=== PATIENT | female | born 1950 | race Caucasian/White ===

== ENCOUNTER 2017-04-28 13:23 | Observation (INO) | payer MEDICARE, SELFPAY ==
[2017-04-28] VITALS (8 sets, daily range): BP systolic 115–135; BP diastolic 48–62; PULSE 63–76; RESP 16–18; TEMP 37.2–37.7; O2SAT 92–97; BMI 28.5; BMI 28.6; BMI 29.0
--- NOTE | 2017-04-28 13:54 | ED.VISSUMM ---
- ER Visit Summary Date of Service: 04/28/17 Chief Complaint: Cough, vomiting and fever History of Present Illness: The patient is a 67 F 3 of ITP, insulin-dependent diabetes, CAD with prior triple bypass. Since Wednesday evening patient's had a cough and fever. Today at noon started having nausea vomiting. Primary care physician called her in [facility] yesterday. Physical Examination: Older female no acute distress. Vital signs are stable. Her temperature is 99.1. Her pulse ox is 97% on room air no signs of hypoxia. HEENT exam shows dry mucous membrane. Neck nontender no lymphadenopathy. No meningismus. Lungs dry cough but no rales, rhonchi nor wheezing. Equal and symmetrical. Heart regular rhythm no murmur. Abdomen is soft and nontender. Normal bowel sounds. No peritoneal signs. She is moving all 4 extremities. They are neurovascularly intact. Skin without rashes. No petechiae or purpura. Back exam nontender. Neurologically she is awake and alert with no focal motor deficits. Test Results: CBC shows a white count of 5. H&H 1442. Her platelet count is low at 55,000 but that is her baseline she is a history of ITP and her platelets often run between 40,000 to 70,000. PT is unremarkable. Chest x-ray AP and lateral views read by the radiologist as left lingular infiltrate. That is questionable on my own evaluation of the film. Emergency Department Course and Treatment: Patient clinically appears to have influenza. She will be treated with IV fluids and IV Zofran. P.o. fluid challenge. I will obtain screening labs and a chest x-ray. Treatment Plan: Patient was given a second liter of IV fluids. A second dose of Zofran. She still feels uncomfortable being discharged to home and I very spoken to the hospitalist about admission. Due to the possibility of an early lingular infiltrate she was started on both IV Rocephin and Zithromax. I spoke to the hospitalist will be down to evaluate her for possible admission. Disposition: admission Impression: Acute influenza with nausea and vomiting. Rule out post influenza infiltrate History of insulin-dependent diabetes. History of ITP This note was generated with [employer] software. It may contain incorrect words, spelling, and punctuation that were not noted in review of the chart prior to signing ED Disposition - Plan for ED Patient: Chief Complaint: General Illness Referrals: Gulshan Funes DO [Primary Care Provider] -
--- NOTE | 2017-04-28 13:57 | ED.DCSUM_ITS ---
- ER Visit Summary Date of Service: 04/28/17 Chief Complaint: Cough, vomiting and fever History of Present Illness: The patient is a 67 F 3 of ITP, insulin-dependent diabetes, CAD with prior triple bypass. Since Wednesday evening patient's had a cough and fever. Today at noon started having nausea vomiting. Primary care physician called her in [facility] yesterday. Physical Examination: Older female no acute distress. Vital signs are stable. Her temperature is 99.1. Her pulse ox is 97% on room air no signs of hypoxia. HEENT exam shows dry mucous membrane. Neck nontender no lymphadenopathy. No meningismus. Lungs dry cough but no rales, rhonchi nor wheezing. Equal and symmetrical. Heart regular rhythm no murmur. Abdomen is soft and nontender. Normal bowel sounds. No peritoneal signs. She is moving all 4 extremities. They are neurovascularly intact. Skin without rashes. No petechiae or purpura. Back exam nontender. Neurologically she is awake and alert with no focal motor deficits. Test Results: CBC shows a white count of 5. H&H 1442. Her platelet count is low at 55,000 but that is her baseline she is a history of ITP and her platelets often run between 40,000 to 70,000. PT is unremarkable. Chest x-ray AP and lateral views read by the radiologist as left lingular infiltrate. That is questionable on my own evaluation of the film. Emergency Department Course and Treatment: Patient clinically appears to have influenza. She will be treated with IV fluids and IV Zofran. P.o. fluid challenge. I will obtain screening labs and a chest x-ray. Treatment Plan: Patient was given a second liter of IV fluids. A second dose of Zofran. She still feels uncomfortable being discharged to home and I very spoken to the hospitalist about admission. Due to the possibility of an early lingular infiltrate she was started on both IV Rocephin and Zithromax. I spoke to the hospitalist will be down to evaluate her for possible admission. Disposition: admission Impression: Acute influenza with nausea and vomiting. Rule out post influenza infiltrate History of insulin-dependent diabetes. History of ITP This note was generated with [employer] software. It may contain incorrect words, spelling, and punctuation that were not noted in review of the chart prior to signing ED Disposition - Plan for ED Patient: Chief Complaint: General Illness Referrals: Gulshan Funes DO [Primary Care Provider] -
[2017-04-28] MEDS: 0.9% Normal Saline 1,000 ML 1000 ML IV (14:02)
[2017-04-28] MEDS: Ondansetron 4 MG/2 ML Vial IV ×2 (14:02→15:35)
--- NOTE | 2017-04-28 14:15 | RAD_ITS ---
STUDY: X-RAY CHEST REASON FOR EXAM: Female, 67 years old. Cough and fever. TECHNIQUE: PA and lateral views of the chest. COMPARISON: None. FINDINGS: Mild increased markings in the lingular segment of the left upper lobe suggestive of early lingular infiltrate. There is no demonstrated pleural abnormality. Sternal cerclage wires are present from a prior sternotomy. Normal mediastinum and jose miguel. Normal visualized pulmonary arteries. There is atherosclerotic calcification of the aortic arch with tortuosity. Normal visualized thoracic spine. Normal visualized ribs, clavicles, and shoulders. There is no demonstrated abnormality of the visualized soft tissue structures of the upper abdomen. RAD/Chest PA and Lateral IMPRESSION: Findings suggestive of early lingular infiltrates. Electronically Signed: Steve Son MD at 14:28 EST Tel [phone], Service support ,
[2017-04-28 14:16] LABS: Absolute Lymphocyte Count 0.75 X10^3/ul (0.83-4.51); Absolute Neutrophil Count 3.9 X10^3/uL (2.0-7.7); Basophil# 0.02 X10^3/uL; Basophil% 0.4 % (0-1); Eosinophil# 0.01 X10^3/uL; Eosinophils% 0.2 % (0-5); Hematocrit 42.9 % (37-47); Hemoglobin 14.2 g/dl (12.0-15.0); Lymphocyte # 0.75 X10^3/ul (4.0); Lymphocyte % 14.9 % (19-41); Mean Corp Hgb Conc 33.1 g/gl (32-36); Mean Corpuscular Hgb 28.9 pg (27.0-32.0); Mean Corpuscular Volume 87.2 fL (81-99); Mean Platelet Vol. 13.7 fl (6.2-12.0); Monocyte# 0.32 X10^3/uL; Monocyte% 6.3 % (0-10); Neutrophil # 3.93 X10^3/uL (2.7-7.7); Neutrophil % 77.8 % (47-70); POSITIVE COUNT NO; POSITIVE DIFFERENTIAL NO; POSITIVE MORPHOLOGY NO; Platelet Count 55 K/mm3 (150-450); RBC Distribution Width CV 13.2 % (11.6-14.6); Red Blood Count 4.92 M/mm3 (4.2-5.4); White Blood Count 5.1 K/mm3 (4.4-11.0)
[2017-04-28 14:27] LABS: Anion Gap 13 (5-15); BUN 14 mg/dL (7-18); BUN/Creat Ratio 13.5 RATIO (10-20); Calcium,Total 8.2 mg/dL (8.5-10.1); Chloride 103 mmol/L (98-107); Creatinine, Serum 1.04 mg/dL (0.55-1.02); EST Glomerular Filtration Rate 56 mL/min (>60); Est Glom Filt Rate - Afr Amer 68 mL/min (>60); Estimated Creatinine Clearance 48.47 ml/min; Glucose 209 mg/dL (74-106); Potassium 3.7 mmol/L (3.5-5.1); Sodium Level 138 mmol/L (136-145)
[2017-04-28] MEDS: 0.9% Normal Saline 1,000 ML 999 ML IV (15:35)
--- NOTE | 2017-04-28 18:04 | PCM.HP.STD ---
Problem List (1) CAD (coronary artery disease), [place] coronary artery Status: Chronic Qualifiers: [place] vs. 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 Patient is a 67 years old female who presents to ED with complaining of 3 days history of malaise, myalgia, fever, and cough. She was given Tamiflu via PCP, but she felt worse today. She is complaining of nausea and vomiting, and unable to keep any food or liquid today. Rapid influenza test was positive for influenza A. She received IVF in the ED along with antiemetics, but she is complaining of persisting nausea. CXR showed questionable area in lingula, suggestive of developing infiltrate. WBC was normal at 5.1. Temp was 99.8, but she was otherwise hemodynamically stable. Platelet was 55, which is within the range for her history of ITP. She has no sings of active bleeding. Past Medical History Past Medical History (Chronic Problems): Chronic Problems CAD (coronary artery disease), [place] coronary artery (Chronic) DM type 2 (diabetes mellitus, type 2) (Chronic) Chronic ITP (idiopathic thrombocytopenia) (Chronic) Allergies bee venom protein (honey bee) Allergy (Verified 04/28/17 17:21) Anaphylaxis ciprofloxacin [From Cipro] Allergy (Verified 04/28/17 13:27) Anaphylaxis ciprofloxacin HCl [From Cipro] Allergy (Verified 04/28/17 13:27) Anaphylaxis insect venom Allergy (Verified 04/28/17 13:27) Anaphylaxis pine nut Allergy (Verified 04/28/17 17:21) Anaphylaxis trazodone Allergy (Verified 04/28/17 13:27) Shortness of breath corn Adverse Reaction (Verified 04/28/17 13:27) Nausea/Vom/Diarrhea dandelion (Taraxacum officinale) Adverse Reaction (Verified 04/28/17 17:21) ASTHMA/SEASONAL ALLERGIES latex Adverse Reaction (Verified 04/28/17 17:21) RASH D/T POWDER IN GLOVES metoprolol Adverse Reaction (Verified 04/28/17 17:21) Nausea/Vom/Diarrhea omeprazole Adverse Reaction (Verified 04/28/17 13:27) Unknown wheat Adverse Reaction (Verified 04/28/17 17:21) NAUSEA,VOMITING,DIARRHEA Home Medications: Ambulatory Orders Medication Instructions Recorded Amlodipine/Valsartan 1 tab PO DAILY 02/13/15 [Amlodipine-Valsartan 5-160 mg] Metformin [Metformin HCl] 1,000 mg PO QHS 02/13/15 Metformin [Metformin HCl] 500 mg PO DAILY 02/13/15 Albuterol IH (ProAir) [Proair Hfa 1 puff INHALATION UD PRN 06/09/16 (SP)Vent Pts] Biotin 1 tab PO QODAY 06/09/16 Cetirizine HCl [Zyrtec] 10 mg PO DAILY PRN PRN 06/09/16 Epinephrine [Epi Pen (Jorge Luis)] 1 syr SQ UD 06/09/16 [place] 3 Fish Oil Softgel 1 tab PO QODAY 06/09/16 Blood Sugar Diagnostic [One Touch 6 - 8 each MC DAILY 07/29/16 Ultra Test Strips] Glucagon Emergency Kit 07/29/16 Insulin Glargine [Lantus SoloStar 16 units SQ DAILY 07/29/16 Pen] Magnesium Citrate 1.232 ml PO DAILY 07/29/16 Vitamin B Complex 0.5 each PO DAILY 07/29/16 Insulin Lispro [Humalog] See Protocol SQ TID MDD 6 times 01/19/17 daily as needed Iodine 2% Mild Tincture 3 drop PO DAILY 01/19/17 Cholecalciferol (Vitamin D3) 1,000 unit PO DAILY 04/28/17 [Vitamin D3] Insulin Glargine [Lantus SoloStar 4 - 5 units SQ QHS 04/28/17 Pen] Oseltamivir Phosphate [Tamiflu] 75 mg PO DAILY 04/28/17 Smoking Status: Never smoker - *Family History Maternal History Items: No pertinent history Review of Systems Comment: ROS: In general: +fever and chills. Decreased appetite. HEENT: Unremarkable. Patient denied of any dizziness, chronic headache, blurred vision, double vision, dry mouth, or nasal congestion. CV/respiratory: +dry cough. GI: nausea and vomiting. No diarrhea, hematochezia, or hematemesis. : Patient denied any significant urinary symptoms. Neurology: Unremarkable. There is no history of seizure as an adult. Psychological: Unremarkable. ?. Endocrine: Unremarkable. Musculoskeletal: Unremarkable. VTE Information - Inpt Only VTE Present on Admission: No VTE Mechan Device Prophylaxis: SCD's VTE Pharm Prophylaxis ordered?: No Reason prophylaxis not ordered:: Medical Contraindication - thrombocytopenia Patient Problems: Active and Suspected Problems Influenza A (Acute) Objective: In general, patient is a well-nourished and developed adult. HEENT: Head is atraumatic, and normocephalic. Pupils are equal, round, and reactive to light and accommodations. Neck is supple. There is no lymphadenopathy, or thyromegaly. Oral mucosa is pink, and moist. There are no lesions. Heart: Auscultation is normal with regular rhythm and rate. There is no extra heart sounds, or murmurs. S1 and S2 are present. Point of maximal impulse is not displaced. Lungs: Crackles at left mid to lower lung le. Abdomen: Abdominal wall is non-tender, and non-distended. There is no palpable mass or organomegaly. Normoactive bowel sounds are present. Extremities: There is no cyanosis or clubbing. Peripheral pulses are palpable. There is no edema. Skin: There are no any skin discoloration or lesions. Neurological: CN II - XII are intact. Sensory and motor functions are grossly normal with no obvious deficit. Cerebellar functions are within normal range. Gait was not tested. - Physical Exam Vital Signs Temp Pulse Resp BP Pulse Ox 99.8 F H 70 16 131/61 H 97 04/28/17 15:56 04/28/17 17:03 04/28/17 17:03 04/28/17 17:03 04/28/17 17:03 Laboratory Results - last 24 hr 04/28/17 04/28/17 14:05 14:05 WBC 5.1 RBC 4.92 Hgb 14.2 Hct 42.9 MCV 87.2 MCH 28.9 MCHC 33.1 RDW 13.2 RDW Differential 42.0 Plt Count 55 L MPV 13.7 H Immature Gran % (Auto) 0.400 Neut % (Auto) 77.8 H Lymph % (Auto) 14.9 L [place] % (Auto) 6.3 Eos % (Auto) 0.2 Baso % (Auto) 0.4 Absolute Neuts (auto) 3.9 Absolute Lymphs (auto) 0.75 L Total Counted Not Reportable Sodium 138 Potassium 3.7 Chloride 103 Carbon Dioxide 22.0 Anion Gap 13 BUN 14 Creatinine 1.04 H Estim Creat Clear Calc 48.47 Est GFR (MDRD) Af Amer 68 Est GFR (MDRD) Non-Af 56 L BUN/Creatinine Ratio 13.5 Glucose 209 H Calcium 8.2 L Diagnostic Data Chest X-Ray 04/28/17 14:15 IMPRESSION: Findings suggestive of early lingular infiltrates. Electronically Signed: Steve Son MD at 14:28 EST Tel [phone], Service support , Assessment/Plan Active and Suspected Problems Influenza A (Acute) Patient is a 67 years old female who presents to ED with complaining of 3 days history of malaise, myalgia, fever, and cough. She was given Tamiflu via PCP, but she felt worse today. She is complaining of nausea and vomiting, and unable to keep any food or liquid today. Rapid influenza test was positive for influenza A. She received IVF in the ED along with antiemetics, but she is complaining of persisting nausea. CXR showed questionable area in lingula, suggestive of developing infiltrate. WBC was normal at 5.1. Temp was 99.8, but she was otherwise hemodynamically stable. Platelet was 55, which is within the range for her history of ITP. She has no sings of active bleeding. #1 Influenza A. Continue Tamiflu. #2 Probable pneumonia. Left lingula infiltrate per imaging study. She received ceftriaxone and azithromycin. Continue empirically. Consider to repeat CXR. #3 Intractable nausea and vomiting with mild dehydration. IVF NS at 100 ml/hr. Antiemetic treatment with Zofran and Phenergan. Repeat BMP in AM. #4 ITP, chronic. Platelet 55. Repeat CBC in AM. #5 DM II. Hold oral hypoglycemic agent. Change Lantus to Levemir. VTE prophylaxis: SCD only for low platelets. GI prophylaxis: PPI po. Patient is full code. Disposition: home in 1 to 2 days. Code Visit OBSV E&M: 71460 Initial observation care L3
--- NOTE | 2017-04-28 18:17 | HP.PCM_ITS ---
Problem List (1) CAD (coronary artery disease), [place] coronary artery Status: Chronic Qualifiers: [place] vs. 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 Patient is a 67 years old female who presents to ED with complaining of 3 days history of malaise, myalgia, fever, and cough. She was given Tamiflu via PCP, but she felt worse today. She is complaining of nausea and vomiting, and unable to keep any food or liquid today. Rapid influenza test was positive for influenza A. She received IVF in the ED along with antiemetics, but she is complaining of persisting nausea. CXR showed questionable area in lingula, suggestive of developing infiltrate. WBC was normal at 5.1. Temp was 99.8, but she was otherwise hemodynamically stable. Platelet was 55, which is within the range for her history of ITP. She has no sings of active bleeding. Past Medical History Past Medical History (Chronic Problems): Chronic Problems CAD (coronary artery disease), [place] coronary artery (Chronic) DM type 2 (diabetes mellitus, type 2) (Chronic) Chronic ITP (idiopathic thrombocytopenia) (Chronic) Allergies bee venom protein (honey bee) Allergy (Verified 04/28/17 17:21) Anaphylaxis ciprofloxacin [From Cipro] Allergy (Verified 04/28/17 13:27) Anaphylaxis ciprofloxacin HCl [From Cipro] Allergy (Verified 04/28/17 13:27) Anaphylaxis insect venom Allergy (Verified 04/28/17 13:27) Anaphylaxis pine nut Allergy (Verified 04/28/17 17:21) Anaphylaxis trazodone Allergy (Verified 04/28/17 13:27) Shortness of breath corn Adverse Reaction (Verified 04/28/17 13:27) Nausea/Vom/Diarrhea dandelion (Taraxacum officinale) Adverse Reaction (Verified 04/28/17 17:21) ASTHMA/SEASONAL ALLERGIES latex Adverse Reaction (Verified 04/28/17 17:21) RASH D/T POWDER IN GLOVES metoprolol Adverse Reaction (Verified 04/28/17 17:21) Nausea/Vom/Diarrhea omeprazole Adverse Reaction (Verified 04/28/17 13:27) Unknown wheat Adverse Reaction (Verified 04/28/17 17:21) NAUSEA,VOMITING,DIARRHEA Home Medications: Ambulatory Orders Medication Instructions Recorded Amlodipine/Valsartan 1 tab PO DAILY 02/13/15 [Amlodipine-Valsartan 5-160 mg] Metformin [Metformin HCl] 1,000 mg PO QHS 02/13/15 Metformin [Metformin HCl] 500 mg PO DAILY 02/13/15 Albuterol IH (ProAir) [Proair Hfa 1 puff INHALATION UD PRN 06/09/16 (SP)Vent Pts] Biotin 1 tab PO QODAY 06/09/16 Cetirizine HCl [Zyrtec] 10 mg PO DAILY PRN PRN 06/09/16 Epinephrine [Epi Pen (Jorge Luis)] 1 syr SQ UD 06/09/16 [place] 3 Fish Oil Softgel 1 tab PO QODAY 06/09/16 Blood Sugar Diagnostic [One Touch 6 - 8 each MC DAILY 07/29/16 Ultra Test Strips] Glucagon Emergency Kit 07/29/16 Insulin Glargine [Lantus SoloStar 16 units SQ DAILY 07/29/16 Pen] Magnesium Citrate 1.232 ml PO DAILY 07/29/16 Vitamin B Complex 0.5 each PO DAILY 07/29/16 Insulin Lispro [Humalog] See Protocol SQ TID MDD 6 times 01/19/17 daily as needed Iodine 2% Mild Tincture 3 drop PO DAILY 01/19/17 Cholecalciferol (Vitamin D3) 1,000 unit PO DAILY 04/28/17 [Vitamin D3] Insulin Glargine [Lantus SoloStar 4 - 5 units SQ QHS 04/28/17 Pen] Oseltamivir Phosphate [Tamiflu] 75 mg PO DAILY 04/28/17 Smoking Status: Never smoker - *Family History Maternal History Items: No pertinent history Review of Systems Comment: ROS: In general: +fever and chills. Decreased appetite. HEENT: Unremarkable. Patient denied of any dizziness, chronic headache, blurred vision , double vision, dry mouth, or nasal congestion. CV/respiratory: +dry cough. GI: nausea and vomiting. No diarrhea, hematochezia, or hematemesis. : Patient denied any significant urinary symptoms. Neurology: Unremarkable. There is no history of seizure as an adult. Psychological: Unremarkable. ?. Endocrine: Unremarkable. Musculoskeletal: Unremarkable. VTE Information - Inpt Only VTE Present on Admission: No VTE Mechan Device Prophylaxis: SCD's VTE Pharm Prophylaxis ordered?: No Reason prophylaxis not ordered:: Medical Contraindication - thrombocytopenia Patient Problems: Active and Suspected Problems Influenza A (Acute) Objective: In general, patient is a well-nourished and developed adult. HEENT: Head is atraumatic, and normocephalic. Pupils are equal, round, and reactive to light and accommodations. Neck is supple. There is no lymphadenopathy, or thyromegaly. Oral mucosa is pink, and moist. There are no lesions. Heart: Auscultation is normal with regular rhythm and rate. There is no extra heart sounds, or murmurs. S1 and S2 are present. Point of maximal impulse is not displaced. Lungs: Crackles at left mid to lower lung le. Abdomen: Abdominal wall is non-tender, and non-distended. There is no palpable mass or organomegaly. Normoactive bowel sounds are present. Extremities: There is no cyanosis or clubbing. Peripheral pulses are palpable. There is no edema. Skin: There are no any skin discoloration or lesions. Neurological: CN II - XII are intact. Sensory and motor functions are grossly normal with no obvious deficit. Cerebellar functions are within normal range. Gait was not tested. - Physical Exam Vital Signs Temp Pulse Resp BP Pulse Ox 99.8 F H 70 16 131/61 H 97 04/28/17 15:56 04/28/17 17:03 04/28/17 17:03 04/28/17 17:03 04/28/17 17:03 Laboratory Results - last 24 hr 04/28/17 04/28/17 14:05 14:05 WBC 5.1 RBC 4.92 Hgb 14.2 Hct 42.9 MCV 87.2 MCH 28.9 MCHC 33.1 RDW 13.2 RDW Differential 42.0 Plt Count 55 L MPV 13.7 H Immature Gran % (Auto) 0.400 Neut % (Auto) 77.8 H Lymph % (Auto) 14.9 L [place] % (Auto) 6.3 Eos % (Auto) 0.2 Baso % (Auto) 0.4 Absolute Neuts (auto) 3.9 Absolute Lymphs (auto) 0.75 L Total Counted Not Reportable Sodium 138 Potassium 3.7 Chloride 103 Carbon Dioxide 22.0 Anion Gap 13 BUN 14 Creatinine 1.04 H Estim Creat Clear Calc 48.47 Est GFR (MDRD) Af Amer 68 Est GFR (MDRD) Non-Af 56 L BUN/Creatinine Ratio 13.5 Glucose 209 H Calcium 8.2 L Diagnostic Data Chest X-Ray 04/28/17 14:15 IMPRESSION: Findings suggestive of early lingular infiltrates. Electronically Signed: Steve Son MD at 14:28 EST Tel [phone], Service support , Assessment/Plan Active and Suspected Problems Influenza A (Acute) Patient is a 67 years old female who presents to ED with complaining of 3 days history of malaise, myalgia, fever, and cough. She was given Tamiflu via PCP, but she felt worse today. She is complaining of nausea and vomiting, and unable to keep any food or liquid today. Rapid influenza test was positive for influenza A. She received IVF in the ED along with antiemetics, but she is complaining of persisting nausea. CXR showed questionable area in lingula, suggestive of developing infiltrate. WBC was normal at 5.1. Temp was 99.8, but she was otherwise hemodynamically stable. Platelet was 55, which is within the range for her history of ITP. She has no sings of active bleeding. #1 Influenza A. Continue Tamiflu. #2 Probable pneumonia. Left lingula infiltrate per imaging study. She received ceftriaxone and azithromycin. Continue empirically. Consider to repeat CXR. #3 Intractable nausea and vomiting with mild dehydration. IVF NS at 100 ml/hr. Antiemetic treatment with Zofran and Phenergan. Repeat BMP in AM. #4 ITP, chronic. Platelet 55. Repeat CBC in AM. #5 DM II. Hold oral hypoglycemic agent. Change Lantus to Levemir. VTE prophylaxis: SCD only for low platelets. GI prophylaxis: PPI po. Patient is full code. Disposition: home in 1 to 2 days. Code Visit OBSV E&M: 17620 Initial observation care L3
[2017-04-28] MEDS: 0.9% Normal Saline 1,000 ML 100 ML IV (20:24)
--- NOTE | 2017-04-28 20:27 | NURSING ---
Patient states that because she has allergies to corn and wheat she will not take our medication from the hospital because alot of medications have corn in them. Per patient she normally takes her metformin at night time but since she has not been eating she will not take it tonight. Also patient states that last time she took her long acting insulin was on wednesday morning. Per patient she stated she took her BG earlier and it was 183, she does not want her long acting tonight. Patient education given about if shes takes her own medication from home that she notify the nurses what she is taking and how much. Will continue to monitor.
--- NOTE | 2017-04-28 22:10 | NURSING ---
Patient used own home glucometer to check HS BG, per patient her BG was 136 (check in front of this RN), patient refused HS levemir.
[2017-04-29] VITALS (8 sets, daily range): BP systolic 108–126; BP diastolic 54–72; PULSE 50–70; RESP 16–18; TEMP 36.9–37.7; O2SAT 92–98
[2017-04-29] MEDS: Ondansetron 4 MG/2 ML Vial IV (03:59)
[2017-04-29] MEDS: 0.9% Normal Saline 1,000 ML 100 ML IV (04:25)
[2017-04-29] MEDS: Acetaminophen 325 MG Tablet 650 MG PO (04:25)
[2017-04-29 06:49] LABS: Anion Gap 7 (5-15); BUN 13 mg/dL (7-18); BUN/Creat Ratio 14.2 RATIO (10-20); Calcium,Total 7.7 mg/dL (8.5-10.1); Chloride 109 mmol/L (98-107); Creatinine, Serum 0.91 mg/dL (0.55-1.02); EST Glomerular Filtration Rate 65 mL/min (>60); Est Glom Filt Rate - Afr Amer 79 mL/min (>60); Estimated Creatinine Clearance 55.39 ml/min; Glucose 141 mg/dL (74-106); Potassium 3.4 mmol/L (3.5-5.1); Sodium Level 140 mmol/L (136-145)
[2017-04-29 06:57] LABS: Absolute Lymphocyte Count 0.99 X10^3/ul (0.83-4.51); Absolute Neutrophil Count 1.9 X10^3/uL (2.0-7.7); Basophil# 0.01 X10^3/uL; Basophil% 0.3 % (0-1); Eosinophil# 0.01 X10^3/uL; Eosinophils% 0.3 % (0-5); Hematocrit 40.2 % (37-47); Lymphocyte # 0.99 X10^3/ul (4.0); Lymphocyte % 28.9 % (19-41); Mean Corp Hgb Conc 32.3 g/gl (32-36); Mean Corpuscular Hgb 28.8 pg (27.0-32.0); Mean Corpuscular Volume 88.9 fL (81-99); Mean Platelet Vol. 13.6 fl (6.2-12.0); Monocyte# 0.53 X10^3/uL; Monocyte% 15.5 % (0-10); Neutrophil # 1.87 X10^3/uL (2.7-7.7); Neutrophil % 54.4 % (47-70); Platelet Count 53 K/mm3 (150-450); RBC Distribution Width CV 13.2 % (11.6-14.6); RBC Distribution Width SD 42.8 fl (35.1-43.9); Red Blood Count 4.52 M/mm3 (4.2-5.4); White Blood Count 3.4 K/mm3 (4.4-11.0)
[2017-04-29 07:00] LABS: POSITIVE COUNT NO; POSITIVE DIFFERENTIAL NO; POSITIVE MORPHOLOGY NO
--- NOTE | 2017-04-29 08:01 | NURSING ---
Pt checked her own glucose, does not want staff to check it. She refuses to [facility] novolog, blood glucose this am per per, nurse viewed on her glucometer, is 136 now, and states she will not self administer any insulin at this time.
[2017-04-29] MEDS: Ceftriaxone 1 GM/50 ML BAG IV (09:51)
--- NOTE | 2017-04-29 10:48 | NURSING ---
Dr. Callejas notified heart was in 50's and dizzy, refused bp meds, not because of low bp, but she has allergies to corn and wheat, and does not know if these meds have wheat or corn. She also has been refusing for nursing to check blood sugars using our glucometer, but she checks it using her own, and her own insulin. Dr. Ragsdale said , thanks for letting me know, no other orders were given.
--- NOTE | 2017-04-29 10:50 | PCM.PN.HOSP ---
Patient Problems: Active and Suspected Problems Influenza A (Acute) Pneumococcal pneumonia (Acute) Subjective: Doing better but still short of breath and still very weak overall. Told by nursing that patient has been giving herself her own medications because of concerns that the patient has in regards to wheat products and corn products since being in the medications. Vitals/I&O's: Vital Signs Temp Pulse Resp BP Pulse Ox 37.1 C 50 L 16 108/54 L 95 04/29/17 08:52 04/29/17 08:52 04/29/17 08:52 04/29/17 08:52 04/29/17 08:52 Oxygen Flow Rate 2 Oxygen Delivery Method Nasal Cannula Weight: 81.556 kg Body Mass Index (BMI) 29.0 Intake and Output for Last 24 Hours 04/27/17 04/28/17 04/29/17 23:59 23:59 23:59 Intake Total 698 / 698 824 / 824 Balance 698 / 698 824 / 824 General: Alert, Cooperative, No apparent distress HEENT: Atraumatic, Normocephalic Neck: No Nodes, Thyroid Normal Size and Texture Lungs: Normal air movement, No rhonchi, No wheeze, - - Crackles left lower lobe Cardiovascular: Regular rate, Regular Rhythm, Normal S1, Normal S2, No murmurs Abdomen: Bowel Sounds Present, Soft, Non Tender, Non-Distended, No Hepato-splenomegaly Extremities: No edema, No Calf Tenderness Skin: No rashes, No breakdown Musculoskeletal: No Tenderness to Palpation of Joints or Extremities Psych/Mental Status: Appropriate, Flat Affect Laboratory Results 04/29/17 06:20: Sodium 140, Potassium 3.4 L, Chloride 109 H, Carbon Dioxide 24.0, Anion Gap 7, BUN 13, Creatinine 0.91, Estim Creat Clear Calc 55.39, Est GFR (MDRD) Af Amer 79, Est GFR (MDRD) Non-Af 65, BUN/Creatinine Ratio 14.2, Glucose 141 H, Calcium 7.7 L 04/29/17 06:20: WBC 3.4 L, RBC 4.52, Hgb 13.0, Hct 40.2, MCV 88.9, MCH 28.8, MCHC 32.3, RDW 13.2, RDW Differential 42.8, Plt Count 53 L, MPV 13.6 H, Immature Gran % (Auto) 0.600, Neut % (Auto) 54.4, Lymph % (Auto) 28.9, [place] % (Auto) 15.5 H, Eos % (Auto) 0.3, Baso % (Auto) 0.3, Absolute Neuts (auto) 1.9 L, Absolute Lymphs (auto) 0.99, Total Counted Not Reportable Current Medications Acetaminophen (Tylenol) 650 mg PO Q6H PRN PRN PRN Reason: pain Last Admin: 04/29/17 04:25 Dose: 650 mg Al Hydroxide/Mg Hydroxide (Mylanta Ii) 30 ml PO Q6H PRN PRN PRN Reason: Gastric burning Albuterol Sulfate (Ventolin Aerosols) 2.5 mg INHALATION Q4 PRN PRN Reason: SHORTNESS OF BREATH Amlodipine Besylate (Norvasc) 5 mg PO DAILY [facility] Last Admin: 04/29/17 09:04 Dose: Not Given Bisacodyl (Dulcolax) 5 mg PO DAILY PRN PRN PRN Reason: Constipation Dextrose (D50w Syringe) 0 gm IV X1 PRN; Protocol PRN Reason: Hypoglycemia Famotidine (Pepcid) 20 mg PO BID [facility] Last Admin: 04/29/17 09:06 Dose: Not Given Glucagon () 1 mg IM .X1 PRN PRN Reason: Hypoglycemia Sodium Chloride () 1,000 mls @ 100 mls/hr IV .Q10H [facility] Last Admin: 04/29/17 04:25 Dose: 100 mls/hr Azithromycin 500 mg/ Dextrose 255 mls @ 250 mls/hr IV Q24 [facility] Stop: 05/01/17 11:02 Last Admin: 04/29/17 10:41 Dose: 250 mls/hr Ceftriaxone Sodium (Rocephin) 1 gm in 50 mls @ 100 mls/hr IV Q24 [facility] Last Admin: 04/29/17 09:51 Dose: 100 mls/hr Insulin Aspart (Novolog Flexpen (Bkc)) 0 units SC TIDAC [facility] PRN Reason: Protocol Last Admin: 04/29/17 08:04 Dose: Not Given Insulin Detemir (Levemir (Bkc)) 15 units SC BREAKFAST [facility] Last Admin: 04/29/17 08:04 Dose: Not Given Insulin Detemir (Levemir (Bkc)) 5 units SC QHS [facility] Last Admin: 04/28/17 23:09 Dose: Not Given Magnesium Hydroxide (Milk Of Magnesia) 30 ml PO DAILY PRN PRN PRN Reason: Constipation Ondansetron HCl (Zofran) 4 mg IV Q6H PRN PRN PRN Reason: NAUSEA Last Admin: 04/29/17 03:59 Dose: 4 mg Oseltamivir Phosphate (Tamiflu) 75 mg PO DAILY [facility] Last Admin: 04/29/17 09:07 Dose: Not Given Promethazine HCl (Phenergan (Ll)) 12.5 mg IV Q6H PRN PRN PRN Reason: NAUSEA/VOMITING Sodium Chloride () 5 - 30 ml IV UD PRN PRN Reason: SALINE FLUSH Valsartan (Diovan) 160 mg PO DAILY [facility] Last Admin: 04/29/17 09:03 Dose: Not Given Zolpidem Tartrate (Ambien (Generic)) 5 mg PO QHS PRN PRN PRN Reason: INSOMNIA Assessment/Plan Active and Suspected Problems Influenza A (Acute) Pneumococcal pneumonia (Acute) 1. Presumed pneumococcal pneumonia Continue with Rocephin and azithromycin. check sputum culture, check antigens for Streptococcus and Legionella. Pulmonary toilet 2. Influenza A Currently on Tamiflu 3. DVT prophylaxis with SCDs. Code Visit Inpatient E&M: 87448 [facility] Hosp L2
--- NOTE | 2017-04-29 10:54 | PN_ITS ---
Patient Problems: Active and Suspected Problems Influenza A (Acute) Pneumococcal pneumonia (Acute) Subjective: Doing better but still short of breath and still very weak overall. Told by nursing that patient has been giving herself her own medications because of concerns that the patient has in regards to wheat products and corn products since being in the medications. Vitals/I&O's: Vital Signs Temp Pulse Resp BP Pulse Ox 37.1 C 50 L 16 108/54 L 95 04/29/17 08:52 04/29/17 08:52 04/29/17 08:52 04/29/17 08:52 04/29/17 08:52 Oxygen Flow Rate 2 Oxygen Delivery Method Nasal Cannula Weight: 81.556 kg Body Mass Index (BMI) 29.0 Intake and Output for Last 24 Hours 04/27/17 04/28/17 04/29/17 23:59 23:59 23:59 Intake Total 698 / 698 824 / 824 Balance 698 / 698 824 / 824 General: Alert, Cooperative, No apparent distress HEENT: Atraumatic, Normocephalic Neck: No Nodes, Thyroid Normal Size and Texture Lungs: Normal air movement, No rhonchi, No wheeze, - - Crackles left lower lobe Cardiovascular: Regular rate, Regular Rhythm, Normal S1, Normal S2, No murmurs Abdomen: Bowel Sounds Present, Soft, Non Tender, Non-Distended, No Hepato- splenomegaly Extremities: No edema, No Calf Tenderness Skin: No rashes, No breakdown Musculoskeletal: No Tenderness to Palpation of Joints or Extremities Psych/Mental Status: Appropriate, Flat Affect Laboratory Results 04/29/17 06:20: Sodium 140, Potassium 3.4 L, Chloride 109 H, Carbon Dioxide 24.0 , Anion Gap 7, BUN 13, Creatinine 0.91, Estim Creat Clear Calc 55.39, Est GFR ( MDRD) Af Amer 79, Est GFR (MDRD) Non-Af 65, BUN/Creatinine Ratio 14.2, Glucose 141 H, Calcium 7.7 L 04/29/17 06:20: WBC 3.4 L, RBC 4.52, Hgb 13.0, Hct 40.2, MCV 88.9, MCH 28.8, MCHC 32.3, RDW 13.2, RDW Differential 42.8, Plt Count 53 L, MPV 13.6 H, Immature Gran % (Auto) 0.600, Neut % (Auto) 54.4, Lymph % (Auto) 28.9, [place] % ( Auto) 15.5 H, Eos % (Auto) 0.3, Baso % (Auto) 0.3, Absolute Neuts (auto) 1.9 L, Absolute Lymphs (auto) 0.99, Total Counted Not Reportable Current Medications Acetaminophen (Tylenol) 650 mg PO Q6H PRN PRN PRN Reason: pain Last Admin: 04/29/17 04:25 Dose: 650 mg Al Hydroxide/Mg Hydroxide (Mylanta Ii) 30 ml PO Q6H PRN PRN PRN Reason: Gastric burning Albuterol Sulfate (Ventolin Aerosols) 2.5 mg INHALATION Q4 PRN PRN Reason: SHORTNESS OF BREATH Amlodipine Besylate (Norvasc) 5 mg PO DAILY [facility] Last Admin: 04/29/17 09:04 Dose: Not Given Bisacodyl (Dulcolax) 5 mg PO DAILY PRN PRN PRN Reason: Constipation Dextrose (D50w Syringe) 0 gm IV X1 PRN; Protocol PRN Reason: Hypoglycemia Famotidine (Pepcid) 20 mg PO BID [facility] Last Admin: 04/29/17 09:06 Dose: Not Given Glucagon () 1 mg IM .X1 PRN PRN Reason: Hypoglycemia Sodium Chloride () 1,000 mls @ 100 mls/hr IV .Q10H [facility] Last Admin: 04/29/17 04:25 Dose: 100 mls/hr Azithromycin 500 mg/ Dextrose 255 mls @ 250 mls/hr IV Q24 [facility] Stop: 05/01/17 11:02 Last Admin: 04/29/17 10:41 Dose: 250 mls/hr Ceftriaxone Sodium (Rocephin) 1 gm in 50 mls @ 100 mls/hr IV Q24 [facility] Last Admin: 04/29/17 09:51 Dose: 100 mls/hr Insulin Aspart (Novolog Flexpen (Bkc)) 0 units SC TIDAC [facility] PRN Reason: Protocol Last Admin: 04/29/17 08:04 Dose: Not Given Insulin Detemir (Levemir (Bkc)) 15 units SC BREAKFAST [facility] Last Admin: 04/29/17 08:04 Dose: Not Given Insulin Detemir (Levemir (Bkc)) 5 units SC QHS [facility] Last Admin: 04/28/17 23:09 Dose: Not Given Magnesium Hydroxide (Milk Of Magnesia) 30 ml PO DAILY PRN PRN PRN Reason: Constipation Ondansetron HCl (Zofran) 4 mg IV Q6H PRN PRN PRN Reason: NAUSEA Last Admin: 04/29/17 03:59 Dose: 4 mg Oseltamivir Phosphate (Tamiflu) 75 mg PO DAILY [facility] Last Admin: 04/29/17 09:07 Dose: Not Given Promethazine HCl (Phenergan (Ll)) 12.5 mg IV Q6H PRN PRN PRN Reason: NAUSEA/VOMITING Sodium Chloride () 5 - 30 ml IV UD PRN PRN Reason: SALINE FLUSH Valsartan (Diovan) 160 mg PO DAILY [facility] Last Admin: 04/29/17 09:03 Dose: Not Given Zolpidem Tartrate (Ambien (Generic)) 5 mg PO QHS PRN PRN PRN Reason: INSOMNIA Assessment/Plan Active and Suspected Problems Influenza A (Acute) Pneumococcal pneumonia (Acute) 1. Presumed pneumococcal pneumonia * Continue with Rocephin and azithromycin. * check sputum culture, check antigens for Streptococcus and Legionella. * Pulmonary toilet 2. Influenza A * Currently on Tamiflu 3. DVT prophylaxis with SCDs. Code Visit Inpatient E&M: 21292 Subs Hosp L2
--- NOTE | 2017-04-29 11:05 | NURSING ---
blood glucose 196, she self-administers her own insulin, humulog 4 units sq. sitting in recliner.
[2017-04-29] MEDS: Ipratropium/Albuterol Sulfate 3 ML AMPUL.NEB INHALATION (14:04)
--- NOTE | 2017-04-29 15:15 | NURSING ---
Blood glucose after lunch 164, no insulin administered by pt.
--- NOTE | 2017-04-29 16:03 | CHAPLAIN ---
Type of Pastoral Visit _x__ Initial Visit ___ Follow-up Visit ___ On-call Visit ___ General Patient Visit ___ Spiritual Assessment ___ Family Conference ___ Bereavement ___ Rapid Response ___ Code Blue ___ Other (describe below) Pastoral Care Referral From _x__ Patient ___ Family ___ Nurse ___ Physician ___ Volunteer Recruiter ___ National Park Tour Guide ___ Other (describe below) Sacrament/Intervention _x__ Active listening ___ Anointing ___ Hinduism ___ Bereavement ___ Communion ___ Mariela exploration ___ _x_ Life review _x__ Prayer ___ Reconciliation ___ Sacrament of Sick ___ Supportive presence ___ Wedding ___ Other (describe below) Pastoral Comments 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
--- NOTE | 2017-04-29 21:03 | NURSING ---
Patient checked her own glucose level, she stated it was 88, patient ate a 1/2 of a banana. Per patient she will recheck her BG level at 10:30pm. Will continue to monitor.
--- NOTE | 2017-04-29 22:38 | NURSING ---
Patient stated that her blood glucose recheck was 104, per patient she then drank her apple juice. No other voiced at this time.
[2017-04-30 03:35] VITALS: BP 107/55; PULSE 49; RESP 18; TEMP 37.6; O2SAT 96
[2017-04-30 05:56] LABS: Basophil# 0.03 X10^3/uL; Basophil% 0.8 % (0-1); Eosinophil# 0.06 X10^3/uL; Eosinophils% 1.6 % (0-5); Hematocrit 41.2 % (37-47); Hemoglobin 13.7 g/dl (12.0-15.0); Lymphocyte % 32.5 % (19-41); Mean Corp Hgb Conc 33.3 g/gl (32-36); Mean Corpuscular Volume 87.3 fL (81-99); Mean Platelet Vol. 12.9 fl (6.2-12.0); Monocyte# 0.42 X10^3/uL; Monocyte% 11.4 % (0-10); Neutrophil # 1.97 X10^3/uL (2.7-7.7); Neutrophil % 53.4 % (47-70); Platelet Count 93 K/mm3 (150-450); RBC Distribution Width CV 13.2 % (11.6-14.6); RBC Distribution Width SD 41.3 fl (35.1-43.9); Red Blood Count 4.72 M/mm3 (4.2-5.4); White Blood Count 3.7 K/mm3 (4.4-11.0)
[2017-04-30 06:07] LABS: POSITIVE COUNT NO; POSITIVE DIFFERENTIAL NO; POSITIVE MORPHOLOGY NO
[2017-04-30 06:11] LABS: Anion Gap 9 (5-15); BUN 13 mg/dL (7-18); BUN/Creat Ratio 14.3 RATIO (10-20); Calcium,Total 7.9 mg/dL (8.5-10.1); Chloride 104 mmol/L (98-107); Creatinine, Serum 0.91 mg/dL (0.55-1.02); EST Glomerular Filtration Rate 66 mL/min (>60); Est Glom Filt Rate - Afr Amer 79 mL/min (>60); Estimated Creatinine Clearance 55.39 ml/min; Glucose 119 mg/dL (74-106); Potassium 3.6 mmol/L (3.5-5.1); Sodium Level 137 mmol/L (136-145)
[2017-04-30 08:26] VITALS: PULSE 60
[2017-04-30 08:48] VITALS: O2SAT 95
--- NOTE | 2017-04-30 10:22 | PCM.PN.HOSP ---
Patient Problems: Active and Suspected Problems Pneumococcal pneumonia (Acute) Influenza A (Acute) Subjective: Feeling better overall. No shortness of breath. No dyspnea on exertion. Vitals/I&O's: Vital Signs Temp Pulse Resp BP Pulse Ox 37.6 C H 60 18 107/55 L 95 04/30/17 03:35 04/30/17 08:26 04/30/17 03:35 04/30/17 03:35 04/30/17 08:48 Oxygen Flow Rate 2 Oxygen Delivery Method Nasal Cannula Weight: 81.556 kg Body Mass Index (BMI) 29.0 Intake and Output for Last 24 Hours 04/28/17 04/29/17 04/30/17 23:59 23:59 23:59 Intake Total 698 / 698 2869 / 2869 120 / 120 Output Total 300 / 300 300 / 300 Balance 698 / 698 2569 / 2569 -180 / -180 General: Alert, Cooperative, No apparent distress HEENT: Atraumatic, Normocephalic Neck: No Nodes, Thyroid Normal Size and Texture Lungs: Clear to auscultation, Normal air movement, No rhonchi, No wheeze Cardiovascular: Regular rate, Regular Rhythm, Normal S1, Normal S2 Abdomen: Bowel Sounds Present, Soft, Non Tender, Non-Distended, No Hepato-splenomegaly Extremities: No edema, No Calf Tenderness Psych/Mental Status: Normal Affect, Appropriate Microbiology Past 72 Hours 04/29/17 14:00 Urine, Clean Catch Legionella Antigen - Final 04/29/17 14:00 Urine, Clean Catch Streptococcus pneumoniae Antigen (M - Final Laboratory Results 04/30/17 05:20: Sodium 137, Potassium 3.6, Chloride 104, Carbon Dioxide 24.0, Anion Gap 9, BUN 13, Creatinine 0.91, Estim Creat Clear Calc 55.39, Est GFR (MDRD) Af Amer 79, Est GFR (MDRD) Non-Af 66, BUN/Creatinine Ratio 14.3, Glucose 119 H, Calcium 7.9 L 04/30/17 05:20: WBC 3.7 L, RBC 4.72, Hgb 13.7, Hct 41.2, MCV 87.3, MCH 29.0, MCHC 33.3, RDW 13.2, RDW Differential 41.3, Plt Count 93 L, MPV 12.9 H, Immature Gran % (Auto) 0.300, Neut % (Auto) 53.4, Lymph % (Auto) 32.5, [place] % (Auto) 11.4 H, Eos % (Auto) 1.6, Baso % (Auto) 0.8, Absolute Neuts (auto) 2.0, Absolute Lymphs (auto) 1.20, Total Counted Not Reportable Current Medications Acetaminophen (Tylenol) 650 mg PO Q6H PRN PRN PRN Reason: pain Last Admin: 04/29/17 04:25 Dose: 650 mg Al Hydroxide/Mg Hydroxide (Mylanta Ii) 30 ml PO Q6H PRN PRN PRN Reason: Gastric burning Albuterol Sulfate (Ventolin Aerosols) 2.5 mg INHALATION Q4 PRN PRN Reason: SHORTNESS OF BREATH Albuterol/Ipratropium (Duoneb) 3 ml INHALATION Q4HWA.RT [facility] Last Admin: 04/30/17 07:12 Dose: Not Given Amlodipine Besylate (Norvasc) 5 mg PO DAILY [facility] Last Admin: 04/29/17 09:04 Dose: Not Given Bisacodyl (Dulcolax) 5 mg PO DAILY PRN PRN PRN Reason: Constipation Dextrose (D50w Syringe) 0 gm IV X1 PRN; Protocol PRN Reason: Hypoglycemia Famotidine (Pepcid) 20 mg PO BID [facility] Last Admin: 04/29/17 21:04 Dose: Not Given Glucagon () 1 mg IM .X1 PRN PRN Reason: Hypoglycemia Azithromycin 500 mg/ Dextrose 255 mls @ 250 mls/hr IV Q24 [facility] Stop: 05/01/17 11:02 Last Admin: 04/29/17 10:41 Dose: 250 mls/hr Ceftriaxone Sodium (Rocephin) 1 gm in 50 mls @ 100 mls/hr IV Q24 [facility] Last Admin: 04/29/17 09:51 Dose: 100 mls/hr Insulin Aspart (Novolog Flexpen (Bkc)) 0 units SC TIDAC [facility] PRN Reason: Protocol Last Admin: 04/30/17 08:21 Dose: Not Given Insulin Detemir (Levemir (Bkc)) 15 units SC BREAKFAST [facility] Last Admin: 04/30/17 08:23 Dose: Not Given Insulin Detemir (Levemir (Bkc)) 5 units SC QHS [facility] Last Admin: 04/29/17 21:04 Dose: Not Given Magnesium Hydroxide (Milk Of Magnesia) 30 ml PO DAILY PRN PRN PRN Reason: Constipation Ondansetron HCl (Zofran) 4 mg IV Q6H PRN PRN PRN Reason: NAUSEA Last Admin: 04/29/17 03:59 Dose: 4 mg Oseltamivir Phosphate (Tamiflu) 75 mg PO DAILY [facility] Last Admin: 04/29/17 09:07 Dose: Not Given Promethazine HCl (Phenergan (Ll)) 12.5 mg IV Q6H PRN PRN PRN Reason: NAUSEA/VOMITING Sodium Chloride () 5 - 30 ml IV UD PRN PRN Reason: SALINE FLUSH Valsartan (Diovan) 160 mg PO DAILY [facility] Last Admin: 04/29/17 09:03 Dose: Not Given Zolpidem Tartrate (Ambien (Generic)) 5 mg PO QHS PRN PRN PRN Reason: INSOMNIA Assessment/Plan Active and Suspected Problems Pneumococcal pneumonia (Acute) Influenza A (Acute) 1. Presumed pneumococcal pneumonia Would discharge with Keflex and azithromycin for 5 more days. Urinary antigens negative for Streptococcus and Legionella. Pulmonary toilet 2. Influenza A Declining Tamiflu as a cause her to have nausea and vomiting, in her opinion. 3. DVT prophylaxis with SCDs. Check an ambulatory pulse ox. Discharged home.
[2017-04-30 10:25] VITALS: BP 127/56; PULSE 50; RESP 18; TEMP 37.2; O2SAT 96
--- NOTE | 2017-04-30 10:25 | PN_ITS ---
Patient Problems: Active and Suspected Problems Pneumococcal pneumonia (Acute) Influenza A (Acute) Subjective: Feeling better overall. No shortness of breath. No dyspnea on exertion. Vitals/I&O's: Vital Signs Temp Pulse Resp BP Pulse Ox 37.6 C H 60 18 107/55 L 95 04/30/17 03:35 04/30/17 08:26 04/30/17 03:35 04/30/17 03:35 04/30/17 08:48 Oxygen Flow Rate 2 Oxygen Delivery Method Nasal Cannula Weight: 81.556 kg Body Mass Index (BMI) 29.0 Intake and Output for Last 24 Hours 04/28/17 04/29/17 04/30/17 23:59 23:59 23:59 Intake Total 698 / 698 2869 / 2869 120 / 120 Output Total 300 / 300 300 / 300 Balance 698 / 698 2569 / 2569 -180 / -180 General: Alert, Cooperative, No apparent distress HEENT: Atraumatic, Normocephalic Neck: No Nodes, Thyroid Normal Size and Texture Lungs: Clear to auscultation, Normal air movement, No rhonchi, No wheeze Cardiovascular: Regular rate, Regular Rhythm, Normal S1, Normal S2 Abdomen: Bowel Sounds Present, Soft, Non Tender, Non-Distended, No Hepato- splenomegaly Extremities: No edema, No Calf Tenderness Psych/Mental Status: Normal Affect, Appropriate Microbiology Past 72 Hours 04/29/17 14:00 Urine, Clean Catch Legionella Antigen - Final 04/29/17 14:00 Urine, Clean Catch Streptococcus pneumoniae Antigen (M - Final Laboratory Results 04/30/17 05:20: Sodium 137, Potassium 3.6, Chloride 104, Carbon Dioxide 24.0, Anion Gap 9, BUN 13, Creatinine 0.91, Estim Creat Clear Calc 55.39, Est GFR ( MDRD) Af Amer 79, Est GFR (MDRD) Non-Af 66, BUN/Creatinine Ratio 14.3, Glucose 119 H, Calcium 7.9 L 04/30/17 05:20: WBC 3.7 L, RBC 4.72, Hgb 13.7, Hct 41.2, MCV 87.3, MCH 29.0, MCHC 33.3, RDW 13.2, RDW Differential 41.3, Plt Count 93 L, MPV 12.9 H, Immature Gran % (Auto) 0.300, Neut % (Auto) 53.4, Lymph % (Auto) 32.5, [place] % ( Auto) 11.4 H, Eos % (Auto) 1.6, Baso % (Auto) 0.8, Absolute Neuts (auto) 2.0, Absolute Lymphs (auto) 1.20, Total Counted Not Reportable Current Medications Acetaminophen (Tylenol) 650 mg PO Q6H PRN PRN PRN Reason: pain Last Admin: 04/29/17 04:25 Dose: 650 mg Al Hydroxide/Mg Hydroxide (Mylanta Ii) 30 ml PO Q6H PRN PRN PRN Reason: Gastric burning Albuterol Sulfate (Ventolin Aerosols) 2.5 mg INHALATION Q4 PRN PRN Reason: SHORTNESS OF BREATH Albuterol/Ipratropium (Duoneb) 3 ml INHALATION Q4HWA.RT [facility] Last Admin: 04/30/17 07:12 Dose: Not Given Amlodipine Besylate (Norvasc) 5 mg PO DAILY [facility] Last Admin: 04/29/17 09:04 Dose: Not Given Bisacodyl (Dulcolax) 5 mg PO DAILY PRN PRN PRN Reason: Constipation Dextrose (D50w Syringe) 0 gm IV X1 PRN; Protocol PRN Reason: Hypoglycemia Famotidine (Pepcid) 20 mg PO BID [facility] Last Admin: 04/29/17 21:04 Dose: Not Given Glucagon () 1 mg IM .X1 PRN PRN Reason: Hypoglycemia Azithromycin 500 mg/ Dextrose 255 mls @ 250 mls/hr IV Q24 [facility] Stop: 05/01/17 11:02 Last Admin: 04/29/17 10:41 Dose: 250 mls/hr Ceftriaxone Sodium (Rocephin) 1 gm in 50 mls @ 100 mls/hr IV Q24 [facility] Last Admin: 04/29/17 09:51 Dose: 100 mls/hr Insulin Aspart (Novolog Flexpen (Bkc)) 0 units SC TIDAC [facility] PRN Reason: Protocol Last Admin: 04/30/17 08:21 Dose: Not Given Insulin Detemir (Levemir (Bkc)) 15 units SC BREAKFAST [facility] Last Admin: 04/30/17 08:23 Dose: Not Given Insulin Detemir (Levemir (Bkc)) 5 units SC QHS [facility] Last Admin: 04/29/17 21:04 Dose: Not Given Magnesium Hydroxide (Milk Of Magnesia) 30 ml PO DAILY PRN PRN PRN Reason: Constipation Ondansetron HCl (Zofran) 4 mg IV Q6H PRN PRN PRN Reason: NAUSEA Last Admin: 04/29/17 03:59 Dose: 4 mg Oseltamivir Phosphate (Tamiflu) 75 mg PO DAILY [facility] Last Admin: 04/29/17 09:07 Dose: Not Given Promethazine HCl (Phenergan (Ll)) 12.5 mg IV Q6H PRN PRN PRN Reason: NAUSEA/VOMITING Sodium Chloride () 5 - 30 ml IV UD PRN PRN Reason: SALINE FLUSH Valsartan (Diovan) 160 mg PO DAILY [facility] Last Admin: 04/29/17 09:03 Dose: Not Given Zolpidem Tartrate (Ambien (Generic)) 5 mg PO QHS PRN PRN PRN Reason: INSOMNIA Assessment/Plan Active and Suspected Problems Pneumococcal pneumonia (Acute) Influenza A (Acute) 1. Presumed pneumococcal pneumonia * Would discharge with Keflex and azithromycin for 5 more days. * Urinary antigens negative for Streptococcus and Legionella. * Pulmonary toilet 2. Influenza A * Declining Tamiflu as a cause her to have nausea and vomiting, in her opinion. 3. DVT prophylaxis with SCDs. Check an ambulatory pulse ox. Discharged home.
[2017-04-30] MEDS: 0.9% NaCl Peripheral Flush Adult/Peds IV (10:28)
[2017-04-30] MEDS: Ceftriaxone 1 GM/50 ML BAG IV (10:28)
--- NOTE | 2017-04-30 10:32 | PCM.DC ---
- Discharge Diagnoses Current Active Problems: Current Active and Chronic Problems Pneumococcal pneumonia (Acute) CAD (coronary artery disease), [place] coronary artery (Chronic) DM type 2 (diabetes mellitus, type 2) (Chronic) Influenza A (Acute) You will use the following diet at home:: Calorie/Carbohydrate Controlled (specify 1200, 1400, etc) - 1800 kcal/day Your food should be the consistency of: Regular Your liquids should be the consistency of: Regular/Thin Discharge Activity: Return to Normal Activity Call your doctor if you observe: Fever of 101 or Higher, Shortness of breath Allergies/Adverse Reactions: Allergies bee venom protein (honey bee) Allergy (Verified 04/28/17 17:21) Anaphylaxis ciprofloxacin [From Cipro] Allergy (Verified 04/28/17 13:27) Anaphylaxis ciprofloxacin HCl [From Cipro] Allergy (Verified 04/28/17 13:27) Anaphylaxis insect venom Allergy (Verified 04/28/17 13:27) Anaphylaxis pine nut Allergy (Verified 04/28/17 17:21) Anaphylaxis trazodone Allergy (Verified 04/28/17 13:27) Shortness of breath corn Adverse Reaction (Verified 04/28/17 13:27) Nausea/Vom/Diarrhea dandelion (Taraxacum officinale) Adverse Reaction (Verified 04/28/17 17:21) ASTHMA/SEASONAL ALLERGIES latex Adverse Reaction (Verified 04/28/17 17:21) RASH D/T POWDER IN GLOVES metoprolol Adverse Reaction (Verified 04/28/17 17:21) Nausea/Vom/Diarrhea omeprazole Adverse Reaction (Verified 04/28/17 13:27) Unknown wheat Adverse Reaction (Verified 04/28/17 17:21) NAUSEA,VOMITING,DIARRHEA Medications to take at Discharge Amlodipine/Valsartan [Amlodipine-Valsartan 5-160 mg] 1 tab PO DAILY 02/13/15 Metformin [Metformin HCl] 1,000 mg PO QHS 02/13/15 Metformin [Metformin HCl] 500 mg PO DAILY 02/13/15 Albuterol IH (ProAir) [Proair Hfa] 1 puff INHALATION UD PRN 06/09/16 Biotin 1 tab PO QODAY 06/09/16 Cetirizine HCl [Zyrtec] 10 mg PO DAILY PRN PRN 06/09/16 Epinephrine [Epi Pen (Jorge Luis)] 1 syr SQ UD 06/09/16 [place] 3 Fish Oil Softgel 1 tab PO QODAY 06/09/16 Blood Sugar Diagnostic [Onetouch Ultra Test Strips] 6 - 8 each MC DAILY 07/29/16 Glucagon Emergency Kit 07/29/16 Insulin Glargine [Lantus SoloStar Pen] 16 units SQ DAILY 07/29/16 Magnesium Citrate 1.232 ml PO DAILY 07/29/16 Vitamin B Complex 0.5 each PO DAILY 07/29/16 Insulin Lispro [Humalog] See Protocol SQ TID MDD 6 times daily as needed 01/19/17 Iodine 2% Mild Tincture 3 drop PO DAILY 01/19/17 Cholecalciferol (Vitamin D3) [Vitamin D3] 1,000 unit PO DAILY 04/28/17 Insulin Glargine [Lantus SoloStar Pen] 4 - 5 units SQ QHS 04/28/17 Azithromycin 500 mg PO DAILY #5 tab 04/30/17 Cephalexin [Keflex] 500 mg PO Q8 #15 cap 04/30/17 The following prescriptions were given: Azithromycin 500 mg PO DAILY #5 tab Cephalexin [Keflex] 500 mg PO Q8 #15 cap Primary Care Physician: Gulshan Funes DO [Primary Care Provider] - Within 2 Weeks Proposed Discharge Date: 04/30/17
--- NOTE | 2017-04-30 10:34 | PCM.DC.SUM ---
Discharge Date and Diagnosis - Problem List Patient Problems: Active and Suspected Problems Pneumococcal pneumonia (Acute) Influenza A (Acute) Date of Admission: 04/28/17 Date of Discharge: 04/30/17 - Primary Discharge Diagnosis Active and Suspected Problems Pneumococcal pneumonia (Acute) Influenza A (Acute) - Secondary Discharge Diagnosis Chronic Problems CAD (coronary artery disease), [place] coronary artery (Chronic) DM type 2 (diabetes mellitus, type 2) (Chronic) Chronic ITP (idiopathic thrombocytopenia) (Chronic) Hospital Course and Treatment Imaging Results: Clinical Impression(s) from Imaging Studies Chest X-Ray 04/28/17 14:15 IMPRESSION: Findings suggestive of early lingular infiltrates. Electronically Signed: Steve Son MD at 14:28 EST Tel [phone], Service support , Operations: None Procedures: None Summary of Care Provided: The patient is a 67 year old F who was recently diagnosed with influenza. Patient was on Tamiflu but then started experiencing nausea and vomiting. Patient presented to the emergency room and was noted to have a possible left lingular infiltrate. Pt was started on rocephin and azithromycin. Overall, improving. Will discharge with keflex and azithromycin. Will check an ambulatory pulse ox prior to discharge to see if she needs oxygen on discharge,but is currently doing fine without it.[] Discharge Diet: 1800 Calorie Control Diet Discharge Activity: Return to Normal Activity Call your doctor if you observe: Fever of 101 or Higher, Shortness of breath Home Medications: Medications to take at Discharge Amlodipine/Valsartan [Amlodipine-Valsartan 5-160 mg] 1 tab PO DAILY 02/13/15 Metformin [Metformin HCl] 1,000 mg PO QHS 02/13/15 Metformin [Metformin HCl] 500 mg PO DAILY 02/13/15 Albuterol IH (ProAir) [Proair Hfa] 1 puff INHALATION UD PRN 06/09/16 Biotin 1 tab PO QODAY 06/09/16 Cetirizine HCl [Zyrtec] 10 mg PO DAILY PRN PRN 06/09/16 Epinephrine [Epi Pen (Jorge Luis)] 1 syr SQ UD 06/09/16 [place] 3 Fish Oil Softgel 1 tab PO QODAY 06/09/16 Blood Sugar Diagnostic [[place] Ultra Test Strips] 6 - 8 each MC DAILY 07/29/16 Glucagon Emergency Kit 07/29/16 Insulin Glargine [Lantus SoloStar Pen] 16 units SQ DAILY 07/29/16 Magnesium Citrate 1.232 ml PO DAILY 07/29/16 Vitamin B Complex 0.5 each PO DAILY 07/29/16 Insulin Lispro [Humalog] See Protocol SQ TID MDD 6 times daily as needed 01/19/17 Iodine 2% Mild Tincture 3 drop PO DAILY 01/19/17 Cholecalciferol (Vitamin D3) [Vitamin D3] 1,000 unit PO DAILY 04/28/17 Insulin Glargine [Lantus SoloStar Pen] 4 - 5 units SQ QHS 04/28/17 Azithromycin 500 mg PO DAILY #5 tab 04/30/17 Cephalexin [Keflex] 500 mg PO Q8 #15 cap 04/30/17 Following Prescrptions Were Given to Patient: Azithromycin 500 mg PO DAILY #5 tab Cephalexin [Keflex] 500 mg PO Q8 #15 cap Primary Care Physician: Gulshan Funes DO [Primary Care Provider] - Within 2 Weeks Disposition: Home Minutes spent on discharge:: 32 Patient Condition:: Fair Meaningful Use Info Meaningful Use Diagnoses (Choose all that apply): None applicable Code Visit Inpatient E&M: 68328 Disch Hosp
--- NOTE | 2017-04-30 10:38 | DS.PCM_ITS ---
Discharge Date and Diagnosis - Problem List Patient Problems: Active and Suspected Problems Pneumococcal pneumonia (Acute) Influenza A (Acute) Date of Admission: 04/28/17 Date of Discharge: 04/30/17 - Primary Discharge Diagnosis Active and Suspected Problems Pneumococcal pneumonia (Acute) Influenza A (Acute) - Secondary Discharge Diagnosis Chronic Problems CAD (coronary artery disease), [place] coronary artery (Chronic) DM type 2 (diabetes mellitus, type 2) (Chronic) Chronic ITP (idiopathic thrombocytopenia) (Chronic) Hospital Course and Treatment Imaging Results: Clinical Impression(s) from Imaging Studies Chest X-Ray 04/28/17 14:15 IMPRESSION: Findings suggestive of early lingular infiltrates. Electronically Signed: Steve Son MD at 14:28 EST Tel [phone], Service support , Operations: None Procedures: None Summary of Care Provided: The patient is a 67 year old F who was recently diagnosed with influenza. Patient was on Tamiflu but then started experiencing nausea and vomiting. Patient presented to the emergency room and was noted to have a possible left lingular infiltrate. Pt was started on rocephin and azithromycin. Overall, improving. Will discharge with keflex and azithromycin. Will check an ambulatory pulse ox prior to discharge to see if she needs oxygen on discharge, but is currently doing fine without it.[] Discharge Diet: 1800 Calorie Control Diet Discharge Activity: Return to Normal Activity Call your doctor if you observe: Fever of 101 or Higher, Shortness of breath Home Medications: Medications to take at Discharge Amlodipine/Valsartan [Amlodipine-Valsartan 5-160 mg] 1 tab PO DAILY 02/13/15 Metformin [Metformin HCl] 1,000 mg PO QHS 02/13/15 Metformin [Metformin HCl] 500 mg PO DAILY 02/13/15 Albuterol IH (ProAir) [Proair Hfa] 1 puff INHALATION UD PRN 06/09/16 Biotin 1 tab PO QODAY 06/09/16 Cetirizine HCl [Zyrtec] 10 mg PO DAILY PRN PRN 06/09/16 Epinephrine [Epi Pen (Jorge Luis)] 1 syr SQ UD 06/09/16 [place] 3 Fish Oil Softgel 1 tab PO QODAY 06/09/16 Blood Sugar Diagnostic [[place] Ultra Test Strips] 6 - 8 each MC DAILY Glucagon Emergency Kit 07/29/16 Insulin Glargine [Lantus SoloStar Pen] 16 units SQ DAILY 07/29/16 Magnesium Citrate 1.232 ml PO DAILY 07/29/16 Vitamin B Complex 0.5 each PO DAILY 07/29/16 Insulin Lispro [Humalog] See Protocol SQ TID MDD 6 times daily as needed Iodine 2% Mild Tincture 3 drop PO DAILY 01/19/17 Cholecalciferol (Vitamin D3) [Vitamin D3] 1,000 unit PO DAILY 04/28/17 Insulin Glargine [Lantus SoloStar Pen] 4 - 5 units SQ QHS 04/28/17 Azithromycin 500 mg PO DAILY #5 tab 04/30/17 Cephalexin [Keflex] 500 mg PO Q8 #15 cap 04/30/17 Following Prescrptions Were Given to Patient: Azithromycin 500 mg PO DAILY #5 tab Cephalexin [Keflex] 500 mg PO Q8 #15 cap Primary Care Physician: Gulshan Funes DO [Primary Care Provider] - Within 2 Weeks Disposition: Home Minutes spent on discharge:: 32 Patient Condition:: Fair Meaningful Use Info Meaningful Use Diagnoses (Choose all that apply): None applicable Code Visit Inpatient E&M: 91594 Disch Hosp
--- NOTE | 2017-04-30 10:49 | NURSING ---
At 0900 pt states she took 500 mg of metformin of her own, she checked blood sugar at 1035 it was 167, and said she would not administer any insulin at this time.
[2017-04-30 11:27] VITALS: O2SAT 93
--- NOTE | 2017-04-30 11:42 | CASEMGMT ---
ROCIO CM review Medicare Outpatient Observation Notice with patient. Patient voiced understanding and signed notice. Copy of notice provided to patient as well as Medicare inpatient vs outpatient information packet. Original filed in chart.
--- NOTE | 2017-04-30 12:55 | NURSING ---
1200 blood glucose check by pt: 144, no coverage given given by pt or nurse.
--- NOTE | 2017-04-30 14:44 | NURSING ---
2459 Dr. Callejas texted informed received a little less than half of the zithromax, c/o burning at site and wanted it discontinued, and it made her feel funny. He said she can be discharged.
[2017-04-30 14:45] VITALS: BP 117/61; PULSE 50; RESP 16; TEMP 37.1; O2SAT 94
== END 2017-04-30 16:02 | disposition home or self-care (01) ==
LOC: ED 15:29 → MS3 17:42
PROVIDERS: Admitting Provider Hospitalist; Emergency Provider Emergency Medicine; Family Provider Family Medicine; PCP Family Medicine
DX: J10.08 Influenza due to other identified influenza virus with other specified pneumonia (principal); J13 Pneumonia due to Streptococcus pneumoniae; E86.0 Dehydration; I25.10 Atherosclerotic heart disease of native coronary artery without angina pectoris; E11.9 Type 2 diabetes mellitus without complications; D69.3 Immune thrombocytopenic purpura; Z79.899 Other long term (current) drug therapy; Z79.4 Long term (current) use of insulin
CPT/HCPCS: 36415; 71046; 80048; 85025; 87449; 87804; 94640; 96361; 96365; 96366; 96367; 96375; 96376; 97116; 97162; 97165; 99218; 99251; 99282; J7030; A4216; G0378; G0463; J0696; J2405

== ENCOUNTER → 2017-09-07 14:55 | Outpatient (CLI) | payer MEDICARE, SELFPAY ==
[2017-09-07 16:40] LABS: Erythrocyte Sedimentation Rate 5 mm/hr (0-30)
[2017-09-07 16:54] LABS: BUN 16 mg/dL (7-18); Creatinine, Serum 1.09 mg/dL (0.55-1.02); EST Glomerular Filtration Rate 53 mL/min (>60); Est Glom Filt Rate - Afr Amer 64 mL/min (>60); Rheumatoid Factor < 10.0 IU/mL (<15); T3 Uptake 35 % (30-39); T4 Free Direct 1.05 ng/dL (0.76-1.46); T4 Total, Thyroxin 8.8 ug/dL (4.8-13.9); T7 / Free Thyroxin Index 3.1 (1.4-4.5); Thyroid Stim Hormone (TSH) 1.57 uIU/mL (0.358-3.74)
[2017-09-08 10:23] LABS: T3 Total - Triiodothyronine 0.91 ng/mL (0.6-1.81); Vitamin B12 402 pg/mL (211-911)
[2017-09-09 16:25] LABS: ANTINUCLEAR ANTIBODIES DIRECT Negative (Negative)
== END ==
PROVIDERS: Family Provider Family Medicine; PCP Family Medicine; Visit Provider Psychiatry & Neurology Neurology
DX: L65.9 Nonscarring hair loss, unspecified (principal); R53.83 Other fatigue
CPT/HCPCS: 36415; 82565; 82607; 82746; 84436; 84439; 84443; 84479; 84480; 84520; 85652; 86038; 86431

== ENCOUNTER → 2017-09-29 10:34 | Outpatient (CLI) | payer MEDICARE, SELFPAY ==
--- NOTE | 2017-09-29 10:37 | BI_ITS ---
MAMMOGRAPHY - BILATERAL SCREENING REASON FOR EXAM: Female, 67 years old. Routine annual screening examination. PERTINENT HISTORY: Sister with breast cancer. Prior left stereotactic breast biopsy. TECHNIQUE: Digital bilateral breast christiano (3D mammographic acquisition) in the CC and MLO projections. 2-D mediolateral oblique (MLO) and craniocaudad (CC) views of both breasts were obtained. CAD: Full Field Digital Mammography with Computer Added Detection was performed. COMPARISON: Comparison is made with prior study dated March 19, 2016 and February 26, 2015. FINDINGS: Breast Composition: There are scattered areas of fibroglandular density. There are no dominant masses or suspicious calcifications. A tissue clip marker is once again seen in the nodular density in the upper slightly mid medial portion of the left breast. No other significant abnormalities are identified. There has been no significant change since the prior study. BI/SCREENING MAMM (CAD), BILAT IMPRESSION: Stable bilateral screening mammogram. Yearly follow-up mammogram recommended. (A) ASSESSMENT CATEGORY: BIRADS Category 2: Benign. A letter regarding these results will be sent to the patient by the facility within 30 days. Approximately 10% of breast cancers are not detected by mammography. A normal mammogram should not delay biopsy of a clinically suspicious abnormality. [id number] Electronically Signed: Steve Son MD at 14:26 EDT Tel [phone], Service support ,
== END ==
PROVIDERS: Family Provider Family Medicine; PCP Family Medicine; Visit Provider Family Medicine
DX: Z12.31 Encounter for screening mammogram for malignant neoplasm of breast (principal)
CPT/HCPCS: 77063; 77067

== ENCOUNTER → 2017-11-30 10:56 | Outpatient (CLI) | payer MEDICARE, SELFPAY ==
[2017-12-03 03:07] LABS: Clam <0.10 kU/L (Class 0); Codfish 0.16 kU/L (Class 0/I); Corn <0.10 kU/L (Class 0); Egg, White 0.21 kU/L (Class 0/I); Milk (Cow) <0.10 kU/L (Class 0); Peanut 0.52 kU/L (Class I); SCALLOP <0.10 kU/L (Class 0); Shrimp <0.10 kU/L (Class 0); Soybean <0.10 kU/L (Class 0); Walnut, (Food) <0.10 kU/L (Class 0); Wheat <0.10 kU/L (Class 0)
[2017-12-03 10:58] LABS: SESAME SEED 0.12 kU/L (Class 0/I)
[2017-12-03 12:08] LABS: Alternaria tenuis <0.10 kU/L (Class 0); Ash, White 0.11 kU/L (Class 0/I); Aspergillus fumigatus <0.10 kU/L (Class 0); Bermuda Grass 0.27 kU/L (Class 0/I); Birch <0.10 kU/L (Class 0); Black Walnut 0.24 kU/L (Class 0/I); Cat Hair / Dander,Stand 1.93 kU/L (Class III); Cladosporium herbarum 0.21 kU/L (Class 0/I); Cockroach, American 0.52 kU/L (Class I); Cottonwood 0.14 kU/L (Class 0/I); D farinae Mite >100 kU/L (Class VI); D pteronyssinus >100 kU/L (Class VI); Dog Epithelia 0.34 kU/L (Class I); Elm, American White <0.10 kU/L (Class 0); Immunoglobulin E 1261 IU/mL (0-100); Maple/Box Elder <0.10 kU/L (Class 0); Mulberry, White <0.10 kU/L (Class 0); Oak, White <0.10 kU/L (Class 0); Pecan 3.79 kU/L (Class III); Penicillium Notatum <0.10 kU/L (Class 0); Pigweed, Rough <0.10 kU/L (Class 0); Ragweed, Short/Common 6.66 kU/L (Class IV); Sheep Sorrel <0.10 kU/L (Class 0); Timothy Grass 1.13 kU/L (Class II)
[2017-12-03 13:23] LABS: Mouse Urine <0.10 kU/L (Class 0)
== END ==
PROVIDERS: Family Provider Family Medicine; PCP Family Medicine; Visit Provider Otolaryngology
DX: T78.40XA Allergy, unspecified, initial encounter (principal)
CPT/HCPCS: 36415; 82785; 86003

== ENCOUNTER → 2017-12-30 09:42 | Outpatient (CLI) | payer MEDICARE, SELFPAY ==
[2017-12-30 10:29] LABS: Hemoglobin 15.2 g/dl (12.0-15.0); Mean Corp Hgb Conc 32.3 g/gl (32-36); Mean Corpuscular Hgb 29.2 pg (27.0-32.0); Mean Corpuscular Volume 90.4 fL (81-99); Mean Platelet Vol. 14.1 fl (6.2-12.0); Platelet Count 74 K/mm3 (150-450); RBC Distribution Width CV 13.4 % (11.6-14.6); White Blood Count 6.1 K/mm3 (4.4-11.0)
[2017-12-30 10:32] LABS: Scan Indicated on CBC? Y/N NO
[2017-12-30 10:46] LABS: Hemoglobin A1c 7.1 % (4.2-6.3)
[2017-12-30 10:57] LABS: BUN 15 mg/dL (7-18); Creatinine, Serum 1.02 mg/dL (0.55-1.02); Glucose 157 mg/dL (74-106)
[2017-12-30 10:58] LABS: ALB/GLOB Ratio 0.9 RATIO (0.9-2.4); AST(SGOT) 20 U/L (15-37); Alanine Aminotransfer ALT/SGPT 18 U/L (13-56); Albumin, Serum 3.4 g/dL (3.2-5.0); Alkaline Phosphatase 74 U/L (45-117); Anion Gap 9 (5-15); BUN/Creat Ratio 14.7 RATIO (10-20); Calcium,Total 8.8 mg/dL (8.5-10.1); Chloride 107 mmol/L (98-107); Cholesterol 157 mg/dL (200); EST Glomerular Filtration Rate 57 mL/min (>60); Est Glom Filt Rate - Afr Amer 69 mL/min (>60); Globulin 3.7 g/dL (2.2-4.2); High Density Lipoprotein 37 mg/dL; Microalbumin,Random Urine 7.9 mg/L (NO RANGE EST.); Protein, Total 7.1 g/dL (6.4-8.2); Sodium Level 143 mmol/L (136-145); Triglycerides 190 mg/dL; Very Low Density Lipoprotein 38 mg/dL (5-40)
[2017-12-30 11:05] LABS: Vitamin D,25 Hydroxy 42.2 ng/mL (29.95-100.01)
== END ==
PROVIDERS: Nurse Practitioner; Family Provider Family Medicine; PCP Family Medicine; Referring Provider Family Medicine; Visit Provider Family Medicine
DX: E11.9 Type 2 diabetes mellitus without complications (principal); E78.5 Hyperlipidemia, unspecified
CPT/HCPCS: 36415; 80053; 80061; 82043; 82306; 82570; 83036; 85027

== ENCOUNTER 2018-03-31 05:49 | Observation (INO) | payer MEDICARE, SELFPAY ==
[2018-03-31] VITALS (10 sets, daily range): BP systolic 130–167; BP diastolic 70–89; PULSE 67–76; RESP 16–18; TEMP 36.4–36.7; O2SAT 93–96; BMI 28.0; BMI 28.1
--- NOTE | 2018-03-31 06:08 | EKG12_ITS ---
Test Reason : CP Blood Pressure : / mmHG Vent. Rate : 073 BPM Atrial Rate : 073 BPM P-R Int : 154 ms QRS Dur : 082 ms QT Int : 406 ms P-R-T Axes : 066 002 -01 degrees QTc Int : 447 ms Normal sinus rhythm Normal ECG Confirmed by MORGAN NUGENT, CARON ([id number]), legal editor CHHAYA FAUSTIN ([id number]) on 04/04/2018 9:24:05 AM Referred By: BINA Confirmed By:CARON MORA MD
--- NOTE | 2018-03-31 06:08 | RAD_ITS ---
STUDY: X-RAY CHEST REASON FOR EXAM: Female, 68 years old. Pain on the right breast, starting back last week, woke up this a.m. with pain in front. TECHNIQUE: PA and lateral views of the chest. COMPARISON: 04/28/2017 FINDINGS: There are superimposed monitor leads. Stable minimal interstitial changes in the left base likely scarring. Stable areas of hyperinflation. Stable mild blunting of the left costophrenic angle. Sternal cerclage wires and vascular clips are present from a prior sternotomy and coronary artery bypass graft procedure (CABG). Normal mediastinum and jose miguel. Normal visualized pulmonary arteries. There is atherosclerotic calcification of the aortic arch with tortuosity. There are diffuse degenerative changes of the visualized thoracic spine. Normal visualized ribs, clavicles, and shoulders. There is no demonstrated abnormality of the visualized soft tissue structures of the upper abdomen. RAD/Chest PA and Lateral IMPRESSION: Stable areas of hyperinflation, scarring in the left base and postsurgical changes. No pulmonary edema, congestive heart failure or confluent pneumonia. Electronically Signed: Josefina Alexander MD at 6:36 EST , Service support ,
--- NOTE | 2018-03-31 06:10 | ED.VISSUMM ---
- ER Visit Summary Date of Service: 03/31/18 Chief Complaint: Chest pain History of Present Illness: The patient is a 68 F who presents with 2 hours of chest pain. This woke her from sleep. She complains of pain under the left breast. This is described as burning. She rates it as a 6 out of 10. She also notes that she has mid and upper back pain for about 1 week along where her bra would sit. She does have a history of prior similar symptoms. She denies any associated shortness of breath dizziness nausea vomiting or diaphoresis. She states that she was ill last week with subjective fever and chills as well as some rhinorrhea. She has had a cough productive of clear sputum for 2-3 weeks. She does note that this is improving she states that last week when she was ill she fell asleep with her legs crossed when she woke up her left calf was red and swollen she was concerned about a possible clot. She saw her primary care physician and thought was more likely related to neuropathy and stated if it did not improve they will pursue further evaluation. On Wednesday the redness and swelling were gone but she does still have some tenderness. She reports prior history of DVT after surgery for cancer. She has a history of endometrial cancer with hysterectomy which was curative and no other further treatment such as chemo or radiation. This was about 6 years ago. She also has a history of chronic ITP. She is on no anticoagulation currently. Also has a history of coronary artery disease with prior CABG. Physical Examination: Blood pressure 167/89 vitals otherwise unremarkable No distress resting comfortably Skin warm and dry Heart regular rate and rhythm I do not appreciate murmur gallop or rub Lungs are clear without rales rhonchi or wheezing Abdomen soft nontender nondistended 2+ symmetric radial pulses No lower extremity edema she does have some distal left lateral calf tenderness no appreciable cord neurovascularly intact with brisk capillary refill Test Results: EKG shows normal sinus rhythm at a rate of [address] depression in leads III and aVF as well as T wave inversions however this does appear similar to prior. Labs notable for platelet count of 70. Troponin is negative. INR pending. Two-view chest x-ray shows no pulmonary edema, CHF, complete pneumonia. CTA of the chest is pending. Emergency Department Course and Treatment: Patient is concerned for possible pulmonary embolism given prior history of DVT/PE as well as chest pain with recent leg pain and swelling. Wells criteria is 4.5, she has not therefore CTA is recommended over d-dimer. CTA is pending this dictation. If negative I do still feel the patient will need admitted given her prior history of coronary disease. Her CLAUDIA risk score is 4, heart score is 7. Patient will be signed out to the oncoming physician to follow-up on CTA. Treatment Plan: [] Disposition: Admit Impression: Chest pain This note was generated with [employer] dictation software. It may contain incorrect words, spelling, and punctuation that were not noted in review of the chart prior to signing ED Disposition - Plan for ED Patient: Chief Complaint: Chest Pain Referrals: Gulshan Funes DO [Primary Care Provider] -
[2018-03-31] MEDS: Aspirin 81 MG TAB.CHEW 243 MG PO (06:18)
[2018-03-31 06:22] LABS: Absolute Lymphocyte Count 1.66 X10^3/ul (0.83-4.51); Absolute Neutrophil Count 3.1 X10^3/uL (2.0-7.7); Basophil# 0.04 X10^3/uL; Basophil% 0.7 % (0-1); Eosinophil# 0.68 X10^3/uL; Eosinophils% 11.4 % (0-5); Hematocrit 45.6 % (37-47); Lymphocyte # 1.66 X10^3/ul (4.0); Lymphocyte % 27.7 % (19-41); Mean Corp Hgb Conc 32.9 g/gl (32-36); Mean Corpuscular Hgb 29.1 pg (27.0-32.0); Mean Corpuscular Volume 88.4 fL (81-99); Mean Platelet Vol. 14.3 fl (6.2-12.0); Monocyte# 0.46 X10^3/uL; Monocyte% 7.7 % (0-10); Neutrophil # 3.11 X10^3/uL (2.7-7.7); Neutrophil % 51.8 % (47-70); Platelet Count 70 K/mm3 (150-450); RBC Distribution Width CV 13.7 % (11.6-14.6); RBC Distribution Width SD 43.8 fl (35.1-43.9); Red Blood Count 5.16 M/mm3 (4.2-5.4)
[2018-03-31 06:23] LABS: POSITIVE COUNT NO; POSITIVE DIFFERENTIAL NO; POSITIVE MORPHOLOGY NO
--- NOTE | 2018-03-31 06:30 | CT_ITS ---
STUDY: CTA CHEST REASON FOR EXAM: Female, 68 years old. Chest pain under the left breast. History of CABG, hypertension, diabetes, and endometrial cancer. RADIATION DOSAGE (If Supplied By Facility): CTDIvol = ( ) mGy, DLP = ( ) mGycm TECHNIQUE: The examination was performed with the intravenous administration of 75CC ml of Isovue 370 contrast material. Post-processing of the angiographic images was performed, with multiplanar reformation, but without 3D reconstruction. Individualized dose optimization techniques were used for this CT. COMPARISON: Chest x-ray 03/31/2018. CTA chest 04/05/2010. FINDINGS: Normal enhancement of the main pulmonary artery and right and left pulmonary arteries. Normal enhancement of the bilateral peripheral pulmonary arteries. There is no demonstrated pulmonary embolism. There is minimal atherosclerotic calcification of the thoracic aorta and visualized great vessels. There is no demonstrated aortic dissection. Normal heart and pericardium. There are coronary artery calcifications. There are sternotomy wires and surgical clips suggesting previous CABG. Normal mediastinum. Normal hilar regions. Normal visualized trachea. There is bronchiectasis, which is most prominent in the left lower lobe.. The lungs are well expanded. As seen on series 2, axial images 189-190, there is a 5.5 mm posterior pleural-based right lower lobe lung nodule, within the superior segment of the right lower lobe. This was not present on the 2011 exam. As seen on axial image 63, there is a 3.7 mm noncalcified right lower lobe lung nodule, which is also not seen on the 2011 exam. There are calcified pulmonary granulomas. There are fibrotic changes in the lower lung le bilaterally, left greater than right. There are no demonstrated acute pulmonary infiltrates. Normal pleura. Normal chest wall structures. There are degenerative changes of thoracic spine. There is a 1.1 cm fat attenuation space occupying lesion in the right adrenal gland which probably represents a myelolipoma. CT/CTA Chest W/WO Contrast IMPRESSION: No evidence for pulmonary embolism, aortic aneurysm, or aortic dissection. Coronary artery atherosclerosis. Previous CABG. Mild fibrotic changes as well as bronchiectasis, most prominent in the left lower lobe. Old granulomatous disease. No evidence for acute cardiopulmonary pathology. New findings of a 5.5 mm right upper lobe lung nodule and a 3.7 mm right lower lobe lung nodule. Suggest 6 month follow-up CT scan exam. Electronically Signed: Pavel Murcia MD at 7:41 EST , Service support ,
[2018-03-31 06:46] LABS: International Normalized Ratio 0.9; Prothrombin Time (Protime)PT. 11.8 SECONDS (11.7-14.9)
[2018-03-31 06:49] LABS: Anion Gap 9 (5-15); BUN 10 mg/dL (7-18); BUN/Creat Ratio 10.5 RATIO (10-20); Chloride 107 mmol/L (98-107); Creatinine, Serum 0.95 mg/dL (0.55-1.02); EST Glomerular Filtration Rate 62 mL/min (>60); Est Glom Filt Rate - Afr Amer 75 mL/min (>60); Estimated Creatinine Clearance 52.32 ml/min; Glucose 138 mg/dL (74-106); Potassium 3.7 mmol/L (3.5-5.1); Sodium Level 142 mmol/L (136-145)
--- NOTE | 2018-03-31 07:42 | HP.PCM_ITS ---
Problem List (1) Atypical chest pain Status: Acute (2) Nail abnormalities Status: Chronic (3) Hypertension Status: Chronic Qualifiers: (4) Aortocoronary bypass status Status: Chronic Comment: CABG, TAVAREZ as sequential graft to diagonal & LAD & SVG to RPDA #3, 08/17 (5) Hyperlipidemia Status: Chronic Qualifiers: (6) Immune thrombocytopenic purpura Status: Chronic (7) Atherosclerosis of coronary artery bypass graft of [place] heart Status: Chronic Qualifiers: Comment: CABG, TAVAREZ as sequential graft to diagonal & LAD & SVG to RPDA #3, 6 (8) Pericardial effusion Status: Chronic (9) Pleural effusion Status: Chronic (10) Palpitations Status: Chronic (11) Precordial chest pain Status: Acute (12) Fatigue Status: Acute (13) DM type 2 (diabetes mellitus, type 2) Status: Chronic Qualifiers: Comment: BG readings higher than normal. Has been ill and less active for about 3-4 weeks. Is feeling much better with appetite improving. Less cough and less mucus. No fever. SMBG am Was running 254 while ill, coming down to 180 range 12n recently 68-200 5pm 180-300 Enc to supervisor opening and picking lantus and increase base dose. (14) Chronic ITP (idiopathic thrombocytopenia) Status: Chronic History of Present Illness Date of Admission: 03/31/18 Chief Complaint: Chest pain today The patient is a 68 year old F with history of coronary artery disease status post triple-vessel CABG, in 2004, chronic ITP came to ER with chest pain that woke her up today. Patient having left upper back pain for about 1 week but in the morning today it went through to the front of the chest wall. She denies associated shortness of breath, palpitation or diaphoresis. About a week ago she also had flulike symptoms including fever or chills but that has resolved spontaneously. She also complained of left calf was red and swollen after she crossed her leg when she had a fever and fell asleep. She has history of endometrial cancer and PE after she had hysterectomy about 6 years ago. History of chronic ITP and follows Dr. FELICIANO. In ED, vital signs are stable, blood pressure slightly elevated 167/89. EKG shows normal sinus rhythm [address]-T changes. Troponin is negative. Platelet count is 70,000. [] Chest x-ray shows hyperinflation and scarring in the left base and postsurgical changes. No acute change. CTPA is done but report is pending. Past Medical History Past Medical History (Chronic Problems): Chronic Problems (Last Reviewed 12/08/17 @ 10:53 by Zehra Bonds) Nail abnormalities (Chronic) Hypertension (Chronic) Aortocoronary bypass status (Chronic ~09/10/04) CABG, TAVAREZ as sequential graft to diagonal & LAD & SVG to RPDA #3, 6/05 Hyperlipidemia (Chronic) 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 of [place] heart (Chronic) CABG, TAVAREZ as sequential graft to diagonal & LAD & SVG to RPDA #3, 6/05 Pericardial effusion (Chronic) Pleural effusion (Chronic) Palpitations (Chronic) DM type 2 (diabetes mellitus, type 2) (Chronic) BG readings higher than normal. Has been ill and less active for about 3-4 weeks. Is feeling much better with appetite improving. Less cough and less mucus. No fever. SMBG am Was running 254 while ill, coming down to 180 range 12n recently 68-200 5pm 180-300 Enc to supervisor opening and picking lantus and increase base dose. Chronic ITP (idiopathic thrombocytopenia) (Chronic) Medical History: Medical History (Last Reviewed 12/08/17 @ 10:53 by Zhera Bonds) Hypertension (Chronic) I10 Hyperlipidemia (Chronic) E78.5 Immune thrombocytopenic purpura (Chronic) D69.3 Atherosclerosis of coronary artery bypass graft of [place] heart (Chronic) I25.810 CABG, TAVAREZ as sequential graft to diagonal & LAD & SVG to RPDA #3, 6/05 Pericardial effusion (Chronic) I31.3 Pleural effusion (Chronic) J90 Palpitations (Chronic) R00.2 DM type 2 (diabetes mellitus, type 2) (Chronic) E11.9 BG readings higher than normal. Has been ill and less active for about 3-4 weeks. Is feeling much better with appetite improving. Less cough and less mucus. No fever. SMBG am Was running 254 while ill, coming down to 180 range 12n recently 68-200 5pm 180-300 Enc to supervisor opening and picking lantus and increase base dose. Arthritis M19.90 Asthma J45.909 DVT (deep venous thrombosis) I82.409 Depression F32.9 GERD (gastroesophageal reflux disease) K21.9 Psoriasis L40.9 Seasonal allergies J30.2 Sleep apnea G47.30 IBS (irritable bowel syndrome) K58.9 long-term use of drug Z79.899 H/O: hysterectomy Z98.890, Z90.710 CAD (coronary artery disease), [place] coronary artery (Inactive) I25.10 Allergies bee venom protein (honey bee) Allergy (Verified 12/08/17 10:47) Anaphylaxis ciprofloxacin [From Cipro] Allergy (Verified 12/08/17 10:47) Anaphylaxis ciprofloxacin HCl [From Cipro] Allergy (Verified 12/08/17 10:47) Anaphylaxis insect venom Allergy (Verified 12/08/17 10:47) Anaphylaxis pine nut Allergy (Verified 12/08/17 10:47) Anaphylaxis trazodone Allergy (Verified 12/08/17 10:47) Shortness of breath peanut Adverse Reaction (Severe, Verified 12/08/17 10:47) Asthma egg Adverse Reaction (Unknown, Verified 12/08/17 10:47) Unknown allergy testing with positive reaction Fish Containing Products Adverse Reaction (Unknown, Verified 12/08/17 10:47) Unknown Allergy testing with positive reaction corn Adverse Reaction (Verified 12/08/17 10:47) Nausea/Vom/Diarrhea dandelion (Taraxacum officinale) Adverse Reaction (Verified 12/08/17 10:47) ASTHMA/SEASONAL ALLERGIES latex Adverse Reaction (Verified 12/08/17 10:47) RASH D/T POWDER IN GLOVES metoprolol Adverse Reaction (Verified 12/08/17 10:47) Nausea/Vom/Diarrhea omeprazole Adverse Reaction (Verified 12/08/17 10:47) Unknown wheat Adverse Reaction (Verified 12/08/17 10:47) NAUSEA,VOMITING,DIARRHEA Home Medications: Ambulatory Orders Medication Instructions Recorded Amlodipine Besylate/Valsartan 1 tab PO DAILY 02/13/15 [Amlodipine-Valsartan 5-160 mg] Albuterol IH (ProAir) [Proair Hfa] 1 puff INHALATION UD PRN 06/09/16 Biotin 1 tab PO QODAY 06/09/16 Cetirizine HCl [Zyrtec] 10 mg PO DAILY PRN PRN 06/09/16 Epinephrine [Epi Pen (Jorge Luis)] 1 syr SQ UD 06/09/16 Magnesium Citrate 1.232 ml PO DAILY 07/29/16 Vitamin B Complex 0.5 ea PO DAILY 07/29/16 Iodine 2% Mild Tincture 3 drp PO DAILY 01/19/17 ascorbic acid (vitamin C) 250 mg 250 mg PO QDAY 05/12/17 tablet blood sugar diagnostic strips See Dose Instructions .ROUTE 05/12/17 .MEDSUPPLY #20 ea insulin syringe-needle U-100 half See Dose Instructions .ROUTE 05/12/17 unit marking 0.3 mL 31 gauge x .MEDSUPPLY #100 ea 07/28 cholecalciferol (vitamin D3) 1,000 1,000 unit PO DAILY PRN 12/08/17 unit capsule digestive enzymes tablet 1 tab PO TID tab 12/08/17 krill oil 500 mg capsule 500 mg PO .qod cap 12/08/17 metformin 1,000 mg tablet 1,000 mg PO .COMPLEX tab 12/08/17 metformin 1,000 mg tablet 500 mg PO .COMPLEX tab 12/08/17 Humalog KwikPen (U- 100) Insulin See Rx Instructions SC .COMPLEX 02/02/18 100 unit/mL subcutaneous #15 ml NS Insulin Glargine,Hum.rec.anlog 16 unit SC QDAY 03/31/18 [Basaglar Kwikpen U-100] Surgical History: Surgical History (Last Reviewed 12/08/17 @ 10:53 by Zehra Bonds) Aortocoronary bypass status (Chronic) Onset Date: ~09/10/04 Z95.1 CABG, TAVAREZ as sequential graft to diagonal & LAD & SVG to RPDA #3, 6/05 History of bladder suspension procedure Z98.890, Z87.448 History of throat surgery Z98.890 Smoking Status: Never smoker - *Family History Maternal Family History: Family History (Last Reviewed 12/08/17 @ 10:53 by Zehra Bonds) Father Diabetes CAD (coronary artery disease) Mother Diabetes Heart disease Brother Diabetes Daughter Diabetes Asthma History Items: No pertinent history Review of Systems Constitutional: Denies: Chills, Fever, Weight Change HEENT: Denies: Head Aches, Sinus Congestion, Sinus Drainage Cardiovascular: Reports: Chest Pain, Chest Pressure. Denies: Palpitations Respiratory: Reports: Cough, Sputum production. Denies: Shortness of breath at rest Gastrointestinal: Denies: Abdominal Pain, Nausea, Vomiting Genitourinary: Denies: Dysuria Musculoskeletal: Reports: Back Pain. Denies: Joint Pain, Joint Tenderness Skin: Denies: Rash, Wounds Neurological: Denies: Numbness, Tingling, Focal weakness Psychiatric: Denies: Anxiety, Depression, Homicidal Ideations, Suicidal Ideations Hematologic/ Lymphatic: Denies: Easy Bruising, Easy Bleeding VTE Information - Inpt Only VTE Present on Admission: No VTE Mechan Device Prophylaxis: None VTE Pharm Prophylaxis ordered?: Yes Patient Problems: Active and Suspected Problems (Last Reviewed 12/08/17 @ 10:53 by Zehra Bonds) Atypical chest pain (Acute) - Physical Exam General: Alert, Oriented x3, Cooperative HEENT: Atraumatic, PERRLA, EOMI, Normocephalic Oral: Moist Mucosa Neck: Supple, No JVD, Negative Carotid Bruits Lungs: No rhonchi, No wheeze, No rales, Diminished - Air entry diminished in left lung base Cardiovascular: Regular rate, Regular Rhythm, Normal S1, Normal S2, No murmurs Abdomen: Bowel Sounds Present, Soft, Non Tender, Non-Distended Extremities: No edema, Capillary Refill Less than 3 Seconds Skin: No rashes, No breakdown Musculoskeletal: No Tenderness to Palpation of Joints or Extremities, Arthritic Changes Neurological: Cranial nerves II-XII grossly intact Psych/Mental Status: Normal Affect, Appropriate Vital Signs Temp Pulse Resp BP Pulse Ox 97.8 F 75 18 167/89 H 96 03/31/18 05:49 03/31/18 05:49 03/31/18 05:49 03/31/18 05:49 03/31/18 06:14 Oxygen Delivery Method Room Air Weight: 174 lb Body Mass Index (BMI) 28.0 Laboratory Tests Past 24 Hrs 03/31/18 03/31/18 03/31/18 06:00 06:00 06:00 WBC 6.0 RBC 5.16 Hgb 15.0 Hct 45.6 MCV 88.4 MCH 29.1 MCHC 32.9 RDW 13.7 RDW Differential 43.8 Plt Count 70 L MPV 14.3 H Immature Gran % (Auto) 0.700 Neut % (Auto) 51.8 Lymph % (Auto) 27.7 [place] % (Auto) 7.7 Eos % (Auto) 11.4 H Baso % (Auto) 0.7 Absolute Neuts (auto) 3.1 Absolute Lymphs (auto) 1.66 Total Counted Not Reportable PT 11.8 INR 0.9 Sodium 142 Potassium 3.7 Chloride 107 Carbon Dioxide 26.0 Anion Gap 9 BUN 10 Creatinine 0.95 Estim Creat Clear Calc 52.32 Est GFR (MDRD) Af Amer 75 Est GFR (MDRD) Non-Af 62 BUN/Creatinine Ratio 10.5 Glucose 138 H Calcium 9.0 Troponin I < 0.015 Assessment/Plan All Active Problems (Last Reviewed 12/08/17 @ 10:53 by Zehra Bonds) Atypical chest pain (Acute) Precordial chest pain (Acute) Fatigue (Acute) The patient is a 68 year old F with history of coronary artery disease status post triple-vessel CABG, in 2004, chronic ITP came to ER with chest pain that woke her up today. Patient having left upper back pain for about 1 week but in the morning today it went through to the front of the chest wall. She denies associated shortness of breath, palpitation or diaphoresis. About a week ago s he also had flulike symptoms including fever or chills but that has resolved spontaneously. She also complained of left calf was red and swollen after she crossed her leg when she had a fever and fell asleep. She has history of endometrial cancer and PE after she had hysterectomy about 6 years ago. History of chronic ITP and follows Dr. FELICIANO. Patient also had asthma attack near [place], 2018 still has cough and brings up clear sputum but no shortness of breath. In ED, vital signs are stable, blood pressure slightly elevated 167/89. EKG shows normal sinus rhythm [address]-T changes. Troponin is negative. Platelet count is 70,000. [] Chest x-ray shows hyperinflation and scarring in the left base and postsurgical changes. No acute change. CTPA is done but report is pending. 1. Atypical chest pain with history of coronary artery status post triple- vessel CABG: Patient is being admitted in PCU. Echo in April 2016 shows EF 70% with no regional wall motion abnormality. LA mildly enlarged otherwise no significant valvulaR abnormality. ACS protocol with cycle cardiac enzymes. Nuclear stress test tomorrow morning. Fasting lipid profile tomorrow a.m. 2. Complain of left leg redness and swelling: There is no tenderness or redness on my exam. CTPA is done and images reviewed but official report is pending. Venous Doppler of lower extremity ordered. 3. Recent asthma attack as per the patient: Currently breathing is stable. On albuterol inhaler as needed. I do not see maintenance inhaler on her home medications. 4. Diabetes mellitus type II: Accu-Chek before meals and at bedtime and cover with NovoLog sliding scale and on Lantus insulin. 5 hypertension: Continue amlodipine- valsartan. 6. Chronic ITP: Follow Dr. Feliciano DVT prophylaxis: Follow venous Doppler report and if is negative, bilateral SCDs. Patient not good candidate for antithrombotic agent because of severe thrombocytopenia, platelet count 70,000 Laboratory Results 03/31/18 06:00: WBC 6.0, RBC 5.16, Hgb 15.0, Hct 45.6, MCV 88.4, MCH 29.1, MCHC 32.9, RDW 13.7, RDW Differential 43.8, Plt Count 70 L, MPV 14.3 H, Immature Gran % (Auto) 0.700, Neut % (Auto) 51.8, Lymph % (Auto) 27.7, [place] % (Auto) 7.7, Eos % (Auto) 11.4 H, Baso % (Auto) 0.7, Absolute Neuts (auto) 3.1, Absolute Lymphs (auto) 1.66, Total Counted Not Reportable 03/31/18 06:00: Sodium 142, Potassium 3.7, Chloride 107, Carbon Dioxide 26.0, Anion Gap 9, BUN 10, Creatinine 0.95, Estim Creat Clear Calc 52.32, Est GFR (MDRD) Af Amer 75, Est GFR (MDRD) Non-Af 62, BUN/Creatinine Ratio 10.5, Glucose 138 H, Calcium 9.0, Troponin I < 0.015 03/31/18 06:00: PT 11.8, INR 0.9 Code Visit OBSV E&M: 36808 Initial observation care L3
--- NOTE | 2018-03-31 07:56 | EKG12_ITS ---
Test Reason : CP Blood Pressure : / mmHG Vent. Rate : 065 BPM Atrial Rate : 065 BPM P-R Int : 156 ms QRS Dur : 076 ms QT Int : 388 ms P-R-T Axes : 062 -05 -01 degrees QTc Int : 403 ms Normal sinus rhythm Normal ECG When compared with ECG of 31-MAR-2018 05:54, MANUAL COMPARISON REQUIRED, DATA IS UNCONFIRMED Confirmed by MORGAN NUGENT, CARON ([id number]), online content editor CHHAYA FAUSTIN ([id number]) on 04/04/2018 9:52:44 AM Referred By: YANET Confirmed By:CARON MORA MD
--- NOTE | 2018-03-31 07:57 | VDLE_ITS ---
Reason For Study: LEG PAIN AND SWELLING RIGHT LEFT CFV is compressible, spontaneous, phasic, CFV is compressible, spontaneous, phasic, competent and demonstrates normal competent, and demonstrates normal augmentation. augmentation. FV is compressible, spontaneous, phasic, FV is compressible, spontaneous, phasic, competent and demonstrates normal competent and demonstrates normal augmentation. augmentation. POP V is compressible, spontaneous, phasic, POP V is compressible, spontaneous, phasic, competent and demonstrates normal competent and demonstrates normal augmentation. augmentation. T/P Trunk is compressible. T/P Trunk is compressible. PTV is compressible. PTV is compressible. RT PerV is compressible. LT PerV is compressible. GSV harvested. GSV harvested. Procedure Exam performed portable in patient room. A preliminary report was called and/or faxed to [facility]. Interpretation Summary No evidence for acute deep venous thrombosis bilateral lower extremities. Surgically harvested bilateral great saphenous veins. Ordering Physician: Erik Henry Referring Physician: Gulshan Funes Performed By: Rylie Byrne RVT
[2018-03-31 10:40] LABS: Bedside Glucose 171 mg/dL (70-110)
--- NOTE | 2018-03-31 14:02 | CHAPLAIN ---
Type of Pastoral Visit _x__ Initial Visit ___ Follow-up Visit ___ On-call Visit ___ General Patient Visit ___ Spiritual Assessment ___ Family Conference ___ Bereavement ___ Rapid Response ___ Code Blue ___ Other (describe below) Pastoral Care Referral From _x__ Patient ___ Family ___ Nurse ___ Physician ___ Security Sales Consultant ___ Hand Leather Trimmer ___ Other (describe below) Sacrament/Intervention _x__ Active listening ___ Anointing ___ Druze ___ Bereavement ___ Communion ___ Mariela exploration ___ ___ Life review _x__ Prayer ___ Reconciliation ___ Sacrament of Sick _x__ Supportive presence ___ Wedding ___ Other (describe below) Pastoral Comments
--- NOTE | 2018-03-31 14:59 | NURSING ---
pt voiced concerns first thing this am about taking meds other then her own d/t her multiple allergies. when asked to have the bottles to her meds brought in pt replied will thats going to be [address]. pt refusing any/all of hospital meds. charge nurse, dr tenorio and kiley, pharmacist aware of pt refusing meds and taking her own meds, including her own insulin. pt had said that she has two years of lantus at home and is not going to pay for another.
[2018-03-31] MEDS: Insulin Lispro 100 UNIT/ML INSULN.PEN SQ (15:04)
--- NOTE | 2018-03-31 17:16 | NURSING ---
pt reports that her blood sugar was 185 @ 1430, she did not give any insulin at that time d/t not eating any carbs.
[2018-03-31 22:26] LABS: Bedside Glucose 141 mg/dL (70-110)
[2018-04-01 03:01] VITALS: PULSE 76
[2018-04-01 04:00] VITALS: BP 130/81; PULSE 70; RESP 16; TEMP 36.7; O2SAT 96
[2018-04-01 05:41] LABS: Hematocrit 45.1 % (37-47); Mean Corp Hgb Conc 33.3 g/gl (32-36); Mean Corpuscular Hgb 29.2 pg (27.0-32.0); Mean Corpuscular Volume 87.7 fL (81-99); Mean Platelet Vol. 13.9 fl (6.2-12.0); Platelet Count 72 K/mm3 (150-450); RBC Distribution Width CV 13.6 % (11.6-14.6); Red Blood Count 5.14 M/mm3 (4.2-5.4); Scan Indicated on CBC? Y/N NO; White Blood Count 5.5 K/mm3 (4.4-11.0)
[2018-04-01 05:48] LABS: International Normalized Ratio 0.9; Prothrombin Time (Protime)PT. 11.9 SECONDS (11.7-14.9)
[2018-04-01 05:49] LABS: Partial Thromboplast Time 28.7 Seconds (24.1-36.2)
--- NOTE | 2018-04-01 05:55 | EKG12_ITS ---
Test Reason : AM EKG Blood Pressure : / mmHG Vent. Rate : 064 BPM Atrial Rate : 064 BPM P-R Int : 152 ms QRS Dur : 086 ms QT Int : 408 ms P-R-T Axes : 062 007 013 degrees QTc Int : 420 ms Normal sinus rhythm Normal ECG When compared with ECG of 31-MAR-2018 08:59, MANUAL COMPARISON REQUIRED, DATA IS UNCONFIRMED Confirmed by MORGAN NUGENT, CARON ([id number]), writer editor CHHAYA FAUSTIN ([id number]) on 04/04/2018 9:50:48 AM Referred By: YANET Confirmed By:CARON MORA MD
[2018-04-01 06:05] LABS: Anion Gap 8 (5-15); BUN 15 mg/dL (7-18); BUN/Creat Ratio 15.9 RATIO (10-20); Chloride 108 mmol/L (98-107); Cholesterol 165 mg/dL (200); Creatinine, Serum 0.94 mg/dL (0.55-1.02); EST Glomerular Filtration Rate 62 mL/min (>60); Est Glom Filt Rate - Afr Amer 76 mL/min (>60); Estimated Creatinine Clearance 52.88 ml/min; Glucose 150 mg/dL (74-106); High Density Lipoprotein 41 mg/dL; Potassium 4.2 mmol/L (3.5-5.1); Sodium Level 141 mmol/L (136-145); Thyroid Stim Hormone (TSH) 1.78 uIU/mL (0.358-3.74); Triglycerides 195 mg/dL; Very Low Density Lipoprotein 39 mg/dL (5-40)
[2018-04-01] MEDS: Aspirin E.C. 81 MG Tablet PO (06:15)
[2018-04-01 06:26] LABS: Bedside Glucose 174 mg/dL (70-110)
[2018-04-01 09:06] LABS: Bedside Glucose 156 mg/dL (70-110)
--- NOTE | 2018-04-01 10:06 | STRESSREP ---
Stress Test Report Pharmacologic myocardial perfusion stress test. 68-year-old man with a history of chest pain. Medications: Amlodipine valsartan. Stress protocol: Resting EKG demonstrates normal sinus rhythm with a rate of 67 bpm normal intervals are noted resting blood pressure 132/80 mmHg. 0.4 mg of regadenoson was infused per usual protocol followed by rapid intravenous saline flush injection continuous EKG monitoring was performed. At rest there were no ST or T wave changes noted suggest abnormal flow reserve at peak infusion no ST or T wave changes were noted suggest abnormal flow reserve. No clinical angina was noted. The maximum heart rate attained was noted to be 90 bpm. The resting blood pressure was 132/80 mmHg with a final blood pressure 130/74 mmHg. Myocardial perfusion protocol. 11.8 mCi of technetium 99m sestamibi was injected at rest. 0.4 mg of regadenoson was infused per usual protocol peak infusion 33.1 mCi of technetium 99m sestamibi was injected stress images were obtained stress and rest images were reconstructed and compared in the short axis vertical long horizontal long axis. Gated images was obtained. Perfusion SPECT analysis: Review of the stress images demonstrate normal perfusion noted in all areas of the myocardium. The resting images similarly demonstrate normal myocardial perfusion in all areas of the myocardium. No areas are noted suggest ischemia. Gated SPECT analysis: The gated ejection fraction is noted to be 77%. Conclusion: Normal pharmacologic myocardial perfusion stress test. Preserved ejection fraction.
[2018-04-01 10:20] VITALS: BP 128/78; PULSE 74; RESP 15; TEMP 36.7; O2SAT 95
--- NOTE | 2018-04-01 10:49 | NURSING ---
Patient refusing to take meds through our system. Has a pill organizer from home and is taking own home meds. Education of hospital policy reinforced.
--- NOTE | 2018-04-01 10:54 | DCINST_ITS ---
- Discharge Diagnoses Current Active Problems: Current Active and Chronic Problems (Last Reviewed 12/08/17 @ 10:53 by Zehra Bonds) Atypical chest pain (Acute) You will use the following diet at home:: Cardiac Discharge Activity: Return to Normal Activity, May not drive while taking narcot ic pain medications. Call your doctor if you observe: Fever of 101 or Higher, Inability to urinate, Shortness of breath, Fainting spells, Chest pain, Calf discomfort Allergies/Adverse Reactions: Allergies bee venom protein (honey bee) Allergy (Verified 12/08/17 10:47) Anaphylaxis ciprofloxacin [From Cipro] Allergy (Verified 12/08/17 10:47) Anaphylaxis ciprofloxacin HCl [From Cipro] Allergy (Verified 12/08/17 10:47) Anaphylaxis insect venom Allergy (Verified 12/08/17 10:47) Anaphylaxis pine nut Allergy (Verified 12/08/17 10:47) Anaphylaxis trazodone Allergy (Verified 12/08/17 10:47) Shortness of breath peanut Adverse Reaction (Severe, Verified 12/08/17 10:47) Asthma egg Adverse Reaction (Unknown, Verified 12/08/17 10:47) Unknown allergy testing with positive reaction Fish Containing Products Adverse Reaction (Unknown, Verified 12/08/17 10:47) Unknown Allergy testing with positive reaction corn Adverse Reaction (Verified 12/08/17 10:47) Nausea/Vom/Diarrhea dandelion (Taraxacum officinale) Adverse Reaction (Verified 12/08/17 10:47) ASTHMA/SEASONAL ALLERGIES latex Adverse Reaction (Verified 12/08/17 10:47) RASH D/T POWDER IN GLOVES metoprolol Adverse Reaction (Verified 12/08/17 10:47) Nausea/Vom/Diarrhea omeprazole Adverse Reaction (Verified 12/08/17 10:47) Unknown wheat Adverse Reaction (Verified 12/08/17 10:47) NAUSEA,VOMITING,DIARRHEA Medications to take at Discharge Amlodipine Besylate/Valsartan [Amlodipine-Valsartan 5-160 mg] 1 tab PO DAILY 02/13/15 Albuterol IH (ProAir) [Proair Hfa] 1 puff INHALATION UD PRN 06/09/16 Biotin 1 tab PO QODAY 06/09/16 Cetirizine HCl [Zyrtec] 10 mg PO DAILY PRN PRN 06/09/16 Epinephrine [Epi Pen Jorge Luis (for allergic rxn)] 1 syr SQ UD 06/09/16 Magnesium Citrate 1.232 ml PO DAILY 07/29/16 Vitamin B Complex 0.5 ea PO DAILY 07/29/16 Iodine 2% Mild Tincture 4 drp PO DAILY 01/19/17 ascorbic acid (vitamin C) 250 mg tablet 250 mg PO QDAY 05/12/17 blood sugar diagnostic strips See Dose Instructions .ROUTE .MEDSUPPLY #20 ea 05/12/17 insulin syringe-needle U-100 half unit marking 0.3 mL 31 gauge x 07/28 See Dose Instructions .ROUTE .MEDSUPPLY #100 ea 05/12/17 cholecalciferol (vitamin D3) 1,000 unit capsule 1,000 unit PO DAILY PRN 12/08/17 digestive enzymes tablet 1 tab PO BID tab 12/08/17 krill oil 500 mg capsule 500 mg PO .qod cap 12/08/17 metformin 1,000 mg tablet 1,000 mg PO DINNER tab 12/08/17 metformin 1,000 mg tablet 500 mg PO BREAKFAST tab 12/08/17 Humalog KwikPen (U- 100) Insulin 100 unit/mL subcutaneous See Rx Instructions SC .COMPLEX #15 ml NS 02/02/18 Insulin Glargine,Hum.rec.anlog [Basaglar Kwikpen U-100] 16 unit SC QDAY 03/31/18 Insulin Glargine,Hum.rec.anlog [Lantus] 7 unit SQ QHS 03/31/18 Oxycodone HCl/Acetaminophen [Percocet 2.5-325 mg Tablet] 0.5 tab PO Q6H PRN PRN 3 Days #5 tab 04/01/18 The following prescriptions were given: Oxycodone HCl/Acetaminophen [Percocet 2.5-325 mg Tablet] 0.5 tab PO Q6H PRN PRN 3 Days #5 tab PRN Reason: Pain Please follow up with your Primary Care Physician in: in 1-2 week Test Results: Test results from this visit will be discussed in further detail at your follow- up appointment, if applicable.
[2018-04-01 11:24] VITALS: PULSE 74
--- NOTE | 2018-04-01 11:27 | DS.PCM_ITS ---
Discharge Date and Diagnosis Date of Admission: 03/31/18 Date of Discharge: 04/01/18 - Primary Discharge Diagnosis Active and Suspected Problems (Last Reviewed 12/08/17 @ 10:53 by Zehra Bonds) Atypical chest pain (Acute) - Secondary Discharge Diagnosis Chronic Problems (Last Reviewed 12/08/17 @ 10:53 by Zehra Bonds) Nail abnormalities (Chronic) Hypertension (Chronic) Aortocoronary bypass status (Chronic ~09/10/04) CABG, TAVAREZ as sequential graft to diagonal & LAD & SVG to RPDA #3, 6/05 Hyperlipidemia (Chronic) 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 of [place] [facility] (Chronic) CABG, TAVAREZ as sequential graft to diagonal & LAD & SVG to RPDA #3, 6/05 Pericardial effusion (Chronic) Pleural effusion (Chronic) Palpitations (Chronic) DM type 2 (diabetes mellitus, type 2) (Chronic) BG readings higher than normal. Has been ill and less active for about 3-4 weeks. Is feeling much better with appetite improving. Less cough and less mucus. No fever. 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 Chronic ITP (idiopathic thrombocytopenia) (Chronic) Hospital Course and Treatment Imaging Results: 04/01/18 05:55 Nuclear Stress Test - Chemical [NM] AM (NON MEDS) Operations: None Summary of Care Provided: [] The patient is a 68 year old F with history of coronary artery disease status post triple-vessel CABG, in 2004, chronic ITP came to ER with chest pain that w zoe her up today. Patient having left upper back pain for about 1 week but in the morning today it went through to the front of the chest wall. She denies associated shortness of breath, palpitation or diaphoresis. About a week ago she also had flulike symptoms including fever or chills but that has resolved spontaneously. She also complained of left calf was red and swollen after she crossed her leg when she had a fever and fell asleep. She has history of endometrial cancer and PE after she had hysterectomy about 6 years ago. History of chronic ITP and follows Dr. ANTHONY. Patient also had asthma attack near [place], 2017 still has cough and brings up clear sputum but no shortness of breath. In ED, vital signs are stable, blood pressure slightly elevated 167/89. EKG shows normal sinus rhythm [address]-T changes. Troponin is negative. Platelet count is 70,000. [] Chest x-ray shows hyperinflation and scarring in the left base and postsurgical changes. No acute change. CTP does not show evidence of pulmonary embolism, aortic aneurysm or aortic dissection. Previous CABG. Mild fibrotic changes as well as bronchiectasis most prominent left lower lobe. No evidence of acute cardiopulmonary pathology. New findings of 5.5 mm right upper lobe nodule and 3.7 mm right lower lobe nodule. Six-month follow-up CT scan suggested. 1. Atypical chest pain with history of coronary artery status post triple- vessel CABG: Patient is being admitted in PCU. Echo in April 2016 shows EF 70% with no regional wall motion abnormality. LA mildly enlarged otherwise no significant valvulaR abnormality. Serial troponin enzymes are negative. Nuclear stress test was done was negative for stress-induced ischemia. Fasting lipid profile within normal limit. Fasting profile in December 2017 shows total cholesterol 157, LDL 82, HDL 37 and triglyceride 190 2. Complain of left leg redness and swelling: There is no tenderness or redness on my exam. Venous Doppler of lower extremity showed no evidence of DVT. Lung nodule: CTPA findings as mentioned above. Suggested follow-up CT scan after 6 months for lung nodule. Follow with PCP. Acute on chronic upper back pain: Patient stated she takes 1/4 pill of Percocet 5/325. Prescription given for 2.5/325 mg Percocet, half tablet every 6 hourly as needed; total of 5 tablets. 3. Recent asthma attack as per the patient: Currently breathing is stable. On albuterol inhaler as needed. I do not see maintenance inhaler on her home medications. 4. Diabetes mellitus type II: Accu-Chek before meals and at bedtime and cover with NovoLog sliding scale and on Lantus insulin. Her sugars are controlled. 5 hypertension: Continue amlodipine- valsartan. BP controlled. Chronic ITP: Follow Dr. Anthony Discharge medication reconciliation done. Discharge follow-up instructions completed. Discharge process discussed with the patient and all questions were answered to patient's satisfaction. Prescription of Percocet given. Total time spent, exact 35 minutes on discharge meds reconciliation, examination, review of imaging and blood test and discussion with the patient on follow-up instructions. Subjective: Seen and examined. Patient has mild left lateral chest wall pain at the scar site of previous chest tube. Patient also has upper mid back pain. No chest pain or shortness of breath. Objective: General: Alert, Oriented x3, Cooperative HEENT: Atraumatic, PERRLA, EOMI, Normocephalic Oral: Moist Mucosa Neck: Supple, No JVD, Negative Carotid Bruits Lungs: No rhonchi, No wheeze, No rales,- Air entry bilaterally equal. Cardiovascular: Regular rate, Regular Rhythm, Normal S1, Normal S2, No murmurs Abdomen: Bowel Sounds Present, Soft, Non Tender, Non-Distended Extremities: No edema, Capillary Refill Less than 3 Seconds. Mild tenderness in upper back pain in the thoracic spine. Skin: No rashes, No breakdown Musculoskeletal: No Tenderness to Palpation of Joints or Extremities, Arthritic Changes Neurological: Cranial nerves II-XII grossly intact Psych/Mental Status: Normal Affect, Appropriate - Physical Exam Vital Signs Temp Pulse Resp BP Pulse Ox 98.1 F 74 15 128/78 H 95 04/01/18 10:20 04/01/18 10:20 04/01/18 10:20 04/01/18 10:20 04/01/18 10:20 Oxygen Delivery Method Room Air Weight: 174 lb Body Mass Index (BMI) 28.0 Intake and Output for Last 24 Hours 03/30/18 03/31/18 04/01/18 23:59 23:59 23:59 Intake Total 220 / 220 Balance 220 / 220 Laboratory Tests Past 24 Hrs 03/31/18 04/01/18 04/01/18 12:00 05:20 05:20 WBC 5.5 RBC 5.14 Hgb 15.0 Hct 45.1 MCV 87.7 MCH 29.2 MCHC 33.3 RDW 13.6 RDW Differential 43.0 Plt Count 72 L MPV 13.9 H PT INR APTT Sodium 141 Potassium 4.2 Chloride 108 H Carbon Dioxide 25.0 Anion Gap 8 BUN 15 Creatinine 0.94 Estim Creat Clear Calc 52.88 Est GFR (MDRD) Af Amer 76 Est GFR (MDRD) Non-Af 62 BUN/Creatinine Ratio 15.9 Glucose 150 H Calcium 9.0 Troponin I < 0.015 Triglycerides 195 Cholesterol 165 LDL Cholesterol 85 VLDL Cholesterol 39 HDL Cholesterol 41 TSH 1.78 04/01/18 05:20 WBC RBC Hgb Hct MCV MCH MCHC RDW RDW Differential Plt Count MPV PT 11.9 INR 0.9 APTT 28.7 Sodium Potassium Chloride Carbon Dioxide Anion Gap BUN Creatinine Estim Creat Clear Calc Est GFR (MDRD) Af Amer Est GFR (MDRD) Non-Af BUN/Creatinine Ratio Glucose Calcium Troponin I Triglycerides Cholesterol LDL Cholesterol VLDL Cholesterol HDL Cholesterol TSH POC Glucose 04/01/18 04/01/18 03/31/18 08:53 06:14 22:10 POC Glucose 156 H 174 H 141 H Discharge Activity: Return to Normal Activity, May not drive while taking narcotic pain medications. Call your doctor if you observe: Fever of 101 or Higher, Inability to urinate, Shortness of breath, Fainting spells, Chest pain, Calf discomfort Home Medications: Medications to take at Discharge Amlodipine Besylate/Valsartan [Amlodipine-Valsartan 5-160 mg] 1 tab PO DAILY 02/13/15 Albuterol IH (ProAir) [Proair Hfa] 1 puff INHALATION UD PRN 06/09/16 Biotin 1 tab PO QODAY 06/09/16 Cetirizine HCl [Zyrtec] 10 mg PO DAILY PRN PRN 06/09/16 Epi Pen Jorge Luis (allergic rxn) 1 syr SQ UD 06/09/16 Magnesium Citrate 1.232 ml PO DAILY 07/29/16 Vitamin B Complex 0.5 ea PO DAILY 07/29/16 Iodine 2% Mild Tincture 4 drp PO DAILY 01/19/17 ascorbic acid (vitamin C) 250 mg tablet 250 mg PO QDAY 05/12/17 blood sugar diagnostic strips See Dose Instructions .ROUTE .MEDSUPPLY #20 ea 05/12/17 insulin syringe-needle U-100 half unit marking 0.3 mL 31 gauge x 07/28 See Dose Instructions .ROUTE .MEDSUPPLY #100 ea 05/12/17 cholecalciferol (vitamin D3) 1,000 unit capsule 1,000 unit PO DAILY PRN 12/08/17 digestive enzymes tablet 1 tab PO BID tab 12/08/17 krill oil 500 mg capsule 500 mg PO .qod cap 12/08/17 metformin 1,000 mg tablet 1,000 mg PO DINNER tab 12/08/17 metformin 1,000 mg tablet 500 mg PO BREAKFAST tab 12/08/17 Humalog KwikPen (U- 100) Insulin 100 unit/mL subcutaneous See Rx Instructions SC .COMPLEX #15 ml NS 02/02/18 Insulin Glargine,Hum.rec.anlog [Basaglar Kwikpen U-100] 16 unit SC QDAY 03/31/18 Insulin Glargine,Hum.rec.anlog [Lantus] 7 unit SQ QHS 03/31/18 Oxycodone HCl/Acetaminophen [Percocet 2.5-325 mg Tablet] 0.5 tab PO Q6H PRN PRN 3 Days #5 tab 04/01/18 Following Prescrptions Were Given to Patient: Oxycodone HCl/Acetaminophen [Percocet 2.5-325 mg Tablet] 0.5 tab PO Q6H PRN PRN 3 Days #5 tab PRN Reason: Pain Primary Care Physician: Gulshan Funes DO [Primary Care Provider] - Please follow up with your Primary Care Physician in: in 1-2 week Medical Necessity - Tobacco Use Smoking Status: Never smoker Tobacco Use: Secondhand Meaningful Use Info Meaningful Use Diagnoses (Choose all that apply): None applicable Code Visit OBSV E&M: 02090 Observation care discharge
[2018-04-01 12:15] LABS: Bedside Glucose 152 mg/dL (70-110)
--- NOTE | 2018-04-01 12:33 | CASEMGMT ---
ROCIO SCHAFFER NOTE: Reviewed IRVIN form with pt and she denies having any questions. Pt signed form. Copy given to pt and original placed on chart. [place] TURNER RN CM
--- NOTE | 2018-04-01 14:41 | NURSING ---
This RN took over care of patient approx [phone].
--- OUTSIDE RECORDS SUMMARY | 2018-06-04 18:33 | XMS RPT_ITS ---
:1950 Author Organization OHIP Support Name Relationship Address Phone ERYN YATESE Unavailable Unavailable + [place] [address] BENITO MARTINEZ Unavailable [address] + [place] [address] R Unavailable Unavailable Unavailable TRUDY, PELON Unavailable Unavailable + [place] [address] BENITO MARTINEZ Unavailable [address] + [place] [address] R Unavailable Unavailable Unavailable TRUDY, PELON Unavailable Unavailable + [place] [address] BENITO MARTINEZ Unavailable [address] + [place] [address] R Unavailable Unavailable Unavailable TRUDY, PELON Unavailable Unavailable + [place] [address] BENITO MARTINEZ Unavailable [address] + [place] [address] R Unavailable Unavailable Unavailable TRUDY, PELON Unavailable 1 + [place] [address] BENITO MARTINEZ Unavailable [address] + [place] [address] R Unavailable Unavailable Unavailable TRUDY, PELON Unavailable Unavailable + BENITO MARTINEZ Unavailable [address] + [place] [address] R Unavailable Unavailable Unavailable TRUDY, PELON Unavailable Unavailable + BENITO MARTINEZ Unavailable [address] + [place] [address] R Unavailable Unavailable Unavailable TRDUY, PELON Unavailable Unavailable + BENITO MARTINEZ Unavailable [address] + [place] [address] R Unavailable Unavailable Unavailable TRUDY, PELON Unavailable Unavailable + BENITO MARTINEZ Unavailable [address] + [place] [address] R Unavailable Unavailable Unavailable TRUDYVANCEPELON Unavailable Unavailable + BENITO MARTINEZ Unavailable [address] + [place] [address] R Unavailable Unavailable Unavailable TRUDYERYN DOMINGUEZE Unavailable Unavailable + BENITO MARTINEZ Unavailable [address] + [place] [address] R Unavailable Unavailable Unavailable BENITO MARTINEZ Unavailable [address] + [place] [address] R Unavailable Unavailable Unavailable BENITO MARTINEZ Unavailable [address] + [place] [address] R Unavailable Unavailable Unavailable R Unavailable Unavailable Unavailable BENITO MARTINEZ Unavailable [address] + [place] [address] R Unavailable Unavailable Unavailable GALLAGHER, MERRY Unavailable [address] + [place] [address] BENITO MARTINEZ Unavailable [address] + [place] [address] R Unavailable Unavailable Unavailable GALLAGHER, MERRY Unavailable [address] + [place] [address] BENITO MARTINEZ Unavailable [address] + [place] [address] R Unavailable Unavailable Unavailable R Unavailable Unavailable Unavailable BENITO MARTINEZ Unavailable [address] + [place] [address] R Unavailable Unavailable Unavailable GALLAGHER, MERRY Unavailable [address] + [place] [address] MARTINEZELIZABETHBENITO Unavailable [address] + [place] [address] R Unavailable Unavailable Unavailable GALLAGHER, MERRY Unavailable [address] + [place] [address] Care Team Providers Name Role Phone TRUDI SAVAGE Referring Unavailable TRUDI SAVAGE MD, JR. Attending Unavailable DR. TYE FUNES DO Primary Care Unavailable Lito, Tye Primary Care Unavailable Carl, Erik Admitting Unavailable Carl, Erik Attending Unavailable Carl, Erik Admitting Unavailable Carl, Erik Attending Unavailable Lito, Tye Primary Care Unavailable Carl, Erik Consulting Unavailable Jona Anthony Attending Unavailable Lito, Tye Primary Care Unavailable Lito, Tye Primary Care Unavailable Imamura, Yoichi Admitting Unavailable Jopperi, Rusty Attending Unavailable Imamura, Yoichi Admitting Unavailable Lito, Tye Primary Care Unavailable Imamura, Yoichi Consulting Unavailable Paintsil, Sutton Attending Unavailable Carl, Erik Admitting Unavailable Carl, Erik Attending Unavailable Lito, Tye Primary Care Unavailable Carl, Erik Consulting Unavailable Imamura, Yoichi Admitting Unavailable Joppnataliya, Rusty Attending Unavailable Lito, Tye Primary Care Unavailable Jopperi, Rusty Consulting Unavailable Imamura, Yoichi Admitting Unavailable Jokarina Rusty Attending Unavailable Lito, Tye Primary Care Unavailable Jopperi, Rusty Consulting Unavailable Zehra Rider Attending Unavailable Lito, Tye Referring Unavailable Lito, Tye Primary Care Unavailable Jes Elizabeth Attending Unavailable Lucie Centeno SLEEP MANAGER-C Attending Unavailable Lito, Tye Referring Unavailable Lito, Tye Primary Care Unavailable Jona Anthony Attending Unavailable Lito, Tye Primary Care Unavailable PraJona brown Consulting Unavailable Trudi Savage Attending Unavailable Trudi Savage Referring Unavailable Lito, Tye Primary Care Unavailable Joy Santamaria Attending Unavailable Joy Santamaria Referring Unavailable Lito, Tye Primary Care Unavailable Tyler Rios Attending Unavailable Tyler Rios Referring Unavailable Lito, Tye Primary Care Unavailable Zehra Bonds Attending Unavailable Tra Ham Attending Unavailable Lito, Tye Referring Unavailable Lito, Tye Attending Unavailable Lito, Tye Referring Unavailable Lito, Tye Primary Care Unavailable PROBLEMS PROBLEMS DATE TYPE CONDITION / CODE ATTENDING STATUS SOURCE 04/01/2018 Unknown Z79.899 - Other long Carl, Erik Active [place] term (current) drug [facility] therapy [facility] Z79.899(ICD-10) Repository 12/30/2017 Unknown D69.3 - Immune Tye Funes Active [place] thrombocytopenic [facility] purpura / Hospital D69.3(ICD-10) Repository 12/30/2017 Unknown I10 - Essential Tye Funes Active [place] (primary) hypertension Community / I10(ICD-10) Hospital Repository 12/30/2017 Unknown E55.9 - Vitamin D Tye Funes Active [place] deficiency, [facility] unspecified / Hospital E55.9(ICD-10) Repository 12/08/2017 Unknown E78.00 - Pure Moodispaw, Active [place] hypercholesterolemia, Tra [facility] unspecified / Hospital E78.00(ICD-10) Repository 09/09/2017 Active Unknown / UNK(Unknown) NA Active [facility] Repository 09/07/2017 Unknown L65.9 - Nonscarring Trudi Savage Active [place] hair loss, unspecified [facility] / L65.9(ICD-10) Hospital Repository 09/07/2017 Unknown R53.83 - Other fatigue Trudi Savage Active [place] / R53.83(ICD-10) [facility] Hospital Repository 05/13/2017 Unknown E11.9 - Type 2 Lucie Centeno Active [place] diabetes mellitus J SLEEP MANAGER-C [facility] without complications Hospital / E11.9(ICD-10) Repository PROCEDURES PROCEDURES No Procedure Records FoundRESULTS RESULTS 12 LEAD ELECTROCARDIOGRAM Observed: 04/04/2018 Status: F Source: [place] 9:53 AM [facility] REPOSITORY [facility] Cardiovascular Services [address] [place] [address] 12 Lead EKG 03/31/18 0859 MR#: [id number] Acct: [id number] Name: [place] MARTINEZ Rep #: [id number] : 1950 68 From: Chris Rondon MD Attending Dr: Erik Henry MD Status: DIS RAJAT Ordering Dr: Erik Henry MD Date: 03/31/18 Location: [facility] Sex: F C Admitted: 03/31/18 Test Reason : CP Blood Pressure : / mmHG Vent. Rate : 065 BPM Atrial Rate : 065 BPM P-R Int : 156 ms QRS Dur : 076 ms QT Int : 388 ms P-R-T Axes : 062 -05 -01 degrees QTc Int : 403 ms Normal sinus rhythm Normal ECG When compared with ECG of 31-MAR-2018 05:54, MANUAL COMPARISON REQUIRED, DATA IS UNCONFIRMED Confirmed by CHRIS RONDON MD ([id number]), graphic editor CHHAYA FAUSTIN ([id number]) on 04/04/2018 9:52:44 AM Referred By: CARL Confirmed By:CHRIS RONDON MD 04/04/18 0952 Date Chris Rondon MD CC: Tye Funes DO; Erik Henry MD Signed 12 LEAD ELECTROCARDIOGRAM Observed: 04/04/2018 Status: F Source: [place] 9:51 AM [facility] REPOSITORY [facility] Cardiovascular Services [address] [place], [place] [address] [address] 12 Lead EKG 04/01/18 0539 MR#: [id number] Acct: [id number] Name: [place]BE[place] MARTINEZ Rep #: [id number] : 1950 68 From: Chris Rondon MD Attending Dr: Erik Henry MD Status: DIS RAJAT Ordering Dr: Erik Henry MD Date: 04/01/18 Location: [facility] Sex: F C Admitted: 03/31/18 Test Reason : AM EKG Blood Pressure : / mmHG Vent. Rate : 064 BPM Atrial Rate : 064 BPM P-R Int : 152 ms QRS Dur : 086 ms QT Int : 408 ms P-R-T Axes : 062 007 013 degrees QTc Int : 420 ms Normal sinus rhythm Normal ECG When compared with ECG of 31-MAR-2018 08:59, MANUAL COMPARISON REQUIRED, DATA IS UNCONFIRMED Confirmed by CHRIS RONDON MD ([id number]), graphic editor CHHAYA FAUSTIN ([id number]) on 04/04/2018 9:50:48 AM Referred By: CARL Confirmed By:CHRIS RONDON MD 04/04/18 0950 Date Chris Rondon MD CC: Tye Henry MD Signed 12 LEAD ELECTROCARDIOGRAM Observed: 04/04/2018 Status: F Source: [place] 9:24 AM [facility] Cardiovascular Services [address] [place] [address] 12 Lead EKG 03/31/18 0554 MR#: [id number] Acct: [id number] Name: CAMPBELL MARTINEZ Rep #: [id number] : 1950 68 From: Chris Rondon MD Attending Dr: Erik Henry MD Status: DIS RAJAT Ordering Dr: Jimmie Kumar MD Date: 03/31/18 Location: [facility] Sex: F C Admitted: 03/31/18 Test Reason : CP Blood Pressure : / mmHG Vent. Rate : 073 BPM Atrial Rate : 073 BPM P-R Int : 154 ms QRS Dur : 082 ms QT Int : 406 ms P-R-T Axes : 066 002 -01 degrees QTc Int : 447 ms Normal sinus rhythm Normal ECG Confirmed by MORGAN NUGENT, CHRIS ([id number]), graphic editor CHHAYA FAUSTIN ([id number]) on 04/04/2018 9:24:05 AM Referred By: BINA Confirmed By:CHRIS RONDON MD 04/04/18 0924 Date Chris Rondon MD CC: Jimmie Kumar MD; Tye Funes DO; Erik Henry MD Signed DISCHARGE SUMMARY Observed: 04/01/2018 Status: F Source: [place] 5:45 PM [facility] REPOSITORY [facility] Medical Records Department [address] [place] [address] Discharge Summary 04/01/18 1121 MR#: [id number] Acct: [id number] Name: CAMPBELL MARTINEZ Rep #: [id number] : 1950 68 From: Erik Henry MD PCP: Tye Funes DO Status: DIS RAJAT Y Location: [place] [address] Discharge Date and Diagnosis Date of Admission: 03/31/18 Date of Discharge: 04/01/18 - Primary Discharge Diagnosis Active and Suspected Problems (Last Reviewed 12/08/17 @ 10:53 by Zehra Bonds) Atypical chest pain (Acute) - Secondary Discharge Diagnosis Chronic Problems (Last Reviewed 12/08/17 @ 10:53 by Zehra Bonds) Nail abnormalities (Chronic) Hypertension (Chronic) Aortocoronary bypass status (Chronic 09/10/04) CABG, TAVAREZ as sequential graft to diagonal AND LAD AND SVG to RPDA #3, 605 Hyperlipidemia (Chronic) 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 of [place] heart (Chronic) CABG, TAVAREZ as sequential graft to diagonal AND LAD AND SVG to RPDA #3, 6/05 Pericardial effusion (Chronic) Pleural effusion (Chronic) Palpitations (Chronic) DM type 2 (diabetes mellitus, type 2) (Chronic) BG readings higher than normal. Has been ill and less active for about 3-4 weeks. Is feeling much better with appetite improving. Less cough and less mucus. No fever. 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 Chronic ITP (idiopathic thrombocytopenia) (Chronic) Hospital Course and Treatment Imaging Results: 04/01/18 05:55 Nuclear Stress Test - Chemical [NM] AM (NON MEDS) Operations: None Summary of Care Provided: [] The patient is a 68 year old F with history of coronary artery disease status post triple-vessel CABG, in 2004, chronic ITP came to ER with chest pain that woke her up today. Patient having left upper back pain for about 1 week but in the morning today it went through to the front of the chest wall. She denies associated shortness of breath, palpitation or diaphoresis. About a week ago she also had flulike symptoms including fever or chills but that has resolved spontaneously. She also complained of left calf was red and swollen after she crossed her leg when she had a fever and fell asleep. She has history of endometrial cancer and PE after she had hysterectomy about 6 years ago. History of chronic ITP and follows Dr. ANTHONY. Patient also had asthma attack near [place], 2018 still has cough and brings up clear sputum but no shortness of breath. In ED, vital signs are stable, blood pressure slightly elevated 167/89. EKG shows normal sinus rhythm [address]-T changes. Troponin is negative. Platelet count is 70,000. [] Chest x-ray shows hyperinflation and scarring in the left base and postsurgical changes. No acute change. CTP does not show evidence of pulmonary embolism, aortic aneurysm or aortic dissection. Previous CABG. Mild fibrotic changes as well as bronchiectasis most prominent left lower lobe. No evidence of acute cardiopulmonary pathology. New findings of 5.5 mm right upper lobe nodule and 3.7 mm right lower lobe nodule. Six- month follow-up CT scan suggested. 1. Atypical chest pain with history of coronary artery status post triple-vessel CABG: Patient is being admitted in PCU. Echo in April 2016 shows EF 70% with no regional wall motion abnormality. LA mildly enlarged otherwise no significant valvulaR abnormality. Serial troponin enzymes are negative. Nuclear stress test was done was negative for stress-induced ischemia. Fasting lipid profile within normal limit. Fasting profile in December 2017 shows total cholesterol 157, LDL 82, HDL 37 and triglyceride 190 2. Complain of left leg redness and swelling: There is no tenderness or redness on my exam. Venous Doppler of lower extremity showed no evidence of DVT. Lung nodule: CTPA findings as mentioned above. Suggested follow-up CT scan after 6 months for lung nodule. Follow with PCP. Acute on chronic upper back pain: Patient stated she takes 1/4 pill of Percocet 5/325. Prescription given for 2.5/325 mg Percocet, half tablet every 6 hourly as needed; total of 5 tablets. 3. Recent asthma attack as per the patient: Currently breathing is stable. On albuterol inhaler as needed. I do not see maintenance inhaler on her home medications. 4. Diabetes mellitus type II: Accu-Chek before meals and at bedtime and cover with NovoLog sliding scale and on Lantus insulin. Her sugars are controlled. 5 hypertension: Continue amlodipine- valsartan. BP controlled. Chronic ITP: Follow Dr. Anthony Discharge medication reconciliation done. Discharge follow- up instructions completed. Discharge process discussed with the patient and all questions were answered to patient's satisfaction. Prescription of Percocet given. Total time spent, exact 35 minutes on discharge meds reconciliation, examination, review of imaging and blood test and discussion with the patient on follow-up instructions. Subjective: Seen and examined. Patient has mild left lateral chest wall pain at the scar site of previous chest tube. Patient also has upper mid back pain. No chest pain or shortness of breath. Objective: General: Alert, Oriented x3, Cooperative HEENT: Atraumatic, PERRLA, EOMI, Normocephalic Oral: Moist Mucosa Neck: Supple, No JVD, Negative Carotid Bruits Lungs: No rhonchi, No wheeze, No rales,- Air entry bilaterally equal. Cardiovascular: Regular rate, Regular Rhythm, Normal S1, Normal S2, No murmurs Abdomen: Bowel Sounds Present, Soft, Non Tender, Non-Distended Extremities: No edema, Capillary Refill Less than 3 Seconds. Mild tenderness in upper back pain in the thoracic spine. Skin: No rashes, No breakdown Musculoskeletal: No Tenderness to Palpation of Joints or Extremities, Arthritic Changes Neurological: Cranial nerves II-XII grossly intact Psych/Mental Status: Normal Affect, Appropriate - Physical Exam Vital Signs Temp Pulse Resp BP Pulse Ox 98.1 F 74 15 128/78 H 95 04/01/18 10:20 04/01/18 10:20 04/01/18 10:20 04/01/18 10:20 04/01/18 10:20 Oxygen Delivery Method Room Air Weight: 174 lb Body Mass Index (BMI) 28.0 Intake and Output for Last 24 Hours Intake Total 220 / 220 Balance 220 / 220 Laboratory Tests Past 24 Hrs WBC 5.5 RBC 5.14 Hgb 15.0 Hct 45.1 WBC RBC Hgb Hct MCV MCH MCHC RDW POC Glucose POC Glucose 156 H 174 H 141 H Discharge Activity: Return to Normal Activity, May not drive while taking narcotic pain medications. Call your doctor if you observe: Fever of 101 or Higher, Inability to urinate, Shortness of breath, Fainting spells, Chest pain, Calf discomfort Home Medications: Medications to take at Discharge Amlodipine Besylate/Valsartan [Amlodipine-Valsartan 5-160 mg] 1 tab PO DAILY 02/13/15 Albuterol IH (ProAir) [Proair Hfa] 1 puff INHALATION UD PRN 06/09/16 Biotin 1 tab PO QODAY 06/09/16 Cetirizine HCl [Zyrtec] 10 mg PO DAILY PRN PRN 06/09/16 Epi Pen Jorge Luis (allergic rxn) 1 syr SQ UD 06/09/16 Magnesium Citrate 1.232 ml PO DAILY 07/29/16 Vitamin B Complex 0.5 ea PO DAILY 07/29/16 Iodine 2% Mild Tincture 4 drp PO DAILY 01/19/17 ascorbic acid (vitamin C) 250 mg tablet 250 mg PO QDAY 05/12/17 blood sugar diagnostic strips See Dose Instructions .ROUTE .MEDSUPPLY #20 ea 05/12/17 insulin syringe-needle U-100 half unit marking 0.3 mL 31 gauge x 07/28 See Dose Instructions .ROUTE .MEDSUPPLY #100 ea 05/12/17 cholecalciferol (vitamin D3) 1,000 unit capsule 1,000 unit PO DAILY PRN 12/08/17 digestive enzymes tablet 1 tab PO BID tab 12/08/17 krill oil 500 mg capsule 500 mg PO .qod cap 12/08/17 metformin 1,000 mg tablet 1,000 mg PO DINNER tab 12/08/17 metformin 1,000 mg tablet 500 mg PO BREAKFAST tab 12/08/17 Humalog KwikPen (U- 100) Insulin 100 unit/mL subcutaneous See Rx Instructions SC .COMPLEX #15 ml NS 02/02/18 Insulin Glargine,Hum.rec.anlog [Basaglar Kwikpen U-100] 16 unit SC QDAY 03/31/18 Insulin Glargine,Hum.rec.anlog [Lantus] 7 unit SQ QHS 03/31/18 Oxycodone HCl/Acetaminophen [Percocet 2.5-325 mg Tablet] 0.5 tab PO Q6H PRN PRN 3 Days #5 tab 04/01/18 Following Prescrptions Were Given to Patient: Oxycodone HCl/Acetaminophen [Percocet 2.5-325 mg Tablet] 0.5 tab PO Q6H PRN PRN 3 Days #5 tab PRN Reason: Pain Primary Care Physician: Tye Funes DO [Primary Care Provider] - Please follow up with your Primary Care Physician in: in 1- 2 week Medical Necessity - Tobacco Use Smoking Status: Never smoker Tobacco Use: Secondhand Meaningful Use Info Meaningful Use Diagnoses (Choose all that apply): None applicable Code Visit OBSV E AND M: 87526 Observation care discharge 04/01/18 7814 <Electronically signed by Erik Henry MD> Date Erik Henry MD Cosigner Signature (if applicable): Date CC: Tye Funes DO; Erik Henry MD Signed DISCHARGE INSTRUCTION Observed: 04/01/2018 Status: F Source: [place] 11:21 AM [facility] REPOSITORY [facility] Medical Records Department [address] [place] [address] Instructions for Home/Discharge Instructions 04/01/18 1048 MR#: [id number] Acct: [id number] Name: CAMPBELL MARTINEZ Rep #: [id number] : 1950 68 From: Erik Henry MD PCP: Tye Funes DO Status: ADM RAJAT - Discharge Diagnoses Current Active Problems: Current Active and Chronic Problems (Last Reviewed 12/08/17 @ 10:53 by Zehra Bonds) Atypical chest pain (Acute) You will use the following diet at home:: Cardiac Discharge Activity: Return to Normal Activity, May not drive while taking narcotic pain medications. Call your doctor if you observe: Fever of 101 or Higher, Inability to urinate, Shortness of breath, Fainting spells, Chest pain, Calf discomfort Allergies/Adverse Reactions: Allergies bee venom protein (honey bee) Allergy (Verified 12/08/17 10:47) Anaphylaxis ciprofloxacin [From Cipro] Allergy (Verified 12/08/17 10:47) Anaphylaxis ciprofloxacin HCl [From Cipro] Allergy (Verified 12/08/17 10:47) Anaphylaxis insect venom Allergy (Verified 12/08/17 10:47) Anaphylaxis pine nut Allergy (Verified 12/08/17 10:47) Anaphylaxis trazodone Allergy (Verified 12/08/17 10:47) Shortness of breath peanut Adverse Reaction (Severe, Verified 12/08/17 10:47) Asthma egg Adverse Reaction (Unknown, Verified 12/08/17 10:47) Unknown allergy testing with positive reaction Fish Containing Products Adverse Reaction (Unknown, Verified 12/08/17 10:47) Unknown Allergy testing with positive reaction corn Adverse Reaction (Verified 12/08/17 10:47) Nausea/Vom/Diarrhea dandelion (Taraxacum officinale) Adverse Reaction (Verified 12/08/17 10:47) ASTHMA/SEASONAL ALLERGIES latex Adverse Reaction (Verified 12/08/17 10:47) RASH D/T POWDER IN GLOVES metoprolol Adverse Reaction (Verified 12/08/17 10:47) Nausea/Vom/Diarrhea omeprazole Adverse Reaction (Verified 12/08/17 10:47) Unknown wheat Adverse Reaction (Verified 12/08/17 10:47) NAUSEA,VOMITING,DIARRHEA Medications to take at Discharge Amlodipine Besylate/Valsartan [Amlodipine-Valsartan 5-160 mg] 1 tab PO DAILY 02/13/15 Albuterol IH (ProAir) [Proair Hfa] 1 puff INHALATION UD PRN 06/09/16 Biotin 1 tab PO QODAY 06/09/16 Cetirizine HCl [Zyrtec] 10 mg PO DAILY PRN PRN 06/09/16 Epinephrine [Epi Pen Jorge Luis (for allergic rxn)] 1 syr SQ UD 06/09/16 Magnesium Citrate 1.232 ml PO DAILY 07/29/16 Vitamin B Complex 0.5 ea PO DAILY 07/29/16 Iodine 2% Mild Tincture 4 drp PO DAILY 01/19/17 ascorbic acid (vitamin C) 250 mg tablet 250 mg PO QDAY 05/12/17 blood sugar diagnostic strips See Dose Instructions .ROUTE .MEDSUPPLY #20 ea 05/12/17 insulin syringe-needle U-100 half unit marking 0.3 mL 31 gauge x 07/28 See Dose Instructions .ROUTE .MEDSUPPLY #100 ea 05/12/17 cholecalciferol (vitamin D3) 1,000 unit capsule 1,000 unit PO DAILY PRN 12/08/17 digestive enzymes tablet 1 tab PO BID tab 12/08/17 krill oil 500 mg capsule 500 mg PO .qod cap 12/08/17 metformin 1,000 mg tablet 1,000 mg PO DINNER tab 12/08/17 metformin 1,000 mg tablet 500 mg PO BREAKFAST tab 12/08/17 Humalog KwikPen (U- 100) Insulin 100 unit/mL subcutaneous See Rx Instructions SC .COMPLEX #15 ml NS 02/02/18 Insulin Glargine,Hum.rec.anlog [Basaglar Kwikpen U-100] 16 unit SC QDAY 03/31/18 Insulin Glargine,Hum.rec.anlog [Lantus] 7 unit SQ QHS 03/31/18 Oxycodone HCl/Acetaminophen [Percocet 2.5-325 mg Tablet] 0.5 tab PO Q6H PRN PRN 3 Days #5 tab 04/01/18 The following prescriptions were given: Oxycodone HCl/Acetaminophen [Percocet 2.5-325 mg Tablet] 0.5 tab PO Q6H PRN PRN 3 Days #5 tab PRN Reason: Pain Please follow up with your Primary Care Physician in: in 1- 2 week Test Results: Test results from this visit will be discussed in further detail at your follow-up appointment, if applicable. 04/01/18 1121 <Electronically signed by Erik Henry MD> Date Erik Henry MD CC: Tye Funes DO Signed BEDSIDE GLUCOSE Collected: 04/01/2018 Status: F Source: [place] 10:45 AM [facility] REPOSITORY TYPE CODE TESTS RESULT OUT OF REFERENCE UNITS RANGE LAB L501.080 70-110 mg/dL High BEDSIDE GLU 152 Result Comment: MANAGEMENT OF PATIENT CARE PER NURSING PROTOCOL Performed By: #### L501.080 #### [facility] Point of Care [address] [address] STRESS REPORT Observed: 04/01/2018 Status: F Source: [place] 10:09 AM [facility] REPOSITORY [facility] Cardiovascular Services [address] [place] [address] MR#: [id number] Acct: [id number] Name: DERICKCAMPBELL Milena Rep #: [id number] : 1950 68 From: Chris Rondon MD Primary Care: Tye Funes DO Status: ADM RAJAT Ordering Dr: Sex: F C Stress Test Report Pharmacologic myocardial perfusion stress test. 68-year-old man with a history of chest pain. Medications: Amlodipine valsartan. Stress protocol: Resting EKG demonstrates normal sinus rhythm with a rate of 67 bpm normal intervals are noted resting blood pressure 132/80 mmHg. 0.4 mg of regadenoson was infused per usual protocol followed by rapid intravenous saline flush injection continuous EKG monitoring was performed. At rest there were no ST or T wave changes noted suggest abnormal flow reserve at peak infusion no ST or T wave changes were noted suggest abnormal flow reserve. No clinical angina was noted. The maximum heart rate attained was noted to be 90 bpm. The resting blood pressure was 132/80 mmHg with a final blood pressure 130/74 mmHg. Myocardial perfusion protocol. 11.8 mCi of technetium 99m sestamibi was injected at rest. 0.4 mg of regadenoson was infused per usual protocol peak infusion 33.1 mCi of technetium 99m sestamibi was injected stress images were obtained stress and rest images were reconstructed and compared in the short axis vertical long horizontal long axis. Gated images was obtained. Perfusion SPECT analysis: Review of the stress images demonstrate normal perfusion noted in all areas of the myocardium. The resting images similarly demonstrate normal myocardial perfusion in all areas of the myocardium. No areas are noted suggest ischemia. Gated SPECT analysis: The gated ejection fraction is noted to be 77%. Conclusion: Normal pharmacologic myocardial perfusion stress test. Preserved ejection fraction. 04/01/18 1009 <Electronically signed by Chris Rondon MD> Date Chris Rondon MD CC: Tye Funes DO; Erik Henry MD Date Dictated: 04/01/18 1006 Date Transcribed: 04/01/18 1006 Bonding Machine Setter: CO Signed BEDSIDE GLUCOSE Collected: 04/01/2018 Status: F Source: JERRELL 8:53 AM [facility] REPOSITORY TYPE CODE TESTS RESULT OUT OF REFERENCE UNITS RANGE LAB L501.080 70-110 mg/dL High BEDSIDE GLU 156 Result Comment: MANAGEMENT OF PATIENT CARE PER NURSING PROTOCOL Performed By: #### L501.080 #### [facility] Point of [place] [address] BEDSIDE GLUCOSE Collected: 04/01/2018 Status: F Source: JERRELL 6:14 AM [facility] REPOSITORY TYPE CODE TESTS RESULT OUT OF REFERENCE UNITS RANGE LAB L501.080 70-110 mg/dL High BEDSIDE GLU 174 Result Comment: MANAGEMENT OF PATIENT CARE PER NURSING PROTOCOL Performed By: #### L501.080 #### [facility] Point of Care [address] [place], [place] [address] CBC-COMPLETE BLOOD CNT Collected: 04/01/2018 Status: F Source: JERRELL NO DIFF 5:20 AM [facility] REPOSITORY TYPE CODE TESTS RESULT OUT OF RANGE REFERENCE UNITS LAB L100.1000 4.4-11.0 K/mm3 Normal WBC 5.5 LAB L100.1200 4.2-5.4 M/mm3 Normal RBC 5.14 LAB L100.1300 12.0-15.0 g/dl Normal HGB 15.0 LAB L100.1400 37-47 % Normal HCT 45.1 LAB L100.1500 81-99 fL Normal MCV 87.7 LAB L100.1600 27.0-32.0 pg Normal MCH 29.2 LAB L100.1700 32-36 g/gl Normal MCHC 33.3 LAB L100.1810 11.6-14.6 % Normal RDW CV 13.6 LAB L100.1820 35.1-43.9 fl Normal RDW SD 43.0 LAB L100.1900 150-450 K/mm3 Low PLT 72 LAB L100.2000 6.2-12.0 fl High MPV 13.9 Performed By: #### L100.0500 #### [facility] [address] [place], [place], [id number] PROTHROMBIN TIME W/INR Collected: 04/01/2018 Status: F Source: JERRELL 5:20 AM [facility] REPOSITORY TYPE CODE TESTS RESULT OUT OF RANGE REFERENCE UNITS LAB L300.4150 11.7-14.9 SECONDS Normal PROTIME 11.9 LAB L300.4200 Normal INR 0.9 Performed By: #### L300.3900, L300.4310 #### [facility] [address] [place], [place], [address] PARTIAL THROMBOPLAST Collected: 04/01/2018 Status: F Source: JERRELL TIME 5:20 AM [facility] REPOSITORY TYPE CODE TESTS RESULT OUT OF RANGE REFERENCE UNITS LAB L300.4310 24.1-36.2 Seconds Normal PTT 28.7 Performed By: #### L300.3900, L300.4310 #### [facility] [address] [place], [address] BASIC METABOLIC Collected: 04/01/2018 Status: F Source: [place] PROFILE (BMP) 5:20 AM [facility] REPOSITORY TYPE CODE TESTS RESULT OUT OF RANGE REFERENCE UNITS LAB L501.0100 74-106 mg/dL High GLU 150 Result Comment: Fasting Glucose result greater than or equal to 126 mg/dL suggests DIABETES MELLITUS per A.D.A. criteria. Please note revised GLUCOSE reference range effective 2017. LAB L501.1000 7-18 mg/dL Normal BUN 15 LAB L501.1100 0.55-1.02 mg/dL Normal CREAT,SERUM 0.94 Result Comment: The validity of the calculated GFR AND GFRAA in patients over 70 years has not been determined. Clinical correlation is essential. LAB L501.1110 >60 mL/min Normal EST GFR 62 Result Comment: Non- GFR Calc LAB L501.1115 >60 mL/min Normal EST GFR - AA 76 Result Comment: GFR Calc LAB L501.1255 ml/min Normal Estimated CRCL 52.88 LAB L501.1300 10-20 RATIO Normal BUN/CRE 15.9 LAB L501.2200 8.5-10 mg/dL Normal .1 CA 9.0 LAB L501.5300 136-14 mmol/L Normal 5 NA 141 LAB L501.5600 3.5-5. mmol/L Normal 1 K 4.2 LAB L501.5900 98-107 mmol/L High CL 108 LAB L501.6100 21.0-3 mmol/L Normal 2.0 CO2 25.0 LAB L501.6200 5-15 Normal GAP 8 Performed By: #### L500.2500, L500.4100, L501.9520 #### [facility] [address] [place], [place], [id number] LIPID PROFILE Collected: 04/01/2018 Status: F Source: [place] 5:20 AM [facility] REPOSITORY TYPE CODE TESTS RESULT OUT OF RANGE REFERENCE UNITS LAB L501.4900 200 mg/dL Normal CHOL 165 Result Comment: <200 mg/dL Desirable 200-240 mg/dL Borderline >240 mg/dL High Risk LAB L501.5000 mg/dL Normal TRIG 195 Result Comment: The drugs N-Acetylcysteine and Metamizole may falsely depress this assay. Serum Triglycerides Reference Interval Normal <150 mg/dL Borderline high 150 - 199 mg/dL High 200 - 499 mg/dL Very High > or = 500 mg/dL LAB L501.6400 mg/dL Normal HDL 41 Result Comment: The drugs N-Acetylcysteine and Metamizole may falsely depress this assay. Reference Range HDL <40 mg/dL Low HDL Cholesterol HDL >or= 60 mg/dL High HDL Cholesterol LAB L501.6500 0-130 mg/dL Normal LDL 85 LAB L501.6600 5-40 mg/dL Normal VLDL 39 Performed By: #### L500.2500, L500.4100, L501.9520 #### [facility] [address] [place], [address] THYROID STIM HORMONE Collected: 04/01/2018 Status: F Source: JERRELL (TSH) 5:20 AM [facility] REPOSITORY TYPE CODE TESTS RESULT OUT OF RANGE REFERENCE UNITS LAB L501.9520 0.358-3.74 uIU/mL Normal TSH 1.78 Performed By: #### L500.2500, L500.4100, L501.9520 #### [facility] [address] [place], [address] BEDSIDE GLUCOSE Collected: 03/31/2018 Status: F Source: JER[place]LL 10:10 PM [facility] REPOSITORY TYPE CODE TESTS RESULT OUT OF REFERENCE UNITS RANGE LAB L501.080 70-110 mg/dL High BEDSIDE GLU 141 Result Comment: MANAGEMENT OF PATIENT CARE PER NURSING PROTOCOL Performed By: #### L501.080 #### [facility] Point of Care [address] [place] [address] VENOUS DUPLEX LOWER Observed: 03/31/2018 Status: F Source: [place] EXTREMITY 3:20 PM [facility] REPOSITORY [facility] Cardiovascular Services [address] [place] [address] Venous Duplex US - Perez Extrem 03/31/18 1014 MR#: [id number] Acct: [id number] Name: CAMPBELL MARTINEZ Rep #: [id number] : 1950 68 From: Paulo Barton MD Attending Dr: Erik Henry MD Status: ADM RAJAT Ordering Dr: Erik Henry MD Date: 03/31/18 Location: [facility] Sex: F C Admitted: 03/31/18 Reason For Study: LEG PAIN AND SWELLING RIGHT LEFT CFV is compressible, spontaneous, phasic, CFV is compressible, spontaneous, phasic, competent and demonstrates normal competent, and demonstrates normal augmentation. augmentation. FV is compressible, spontaneous, phasic, FV is compressible, spontaneous, phasic, competent and demonstrates normal competent and demonstrates normal augmentation. augmentation. POP V is compressible, spontaneous, phasic, POP V is compressible, spontaneous, phasic, competent and demonstrates normal competent and demonstrates normal augmentation. augmentation. T/P Trunk is compressible. T/P Trunk is compressible. PTV is compressible. PTV is compressible. RT PerV is compressible. LT PerV is compressible. GSV harvested. GSV harvested. Procedure Exam performed portable in patient room. A preliminary report was called and/or faxed to [facility]. Interpretation Summary No evidence for acute deep venous thrombosis bilateral lower extremities. Surgically harvested bilateral great saphenous veins. 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 These values should be used with clinical judgement in examining the patient's clinical picture for diagnosis. To establish a diagnosis of IN versus myocardial injury, there must be a demonstrated rise and/or fall in the troponin values, in addition to ischemic symptoms, EKG changes, new regional wall motion abnormality, and/or angiographical evidence. PLEASE NOTE: REFERENCE RANGES EDITED 17 Performed By: #### L501.4010 #### [facility] [address] [place], [address] BEDSIDE GLUCOSE Collected: 03/31/2018 Status: F Source: JERRELL 9:51 AM [facility] REPOSITORY TYPE CODE TESTS RESULT OUT OF REFERENCE UNITS RANGE LAB L501.080 70-110 mg/dL High BEDSIDE GLU 171 Result Comment: MANAGEMENT OF PATIENT CARE PER NURSING PROTOCOL Performed By: #### L501.080 #### [facility] Point of Care [address] [place] [address] HISTORY AND PHYSICAL Observed: 03/31/2018 Status: F Source: JERRELL EXAM 8:02 AM [facility] REPOSITORY [facility] Medical Records Department [address] [place] [address] History and Physical 03/31/18 0733 MR#: [id number] Acct: [id number] Name: MARTINEZCAMPBELL Milena Rep #: [id number] : 1950 68 From: Erik Henry MD PCP: Tye Funes DO Status: ADM RAJAT Y Location: [place] [address] ADDENDUM by Erik Henry MD on 03/31/18 at 0802 Code Visit Fasting profile in December 2017 shows total cholesterol 157, LDL 82, HDL 37 and triglyceride 190 03/31/18 0802 <Electronically signed by Erik Henry MD> Date Erik Henry MD cc: Tye Funes DO; Erik Henry MD * Signed Problem List (1) Atypical chest pain Status: Acute (2) Nail abnormalities Status: Chronic (3) Hypertension Status: Chronic Qualifiers: (4) Aortocoronary bypass status Status: Chronic Comment: CABG, TAVAREZ as sequential graft to diagonal AND LAD AND SVG to RPDA #3, 6/05 (5) Hyperlipidemia Status: Chronic Qualifiers: (6) Immune thrombocytopenic purpura Status: Chronic (7) Atherosclerosis of coronary artery bypass graft of [place] heart Status: Chronic Qualifiers: Comment: CABG, TAVAREZ as sequential graft to diagonal AND LAD AND SVG to RPDA #3, 6/05 (8) Pericardial effusion Status: Chronic (9) Pleural effusion Status: Chronic (10) Palpitations Status: Chronic (11) Precordial chest pain Status: Acute (12) Fatigue Status: Acute (13) DM type 2 (diabetes mellitus, type 2) Status: Chronic Qualifiers: Comment: BG readings higher than normal. Has been ill and less active for about 3-4 weeks. Is feeling much better with appetite improving. Less cough and less mucus. No fever. 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 (14) Chronic ITP (idiopathic thrombocytopenia) Status: Chronic History of Present Illness Date of Admission: 03/31/18 Chief Complaint: Chest pain today The patient is a 68 year old F with history of coronary artery disease status post triple-vessel CABG, in 2004, chronic ITP came to ER with chest pain that woke her up today. Patient having left upper back pain for about 1 week but in the morning today it went through to the front of the chest wall. She denies associated shortness of breath, palpitation or diaphoresis. About a week ago she also had flulike symptoms including fever or chills but that has resolved spontaneously. She also complained of left calf was red and swollen after she crossed her leg when she had a fever and fell asleep. She has history of endometrial cancer and PE after she had hysterectomy about 6 years ago. History of chronic ITP and follows Dr. ANTHONY. In ED, vital signs are stable, blood pressure slightly elevated 167/89. EKG shows normal sinus rhythm [address]-T changes. Troponin is negative. Platelet count is 70,000. [] Chest x-ray shows hyperinflation and scarring in the left base and postsurgical changes. No acute change. CTPA is done but report is pending. Past Medical History Past Medical History (Chronic Problems): Chronic Problems (Last Reviewed 12/08/17 @ 10:53 by Zehra Bonds) Nail abnormalities (Chronic) Hypertension (Chronic) Aortocoronary bypass status (Chronic 09/10/04) CABG, TAVAREZ as sequential graft to diagonal AND LAD AND SVG to RPDA #3, 6/05 Hyperlipidemia (Chronic) 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 of [place] heart (Chronic) CABG, TAVAREZ as sequential graft to diagonal AND LAD AND SVG to RPDA #3, 6/05 Pericardial effusion (Chronic) Pleural effusion (Chronic) Palpitations (Chronic) DM type 2 (diabetes mellitus, type 2) (Chronic) BG readings higher than normal. Has been ill and less active for about 3-4 weeks. Is feeling much better with appetite improving. Less cough and less mucus. No fever. 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 Chronic ITP (idiopathic thrombocytopenia) (Chronic) Medical History: Medical History (Last Reviewed 12/08/17 @ 10:53 by Zehra Bonds) Hypertension (Chronic) I10 Hyperlipidemia (Chronic) E78.5 Immune thrombocytopenic purpura (Chronic) D69.3 Atherosclerosis of coronary artery bypass graft of [place] heart (Chronic) I25.810 CABG, TAVAREZ as sequential graft to diagonal AND LAD AND SVG to RPDA #3, 6/05 Pericardial effusion (Chronic) I31.3 Pleural effusion (Chronic) J90 Palpitations (Chronic) R00.2 DM type 2 (diabetes mellitus, type 2) (Chronic) E11.9 BG readings higher than normal. Has been ill and less active for about 3-4 weeks. Is feeling much better with appetite improving. Less cough and less mucus. No fever. 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 H/O: hysterectomy Z98.890, Z90.710 CAD (coronary artery disease), [place] coronary artery (Inactive) I25.10 Allergies bee venom protein (honey bee) Allergy (Verified 12/08/17 10:47) Anaphylaxis ciprofloxacin [From Cipro] Allergy (Verified 12/08/17 10:47) Anaphylaxis ciprofloxacin HCl [From Cipro] Allergy (Verified 12/08/17 10:47) Anaphylaxis insect venom Allergy (Verified 12/08/17 10:47) Anaphylaxis pine nut Allergy (Verified 12/08/17 10:47) Anaphylaxis trazodone Allergy (Verified 12/08/17 10:47) Shortness of breath peanut Adverse Reaction (Severe, Verified 12/08/17 10:47) Asthma egg Adverse Reaction (Unknown, Verified 12/08/17 10:47) Unknown allergy testing with positive reaction Fish Containing Products Adverse Reaction (Unknown, Verified 12/08/17 10:47) Unknown Allergy testing with positive reaction corn Adverse Reaction (Verified 12/08/17 10:47) Nausea/Vom/Diarrhea dandelion (Taraxacum officinale) Adverse Reaction (Verified 12/08/17 10:47) ASTHMA/SEASONAL ALLERGIES latex Adverse Reaction (Verified 12/08/17 10:47) RASH D/T POWDER IN GLOVES metoprolol Adverse Reaction (Verified 12/08/17 10:47) Nausea/Vom/Diarrhea omeprazole Adverse Reaction (Verified 12/08/17 10:47) Unknown wheat Adverse Reaction (Verified 12/08/17 10:47) NAUSEA,VOMITING,DIARRHEA Home Medications: Ambulatory Orders Medication Instructions Recorded Amlodipine Besylate/Valsartan 1 tab PO DAILY 02/13/15 [Amlodipine-Valsartan 5-160 mg] Surgical History: Surgical History (Last Reviewed 12/08/17 @ 10:53 by Zehra Bonds) Aortocoronary bypass status (Chronic) Onset Date: 09/10/04 Z95.1 CABG, TAVAREZ as sequential graft to diagonal AND LAD AND SVG to RPDA #3, 6/05 History of bladder suspension procedure Z98.890, Z87.448 History of throat surgery Z98.890 Smoking Status: Never smoker - *Family History Maternal Family History: Family History (Last Reviewed 12/08/17 @ 10:53 by Zehra Bonds) Father Diabetes CAD (coronary artery disease) Mother Diabetes Heart disease Brother Diabetes Daughter Diabetes Asthma History Items: No pertinent history Review of Systems Constitutional: Denies: Chills, Fever, Weight Change HEENT: Denies: Head Aches, Sinus Congestion, Sinus Drainage Cardiovascular: Reports: Chest Pain, Chest Pressure. Denies: Palpitations Respiratory: Reports: Cough, Sputum production. Denies: Shortness of breath at rest Gastrointestinal: Denies: Abdominal Pain, Nausea, Vomiting Genitourinary: Denies: Dysuria Musculoskeletal: Reports: Back Pain. Denies: Joint Pain, Joint Tenderness Skin: Denies: Rash, Wounds Neurological: Denies: Numbness, Tingling, Focal weakness Psychiatric: Denies: Anxiety, Depression, Homicidal Ideations, Suicidal Ideations Hematologic/ Lymphatic: Denies: Easy Bruising, Easy Bleeding VTE Information - Inpt Only VTE Present on Admission: No VTE Mechan Device Prophylaxis: None VTE Pharm Prophylaxis ordered?: Yes Patient Problems: Active and Suspected Problems (Last Reviewed 12/08/17 @ 10:53 by Zehra Bonds) Atypical chest pain (Acute) - Physical Exam General: Alert, Oriented x3, Cooperative HEENT: Atraumatic, PERRLA, EOMI, Normocephalic Oral: Moist Mucosa Neck: Supple, No JVD, Negative Carotid Bruits Lungs: No rhonchi, No wheeze, No rales, Diminished - Air entry diminished in left lung base Cardiovascular: Regular rate, Regular Rhythm, Normal S1, Normal S2, No murmurs Abdomen: Bowel Sounds Present, Soft, Non Tender, Non-Distended Extremities: No edema, Capillary Refill Less than 3 Seconds Skin: No rashes, No breakdown Musculoskeletal: No Tenderness to Palpation of Joints or Extremities, Arthritic Changes Neurological: Cranial nerves II-XII grossly intact Psych/Mental Status: Normal Affect, Appropriate Vital Signs Temp Pulse Resp BP Pulse Ox 97.8 F 75 18 167/89 H 96 03/31/18 05:49 03/31/18 05:49 03/31/18 05:49 03/31/18 05:49 03/31/18 06:14 Oxygen Delivery Method Room Air Weight: 174 lb Body Mass Index (BMI) 28.0 Laboratory Tests Past 24 Hrs Assessment/Plan All Active Problems (Last Reviewed 12/08/17 @ 10:53 by Zehra Bonds) Atypical chest pain (Acute) Precordial chest pain (Acute) Fatigue (Acute) The patient is a 68 year old F with history of coronary artery disease status post triple-vessel CABG, in 2004, chronic ITP came to ER with chest pain that woke her up today. Patient having left upper back pain for about 1 week but in the morning today it went through to the front of the chest wall. She denies associated shortness of breath, palpitation or diaphoresis. About a week ago she also had flulike symptoms including fever or chills but that has resolved spontaneously. She also complained of left calf was red and swollen after she crossed her leg when she had a fever and fell asleep. She has history of endometrial cancer and PE after she had hysterectomy about 6 years ago. History of chronic ITP and follows Dr. ANTHONY. Patient also had asthma attack near [place], 2018 still has cough and brings up clear sputum but no shortness of breath. In ED, vital signs are stable, blood pressure slightly elevated 167/89. EKG shows normal sinus rhythm [address]-T changes. Troponin is negative. Platelet count is 70,000. [] Chest x-ray shows hyperinflation and scarring in the left base and postsurgical changes. No acute change. CTPA is done but report is pending. 1. Atypical chest pain with history of coronary artery status post triple-vessel CABG: Patient is being admitted in PCU. Echo in April 2016 shows EF 70% with no regional wall motion abnormality. LA mildly enlarged otherwise no significant valvulaR abnormality. ACS protocol with cycle cardiac enzymes. Nuclear stress test tomorrow morning. Fasting lipid profile tomorrow a.m. 2. Complain of left leg redness and swelling: There is no tenderness or redness on my exam. CTPA is done and images reviewed but official report is pending. Venous Doppler of lower extremity ordered. 3. Recent asthma attack as per the patient: Currently breathing is stable. On albuterol inhaler as needed. I do not see maintenance inhaler on her home medications. 4. Diabetes mellitus type II: Accu-Chek before meals and at bedtime and cover with NovoLog sliding scale and on Lantus insulin. 5 hypertension: Continue amlodipine- valsartan. 6. Chronic ITP: Follow Dr. Anthony DVT prophylaxis: Follow venous Doppler report and if is negative, bilateral SCDs. Patient not good candidate for antithrombotic agent because of severe thrombocytopenia, platelet count 70,000 Laboratory Results 03/31/18 06:00: WBC 6.0, RBC 5.16, Hgb 15.0, Hct 45.6, MCV 88.4, MCH 29.1, MCHC 32.9, RDW 13.7, RDW Differential 43.8, Plt Count 70 L, MPV 14.3 H, Immature Gran % (Auto) 0.700, Neut % (Auto) 51.8, Lymph % (Auto) 27.7, [place] % (Auto) 7.7, Eos % (Auto) 11.4 H, Baso % (Auto) 0.7, Absolute Neuts (auto) 3.1, Absolute Lymphs (auto) 1.66, Total Counted Not Reportable 03/31/18 06:00: Sodium 142, Potassium 3.7, Chloride 107, Carbon Dioxide 26.0, Anion Gap 9, BUN 10, Creatinine 0.95, Estim Creat Clear Calc 52.32, Est GFR (MDRD) Af Amer 75, Est GFR (MDRD) Non-Af 62, BUN/Creatinine Ratio 10.5, Glucose 138 H, Calcium 9.0, Troponin I < 0.015 03/31/18 06:00: PT 11.8, INR 0.9 Code Visit OBSV E AND M: [id number] Initial observation care L3 03/31/18 08 <Electronically signed by Eirk Hnery MD> Date Erik Acevedo Signature: Date (if applicable) CC: Tye Funes DO; Erik Henry MD Signed EMERGENCY DEPARTMENT Observed: 03/31/2018 Status: F Source: [place] SUMMARY 6:56 AM [facility] REPOSITORY [facility] Medical Records Department [address] [place] [address] Emergency Department Summary 03/31/18 0610 MR#: [id number] Acct: [id number] Name: CAMPBELL MARTINEZ Rep #: [id number] : 1950 68 From: Jimmie Kumar MD PCP: Tye Funes DO Status: REG ER - ER Visit Summary Date of Service: 03/31/18 Chief Complaint: Chest pain History of Present Illness: The patient is a 68 F who presents with 2 hours of chest pain. This woke her from sleep. She complains of pain under the left breast. This is described as burning. She rates it as a 6 out of 10. She also notes that she has mid and upper back pain for about 1 week along where her bra would sit. She does have a history of prior similar symptoms. She denies any associated shortness of breath dizziness nausea vomiting or diaphoresis. She states that she was ill last week with subjective fever and chills as well as some rhinorrhea. She has had a cough productive of clear sputum for 2-3 weeks. She does note that this is improving she states that last week when she was ill she fell asleep with her legs crossed when she woke up her left calf was red and swollen she was concerned about a possible clot. She saw her primary care physician and thought was more likely related to neuropathy and stated if it did not improve they will pursue further evaluation. On Wednesday the redness and swelling were gone but she does still have some tenderness. She reports prior history of DVT after surgery for cancer. She has a history of endometrial cancer with hysterectomy which was curative and no other further treatment such as chemo or radiation. This was about 6 years ago. She also has a history of chronic ITP. She is on no anticoagulation currently. Also has a history of coronary artery disease with prior CABG. Physical Examination: Blood pressure 167/89 vitals otherwise unremarkable No distress resting comfortably Skin warm and dry Heart regular rate and rhythm I do not appreciate murmur gallop or rub Lungs are clear without rales rhonchi or wheezing Abdomen soft nontender nondistended 2+ symmetric radial pulses No lower extremity edema she does have some distal left lateral calf tenderness no appreciable cord neurovascularly intact with brisk capillary refill Test Results: EKG shows normal sinus rhythm at a rate of [address] depression in leads III and aVF as well as T wave inversions however this does appear similar to prior. Labs notable for platelet count of 70. Troponin is negative. INR pending. Two-view chest x-ray shows no pulmonary edema, CHF, complete pneumonia. CTA of the chest is pending. Emergency Department Course and Treatment: Patient is concerned for possible pulmonary embolism given prior history of DVT/PE as well as chest pain with recent leg pain and swelling. Wells criteria is 4.5, she has not therefore CTA is recommended over d-dimer. CTA is pending this dictation. If negative I do still feel the patient will need admitted given her prior history of coronary disease. Her CLAUDIA risk score is 4, heart score is 7. Patient will be signed out to the oncoming physician to follow-up on CTA. Treatment Plan: [] Disposition: Admit Impression: Chest pain This note was generated with [employer] dictation software. It may contain incorrect words, spelling, and punctuation that were not noted in review of the chart prior to signing ED Disposition - Plan for ED Patient: Chief Complaint: Chest Pain Referrals: Tye Funes, DO [Primary Care Provider] - What to do if you have Problems For any increased pain, shortness of breath, bleeding, nausea or vomiting, chest pain, or any unexpected problems, contact your Primary Care Provider. Call [facility] ([phone]) or report to the closest Emergency Room. Call 911 if necessary. 03/31/18 0656 <Electronically signed by Jimmie Kumar MD> Date Jimmie Acevedo Signature (If Indicated): Date CC: Tye Funes DO CTA CHEST W/WO Observed: 03/31/2018 Status: F Source: [place] CONTRAST 6:31 AM [facility] REPOSITORY [facility] Imaging Services [address] [place] [address] CTA Chest W/WO Contrast MR#: [id number] Acct: [id number] Name: CAMPBELL MARTINEZ Rep #: [id number] : 1950 F 68 From: Pavel Murcia MD PCP: Tye Funes DO Status: ADM RAJAT Study: CTA Chest W/WO Contrast Date of Exam: 03/31/18 Exam# [id number] Ordering Dr: Jimmie Kumar MD STUDY: CTA CHEST REASON FOR EXAM: Female, 68 years old. Chest pain under the left breast. History of CABG, hypertension, diabetes, and endometrial cancer. RADIATION DOSAGE (If Supplied By Facility): CTDIvol = ( ) mGy, DLP = ( ) mGycm TECHNIQUE: The examination was performed with the intravenous administration of 75CC ml of Isovue 370 contrast material. Post-processing of the angiographic images was performed, with multiplanar reformation, but without 3D reconstruction. Individualized dose optimization techniques were used for this CT. COMPARISON: Chest x-ray 03/31/2018. CTA chest 04/05/2010. FINDINGS: Normal enhancement of the main pulmonary artery and right and left pulmonary arteries. Normal enhancement of the bilateral peripheral pulmonary arteries. There is no demonstrated pulmonary embolism. There is minimal atherosclerotic calcification of the thoracic aorta and visualized great vessels. There is no demonstrated aortic dissection. Normal heart and pericardium. There are coronary artery calcifications. There are sternotomy wires and surgical clips suggesting previous CABG. Normal mediastinum. Normal hilar regions. Normal visualized trachea. There is bronchiectasis, which is most prominent in the left lower lobe.. The lungs are well expanded. As seen on series 2, axial images 189-190, there is a 5.5 mm posterior pleural-based right lower lobe lung nodule, within the superior segment of the right lower lobe. This was not present on the 2011 exam. As seen on axial image 63, there is a 3.7 mm noncalcified right lower lobe lung nodule, which is also not seen on the 2011 exam. There are calcified pulmonary granulomas. There are fibrotic changes in the lower lung le bilaterally, left greater than right. There are no demonstrated acute pulmonary infiltrates. Normal pleura. Normal chest wall structures. There are degenerative changes of thoracic spine. There is a 1.1 cm fat attenuation space occupying lesion in the right adrenal gland which probably represents a myelolipoma. CT/CTA Chest W/WO Contrast IMPRESSION: No evidence for pulmonary embolism, aortic aneurysm, or aortic dissection. Coronary artery atherosclerosis. Previous CABG. Mild fibrotic changes as well as bronchiectasis, most prominent in the left lower lobe. Old granulomatous disease. No evidence for acute cardiopulmonary pathology. New findings of a 5.5 mm right upper lobe lung nodule and a 3.7 mm right lower lobe lung nodule. Suggest 6 month follow-up CT scan exam. 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 Pain on the right breast, starting back last week, woke up this a.m. with pain in front. TECHNIQUE: PA and lateral views of the chest. COMPARISON: 04/28/2017 FINDINGS: There are superimposed monitor leads. Stable minimal interstitial changes in the left base likely scarring. Stable areas of hyperinflation. Stable mild blunting of the left costophrenic angle. Sternal cerclage wires and vascular clips are present from a prior sternotomy and coronary artery bypass graft procedure (CABG). Normal mediastinum and jose miguel. Normal visualized pulmonary arteries. There is atherosclerotic calcification of the aortic arch with tortuosity. There are diffuse degenerative changes of the visualized thoracic spine. Normal visualized ribs, clavicles, and shoulders. There is no demonstrated abnormality of the visualized soft tissue structures of the upper abdomen. RAD/Chest PA and Lateral IMPRESSION: Stable areas of hyperinflation, scarring in the left base and postsurgical changes. No pulmonary edema, congestive heart failure or confluent pneumonia. Electronically Signed: Josefina Alexander MD at 6:36 EST , Service support , CC: Jimmie Kumar MD; Tye Funes DO Bonding Machine Setter: Signed CBC W/DIFF, AUTOMATED Collected: 03/31/2018 Status: F Source: [place] 6:00 AM [facility] REPOSITORY TYPE CODE TESTS RESULT OUT OF RANGE REFERENCE UNITS LAB L100.1000 4.4-11.0 K/mm3 Normal WBC 6.0 LAB L100.1200 4.2-5.4 M/mm3 Normal RBC 5.16 LAB L100.1300 12.0-15.0 g/dl Normal HGB 15.0 LAB L100.1400 37-47 % Normal HCT 45.6 LAB L100.1500 81-99 fL Normal MCV 88.4 LAB L100.1600 27.0-32.0 pg Normal MCH 29.1 LAB L100.1700 32-36 g/gl Normal MCHC 32.9 LAB L100.1810 11.6-14.6 % Normal RDW CV 13.7 LAB L100.1820 35.1-43.9 fl Normal RDW SD 43.8 LAB L100.1900 150-450 K/mm3 Low PLT 70 LAB L100.2000 6.2-12.0 fl High MPV 14.3 LAB L100.2100 47-70 % Normal NEUT% 51.8 LAB L100.2200 19-41 % Normal LY% 27.7 LAB L100.2300 0-10 % Normal MONO% 7.7 LAB L100.2400 0-5 % High EO% 11.4 LAB L100.2500 0-1 % Normal BASO% 0.7 LAB L100.2550 0.0-0.9 % Normal IM GRAN % 0.700 Result Comment: IG% - Immature Granulocytes (promyelocytes, myelocytes and metamyelocytes) > 1% indicates that a LEFT SHIFT is Present. LAB L100.2620 2.0-7.7 X10 3/uL Normal Absolute Neut 3.1 LAB L100.2720 0.83-4.51 X10 3/ul Normal Absolute Lymph 1.66 Performed By: #### L100.0100 #### [facility] [address] [place], [place] [address]all [facility] [place]. [place], [place], [address] BASIC METABOLIC Collected: 03/31/2018 Status: F Source: [place] PROFILE (BMP) 6:00 AM [facility] REPOSITORY TYPE CODE TESTS RESULT OUT OF RANGE REFERENCE UNITS LAB L501.0100 74-106 mg/dL High GLU 138 Result Comment: Fasting Glucose result greater than or equal to 126 mg/dL suggests DIABETES MELLITUS per A.D.A. criteria. Please note revised GLUCOSE reference range effective 2017. LAB L501.1000 7-18 mg/dL Normal BUN 10 LAB L501.1100 0.55-1.02 mg/dL Normal CREAT,SERUM 0.95 Result Comment: The validity of the calculated GFR AND GFRAA in patients over 70 years has not been determined. Clinical correlation is essential. LAB L501.1110 >60 mL/min Normal EST GFR 62 Result Comment: Non- GFR Calc LAB L501.1115 >60 mL/min Normal EST GFR - AA 75 Result Comment: GFR Calc LAB L501.1255 ml/min Normal Estimated CRCL 52.32 LAB L501.1300 10-20 RATIO Normal BUN/CRE 10.5 LAB L501.2200 8.5-10 mg/dL Normal .1 CA 9.0 LAB L501.5300 136-14 mmol/L Normal 5 NA 142 LAB L501.5600 3.5-5. mmol/L Normal 1 K 3.7 LAB L501.5900 98-107 mmol/L Normal CL 107 LAB L501.6100 21.0-3 mmol/L Normal 2.0 CO2 26.0 LAB L501.6200 5-15 Normal GAP 9 Performed By: #### L500.2500, L501.4010 #### [facility] [address] [facility] [place], [place], [address] TROPONIN-I Collected: 03/31/2018 Status: F Source: [place] 6:00 AM [facility] REPOSITORY TYPE CODE TESTS RESULT OUT OF RANGE REFERENCE UNITS LAB L501.4010 <0.045 ng/mL Normal < 0.015 TROPONIN-I Result Comment: TROPONIN-I EXPECTED VALUES <0.045 Negative 0.045 - 0.590 Consistent with Cardiac Damage > OR = 0.600 Critical Value Not every elevated troponin is indicative of IN. These values should be used with clinical judgement in examining the patient's clinical picture for diagnosis. To establish a diagnosis of IN versus myocardial injury, there must be a demonstrated rise and/or fall in the troponin values, in addition to ischemic symptoms, EKG changes, new regional wall motion abnormality, and/or angiographical evidence. PLEASE NOTE: REFERENCE RANGES EDITED 17 Performed By: #### L500.2500, L501.4010 #### [facility] [address] [place], [address] PROTHROMBIN TIME W/INR Collected: 03/31/2018 Status: F Source: [place] 6:00 AM [facility] REPOSITORY TYPE CODE TESTS RESULT OUT OF RANGE REFERENCE UNITS LAB L300.4150 11.7-14.9 SECONDS Normal PROTIME 11.8 LAB L300.4200 Normal INR 0.9 Performed By: #### L300.3900 #### [facility] [address] [place], [address] CBC-COMPLETE BLOOD CNT Collected: 12/30/2017 Status: F Source: [place] NO DIFF 9:48 AM [facility] REPOSITORY Order Comment: BMP, VITD,CBC FOR DR FUNES TYPE CODE TESTS RESULT OUT OF RANGE REFERENCE UNITS LAB L100.1000 4.4-11.0 K/mm3 Normal WBC 6.1 LAB L100.1200 4.2-5.4 M/mm3 Normal RBC 5.20 LAB L100.1300 12.0-15.0 g/dl High HGB 15.2 LAB L100.1400 37-47 % Normal HCT 47.0 LAB L100.1500 81-99 fL Normal MCV 90.4 LAB L100.1600 27.0-32.0 pg Normal MCH 29.2 LAB L100.1700 32-36 g/gl Normal MCHC 32.3 LAB L100.1810 11.6-14.6 % Normal RDW CV 13.4 LAB L100.1820 35.1-43.9 fl High RDW SD 44.0 LAB L100.1900 150-450 K/mm3 Low PLT 74 LAB L100.2000 6.2-12.0 fl High MPV 14.1 Performed By: #### L100.0500 #### [facility] [address], [address] VITAMIN D,25 HYDROXY Collected: 12/30/2017 Status: F Source: [place] 9:48 AM [facility] REPOSITORY Order Comment: BMP, VITD,CBC FOR DR MOTALITO TYPE CODE TESTS RESULT OUT OF RANGE REFERENCE UNITS LAB L506.1000 29.95-100.01 ng/mL Normal Vitamin D 42.2 25-OH Result Comment: Vitamin D 25(OH) Status Range Deficiency <20 ng/mL (50nmol/L) Insuffciency 20 - 30 ng/mL (50 - 75 nmol/L) Sufficiency 30 - 100 ng/mL (75 - 250 nmol/L) Toxicity >100 ng/mL (>250 nmol/L) Performed By: #### L506.1000 #### [facility] [address] [place], [address] HEMOGLOBIN A1C Collected: 12/30/2017 Status: F Source: [place] 9:47 AM [facility] REPOSITORY Order Comment: BMP, VITD,CBC FOR DR FUNES TYPE CODE TESTS RESULT OUT OF RANGE REFERENCE UNITS LAB L501.9985 4.2-6.3 % High HGB A1C 7.1 Performed By: #### L501.9985 #### [facility] [address] [place], [address] COMPREHENSIVE METABOLIC Collected: 12/30/2017 Status: F Source: [facility] 9:47 AM [facility] REPOSITORY Order Comment: BMP, VITD,CBC FOR DR FUNES TYPE CODE TESTS RESULT OUT OF RANGE REFERENCE UNITS LAB L501.0100 74-106 mg/dL High GLU 157 Result Comment: Fasting Glucose result greater than or equal to 126 mg/dL suggests DIABETES MELLITUS per A.D.A. criteria. Please note revised GLUCOSE reference range effective 2017. LAB L501.1000 7-18 mg/dL Normal BUN 15 LAB L501.1100 0.55-1.02 mg/dL Normal CREAT,SERUM 1.02 Result Comment: The validity of the calculated GFR AND GFRAA in patients over 70 years has not been determined. Clinical correlation is essential. LAB L501.1110 >60 mL/min Low EST GFR 57 Result Comment: Non- GFR Calc LAB L501.1115 >60 mL/min Normal EST GFR - AA 69 Result Comment: GFR Calc LAB L501.1300 10-20 RATIO Normal BUN/CRE 14.7 LAB L501.1500 6.4-8.2 g/dL T Normal PROT 7.1 LAB L501.1800 3.2-5.0 g/dL Normal ALB 3.4 LAB L501.1950 2.2-4.2 g/dL Normal GLOB 3.7 LAB L501.2000 0.9-2.4 RATIO Normal A/G 0.9 LAB L501.2200 8.5-10.1 mg/dL CA Normal 8.8 LAB L501.4100 15-37 U/L Normal AST 20 LAB L501.4305 45-117 U/L Normal ALK P 74 LAB L501.4405 13-56 U/L Normal ALT 18 LAB L501.4600 0.20-1.00 mg/dL T Normal BILI 0.40 LAB L501.5300 136-145 mmol/L NA Normal 143 LAB L501.5600 3.5-5.1 mmol/L K Normal 4.0 LAB L501.5900 98-107 mmol/L CL Normal 107 LAB L501.6100 21.0-32.0 mmol/L Normal CO2 27.0 LAB L501.6200 5-15 Normal GAP 9 Performed By: #### L500.4050, L500.4100 #### [facility] [address] [place], [place], [address] LIPID PROFILE Collected: 12/30/2017 Status: F Source: [place] 9:47 AM [facility] REPOSITORY Order Comment: BMP, VITD,CBC FOR DR FUNES TYPE CODE TESTS RESULT OUT OF RANGE REFERENCE UNITS LAB L501.4900 200 mg/dL Normal CHOL 157 Result Comment: <200 mg/dL Desirable 200-240 mg/dL Borderline >240 mg/dL High Risk LAB L501.5000 mg/dL Normal TRIG 190 Result Comment: The drugs N-Acetylcysteine and Metamizole may falsely depress this assay. Serum Triglycerides Reference Interval Normal <150 mg/dL Borderline high 150 - 199 mg/dL High 200 - 499 mg/dL Very High > or = 500 mg/dL LAB L501.6400 mg/dL Low HDL 37 Result Comment: The drugs N-Acetylcysteine and Metamizole may falsely depress this assay. Reference Range HDL <40 mg/dL Low HDL Cholesterol HDL >or= 60 mg/dL High HDL Cholesterol LAB L501.6500 0-130 mg/dL Normal LDL 82 LAB L501.6600 5-40 mg/dL Normal VLDL 38 Performed By: #### L500.4050, L500.4100 #### [facility] [address] [place], [address] CREATININE, URINE Collected: 12/30/2017 Status: F Source: [place] (RANDOM) 9:47 AM [facility] REPOSITORY Order Comment: BMP, VITD,CBC FOR DR FUNES TYPE CODE TESTS RESULT OUT OF RANGE REFERENCE UNITS LAB L501.1200 NO RANGE EST. mg/dL Normal UR CREAT 144.00 Performed By: #### L501.1200, L502.0500 #### [facility] [address] [place], [address] MICROALBUMIN,RANDOM URINE Collected: Status: F Source: [place] 12/30/2017 9:47 AM [facility] REPOSITORY Order Comment: BMP, VITD,CBC FOR DR FUNES TYPE CODE TESTS RESULT OUT OF RANGE REFERENCE UNITS LAB L502.0500 NO RANGE EST. mg/L Normal 7.9 MICROALBUMIN ,UR Performed By: #### L501.1200, L502.0500 #### [facility] [address] [place], [address] CARDIOLOGY VISIT Observed: 12/08/2017 Status: F Source: [place] REPORT 6:06 PM [facility] REPOSITORY [facility] [address] [place], [place] [address] OFFICE VISIT Date of Service: 12/08/17 MR#: [id number] Acct: [id number] Name: CAMPBELL MARTINEZ Rep #: [id number] : 1950 Provider: Tra Ham MD Age/Sex: 67/F [place] [facility] [place] Status: Signed HPI HPI Details: CAMPBELL MARTINEZ, is a 67 F who presents to the office today for an outpatient cardiovascular visit. Overall from a cardiac standpoint she believes there is been no significant change in her cardiovascular status. She denies any symptoms of classic angina pectoris and is had no evidence of acute CHF or pulmonary edema. There has been no obvious palpitations or rapid heart rate sensation. There has been no near syncope or syncope. She continues with her multiple allergies and related issues with respect to her immune system as well as her history of chronic thrombocytopenia for which she states she is now being evaluated and cared for [place] Dr. Anthony [place] [facility] [place] Intake Vital Signs12/08/17 Height 5 ft 6 in 12/08/17 Weight: 171 lb 12/08/17 Body Mass Index (BMI) 27.6 12/08/17 Blood Pressure 114/60 Intake Visit Reasons: 9 M FU Allergies bee venom protein (honey bee) Allergy (Verified 12/08/17 10:47) Anaphylaxis ciprofloxacin [From Cipro] Allergy (Verified 12/08/17 10:47) Anaphylaxis ciprofloxacin HCl [From Cipro] Allergy (Verified 12/08/17 10:47) Anaphylaxis insect venom Allergy (Verified 12/08/17 10:47) Anaphylaxis pine nut Allergy (Verified 12/08/17 10:47) Anaphylaxis trazodone Allergy (Verified 12/08/17 10:47) Shortness of breath peanut Adverse Reaction (Severe, Verified 12/08/17 10:47) Asthma egg Adverse Reaction (Unknown, Verified 12/08/17 10:47) Unknown Fish Containing Products Adverse Reaction (Unknown, Verified 12/08/17 10:47) Unknown corn Adverse Reaction (Verified 12/08/17 10:47) Nausea/Vom/Diarrhea dandelion (Taraxacum officinale) Adverse Reaction (Verified 12/08/17 10:47) ASTHMA/SEASONAL ALLERGIES latex Adverse Reaction (Verified 12/08/17 10:47) RASH D/T POWDER IN GLOVES metoprolol Adverse Reaction (Verified 12/08/17 10:47) Nausea/Vom/Diarrhea omeprazole Adverse Reaction (Verified 12/08/17 10:47) Unknown wheat Adverse Reaction (Verified 12/08/17 10:47) NAUSEA,VOMITING,DIARRHEA Medications Amlodipine/Valsartan [Amlodipine-Valsartan 5-160 mg] 1 tab PO DAILY 02/13/15 [History Confirmed 12/08/17] Albuterol IH (ProAir) [Proair Hfa] 1 puff INHALATION UD PRN 06/09/16 [History Confirmed 12/08/17] Biotin 1 tab PO QODAY 06/09/16 [History Confirmed 12/08/17] Cetirizine HCl [Zyrtec] 10 mg PO DAILY PRN PRN 06/09/16 [History Confirmed 12/08/17] Epinephrine [Epi Pen (Jorge Luis)] 1 syr SQ UD 06/09/16 [History Confirmed 12/08/17] Magnesium Citrate 1.232 ml PO DAILY 07/29/16 [History Confirmed 12/08/17] Vitamin B Complex 0.5 ea PO DAILY 07/29/16 [History Confirmed 12/08/17] Iodine 2% Mild Tincture 3 drp PO DAILY 01/19/17 [History Confirmed 12/08/17] insulin glargine (U-100) 100 unit/mL (3 mL) subcutaneous pen 15 unit SC QDAY #30 ml 05/10/17 [Rx Confirmed 12/08/17] ascorbic acid (vitamin C) 250 mg tablet 250 mg PO QDAY 05/12/17 [History Confirmed 12/08/17] blood sugar diagnostic strips See Dose Instructions .ROUTE .MEDSUPPLY #20 ea 05/12/17 [History Confirmed 12/08/17] insulin lispro (U- 100) 100 unit/mL subcutaneous pen See Rx Instructions SC QACDINNER 05/12/17 [History Confirmed 12/08/17] insulin syringe-needle U-100 half unit marking 0.3 mL 31 gauge x 07/28 See Dose Instructions .ROUTE .MEDSUPPLY #100 ea 05/12/17 [History Confirmed 12/08/17] omega-3 fatty acids 1,000 mg capsule 1,000 mg PO .3 x q week cap 05/12/17 [History Confirmed 12/08/17] cholecalciferol (vitamin D3) 1,000 unit capsule 1,000 unit PO DAILY PRN 12/08/17 [History Confirmed 12/08/17] digestive enzymes tablet 1 tab PO TID tab 12/08/17 [History Confirmed 12/08/17] krill oil 500 mg capsule 500 mg PO .qod cap 12/08/17 [History Confirmed 12/08/17] metformin 1,000 mg tablet 1,000 mg PO .COMPLEX tab 12/08/17 [History Confirmed 12/08/17] metformin 1,000 mg tablet 500 mg PO .COMPLEX tab 12/08/17 [History Confirmed 12/08/17] [facility] Medical History Hypertension (Chronic) Hyperlipidemia (Chronic) 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 of [place] heart (Chronic) Pericardial effusion (Chronic) Pleural effusion (Chronic) Palpitations (Chronic) DM type 2 (diabetes mellitus, type 2) (Chronic) Arthritis (Acute) Asthma (Acute) DVT (deep venous thrombosis) (Acute) Depression (Acute) GERD (gastroesophageal reflux disease) (Acute) Psoriasis (Acute) Seasonal allergies (Acute) Sleep apnea (Acute) IBS (irritable bowel syndrome) (Chronic) halfway use of drug (Chronic) CAD (coronary artery disease), [place] coronary artery (Inactive) Surgical History Aortocoronary bypass status (Chronic 09/10/04) H/O: hysterectomy (Resolved) History of bladder suspension procedure (Resolved) History of throat surgery (Resolved) Family History Father Diabetes CAD (coronary artery disease) Hx CABG Mother Diabetes Heart disease Hx CABG Brother Diabetes Daughter Diabetes Asthma Social History Smoking Status: Never smoker alcohol intake: never substance use type: does not use seatbelt use: always ROS Const Const: Positive for fatigue (increased); negative for weakness, weight gain, weight loss, frequent falls or excessive sweating Eyes Eyes: Negative for change in vision, blurry vision or transient loss of vision ENT ENT: Positive for dizziness (anytime); negative for balance problems Cardio Chest Pain: Yes Character: other (pinchy twinges same as previously reported) Palpitations: Yes (rare) feels like its: irregular (flutter) Edema: None Muscle aches with walking: None Resp Respiratory: Positive for SOB with activity (increased), SOB at rest (increased) and Cough (productive) Additional Details: HX Asthma, Sleep Apnea; recent allergy testing with Dr. Rios GI GI: Negative vomiting or vomiting blood/hematemesis : Negative for hematuria Musc Musc: Positive for muscle aches/ myalgia (generalized), muscle weakness (generalized) and joint pain (joint swelling); negative for balance problems Skin Skin: Negative non-healing lesions or rash Neuro Neuro: Positive for dizziness (anytime) and lightheadedness (anytime); negative for weakness, blurry vision, frequent falls or orthostatic symptoms Chau Hematologic/Lymphatic: Negative for easy bleeding Endo Endo: Positive for fatigue (increased); negative for excessive sweating Psych Psych: Negative for anxiety or depression Allergy Allergy/Immunology: Negative for hives, Negative for rash Cardiology Exam Const Appearance: cooperative, no acute distress, well developed and well groomed Nutritional Appearance: average body habitus Orientation: alert, awake and oriented x3 Head Head: normocephalic, atraumatic and normal to inspection Ears: hearing grossly normal bilaterally Nose: external nose normal Face and Sinus: face symmetric Mouth: oral mucosae normal Eyes Conjunctivae: conjunctivae normal Pupils: PERRL EOM: EOM intact bilaterally Neck Neck: normal visual inspection, no lymphadenopathy, no JVD and full ROM Carotids: Negative bruit Neck Mass: Negative Neck mass Chest Chest inspection: normal inspection of the chest and symmetric chest movement Auscultation: Bilateral: Clear to Auscultation Cardio Palpation: normal PMI Rate: regular rate Rhythm: regular rhythm Heart sounds: S1 normal and S2 normal; negative rub, gallop or murmur GI GI: normal to inspection, soft and bowel sounds present; negative tender Neuro General: alert, awake, oriented x3, moves all extremities, gait normal, no focal sensory deficit and no focal motor deficits Skin Skin: no rashes or lesions noted Extremities Pulses: Normal: Right Posterior Tibial Pulse, Left Posterior Tibial Pulse, Right Radial Pulse, Left Radial Pulse Lower Extremity Edema: None: Bilateral Psych Psychological: normal affect Supplemental Info She did have a transthoracic echocardiogram on 04/30/2016 at Interpretation Summary Left ventricular systolic function is normal. The estimated ejection fraction is 70 %. Post operative septal motion. The left atrium is mildly enlarged. Trivial mitral valve insufficiency. Trivial tricuspid valve insufficiency. Trivial pulmonic valve insufficiency. Transmitral diastolic flow velocities suggest diastolic dysfunction (pseudonormal pattern). She had a stress test on 08/04/2011 at [facility] TECHNIQUE The patient was injected with 10.5 mCi of Tc99m Cardiolite and subsequently rest SPECT Cardiolite nuclear imaging was obtained in the horizontal long, vertical long and short axes views. The patient underwent subsequently exercised on a Donte protocol for 7 minutes and 46 seconds achieving a peak heart rate of 107 beats per minute (67% predicted maximum heart rate) with a peak blood pressure of 140/58 mmHg and a peak MET capacity of approximately 9 METs. The patient then underwent pharmacologic (regadenoson) evaluation with a peak heart rate of 83 beats per minute (52% predicted maximum heart rate) with a peak blood pressure of 132/70 mmHg. The patient was injected with 30.1 mCi of Tc99m Cardiolite and subsequently stress SPECT Cardiolite nuclear imaging was obtained in the horizontal long, vertical long and short axes views, Gated Cardiolite study at peak stress was obtained. INTERPRETATION Rest and stress SPECT Cardiolite nuclear imaging both demonstrate an area of diminished tracer uptake in portions of the mid to distal anterior segments, although this appears more prominent on the resting images as opposed to the stress images. There appears to be end systolic thickening and brightening. The gated Cardiolite study demonstrates myocardial thickening and inward wall motion. The reported LVEF is 61 %. The aforementioned findings appear compatible with the affects of shifting soft tissue/breast attenuation with no myocardial perfusion changes considered diagnostic for stress induced myocardial ischemia or previous myocard ial injury/infarction. IMPRESSION 1. Rest and stress SPECT Cardiolite nuclear imaging demonstrate myocardial perfusion changes appearing compatible with the effects of shifting soft tissue/breast attenuation being more prominent at rest as opposed to stress with no myocardial perfusion changes considered diagnostic for stress induced myocardial ischemia or previous myocardial injury/infarction. 2. The gated Cardiolite study reports an LVEF of 61 % Her previous cardiac catheterization was performed at [facility] on 09/08/2004 FINAL IMPRESSION 1) Elevation of left ventricular end diastolic pressures pre and post angiographic dye load compatible with decreased diastolic compliance. 2> Left ventricle preserved LV size, wall motion and systolic function with an. estimated LV EF of 60%. 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 There is a 95% to 95% somewhat irregular appearing stenoses. A. First diagonal branch. Proximal 75% 85% eccentric appearing stenosis with subsequent mid to distal 0 10 and 10 25% appearing stenosis. 5) LCX 0M2 with proximal 95% discrete appearing stenoses. 6) RCA proximal 10 25, 25 50 and 50 75% serial appearing stenosis. A. Mid subtotal occlusion. B. Distal RCA, right FDA, right AV segment, right posterolateral branch filling late but yet appearing patent and also receiving left to right collateral flow. 7) TAVAREZ patent and without angiographically significant appearing stenosis. Her CT surgery was performed at [facility] on 09/10/2004 at which time she received a TAVAREZ sequential graft to the LAD and diagonal branch and an SVG graft to the right PDA She had a Holter monitor performed at [facility] on 10/06/2012 which demonstrated sinus rhythm with a report of no significant arrhythmias noted Assessment AND Plan 1. Atherosclerosis of coronary artery bypass graft of [place] heart without angina pectoris I25.810 CABG, TAVAREZ as sequential graft to diagonal AND LAD AND SVG to RPDA #3, 08/17 Plan At the present time she appears to be without any acute symptoms or adverse events. She will continue medical management. Her medications have been limited based upon her intolerances for a variety of her underlying noncardiac reasons. 2. Postsurgical aortocoronary bypass status Z95.1 CABG, TAVAREZ as sequential graft to diagonal AND LAD AND SVG to RPDA #3, 6 Plan She does have a history of CABG as noted above. She appears to be doing well with no acute symptoms. She will continue her current medical therapy and follow-up. 3. Pure hypercholesterolemia E78.00 Plan She will be scheduled for future fasting lipid and hepatic profile. Orders Orders: 4. Essential hypertension I10 Plan Her blood pressure appears to be reasonably well-controlled. She will continue medical therapy peer Orders Orders: Plan Detail Additional Comments Thank you for allowing me to participate in the care of your patient. Please don't hesitate to call if any issues arise. This note was generated using a voice recognition system and there may be incorrect words, spelling or punctuation that were not noted when reviewing the office note prior to saving. Follow Up 6 Months (PFM) Coding Level of Care Code Off vis,est,level 4 Diagnoses Atherosclerosis of coronary artery bypass graft of [place] heart without angina pectoris I25.810 Associated angina: without angina Postsurgical aortocoronary bypass status Z95.1 Pure hypercholesterolemia E78.00 Hyperlipidemia type: pure hypercholesterolemia Essential hypertension I10 Hypertension type: essential hypertension Coding Level of Care Code Off vis,est,level 4 Diagnoses Atherosclerosis of coronary artery bypass graft of [place] heart without angina pectoris I25.810 Associated angina: without angina Postsurgical aortocoronary bypass status Z95.1 Pure hypercholesterolemia E78.00 Hyperlipidemia type: pure hypercholesterolemia Essential hypertension I10 Hypertension type: essential hypertension 12/08/17 1806 <Electronically signed by Tra Ham MD> Date Tra Ham MD Cosigner Signature: Date (if applicable) CC: Tye Funes ALLERGEN, FOOD PROFILE Collected: 11/30/2017 Status: F Source: [place] 11:04 AM [facility] REPOSITORY TYPE CODE TESTS RESULT OUT OF RANGE REFERENCE UNITS LAB L5500.3002 Class 0 kU/L Normal MILK (COW) <0.10 LAB L5500.3004 Class 0 kU/L Normal WHEAT <0.10 LAB L5500.3008 Class 0 kU/L Normal CORN <0.10 LAB L5500.3013 Class I kU/L High PEANUT 0.52 LAB L5500.3014 Class 0 kU/L Normal SOYBEAN <0.10 LAB L5500.8100 . Normal RAST COMMENT Comment Result Comment: Levels of Specific IgE Class Description of Class ----- < 0.10 0 Negative 0.10 - 0.31 0/I Equivocal/Low 0.32 - 0.55 I Low 0.56 - 1.40 II Moderate 1.41 - 3.90 III High 3.91 - 19.00 IV Very High 19.01 - 100.00 V Very High >100.00 Very High LAB L5530.0430 Class 0 kU/L Normal CLAM <0.10 LAB L5530.0460 Class 0/I kU/L High CODFISH 0.16 LAB L5530.0570 Class 0/I kU/L High EGG,WHITE 0.21 LAB L5530.1430 Class 0 kU/L Normal Scallop <0.10 LAB L5530.1440 Class 0/I kU/L High Sesame Seed 0.12 Result Comment: Performed at: [address] [id number] Hook And Eye Attacher: Dejon Jordan MD, Phone: [phone] LAB L5530.1450 Class 0 kU/L Normal SHRIMP <0.10 LAB L5530.1650 Class 0 kU/L Normal WALNUT <0.10 Performed By: #### L5500.0410 #### [facility] (refer to report for specific site) refer to report for address and phone number ALLERGEN RESP. AREA 5 Collected: 11/30/2017 Status: F Source: [place] 11:04 AM [facility] REPOSITORY TYPE CODE TESTS RESULT OUT OF RANGE REFERENCE UNITS LAB L5500.8000 0-100 IU/mL High TOTAL igE 1261 LAB L5500.9900 . Normal RAST COMMENT Comment Result Comment: Levels of Specific IgE Class Description of Class ----- < 0.10 0 Negative 0.10 - 0.31 0/I Equivocal/Low 0.32 - 0.55 I Low 0.56 - 1.40 II Moderate 1.41 - 3.90 III High 3.91 - 19.00 IV Very High 19.01 - 100.00 V Very High >100.00 Very High LAB L5510.0040 Class III kU/L High CAT HAIR/DANDER 1.93 LAB L5510.0070 Class I kU/L High DOG EPITHELIA 0.34 LAB L5520.0020 Class kU/L High D FARINAE MITE >100 LAB L5520.0030 Class kU/L High D PTERONYSSINUS >100 LAB L5540.0020 Class 0/I kU/L High BERMUDA GRASS 0.27 LAB L5540.0190 Class II kU/L High SHANE GRASS 1.13 LAB L5550.0020 Class 0 kU/L ALTERNARIA TEN Normal <0.10 LAB L5550.0040 Class 0 kU/L ASPERGILLUS FUM Normal <0.10 LAB L5550.0140 Class 0/I kU/L High CLADOSPOR HERB 0.21 LAB L5550.0340 Class 0 kU/L PEN Notatum Normal <0.10 LAB L5555.0380 Class I kU/L High COCKROACH,AMER 0.52 LAB L5555.0410 Class 0 kU/L Mouse Urine Normal <0.10 Result Comment: Performed at: [address] [id number] Hook And Eye Attacher: Dejon Jordan MD, Phone: [phone] LAB L5560.0050 Class 0/I kU/L High SUBHASH, WHITE 0.11 LAB L5560.0100 Class 0 kU/L BIRCH Normal <0.10 LAB L5560.0110 Class 0/I kU/L High CEDAR, MOUNTAIN 0.20 LAB L5560.0140 Class 0/I kU/L High COTTONWOOD 0.14 LAB L5560.0170 Class 0 kU/L ELM,AMER Normal WHITE <0.10 LAB L5560.0310 Class 0 kU/L Normal MAPLE/BOX ELDER <0.10 LAB L5560.0371 Class 0 kU/L Normal MULBERRY, WHITE <0.10 LAB L5560.0400 Class 0 kU/L OAK, Normal WHITE <0.10 LAB L5560.0440 Class III kU/L High PECAN 3.79 LAB L5560.0550 Class 0/I kU/L High SYCAMORE, AMER 0.10 LAB L5560.0570 Class 0/I kU/L High BLACK WALNUT 0.24 LAB L5580.0210 Class 0 kU/L PIGWEED, Normal ROUGH <0.10 LAB L5580.0260 Class IV kU/L High RAGWEED SH/COM 6.66 LAB L5580.0320 Class 0 kU/L SHEEP Normal SORREL <0.10 LAB L5580.0360 Class 0/I kU/L High TAIWANESE THISTLE 0.10 Performed By: #### L5500.0700 #### [facility] (refer to report for specific site) refer to report for address and phone number SCREENING MAMM (CAD), Observed: 09/29/2017 Status: F Source: [place] BILAT 10:37 AM [facility] REPOSITORY [facility] Imaging Services [address] [place] [address] SCREENING MAMM (CAD), BILAT MR#: [id number] Acct: [id number] Name: CAMPBELL MARTINEZ Rep #: [id number] : 1950 F 67 From: Steve Son MD PCP: Tye Funes DO Status: REG CL Study: SCREENING MAMM (CAD), BILAT Date of Exam: 09/29/17 Exam# [id number] Ordering Dr: Joy Santamaria DO MAMMOGRAPHY - BILATERAL SCREENING REASON FOR EXAM: Female, 67 years old. Routine annual screening examination. PERTINENT HISTORY: Sister with breast cancer. Prior left stereotactic breast biopsy. TECHNIQUE: Digital bilateral breast christiano (3D mammographic acquisition) in the CC and MLO projections. 2-D mediolateral oblique (MLO) and craniocaudad (CC) views of both breasts were obtained. CAD: Full Field Digital Mammography with Computer Added Detection was performed. COMPARISON: Comparison is made with prior study dated March 19, 2016 and February 26, 2015. FINDINGS: Breast Composition: There are scattered areas of fibroglandular density. There are no dominant masses or suspicious calcifications. A tissue clip marker is once again seen in the nodular density in the upper slightly mid medial portion of the left breast. No other significant abnormalities are identified. There has been no significant change since the prior study. BI/SCREENING MAMM (CAD), BILAT IMPRESSION: Stable bilateral screening mammogram. Yearly follow-up mammogram recommended. (A) ASSESSMENT CATEGORY: BIRADS Category 2: Benign. A letter regarding these results will be sent to the patient by the facility within 30 days. Approximately 10% of breast cancers are not detected by mammography. A normal mammogram should not delay biopsy of a clinically suspicious abnormality. [id number] Electronically Signed: Steve Son MD at 14:26 EDT Tel [phone], Service support , CC: Joy Santamaria DO; Tye Fuens DO Bonding Machine Setter: Signed MRI BRAIN WO/W Observed: 09/09/2017 Status: F Source: [facility] 12:06 PM [facility] REPOSITORY * * *Final Report* * * DATE OF EXAM: Sep 09 2017 12:06PM [facility] 0295 - MRI BRAIN WO/W IVCON / PROCEDURE REASON: BRAIN * * * * Physician Interpretation * * * * EXAMINATION: MRI BRAIN WO/W IVCON CLINICAL HISTORY: Changes in vision, rt sided headaches, pain behind rt eye TECHNIQUE: Routine brain MRI protocol without and with contrast including diffusion images. MQ: [id number]_2 Contrast: 16 mL Dotarem IV COMPARISON: None. RESULT: Acute Change: There is no evidence of restricted diffusion to suggest an acute infarct. Hemorrhage: No evidence of prior parenchymal hemorrhage on the gradient echo images. Mass Lesion/ Mass Effect: No evidence of an intracranial mass or extra-axial fluid collection. No abnormal parenchymal or leptomeningeal enhancement is noted following contrast administration. No significant mass effect. Chronic Change: Scattered punctate foci of increased T2 and FLAIR signal are noted in the supratentorial white matter which is a nonspecific finding, but likely represents minimal chronic microvascular ischemia. Parenchyma: No significant volume loss for age. The brain parenchyma is otherwise within normal limits of signal intensity and morphology. Grossly no visual pathway abnormality. No abnormal enhancement is present. Ventricles: Normal caliber and morphology. Skull Base: Hypothalamic and pituitary region are grossly normal. Craniocervical junction is normal. No significant marrow replacement process. Vasculature: Major intracranial arterial structures, and dural venous sinuses show typical flow void, suggesting patency by spin echo criteria. Other: The visualized paranasal sinuses and mastoid air cells are clear. The orbits and extracranial soft tissues are unremarkable. IMPRESSION: Mild nonspecific white matter changes of presumed small vessel ischemic disease. Bonding Machine Setter: [facility] Transcribe Date/Time: Sep 09 2017 12:18P Dictated by : MANAV TARIQ MD This examination was interpreted and the report reviewed and electronically signed by: MANAV TARIQ MD on Sep 09 2017 12:20PM EST [id number] Observed: 09/09/2017 Status: COMPLETED Source: [place] 11:55 AM [facility] [place] REPOSITORY O ID: [id number] Author: Joy (Rt) Deidra Medina Service: (none) Author Type: Registered Nurse Obstetrics Type: Progress Notes Filed: 09/09/2017 11:57 AM Note Text: Radiology Service Progress Note PATIENT NAME: Campbell Martinez DATE OF SERVICE: September 09, 2017 TIME: 11:55 AM PATIENT IDENTITY VERIFICATION COMPLETED USING TWO (2) METHODS: Patient confirmed name verbally and Date of . PATIENT GENDER DATA: Female. status: : No status: NO. PATIENT RELEVANT IMPLANT DATA REVIEWED: Yes CONTRAST INDUCED NEPHROPATHY RISK FACTORS: Patient age > 60 years CREATININE: Creatinine Date Value Ref Range Status 10/25/2014 0.89 0.70 - 1.40 mg/dL Final 11/23/2013 0.96 0.70 - 1.40 mg/dL Final 06/01/2013 1.01 0.70 - 1.40 mg/dL Final eGFR-All Other Races Date Value Ref Range Status 10/25/2014 >60 . Final Comment: eGFR (Estimated GFR) Units of measure: mL/min/1.73 meters squared eGFR is derived from the reexpressed MDRD Study equation using the following parameters: serum creatinine, age, gender and race. The creatinine assay has been calibrated to be traceable to IDMS. An eGFR <60 mL/min/1.73m2 for >3 months is consistent with chronic kidney disease. Refer to KDOQI guidelines for clinical interpretation. In patients with unstable renal function, e.g. those with acute kidney injury, the eGFR may not accurately reflect actual GFR. eGFR- Date Value Ref Range Status 10/25/2014 >60 Final P.O.C.T. RESULTS: Outside Creatinine: 1.09 mg/dl, Calculated GFR 53, Date 09/07/17 September 09, 2017 RADIOLOGIST NOTIFIED?: No ALLERGIES: Reviewed and unchanged CONTRAST ALLERGY: NO. PERIPHERAL IV ACCESS: Ambulatory: IV type: A peripheral IV was started in the Left antecubital site with a Angio cath: 22 gauge., Site assessment: Clean,Dry and Intact, Site disposition Discontinued RADIOLOGY DEPARTMENT: MR; Exam(s) Completed: Head: Routine Brain SIGNED BY: RT Kesha September 09, 2017 11:55 AM ERYTHROCYTE SED RATE Collected: 09/07/2017 Status: F Source: [place] 3:01 PM [facility] REPOSITORY TYPE CODE TESTS RESULT OUT OF RANGE REFERENCE UNITS LAB L102.0000 0-30 mm/hr Normal SED RATE 5 Performed By: #### L101.9900 #### [facility] [address] [place], [address] BUN Collected: 09/07/2017 Status: F Source: [place] 3:01 PM [facility] REPOSITORY Order Comment: Is Patient Taking Vitamins or Folic Acid Supplements? N TYPE CODE TESTS RESULT OUT OF RANGE REFERENCE UNITS LAB L501.1000 7-18 mg/dL Normal BUN 16 Performed By: #### L501.1000, L501.1105, L501.9195, L501.9310, L501.9520, L505.7010, L506.0250, L506.0400 #### [facility] [address] [facility] [place], [address] SERUM CREATININE AND Collected: 09/07/2017 Status: F Source: [place] GFR 3:01 PM [facility] REPOSITORY Order Comment: Is Patient Taking Vitamins or Folic Acid Supplements? N TYPE CODE TESTS RESULT OUT OF RANGE REFERENCE UNITS LAB L501.1100 0.55-1.02 mg/dL High 1.09 CREAT,SERUM Result Comment: The validity of the calculated GFR AND GFRAA in patients over 70 years has not been determined. Clinical correlation is essential. LAB L501.1110 >60 mL/min Low EST GFR 53 Result Comment: Non- GFR Calc LAB L501.1115 >60 mL/min Normal EST GFR - AA 64 Result Comment: GFR Calc Performed By: #### L501.1000, L501.1105, L501.9195, L501.9310, L501.9520, L505.7010, L506.0250, L506.0400 #### [facility] [address] [place], [address] T3 UPTAKE Collected: 09/07/2017 Status: F Source: [place] 3:01 PM [facility] REPOSITORY Order Comment: Is Patient Taking Vitamins or Folic Acid Supplements? N TYPE CODE TESTS RESULT OUT OF RANGE REFERENCE UNITS LAB L501.9210 30-39 % Normal T3 UPTAKE 35 LAB L501.9410 1.4-4.5 Normal T7 (FTI) 3.1 Performed By: #### L501.1000, L501.1105, L501.9195, L501.9310, L501.9520, L505.7010, L506.0250, L506.0400 #### [facility] [address] [place], [place], [id number] T4 TOTAL, THYROXIN Collected: 09/07/2017 Status: F Source: [place] 3:01 PM [facility] REPOSITORY Order Comment: Is Patient Taking Vitamins or Folic Acid Supplements? N TYPE CODE TESTS RESULT OUT OF RANGE REFERENCE UNITS LAB L501.9310 4.8-13.9 ug/dL T4 Normal THYROXIN 8.8 Performed By: #### L501.1000, L501.1105, L501.9195, L501.9310, L501.9520, L505.7010, L506.0250, L506.0400 #### [facility] [address] [place], [place], [id number] THYROID STIM HORMONE Collected: 09/07/2017 Status: F Source: [place] (TSH) 3:01 PM [facility] REPOSITORY Order Comment: Is Patient Taking Vitamins or Folic Acid Supplements? N TYPE CODE TESTS RESULT OUT OF RANGE REFERENCE UNITS LAB L501.9520 0.358-3.74 uIU/mL Normal TSH 1.57 Performed By: #### L501.1000, L501.1105, L501.9195, L501.9310, L501.9520, L505.7010, L506.0250, L506.0400 #### [facility] [address] [place], [place], [id number] RHEUMATOID FACTOR Collected: 09/07/2017 Status: F Source: [place] 3:01 PM [facility] REPOSITORY Order Comment: Is Patient Taking Vitamins or Folic Acid Supplements? N TYPE CODE TESTS RESULT OUT OF RANGE REFERENCE UNITS LAB L505.7010 <15 IU/mL Normal RHEUMATOID FAC < 10.0 Performed By: #### L501.1000, L501.1105, L501.9195, L501.9310, L501.9520, L505.7010, L506.0250, L506.0400 #### [facility] [address] [place], [address] FOLATES, (FOLIC ACID) Collected: 09/07/2017 Status: F Source: [place] 3:01 PM [facility] REPOSITORY Order Comment: Is Patient Taking Vitamins or Folic Acid Supplements? N TYPE CODE TESTS RESULT OUT OF RANGE REFERENCE UNITS LAB L506.0250 3.1-55.4 ng/mL Normal FOLATES 19.90 Performed By: #### L501.1000, L501.1105, L501.9195, L501.9310, L501.9520, L505.7010, L506.0250, L506.0400 #### [facility] [address] [place], [address] T4 FREE DIRECT Collected: 09/07/2017 Status: F [facility] [place] [facility] Order Comment: Is Patient Taking Vitamins or Folic Acid Supplements? N TYPE CODE TESTS RESULT OUT OF RANGE REFERENCE UNITS LAB L506.0400 0.76-1.46 ng/dL Normal T4 FREE 1.05 DIRECT Performed By: #### L501.1000, L501.1105, L501.9195, L501.9310, L501.9520, L505.7010, L506.0250, L506.0400 #### [facility] [address] [place], [place], [address] T3 TOTAL - TRIIODOTHYRONINE Collected: 09/07/2017 Status: F Source: [place] 3:01 PM [facility] REPOSITORY TYPE CODE TESTS RESULT OUT OF RANGE REFERENCE UNITS LAB L501.9186 0.6-1.81 ng/mL Normal T3 Total 0.91 Performed By: #### L501.9186, L503.0105 #### [facility] [address] [place], [address] VITAMIN B12 Collected: 09/07/2017 Status: F Source: [place] 3:01 PM [facility] REPOSITORY TYPE CODE TESTS RESULT OUT OF RANGE REFERENCE UNITS LAB L503.0105 211-911 pg/mL Normal Vitamin B12 402 Performed By: #### L501.9186, L503.0105 #### [facility] [address] [place], [address] ANTINUCLEAR ANTIBODIES Collected: 09/07/2017 Status: F Source: [place] DIRECT 3:01 PM [facility] REPOSITORY TYPE CODE TESTS RESULT OUT OF RANGE REFERENCE UNITS LAB L3100.5475 Negative Normal Negative VERENICE-DIRECT Result Comment: Performed at: - [facility] [address] [id number] Hook And Eye Attacher: Jeff Franks PhD, Phone: [phone] Performed By: #### L3100.5475 #### [facility] (refer to report for specific site) refer to report for address and phone number ONCOLOGY VISIT REPORT Observed: 07/12/2017 Status: F Source: [place] 2:04 PM [facility] REPOSITORY [facility] [address] [place] [address] OFFICE VISIT Date of Service: 07/12/17 1357 MR#: [id number] Acct: [id number] Name: CAMPBELL MARTINEZ Rep #: [id number] : 1950 From: Jona Anthony MD Age/Sex: 67/F Location: OMD Status: Signed Subjective - Date of Service Date of Service:: 07/12/17 - Chief Complaint F/u for chronic ITP. - History of Present Illness 67 y.o.woman with longstanding history of chronic ITP, she thinks even in her thirties. She has been treated intermittently with steroids, IVIG and Danazol but currently on observation. Comes in for follow up. She feels well, denies bleeding. - Past Medical/Social History Past Medical History Past Medical History: Allergies,Asthma,Clotting disorder,Depression, Diabetes mellitus,GERD,Heart disease, Hyperlipidemia,Hypertension,Sleep apnea Other Past Medical History: CAD FATIGUE IBS THROMBOCYTOPENIC VITAMIN D DEFICIENCY ITP PSORIASIS Past Surgical History Surgical: CABG,Hysterectomy Other Surgical History: BLADDER SUSPENSION CARDIAC CATH THROAT Family History Paternal Past Medical History: Diabetes mellitus,Heart disease Maternal Past Medical History: Diabetes mellitus,Heart disease Social History Smoking Status Never smoker Review of Systems Constitutional:: Denies: Fever, Sweats, Weight loss, Appetite change, Chills Cardiovascular:: Denies: Chest pain, Palpitations, Dyspnea on exertion, Orthopnea, PND, Shortness of breath Respiratory: Denies: Cough, Hemoptysis, Shortness of Breath, Wheezing Gastrointestinal:: Denies: Abdominal pain, Nausea, Vomiting, Diarrhea, Constipation, Hematochezia Genitourinary: Denies: Dysuria, Hematuria, 15, Flank pain Musculoskeletal:: Denies: Back pain, Myalgia, Arthralgia Skin: Denies: Rash, Skin Changes, Wounds Neurological:: Denies: Headache, Dizziness, Visual changes, Tinnitus, Hearing loss Psychiatric: Denies: Anxiety, Depression, Homicidal Ideations, Suicidal Ideations Vital Signs Height 5 ft 6 in Weight: 81.193 kg Weight in Pounds 179.0 lbs Pulse Ox 98 - Physical Exam General: Alert, Oriented x3, No apparent distress Psychiatric:: - - Has horizontal nail ridges with white patch R thumb nail. Has splinter dark lines L big toe nail Laboratory Data: Laboratory Tests WBC 5.3 (4.4-11.0) K/mm3 RBC 5.22 (4.2-5.4) M/mm3 Hgb 15.2 H (12.0-15.0) g/dl Assessment and Plan Chronic ITP, PLT 65 today. No indication for therapy. H/O Psoriasis with nail changes. Plan is to continue observation. Call if she has any bleeding episode. Dermatology referral for nail changes. RTC 12 months with cbc. Medications: Prescriptions This Visit Medication Instructions Recorded Albuterol IH (ProAir) [Proair Hfa] 1 puff INHALATION UD PRN 06/09/16 Biotin 1 tab PO QODAY 06/09/16 Cetirizine HCl [Zyrtec] 10 mg PO DAILY PRN PRN 06/09/16 Primary Care Provider: Tye Funes DO Referring Provider: - Problem List (1) Chronic ITP (idiopathic thrombocytopenia) Status: Chronic (2) Nail abnormalities Status: Chronic Code Visit Office Visits / Consults: 32705 OV L3 Est 07/12/17 1404 <Electronically signed by Jona Anthony MD> Date Jona Anthony MD Cosigner Signature: Date (if applicable) CC: CBC W/DIFF, AUTOMATED Collected: 07/12/2017 Status: F Source: JERRELL 1:08 PM [facility] REPOSITORY Order Comment: Reason for Laboratory Test OV TYPE CODE TESTS RESULT OUT OF RANGE REFERENCE UNITS LAB L100.1000 4.4-11.0 K/mm3 Normal WBC 5.3 LAB L100.1200 4.2-5.4 M/mm3 Normal RBC 5.22 LAB L100.1300 12.0-15.0 g/dl High HGB 15.2 LAB L100.1400 37-47 % Normal HCT 45.9 LAB L100.1500 81-99 fL Normal MCV 87.9 LAB L100.1600 27.0-32.0 pg Normal MCH 29.1 LAB L100.1700 32-36 g/gl Normal MCHC 33.1 LAB L100.1810 11.6-14.6 % Normal RDW CV 13.8 LAB L100.1820 35.1-43.9 fl High RDW SD 44.5 LAB L100.1900 150-450 K/mm3 Low PLT 65 LAB L100.2000 6.2-12.0 fl High MPV 14.7 LAB L100.2100 47-70 % Normal NEUT% 55.3 LAB L100.2200 19-41 % Normal LY% 28.0 LAB L100.2300 0-10 % Normal MONO% 6.9 LAB L100.2400 0-5 % High EO% 8.4 LAB L100.2500 0-1 % Normal BASO% 0.8 LAB L100.2550 0.0-0.9 % Normal IM GRAN % 0.600 Result Comment: IG% - Immature Granulocytes (promyelocytes, myelocytes and metamyelocytes) > 1% indicates that a LEFT SHIFT is Present. LAB L100.2620 2.0-7.7 X10 3/uL Normal Absolute Neut 3.0 LAB L100.2720 0.83-4.51 X10 3/ul Normal Absolute Lymph 1.49 Performed By: #### L100.0100 #### [facility] [place], [address] ENDOCRINOLOGY VISIT Observed: 05/16/2017 Status: F Source: [place] REPORT 9:21 PM [facility] REPOSITORY [facility] [address] [place] [address] OFFICE VISIT Date of Service: 05/13/17 MR#: [id number] Acct: [id number] Name: CAMPBELL MARTINEZ Rep #: [id number] : 1950 Provider: Lucie Centeno NP Age/Sex: 67/F Location: [facility] Status: Signed HPI History of present illness Campbell Martinez is a 67 year old femal who presents for follow up of diabetes type 2. Diagnosed in 1996. Reports she continues on lantus 15 daily and meal insulin 5-15 units daily States she was in the hospital 04/27 due to pneumonia. States for several days she did not take lantus because her BG readings were in normal range and she had minimal appetite. Over the last week she has been only taking 5 units daily, pharmacy didnt have her supply of lantus. BG readings currently running 160-230. 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 Pt denies difficulty with injections or self monitoring of BG. Denies any signs of infection or irritation at site of injections. Reports taking insulin as directed At time of visit: -Pt denies symptoms of hypertensive emergency (CP,SOB,GRANADOS, or blurred vision) and hypotension(dizziness or lightheadedness) -Pt denies symptoms of hypoglycemia ( sweaty, confusion, anxiety, tremor, hunger, palpitations) and hyperglycemia ( polydipsia, polyuria) -Pt denies potential medication adverse effect. Hypoglycemia Aware of hypoglycemia: yes Able to self treat low BG: Yes Frequent low Blood sugar: No Has supply of glucagon: No Diet Eats very healthy Has numerous sensitivities to foods. Exercise Has not been active since the last 30 days due to illness. Glucose control symptoms: Reports high fasting glucose Weight and fatigue symptoms: Denies snoring Cardiopulmonary symptoms: Reports lightheadedness; denies chest pain at rest, dyspnea on exertion or myalgias GI symptoms: Reports diarrhea; denies constipation, nausea/dyspepsia or vomiting Other symptoms: Denies blurry vision or change in vision Self monitoring: Yes Glucometer type: accucheck Dietary compliance: Diabetes: good Diabetes education in past year: Yes Glucose testing: demonstrates correct use of meter Sick day education - understands ketone testing: Yes Physical activity: regular Exam Const General: comfortable, well groomed Nutritional Appearance: average body habitus Orientation: oriented x3 HENMT Head: normal to inspection, normocephalic Ears: hearing grossly normal bilaterally Nose: external nose normal Mouth: oral mucosae normal, moist mucous membranes abnormal Teeth and gingiva: dentition normal Eyes General: appearance normal, both eyes and all related structures Eyelids: eyelids normal Conjunctivae: conjunctivae normal Sclera: sclerae normal Pupils: PERRL Neck Neck: normal visual inspection, full ROM Resp Effort AND Inspection: normal respiratory effort, able to speak in complete sentences, symmetric chest movement, cough Auscultation: Left: Crackles Cardio Rate: regular rate Rhythm: regular rhythm Heart Sounds: S1 normal, S2 normal GI Inspection: normal to inspection Auscultation: normal bowel sounds Palpation: soft, no guarding Musc Thoracic/Lumbar Spine: thoracic and lumbar spine normal to inspection Skin General: no rashes or lesions noted Wounds: no wounds Diabetic Foot Pulses: L dorsalis pedis pulse: normal Monofilament test: Left foot: normal, Right foot: normal Neuro General: moves all extremities, normal light touch, pain and propioception Cognition: normal cognition Speech: speech normal Gait: normal gait Motor: muscle tone normal throughout Extrem General: full ROM, normal capillary refill Psych Appearance: well kempt Mental Status: mental status grossly normal Mood: congruent mood Affect: normal affect Speech and Movement: speech and movement normal Attitude: cooperative Thought Process: normal Thought Content: normal Judgment: judgment good Intake Vital Signs05/13/17 Height 5 ft 6 in 05/13/17 Weight: 170 lb 05/13/17 Body Mass Index (BMI) 27.4 05/13/17 Blood Pressure 108/73 05/13/17 Blood Pressure Location Lt popliteal 05/13/17 Blood Pressure Position Sitting Intake Visit 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 Accompanied by: Self Is patient in pain?: No Allergies bee venom protein (honey bee) Allergy (Verified 05/13/17 11:31) Anaphylaxis ciprofloxacin [From Cipro] Allergy (Verified 05/13/17 11:31) Anaphylaxis ciprofloxacin HCl [From Cipro] Allergy (Verified 05/13/17 11:31) Anaphylaxis insect venom Allergy (Verified 05/13/17 11:31) Anaphylaxis pine nut Allergy (Verified 05/13/17 11:31) Anaphylaxis trazodone Allergy (Verified 05/13/17 11:31) Shortness of breath corn Adverse Reaction (Verified 05/13/17 11:31) Nausea/Vom/Diarrhea dandelion (Taraxacum officinale) Adverse Reaction (Verified 05/13/17 11:31) ASTHMA/SEASONAL ALLERGIES latex Adverse Reaction (Verified 05/13/17 11:31) RASH D/T POWDER IN GLOVES metoprolol Adverse Reaction (Verified 05/13/17 11:31) Nausea/Vom/Diarrhea omeprazole Adverse Reaction (Verified 05/13/17 11:31) Unknown wheat Adverse Reaction (Verified 05/13/17 11:31) NAUSEA,VOMITING,DIARRHEA Medications Amlodipine/Valsartan [Amlodipine-Valsartan 5-160 mg] 1 tab PO DAILY 02/13/15 [History Confirmed 05/12/17] Metformin [Metformin HCl] 1,000 mg PO QHS 02/13/15 [History Confirmed 05/12/17] Metformin [Metformin HCl] 500 mg PO DAILY 02/13/15 [History Confirmed 05/12/17] Albuterol IH (ProAir) [Proair Hfa] 1 puff INHALATION UD PRN 06/09/16 [History Confirmed 05/12/17] Biotin 1 tab PO QODAY 06/09/16 [History Confirmed 05/12/17] Cetirizine HCl [Zyrtec] 10 mg PO DAILY PRN PRN 06/09/16 [History Confirmed 05/12/17] Epinephrine [Epi Pen (Jorge Luis)] 1 syr SQ UD 06/09/16 [History Confirmed 05/12/17] Magnesium Citrate 1.232 ml PO DAILY 07/29/16 [History Confirmed 05/12/17] Vitamin B Complex 0.5 ea PO DAILY 07/29/16 [History Confirmed 05/12/17] Iodine 2% Mild Tincture 3 drp PO DAILY 01/19/17 [History Confirmed 05/12/17] Cholecalciferol (Vitamin D3) [Vitamin D3] 1,000 unit PO DAILY 04/28/17 [History Confirmed 05/12/17] insulin glargine (U-100) 100 unit/mL (3 mL) subcutaneous pen 15 unit SC QDAY #30 ml 05/10/17 [Rx Confirmed 05/12/17] krill oil 500 mg capsule mg PO 05/11/17 [History Confirmed 05/12/17] ascorbic acid (vitamin C) 250 mg tablet 250 mg PO QDAY 05/12/17 [History Confirmed 05/12/17] blood sugar diagnostic strips See Dose Instructions .ROUTE .MEDSUPPLY #20 ea 05/12/17 [History Confirmed 05/12/17] glucagon (human recombinant) 1 mg injection kit 1 mg IM ONCE 05/12/17 [History Confirmed 05/12/17] insulin lispro (U-100) 100 unit/mL subcutaneous pen See Label Instructions SC QACDINNER 05/12/17 [History Confirmed 05/12/17] insulin syringe-needle U-100 half unit marking 0.3 mL 31 gauge x 07/28 See Dose Instructions .ROUTE .MEDSUPPLY #100 ea 05/12/17 [History Confirmed 05/12/17] omega-3 fatty acids 1,000 mg capsule 1,000 mg PO .3 x q week cap 05/12/17 [History Confirmed 05/12/17] Is last menstrual period known: No Post menopausal: Yes Patient : No Nurse's Note: Blood sugars : Low : High : 300+ PFSH Medical History Hypertension (Chronic) Hyperlipidemia (Chronic) 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 of [place] heart (Chronic) Pericardial effusion (Chronic) Pleural effusion (Chronic) Palpitations (Chronic) CAD (coronary artery disease), [place] coronary artery (Chronic) DM type 2 (diabetes mellitus, type 2) (Chronic) Arthritis (Acute) Asthma (Acute) DVT (deep venous thrombosis) (Acute) Depression (Acute) GERD (gastroesophageal reflux disease) (Acute) Psoriasis (Acute) Seasonal allergies (Acute) Sleep apnea (Acute) 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) Surgical History Aortocoronary bypass status (Chronic) H/O: hysterectomy (Acute) History of bladder suspension procedure (Acute) History of throat surgery (Acute) Family History Father Diabetes CAD (coronary artery disease) Hx CABG Mother Diabetes Heart disease Hx CABG Brother Diabetes Daughter Diabetes Asthma Social History Smoking Status: Never smoker alcohol intake: never substance use type: does not use seatbelt use: always ROS Const Constitutional: Positive for chills, fatigue, fever(s) and malaise; no anorexia, body ache, frequent falls, decreased energy, night sweats, weakness, weight change, sleep problems, abnormal sleep pattern, change in appetite, other, headache(s), snoring or excessive sweating Eyes Eyes: No blurry vision, change in vision, double vision, discharge, dry eyes, bulging eyes, floaters, visual disturbances, eye pain, light sensitivity, spots in vision, tunnel vision or other ENT ENT: Positive for nasal congestion; no abnormal hearing, ear pain, ear discharge, ear pressure, hearing loss, tinnitus, dizziness/vertigo, balance problems, nosebleed/epistaxis, nasal obstruction, nose pain, sinus pressure, sinus pain, nasal discharge, post nasal drip, headache(s), facial pain, dental pain, dry mouth, bad breath, hoarseness, lip swelling, mouth lesions, mouth pain, sore throat, tongue swelling, throat swelling, other, difficulty swallowing or neck pain Resp Respiratory: Positive for cough, excessive phlegm production and shortness of breath; no change in phlegm color, chest congestion, hemoptysis, pain on inspiration, pain with cough, snoring, stridor, wheezing or other Cardio Cardiology: Positive for lightheadedness; no chest pain at rest, chest pain with exertion, leg pain with exertion, excessive sweating, shortness of breath, dyspnea on exertion, generalized swelling, irregular heart rhythm, orthopnea, radiating jaw, neck or arm pain, fast heart rate, slow heart rate, palpitations or other Gastro GI: Positive for diarrhea; no abdominal pain, belching, bloating, change in bowel habits, change in stool character, coffee ground emesis, constipation, cramping, heartburn, difficulty swallowing, feeling full early, excessive flatus, incontinent of stools, Vomiting blood/hematemesis, blood in stool, loose stools, Black,tarry stools, nausea/dyspepsia, pain with swallowing, vomiting or other Genitourinary-Female: Positive for urinary incontinence; no difficulty urinating, burning urination, painful urination, urinary frequency, urinary urgency, urinary hesitancy, urinary retention, blood in urine, Frequent nighttime urination/ nocturia, post void dribbling, suprapubic fullness, side pain, sexual problems, genital lesions, genital itching, hot flashes, abnormal periods, abnormal vaginal bleeding, absent period, painful periods, light periods, heavy periods, difficulty getting , painful intercourse, pelvic pain, vaginal dryness, vaginal odor, Vaginal Itching or other Musc Musculoskeletal: No abnormal walking, joint pain, back pain, deformity, joint swelling, limited range of motion, loss of height, muscle cramps, muscle weakness, decreased muscle mass, body aches, neck pain, numbness, radiating pain into limb, stiffness, tingling or other Neuro Neurology: No frequent falls, weakness, visual disturbances, abnormal hearing, headache(s), abnormal walking, numbness or tingling Psych Psychiatric: No abnormal sleep pattern, No change in appetite Endo Endocrine: Positive for fatigue; no other or excessive sweating Aller/Imm Allergy/Immunologic: No lip swelling, tongue swelling, throat swelling or wheezing Assessment AND Plan 1. Type 2 diabetes mellitus without complication, with long- term current use of insulin E11.9 Plan Increase lantus back to lantus 15 units daily Control portions Food selections should be healthy Choose more low carb vegetables Avoid snacks and desserts. Drink water Exercise daily Eat more fresh foods, not canned or processed Eat more slowly . Orders Orders: Plan Detail Other Orders Orders: Additional Comments 1. Please schedule follow up in 3 months. 2. Lab work one week before appointment. 3. Discussed importance of regular exercise and recommend starting or continuing a regular exercise program for good health. 4. The patient was encouraged to lose weight for good health 5. The importance of monitoring blood sugar regularly was reviewed. 6. The importance of monitoring the HBA1c level regularly was reviewed. 7. The importance of prper foot care and regularly checking feet to prevent sores and loss of limbs was reviewed. 8. The importance of keeping BP at or below 130/80 to prevent stroke, heart attacks, kidney failure, blindness was reviewed. Spent approximately 30 minutes with patient with over 50% of time spent in discussion and counseling regarding medication adjustment, symptoms and treatment of hypoglycemia, diet adherence, and checking BG before driving. 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 [place] [address] OFFICE VISIT Date of Service: 05/11/17 MR#: [id number] Acct: [id number] Name: CAMPBELL MARTINEZ Rep #: [id number] : 1950 Provider: Zehra Rider Age/Sex: 67/F Location: [facility] Status: Signed HPI HPI Details: CAMPBELL MARTINEZ, is a 67 F who presents to the office today for cardiovascular follow-up. She has a history of coronary artery disease with bypass surgery in 2004. She had an TAVAREZ sequential graft to the LAD and diagonal, SVG to the RPDA #3. She also has a history of ventricular ectopy, hypertension, hyperlipidemia and diabetes. Pt is recovering from pneumonia and influenza. She does not have any chest discomfort/heaviness/tightness. Her exercise tolerance is stable for her age. She does not have any worsening symptoms of shortness of breath. She does not have any orthopnea. She denies PND. She does not have any symptoms of congestive heart failure. Her HR is back to normal since her hospital stay. She had a low HR during her hospital stay. She does occasionally note palpitations. She does not have any lightheadedness or dizziness. She does not have any near-syncope or syncope. She does not have any lower extremity edema. She does not have any symptoms of claudication. Intake Vital Signs05/11/17 Height 5 ft 6 in 05/11/17 Weight: 170 lb 05/11/17 Body Mass Index (BMI) 27.4 05/11/17 Blood Pressure 112/60 05/11/17 Pulse Rate 79 Intake Visit Reasons: 6 M FU Allergies bee venom protein (honey bee) Allergy (Verified 05/11/17 10:57) Anaphylaxis ciprofloxacin [From Cipro] Allergy (Verified 05/11/17 10:57) Anaphylaxis ciprofloxacin HCl [From Cipro] Allergy (Verified 05/11/17 10:57) Anaphylaxis insect venom Allergy (Verified 05/11/17 10:57) Anaphylaxis pine nut Allergy (Verified 05/11/17 10:57) Anaphylaxis trazodone Allergy (Verified 05/11/17 10:57) Shortness of breath corn Adverse Reaction (Verified 05/11/17 10:57) Nausea/Vom/Diarrhea dandelion (Taraxacum officinale) Adverse Reaction (Verified 05/11/17 10:57) ASTHMA/SEASONAL ALLERGIES latex Adverse Reaction (Verified 05/11/17 10:57) RASH D/T POWDER IN GLOVES metoprolol Adverse Reaction (Verified 05/11/17 10:57) Nausea/Vom/Diarrhea omeprazole Adverse Reaction (Verified 05/11/17 10:57) Unknown wheat Adverse Reaction (Verified 05/11/17 10:57) NAUSEA,VOMITING,DIARRHEA Medications Amlodipine/Valsartan [Amlodipine-Valsartan 5-160 mg] 1 tab PO DAILY 02/13/15 [History Confirmed 05/11/17] Metformin [Metformin HCl] 1,000 mg PO QHS 02/13/15 [History Confirmed 05/05/17] Metformin [Metformin HCl] 500 mg PO DAILY 02/13/15 [History Confirmed 05/11/17] Albuterol IH (ProAir) [Proair Hfa] 1 puff INHALATION UD PRN 06/09/16 [History Confirmed 05/11/17] Biotin 1 tab PO QODAY 06/09/16 [History Confirmed 05/11/17] Cetirizine HCl [Zyrtec] 10 mg PO DAILY PRN PRN 06/09/16 [History Confirmed 05/05/17] Epinephrine [Epi Pen (Jorge Luis)] 1 syr SQ UD 06/09/16 [History Confirmed 05/11/17] Glucagon Emergency Kit 07/29/16 [History Confirmed 05/11/17] Magnesium Citrate 1.232 ml PO DAILY 07/29/16 [History Confirmed 05/05/17] Vitamin B Complex 0.5 ea PO DAILY 07/29/16 [History Confirmed 05/11/17] Insulin Lispro [Humalog] See Protocol SQ TID MDD 6 times daily as needed 01/19/17 [History Confirmed 05/11/17] Iodine 2% Mild Tincture 3 drp PO DAILY 01/19/17 [History Confirmed 05/05/17] Cholecalciferol (Vitamin D3) [Vitamin D3] 1,000 unit PO DAILY 04/28/17 [History Confirmed 05/11/17] Insulin Glargine [Lantus SoloStar Pen] 4 - 5 units SQ QHS 04/28/17 [History Confirmed 05/11/17] insulin glargine (U-100) 100 unit/mL (3 mL) subcutaneous pen 15 unit SC QDAY #30 ml 05/10/17 [Rx Confirmed 05/11/17] krill oil 500 mg capsule mg PO 05/11/17 [History Confirmed 05/11/17] Ejection fraction %: 65 to 70 PFSH Medical History Hypertension (Chronic) Hyperlipidemia (Chronic) 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 of [place] heart (Chronic) Pericardial effusion (Chronic) Pleural effusion (Chronic) Palpitations (Chronic) CAD (coronary artery disease), [place] coronary artery (Chronic) DM type 2 (diabetes mellitus, type 2) (Chronic) 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) Surgical History Aortocoronary bypass status (Chronic) Family History Father Diabetes CAD (coronary artery disease) Hx CABG Mother Diabetes Heart disease Hx CABG Brother Diabetes Daughter Diabetes Asthma Social History Smoking Status: Never smoker alcohol intake: never substance use type: does not use seatbelt use: always Cardiology Exam Const Appearance: cooperative, no acute distress and well developed Orientation: alert, awake and oriented x3 Head Head: normocephalic and atraumatic Mouth: moist mucous membranes Eyes General: appearance normal, both eyes and all related structures Conjunctivae: conjunctivae normal Pupils: PERRL EOM: EOM intact bilaterally Neck Neck: normal visual inspection, no lymphadenopathy and no JVD Carotids: Negative bruit Neck Mass: Negative Neck mass Chest Chest inspection: normal inspection of the chest and symmetric chest movement Auscultation: Bilateral: Clear to Auscultation Cardio Palpation: normal PMI Rate: regular rate Rhythm: regular rhythm Heart sounds: S1 normal and S2 normal; negative rub, gallop or murmur GI GI: normal to inspection, soft, no hepatosplenomegaly and bowel sounds present; negative tender Neuro General: alert, awake, oriented x3, CN's II-XI intact bilaterally and moves all extremities Extremities Pulses: Normal: Right Posterior Tibial Pulse, Left Posterior Tibial Pulse, Right Radial Pulse, Left Radial Pulse Lower Extremity Edema: None: Bilateral Psych Psychological: normal affect Supplemental Info Echocardiogram in 2016 demonstrates an ejection fraction of 70%. Left atrium mildly enlarged. Trivial valvular insufficiency. Assessment AND Plan 1. Atherosclerosis of coronary artery bypass graft of [place] heart without angina pectoris I25.810 CABG, TAVAREZ as sequential graft to diagonal AND LAD AND SVG to RPDA #3, 6/ Plan - KEYSHA Viramontes Stable, from a cardiac standpoint patient does not have any symptoms of angina. We recommend that they continue with current aggressive medical management and risk factor modification. 2. Essential hypertension I10 Plan - KEYSHA Viramontes Controlled on current medications, will not make any adjustments at this time. 3. Pure hypercholesterolemia E78.00; E78.0 Plan - KEYSHA Viramontes Laboratory Tests Cholesterol 191 LDL Cholesterol 108 HDL Cholesterol 40 Adequately controlled on current medications. Will not make any adjustments in medications at this time. 4. Immune thrombocytopenic purpura D69.3 Plan - KEYSHA Viramontes Follow with Dr. Anthony. She watches this closely. Plan Detail Other Medications New: Discontinued: [Inez 3 Fish Oil Softgel] Discontinued Reason: Order Chang1 tab PO QODAY SUPPLEMENT ed blood sugar diagnostic strips Discontinued Reason: Pt no lo6 - 8 ea DAILY nger taking Additional Comments - KEYSHA Viramontes The above patient was discussed with Dr. Rondon in Dr. Ham's absence, he agrees with plan of care. Thank you for allowing us to participate in patient's plan of care, if you have any questions please do not hesitate to call. This note was generated using a voice recognition system and there may be incorrect words, spelling or punctuation errors that were not noted when reviewing the office note prior to saving. Follow Up 9 Months (PFM) Coding Level of Care Code Off vis,est,level 3 Diagnoses Atherosclerosis of coronary artery bypass graft of [place] heart without angina pectoris I25.810 Associated angina: without angina Essential hypertension I10 Hypertension type: essential hypertension Pure hypercholesterolemia E78.00; E78.0 Hyperlipidemia type: pure hypercholesterolemia Immune thrombocytopenic purpura D69.3 Coding Level of Care Code Off vis,est,level 3 Diagnoses Atherosclerosis of coronary artery bypass graft of [place] heart without angina pectoris I25.810 Associated angina: without angina Essential hypertension I10 Hypertension type: essential hypertension Pure hypercholesterolemia E78.00; E78.0 Hyperlipidemia type: pure hypercholesterolemia Immune thrombocytopenic purpura D69.3 05/11/17 1438 <Electronically signed by Zehra CHOPRA> Date Zehra CHOPRA 05/11/17 1925<Electronically signed by Chris Rondon MD> Cosigner Signature: Date (if applicable) Chris Rondon MD CC: Tye Funes DO DISCHARGE SUMMARY Observed: 04/30/2017 Status: F Source: [place] 10:38 AM [facility] Medical Records Department [address] [place] [address] Discharge Summary 04/30/17 1034 MR#: [id number] Acct: [id number] Name: CAMPBELL MARTINEZ Rep #: [id number] : 1950 67 From: Rusty Callejas DO PCP: Tye Funes DO Status: ADM RAJAT Y Location: [place] [address] Discharge Date and Diagnosis - Problem List Patient Problems: Active and Suspected Problems Pneumococcal pneumonia (Acute) Influenza A (Acute) Date of Admission: 04/28/17 Date of Discharge: 04/30/17 - Primary Discharge Diagnosis Active and Suspected Problems Pneumococcal pneumonia (Acute) Influenza A (Acute) - Secondary Discharge Diagnosis Chronic Problems CAD (coronary artery disease), [place] coronary artery (Chronic) DM type 2 (diabetes mellitus, type 2) (Chronic) Chronic ITP (idiopathic thrombocytopenia) (Chronic) Hospital Course and Treatment Imaging Results: Clinical Impression(s) from Imaging Studies Chest X-Ray 04/28/17 14:15 IMPRESSION: Findings suggestive of early lingular infiltrates. Electronically Signed: Steve Son MD at 14:28 EST Tel [phone], Service support , Operations: None Procedures: None Summary of Care Provided: The patient is a 67 year old F who was recently diagnosed with influenza. Patient was on Tamiflu but then started experiencing nausea and vomiting. Patient presented to the emergency room and was noted to have a possible left lingular infiltrate. Pt was started on rocephin and azithromycin. Overall, improving. Will discharge with keflex and azithromycin. Will check an ambulatory pulse ox prior to discharge to see if she needs oxygen on discharge,but is currently doing fine without it.[] Discharge Diet: 1800 Calorie Control Diet Discharge Activity: Return to Normal Activity Call your doctor if you observe: Fever of 101 or Higher, Shortness of breath Home Medications: Medications to take at Discharge Amlodipine/Valsartan [Amlodipine-Valsartan 5-160 mg] 1 tab PO DAILY 02/13/15 Metformin [Metformin HCl] 1,000 mg PO QHS 02/13/15 Metformin [Metformin HCl] 500 mg PO DAILY 02/13/15 Albuterol IH (ProAir) [Proair Hfa] 1 puff INHALATION UD PRN 06/09/16 Biotin 1 tab PO QODAY 06/09/16 Cetirizine HCl [Zyrtec] 10 mg PO DAILY PRN PRN 06/09/16 Epinephrine [Epi Pen (Jorge Luis)] 1 syr SQ UD 06/09/16 Inez 3 Fish Oil Softgel 1 tab PO QODAY 06/09/16 Blood Sugar Diagnostic [Onetouch Ultra Test Strips] 6 - 8 each MC DAILY 07/29/16 Glucagon Emergency Kit 07/29/16 Insulin Glargine [Lantus SoloStar Pen] 16 units SQ DAILY 07/29/16 Magnesium Citrate 1.232 ml PO DAILY 07/29/16 Vitamin B Complex 0.5 each PO DAILY 07/29/16 Insulin Lispro [Humalog] See Protocol SQ TID MDD 6 times daily as needed 01/19/17 Iodine 2% Mild Tincture 3 drop PO DAILY 01/19/17 Cholecalciferol (Vitamin D3) [Vitamin D3] 1,000 unit PO DAILY 04/28/17 Insulin Glargine [Lantus SoloStar Pen] 4 - 5 units SQ QHS 04/28/17 Azithromycin 500 mg PO DAILY #5 tab 04/30/17 Cephalexin [Keflex] 500 mg PO Q8 #15 cap 04/30/17 Following Prescrptions Were Given to Patient: Azithromycin 500 mg PO DAILY #5 tab Cephalexin [Keflex] 500 mg PO Q8 #15 cap Primary Care Physician: yTe Funes DO [Primary Care Provider] - Within 2 Weeks Disposition: Home Minutes spent on discharge:: 32 Patient Condition:: Fair Meaningful Use Info Meaningful Use Diagnoses (Choose all that apply): None applicable Code Visit Inpatient E AND M: 77691 Disch Hosp 04/30/17 1038 <Electronically signed by Rusty Callejas DO> Date Rusty Callejas DO Cosigner Signature (if applicable): Date CC: Rusty Callejas DO; Tye Funes DO Signed DISCHARGE INSTRUCTION Observed: 04/30/2017 Status: F Source: JERRELL 10:33 AM [facility] REPOSITORY [facility] Medical Records Department [address] [place] [address] Instructions for Home/Discharge Instructions 04/30/17 1032 MR#: [id number] Acct: [id number] Name: CAMPBELL MARTINEZ Rep #: [id number] : 1950 67 From: Rusty Callejas DO PCP: Tye Funes DO Status: ADM RAJAT - Discharge Diagnoses Current Active Problems: Current Active and Chronic Problems Pneumococcal pneumonia (Acute) CAD (coronary artery disease), [place] coronary artery (Chronic) DM type 2 (diabetes mellitus, type 2) (Chronic) Influenza A (Acute) You will use the following diet at home:: Calorie/Carbohydrate Controlled (specify 1200, 1400, etc) - 1800 kcal/day Your food should be the consistency of: Regular Your liquids should be the consistency of: Regular/Thin Discharge Activity: Return to Normal Activity Call your doctor if you observe: Fever of 101 or Higher, Shortness of breath Allergies/Adverse Reactions: Allergies bee venom protein (honey bee) Allergy (Verified 04/28/17 17:21) Anaphylaxis ciprofloxacin [From Cipro] Allergy (Verified 04/28/17 13:27) Anaphylaxis ciprofloxacin HCl [From Cipro] Allergy (Verified 04/28/17 13:27) Anaphylaxis insect venom Allergy (Verified 04/28/17 13:27) Anaphylaxis pine nut Allergy (Verified 04/28/17 17:21) Anaphylaxis trazodone Allergy (Verified 04/28/17 13:27) Shortness of breath corn Adverse Reaction (Verified 04/28/17 13:27) Nausea/Vom/Diarrhea dandelion (Taraxacum officinale) Adverse Reaction (Verified 04/28/17 17:21) ASTHMA/SEASONAL ALLERGIES latex Adverse Reaction (Verified 04/28/17 17:21) RASH D/T POWDER IN GLOVES metoprolol Adverse Reaction (Verified 04/28/17 17:21) Nausea/Vom/Diarrhea omeprazole Adverse Reaction (Verified 04/28/17 13:27) Unknown wheat Adverse Reaction (Verified 04/28/17 17:21) NAUSEA,VOMITING,DIARRHEA Medications to take at Discharge Amlodipine/Valsartan [Amlodipine-Valsartan 5-160 mg] 1 tab PO DAILY 02/13/15 Metformin [Metformin HCl] 1,000 mg PO QHS 02/13/15 Metformin [Metformin HCl] 500 mg PO DAILY 02/13/15 Albuterol IH (ProAir) [Proair Hfa] 1 puff INHALATION UD PRN 06/09/16 Biotin 1 tab PO QODAY 06/09/16 Cetirizine HCl [Zyrtec] 10 mg PO DAILY PRN PRN 06/09/16 Epinephrine [Epi Pen (Jorge Luis)] 1 syr SQ UD 06/09/16 Inez 3 Fish Oil Softgel 1 tab PO QODAY 06/09/16 Blood Sugar Diagnostic [STARFACEtouch Ultra Test Strips] 6 - 8 each MC DAILY 07/29/16 Glucagon Emergency Kit 07/29/16 Insulin Glargine [Lantus SoloStar Pen] 16 units SQ DAILY 07/29/16 Magnesium Citrate 1.232 ml PO DAILY 07/29/16 Vitamin B Complex 0.5 each PO DAILY 07/29/16 Insulin Lispro [Humalog] See Protocol SQ TID MDD 6 times daily as needed 01/19/17 Iodine 2% Mild Tincture 3 drop PO DAILY 01/19/17 Cholecalciferol (Vitamin D3) [Vitamin D3] 1,000 unit PO DAILY 04/28/17 Insulin Glargine [Lantus SoloStar Pen] 4 - 5 units SQ QHS 04/28/17 Azithromycin 500 mg PO DAILY #5 tab 04/30/17 Cephalexin [Keflex] 500 mg PO Q8 #15 cap 04/30/17 The following prescriptions were given: Azithromycin 500 mg PO DAILY #5 tab Cephalexin [Keflex] 500 mg PO Q8 #15 cap Primary Care Physician: Tye Funes DO [Primary Care Provider] - Within 2 Weeks Proposed Discharge Date: 04/30/17 04/30/17 1033 <Electronically signed by Rusty Callejas DO> Date Rusty Callejas DO CC: Tye Funes DO CBC W/DIFF, AUTOMATED Collected: 04/30/2017 Status: F Source: JERRELL 5:20 AM [facility] REPOSITORY TYPE CODE TESTS RESULT OUT OF RANGE REFERENCE UNITS LAB L100.1000 4.4-11.0 K/mm3 Low WBC 3.7 LAB L100.1200 4.2-5.4 M/mm3 Normal RBC 4.72 LAB L100.1300 12.0-15.0 g/dl Normal HGB 13.7 LAB L100.1400 37-47 % Normal HCT 41.2 LAB L100.1500 81-99 fL Normal MCV 87.3 LAB L100.1600 27.0-32.0 pg Normal MCH 29.0 LAB L100.1700 32-36 g/gl Normal MCHC 33.3 LAB L100.1810 11.6-14.6 % Normal RDW CV 13.2 LAB L100.1820 35.1-43.9 fl Normal RDW SD 41.3 LAB L100.1900 150-450 K/mm3 Low PLT 93 LAB L100.2000 6.2-12.0 fl High MPV 12.9 LAB L100.2100 47-70 % Normal NEUT% 53.4 LAB L100.2200 19-41 % Normal LY% 32.5 LAB L100.2300 0-10 % High MONO% 11.4 LAB L100.2400 0-5 % Normal EO% 1.6 LAB L100.2500 0-1 % Normal BASO% 0.8 LAB L100.2550 0.0-0.9 % Normal IM GRAN % 0.300 Result Comment: IG% - Immature Granulocytes (promyelocytes, myelocytes and metamyelocytes) > 1% indicates that a LEFT SHIFT is Present. LAB L100.2620 2.0-7.7 X10 3/uL Normal Absolute Neut 2.0 LAB L100.2720 0.83-4.51 X10 3/ul Normal Absolute Lymph 1.20 Performed By: #### L100.0100 #### [facility] [address] [place], [place], [address] BASIC METABOLIC Collected: 04/30/2017 Status: F Source: [place] PROFILE (BMP) 5:20 AM [facility] REPOSITORY TYPE CODE TESTS RESULT OUT OF RANGE REFERENCE UNITS LAB L501.0100 74-106 mg/dL High GLU 119 Result Comment: Fasting Glucose result from 100 to 125 mg/dL suggests IMPAIRED HOMEOSTASIS per A.D.A. criteria. Please note revised GLUCOSE reference range effective 2017. LAB L501.1000 7-18 mg/dL Normal BUN 13 LAB L501.1100 0.55-1.02 mg/dL Normal CREAT,SERUM 0.91 Result Comment: The validity of the calculated GFR AND GFRAA in patients over 70 years has not been determined. Clinical correlation is essential. LAB L501.1110 >60 mL/min Normal EST GFR 66 Result Comment: Non- GFR Calc LAB L501.1115 >60 mL/min Normal EST GFR - AA 79 Result Comment: GFR Calc LAB L501.1255 ml/min Normal Estimated CRCL 55.39 LAB L501.1300 10-20 RATIO Normal BUN/CRE 14.3 LAB L501.2200 8.5-10 mg/dL Low .1 CA 7.9 LAB L501.5300 136-14 mmol/L Normal 5 NA 137 LAB L501.5600 3.5-5. mmol/L Normal 1 K 3.6 LAB L501.5900 98-107 mmol/L Normal CL 104 LAB L501.6100 21.0-3 mmol/L Normal 2.0 CO2 24.0 LAB L501.6200 5-15 Normal GAP 9 Performed By: #### L500.2500 #### [facility] [address] [place], [address] Observed: 04/29/2017 Status: F Source: JERRELL LEGIONELLA ANTIGEN 2:00 PM [facility] URINE REPOSITORY Specimen Source: URINE, CLEAN CATCH Legionella, UR Legionella Antigen result interpretation: Negative Presumptive negative for Legionella pneumophila serogroup 1 antigen in urine, suggesting no recent or current infection. Legionella Ag, Urine Negative (See interpretation below) Performed By: #### M300.4500 #### [facility] [address] [place], [address] STREP Observed: 04/29/2017 Status: F Source: J[place] PNEUMONIAE ANTIG(UR,CSF) 2:00 PM [facility] REPOSITORY Has pt arrived? Y S pneumo Ag URINE INTERPRETATION Negative Urine Presumptive negative for pneumococcal pneumonia, suggesting no current or recent pneumococcal infection. Infection due to S pneumoniae cannot be ruled out since the antigen present in the sample may be below the detection limit of the test. Strep pneumo Test Negative URINE (See interpretation below) Performed By: #### M300.4600 #### [facility] [address] [place], [address] BASIC METABOLIC Collected: 04/29/2017 Status: F Source: JERRELL PROFILE (BMP) 6:20 AM [facility] REPOSITORY TYPE CODE TESTS RESULT OUT OF RANGE REFERENCE UNITS LAB L501.0100 74-106 mg/dL High GLU 141 Result Comment: Fasting Glucose result greater than or equal to 126 mg/dL suggests DIABETES MELLITUS per A.D.A. criteria. Please note revised GLUCOSE reference range effective 2017. LAB L501.1000 7-18 mg/dL Normal BUN 13 LAB L501.1100 0.55-1.02 mg/dL Normal CREAT,SERUM 0.91 Result Comment: The validity of the calculated GFR AND GFRAA in patients over 70 years has not been determined. Clinical correlation is essential. LAB L501.1110 >60 mL/min Normal EST GFR 65 Result Comment: Non- GFR Calc LAB L501.1115 >60 mL/min Normal EST GFR - AA 79 Result Comment: GFR Calc LAB L501.1255 ml/min Normal Estimated CRCL 55.39 LAB L501.1300 10-20 RATIO Normal BUN/CRE 14.2 LAB L501.2200 8.5-10 mg/dL Low .1 CA 7.7 LAB L501.5300 136-14 mmol/L Normal 5 NA 140 LAB L501.5600 3.5-5. mmol/L Low 1 K 3.4 LAB L501.5900 98-107 mmol/L High CL 109 LAB L501.6100 21.0-3 mmol/L Normal 2.0 CO2 24.0 LAB L501.6200 5-15 Normal GAP 7 Performed By: #### L500.2500 #### [facility] [address] [place], [address] CBC W/DIFF, AUTOMATED Collected: 04/29/2017 Status: F Source: TEN MILE 6:20 AM [facility] REPOSITORY TYPE CODE TESTS RESULT OUT OF RANGE REFERENCE UNITS LAB L100.1000 4.4-11.0 K/mm3 Low WBC 3.4 LAB L100.1200 4.2-5.4 M/mm3 Normal RBC 4.52 LAB L100.1300 12.0-15.0 g/dl Normal HGB 13.0 LAB L100.1400 37-47 % Normal HCT 40.2 LAB L100.1500 81-99 fL Normal MCV 88.9 LAB L100.1600 27.0-32.0 pg Normal MCH 28.8 LAB L100.1700 32-36 g/gl Normal MCHC 32.3 LAB L100.1810 11.6-14.6 % Normal RDW CV 13.2 LAB L100.1820 35.1-43.9 fl Normal RDW SD 42.8 LAB L100.1900 150-450 K/mm3 Low PLT 53 LAB L100.2000 6.2-12.0 fl High MPV 13.6 LAB L100.2100 47-70 % Normal NEUT% 54.4 LAB L100.2200 19-41 % Normal LY% 28.9 LAB L100.2300 0-10 % High MONO% 15.5 LAB L100.2400 0-5 % Normal EO% 0.3 LAB L100.2500 0-1 % Normal BASO% 0.3 LAB L100.2550 0.0-0.9 % Normal IM GRAN % 0.600 Result Comment: IG% - Immature Granulocytes (promyelocytes, myelocytes and metamyelocytes) > 1% indicates that a LEFT SHIFT is Present. LAB L100.2620 2.0-7.7 X10 3/uL Low Absolute Neut 1.9 LAB L100.2720 0.83-4.51 X10 3/ul Normal Absolute Lymph 0.99 Performed By: #### L100.0100 #### [facility] [address] [place], [address] HISTORY AND PHYSICAL Observed: 04/28/2017 Status: F Source: TEN MILE EXAM 6:18 PM [facility] REPOSITORY [facility] Medical Records Department [address] [place] [address] History and Physical 04/28/17 1804 MR#: [id number] Acct: [id number] Name: CAMPBELL MARTINEZ Rep #: [id number] : 1950 67 From: Vinh Loo MD PCP: Tye Funes DO Status: ADM RAJAT Y Location: [place] [address] Problem List (1) CAD (coronary artery disease), [place] coronary artery Status: Chronic Qualifiers: [place] vs. 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 Patient is a 67 years old female who presents to ED with complaining of 3 days history of malaise, myalgia, fever, and cough. She was given Tamiflu via PCP, but she felt worse today. She is complaining of nausea and vomiting, and unable to keep any food or liquid today. Rapid influenza test was positive for influenza A. She received IVF in the ED along with antiemetics, but she is complaining of persisting nausea. CXR showed questionable area in lingula, suggestive of developing infiltrate. WBC was normal at 5.1. Temp was 99.8, but she was otherwise hemodynamically stable. Platelet was 55, which is within the range for her history of ITP. She has no sings of active bleeding. Past Medical History Past Medical History (Chronic Problems): Chronic Problems CAD (coronary artery disease), [place] coronary artery (Chronic) DM type 2 (diabetes mellitus, type 2) (Chronic) Chronic ITP (idiopathic thrombocytopenia) (Chronic) Allergies bee venom protein (honey bee) Allergy (Verified 04/28/17 17:21) Anaphylaxis ciprofloxacin [From Cipro] Allergy (Verified 04/28/17 13:27) Anaphylaxis ciprofloxacin HCl [From Cipro] Allergy (Verified 04/28/17 13:27) Anaphylaxis insect venom Allergy (Verified 04/28/17 13:27) Anaphylaxis pine nut Allergy (Verified 04/28/17 17:21) Anaphylaxis trazodone Allergy (Verified 04/28/17 13:27) Shortness of breath corn Adverse Reaction (Verified 04/28/17 13:27) Nausea/Vom/Diarrhea dandelion (Taraxacum officinale) Adverse Reaction (Verified 04/28/17 17:21) ASTHMA/SEASONAL ALLERGIES latex Adverse Reaction (Verified 04/28/17 17:21) RASH D/T POWDER IN GLOVES metoprolol Adverse Reaction (Verified 04/28/17 17:21) Nausea/Vom/Diarrhea omeprazole Adverse Reaction (Verified 04/28/17 13:27) Unknown wheat Adverse Reaction (Verified 04/28/17 17:21) NAUSEA,VOMITING,DIARRHEA Home Medications: Ambulatory Orders Medication Instructions Recorded Amlodipine/Valsartan 1 tab PO DAILY 02/13/15 [Amlodipine-Valsartan 5-160 mg] Metformin [Metformin HCl] 1,000 mg PO QHS 02/13/15 Smoking Status: Never smoker - *Family History Maternal History Items: No pertinent history Review of Systems Comment: ROS: In general: +fever and chills. Decreased appetite. HEENT: Unremarkable. Patient denied of any dizziness, chronic headache, blurred vision, double vision, dry mouth, or nasal congestion. CV/respiratory: +dry cough. GI: nausea and vomiting. No diarrhea, hematochezia, or hematemesis. : Patient denied any significant urinary symptoms. Neurology: Unremarkable. There is no history of seizure as an adult. Psychological: Unremarkable. . Endocrine: Unremarkable. Musculoskeletal: Unremarkable. VTE Information - Inpt Only VTE Present on Admission: No VTE Mechan Device Prophylaxis: SCD's VTE Pharm Prophylaxis ordered?: No Reason prophylaxis not ordered:: Medical Contraindication - thrombocytopenia Patient Problems: Active and Suspected Problems Influenza A (Acute) Objective: In general, patient is a well-nourished and developed adult. HEENT: Head is atraumatic, and normocephalic. Pupils are equal, round, and reactive to light and accommodations. Neck is supple. There is no lymphadenopathy, or thyromegaly. Oral mucosa is pink, and moist. There are no lesions. Heart: Auscultation is normal with regular rhythm and rate. There is no extra heart sounds, or murmurs. S1 and S2 are present. Point of maximal impulse is not displaced. Lungs: Crackles at left mid to lower lung le. Abdomen: Abdominal wall is non-tender, and non-distended. There is no palpable mass or organomegaly. Normoactive bowel sounds are present. Extremities: There is no cyanosis or clubbing. Peripheral pulses are palpable. There is no edema. Skin: There are no any skin discoloration or lesions. Neurological: CN II - XII are intact. Sensory and motor functions are grossly normal with no obvious deficit. Cerebellar functions are within normal range. Gait was not tested. - Physical Exam Vital Signs Temp Pulse Resp BP Pulse Ox 99.8 F H 70 16 131/61 H 97 04/28/17 15:56 04/28/17 17:03 04/28/17 17:03 04/28/17 17:03 04/28/17 17:03 Laboratory Results - last 24 hr WBC 5.1 RBC 4.92 Hgb 14.2 Hct 42.9 MCV 87.2 MCH 28.9 MCHC 33.1 RDW 13.2 Diagnostic Data Chest X-Ray 04/28/17 14:15 IMPRESSION: Findings suggestive of early lingular infiltrates. Electronically Signed: Steve Son MD at 14:28 EST Tel [phone], Service support , Assessment/Plan Active and Suspected Problems Influenza A (Acute) Patient is a 67 years old female who presents to ED with complaining of 3 days history of malaise, myalgia, fever, and cough. She was given Tamiflu via PCP, but she felt worse today. She is complaining of nausea and vomiting, and unable to keep any food or liquid today. Rapid influenza test was positive for influenza A. She received IVF in the ED along with antiemetics, but she is complaining of persisting nausea. CXR showed questionable area in lingula, suggestive of developing infiltrate. WBC was normal at 5.1. Temp was 99.8, but she was otherwise hemodynamically stable. Platelet was 55, which is within the range for her history of ITP. She has no sings of active bleeding. #1 Influenza A. Continue Tamiflu. #2 Probable pneumonia. Left lingula infiltrate per imaging study. She received ceftriaxone and azithromycin. Continue empirically. Consider to repeat CXR. #3 Intractable nausea and vomiting with mild dehydration. IVF NS at 100 ml/hr. Antiemetic treatment with Zofran and Phenergan. Repeat BMP in AM. #4 ITP, chronic. Platelet 55. Repeat CBC in AM. #5 DM II. Hold oral hypoglycemic agent. Change Lantus to Levemir. VTE prophylaxis: SCD only for low platelets. GI prophylaxis: PPI po. Patient is full code. Disposition: home in 1 to 2 days. Code Visit OBSV E AND M: [id number] Initial observation care L3 04/28/178 <Electronically signed by Vinh Loo MD> Date Vinh Loo MD [facility] Signature: Date (if applicable) CC: Tye Funes DO; Vinh Loo M.D. Signed EMERGENCY DEPARTMENT Observed: 04/28/2017 Status: F Source: TEN MI[place] SUMMARY 5:09 PM [facility] REPOSITORY [facility] Medical Records Department [address] [place] [address] Emergency Department Summary 04/28/17 1354 MR#: [id number] Acct: [id number] Name: CAMPBELL MARTINEZ Rep #: [id number] : 1950 67 From: Anders Shukla MD PCP: Tye Funes DO Status: REG ER - ER Visit Summary Date of Service: 04/28/17 Chief Complaint: Cough, vomiting and fever History of Present Illness: The patient is a 67 F 3 of ITP, insulin-dependent diabetes, CAD with prior triple bypass. Since Wednesday evening patient's had a cough and fever. Today at noon started having nausea vomiting. Primary care physician called her in [facility] yesterday. Physical Examination: Older female no acute distress. Vital signs are stable. Her temperature is 99.1. Her pulse ox is 97% on room air no signs of hypoxia. HEENT exam shows dry mucous membrane. Neck nontender no lymphadenopathy. No meningismus. Lungs dry cough but no rales, rhonchi nor wheezing. Equal and symmetrical. Heart regular rhythm no murmur. Abdomen is soft and nontender. Normal bowel sounds. No peritoneal signs. She is moving all 4 extremities. They are neurovascularly intact. Skin without rashes. No petechiae or purpura. Back exam nontender. Neurologically she is awake and alert with no focal motor deficits. Test Results: CBC shows a white count of 5. H AND H 1442. Her platelet count is low at 55,000 but that is her baseline she is a history of ITP and her platelets often run between 40,000 to 70,000. PT is unremarkable. Chest x-ray AP and lateral views read by the radiologist as left lingular infiltrate. That is questionable on my own evaluation of the film. Emergency Department Course and Treatment: Patient clinically appears to have influenza. She will be treated with IV fluids and IV Zofran. P.o. fluid challenge. I will obtain screening labs and a chest x-ray. Treatment Plan: Patient was given a second liter of IV fluids. A second dose of Zofran. She still feels uncomfortable being discharged to home and I very spoken to the hospitalist about admission. Due to the possibility of an early lingular infiltrate she was started on both IV Rocephin and Zithromax. I spoke to the hospitalist will be down to evaluate her for possible admission. Disposition: admission Impression: Acute influenza with nausea and vomiting. Rule out post influenza infiltrate History of insulin-dependent diabetes. History of ITP This note was generated with [employer] dictation software. It may contain incorrect words, spelling, and punctuation that were not noted in review of the chart prior to signing ED Disposition - Plan for ED Patient: Chief Complaint: General Illness Referrals: Tye Funes, DO [Primary Care Provider] - What to do if you have Problems For any increased pain, shortness of breath, bleeding, nausea or vomiting, chest pain, or any unexpected problems, contact your Primary Care Provider. Call [facility] ([phone]) or report to the closest Emergency Room. Call 911 if necessary. 04/28/17 8546 <Electronically signed by Anders Shukla MD> Date Anders Shukla MD Cosigner Signature (If Indicated): Date CC: Tye Funes DO Observed: 04/28/2017 Status: F Source: [place]ER[place]LL INFLUENZA A+B (RAPID 3:43 PM [facility]) REPOSITORY RESULTS CALLED TO REBECA STUART RN ED 04/28/17 1651 Lucas Barnes. REPORT READ BACK BY SAME . Order Date: 04/28/17 FLU A/B Rapid Negative test results should be confirmed by culture. Order Rapid Viral Culture for Influenzae A+B ([id number]) if clinically indicated. Influenza Ag, Direct POSITIVE for the presence of INFLUENZA A Antigen only ORGANISM 1: INFLUENZAE A Performed By: #### M101.0101 #### [facility] [address] [place], [address] CBC W/DIFF, AUTOMATED Collected: 04/28/2017 Status: F Source: TEN MILE 2:05 PM [facility] REPOSITORY TYPE CODE TESTS RESULT OUT OF RANGE REFERENCE UNITS LAB L100.1000 4.4-11.0 K/mm3 Normal WBC 5.1 LAB L100.1200 4.2-5.4 M/mm3 Normal RBC 4.92 LAB L100.1300 12.0-15.0 g/dl Normal HGB 14.2 LAB L100.1400 37-47 % Normal HCT 42.9 LAB L100.1500 81-99 fL Normal MCV 87.2 LAB L100.1600 27.0-32.0 pg Normal MCH 28.9 LAB L100.1700 32-36 g/gl Normal MCHC 33.1 LAB L100.1810 11.6-14.6 % Normal RDW CV 13.2 LAB L100.1820 35.1-43.9 fl Normal RDW SD 42.0 LAB L100.1900 150-450 K/mm3 Low PLT 55 LAB L100.2000 6.2-12.0 fl High MPV 13.7 LAB L100.2100 47-70 % High NEUT% 77.8 LAB L100.2200 19-41 % Low LY% 14.9 LAB L100.2300 0-10 % Normal MONO% 6.3 LAB L100.2400 0-5 % Normal EO% 0.2 LAB L100.2500 0-1 % Normal BASO% 0.4 LAB L100.2550 0.0-0.9 % Normal IM GRAN % 0.400 Result Comment: IG% - Immature Granulocytes (promyelocytes, myelocytes and metamyelocytes) > 1% indicates that a LEFT SHIFT is Present. LAB L100.2620 2.0-7.7 X10 3/uL Normal Absolute Neut 3.9 LAB L100.2720 0.83-4.51 X10 3/ul Low Absolute Lymph 0.75 Performed By: #### L100.0100 #### [facility] [address] [place], [address] BASIC METABOLIC Collected: 04/28/2017 Status: F Source: JERRELL PROFILE (BMP) 2:05 PM [facility] REPOSITORY TYPE CODE TESTS RESULT OUT OF RANGE REFERENCE UNITS LAB L501.0100 74-106 mg/dL High GLU 209 Result Comment: Glucose result greater than or equal to 200 mg/dL suggests DIABETES MELLITUS per A.D.A. criteria. Please note revised GLUCOSE reference range effective 2017. LAB L501.1000 7-18 mg/dL Normal BUN 14 LAB L501.1100 0.55-1.02 mg/dL High CREAT,SERUM 1.04 Result Comment: The validity of the calculated GFR AND GFRAA in patients over 70 years has not been determined. Clinical correlation is essential. LAB L501.1110 >60 mL/min Low EST GFR 56 Result Comment: Non- GFR Calc LAB L501.1115 >60 mL/min Normal EST GFR - AA 68 Result Comment: GFR Calc LAB L501.1255 ml/min Normal Estimated CRCL 48.47 LAB L501.1300 10-20 RATIO Normal BUN/CRE 13.5 LAB L501.2200 8.5-10 mg/dL Low .1 CA 8.2 LAB L501.5300 136-14 mmol/L Normal 5 NA 138 LAB L501.5600 3.5-5. mmol/L Normal 1 K 3.7 LAB L501.5900 98-107 mmol/L Normal CL 103 LAB L501.6100 21.0-3 mmol/L Normal 2.0 CO2 22.0 LAB L501.6200 5-15 Normal GAP 13 Performed By: #### L500.2500 #### [facility] [address] [place], [address] CHEST PA AND LATERAL Observed: 04/28/2017 Status: F Source: JERRELL 1:52 PM [facility] REPOSITORY [facility] Imaging Services [address] [place] [address] Chest PA and Lateral MR#: [id number] Acct: [id number] Name: DERICKCAMPBELL L Rep #: [id number] : 1950 F 67 From: Steve Son MD PCP: Tye Funes DO Status: REG ER Study: Chest PA and Lateral Date of Exam: 04/28/17 Exam# [id number] Ordering Dr: Anders Shukla MD STUDY: X-RAY CHEST REASON FOR EXAM: Female, 67 years old. Cough and fever. TECHNIQUE: PA and lateral views of the chest. COMPARISON: None. FINDINGS: Mild increased markings in the lingular segment of the left upper lobe suggestive of early lingular infiltrate. There is no demonstrated pleural abnormality. Sternal cerclage wires are present from a prior sternotomy. Normal mediastinum and jose miguel. Normal visualized pulmonary arteries. There is atherosclerotic calcification of the aortic arch with tortuosity. Normal visualized thoracic spine. Normal visualized ribs, clavicles, and shoulders. There is no demonstrated abnormality of the visualized soft tissue structures of the upper abdomen. RAD/Chest PA and Lateral IMPRESSION: Findings suggestive of early lingular infiltrates. 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 ALLERGIES ALLERGIES DATE TYPE / CODE NAME / CODE REACTION SEVERITY SOURCE Drug ciprofloxacin Anaphylaxis Unknown [place] 8 Allergy/316365698( HCl/M512448525(RX [facility] SNOM[facility]) NORM) Hospital Repository Drug Fish Containing Unknown Unknown [place] 8 Allergy/370056094( Products/W6785478 Community SNOMED CT) 25(RXNORM) Hospital Repository Drug peanut/V487112851 Asthma SV [place] 8 Allergy/118043601( (RXNORM) [facility] SNOM[facility]) Hospital Repository Drug ciprofloxacin/F00 Anaphylaxis Unknown [place] 8 Allergy/425302281( 3724835(RXNORM) [facility] SNOMED CT) Hospital Repository Drug omeprazole/P37756 Unknown Unknown [place] 8 Allergy/016702201( 3476(RXNORM) [facility] SNOMED CT) Hospital Repository Drug metoprolol/U46832 Nausea/Vom/Diar Unknown [place] 8 Allergy/937113147( 3627(RXNORM) marquise [facility] SNOMED CT) Hospital Repository Drug trazodone/Q128230 Shortness of Unknown [place] 8 Allergy/048109607( 610(RXNORM) breath [facility] SNOMED CT) Hospital Repository Drug dandelion ASTHMA/SEASONAL Unknown [place] 8 Allergy/928687585( (Taraxacum ALLERGIES [facility] SNOMED CT) officinale)/F0060 Hospital 73836(RXNORM) Repository Drug corn/W689618840(R Nausea/Vom/Diar Unknown [place] 8 Allergy/889499099( XNORM) marquise [facility] SNOMED CT) Hospital Repository Drug egg/G995009154(RX Unknown Unknown [place] 8 Allergy/482867838( NORM) [facility] SNOMED CT) Hospital Repository Drug bee venom protein Anaphylaxis Unknown [place] 8 Allergy/362620427( (honey [facility] SNOMED CT) bee)/Z250161626(R Hospital XNORM) Repository Drug latex/K984095999( RASH D/T POWDER Unknown [place] 8 Allergy/559116839( RXNORM) IN GLOVES [facility] SNOMED CT) Hospital Repository Drug wheat/G953033590( NAUSEA,VOMITING Unknown [place] 8 Allergy/075204536( RXNORM) ,DIARRHEA [facility] SNOMED CT) Hospital Repository Drug pine Anaphylaxis Unknown [place] 8 Allergy/759318087( nut/F134868050(RX [facility] SNOMED CT) NORM) Hospital Repository Drug insect Anaphylaxis Unknown [place] 8 Allergy/913984332( venom/R968934058( Community SNOMED CT) RXNORM) Hospital Repository DRUG HYDROCODONE OTHER: CHANTE [place] 3 INGREDI/620815141( Clinic Main SNOMED CT) [place] Repository DRUG NUT - UNSPECIFIED ANAPHYLAXIS [place] 2 INGREDI/061715260( Clinic Main SNOMED CT) [place] Repository DRUG WHEAT GI UPSET [place] 2 INGREDI/405867147( Clinic Main SNOMED CT) [place] Repository Miscellaneous OTHER [place] 9 Allergy/163910833( [facility] Main SNOMED CT) [place] Repository DRUG TRAZODONE SHORTNESS OF [place] 9 INGREDI/405178266( Clinic Main SNOMED CT) [place] Repository Food/045919257(SNO CORN [place] [address]) Clinic Main [place] Repository DRUG DANDELION [place] 5 INGREDI/038662648( (TARAXACUM Clinic Main SNOMED CT) OFFICINALE) [place] Repository Environ/311746397( TREES [place] [address] Clinic Main [place] Repository DRUG MOLD [place] 5 INGREDI/224514096( Clinic Main SNOMED CT) [place] Repository DRUG CIPROFLOXACIN HIVES [place] 5 INGREDI/639343355( [facility] Main SNOMED CT) [place] Repository Environ/817462692( LATEX HIVES [place] [address]) Clinic Main [place] Repository Miscellaneous [facility] [place] 5 Allergy/072723404( [facility] Main SNOMED CT) [place] Repository ENCOUNTERS ENCOUNTERS ADMIT/DISCHARGE ACCOUNT NUMBER ADMITTING ENCOUNTER LOCATION SOURCE CLASS 03/31/2018/04/01/19 [id number] [facility], Ambulatory [address] ding:PCURoom Repository : VIP248Huj: 1 03/31/2018 [id number] [facility], Ambulatory BMSBuilding: [place] Erik [facility]MS[facility] Repository 03/31/2018 [id number] [facility], Ambulatory BMSBuilding: [place] Erik [facility]MS[facility] Repository 12/30/2017 [id number] Ambulatory [facility] ding:LAB Repository 12/08/2017/12/09/19 [id number] Ambulatory BMSBuilding: [place] 18 BMS.[facility] Repository 12/06/2017 [id number] Ambulatory BMSBuilding: [place] BMS.[facility] Repository 11/30/2017 [id number] Ambulatory [facility] ding:LAB Repository 09/29/2017 [id number] Ambulatory [facility] ding:OPBI Repository 09/23/2017/09/24/19 [id number] Ambulatory BBuilding:ZZ Marcus [address] [place] [address] Repository 09/09/2017/09/10/19 [id number] Ambulatory [address] Repository 09/07/2017 [id number] Ambulatory [facility] ding:MTLAB Repository 07/12/2017 [id number] Ambulatory [facility] ding:OMD Repository 07/12/2017 [id number] Ambulatory BMSBuilding: [place] BMS.CF.[facility] Repository 05/13/2017/05/14/19 [id number] Ambulatory BMSBuilding: [place] 18 BMS.[facility] Repository 05/11/2017/05/11/19 [id number] Ambulatory BMSBuilding: [place] 18 BMS.[facility] Repository 05/11/2017 [id number] Ambulatory BMSBuilding: [place] BMS.[facility] Repository 04/28/2017/04/30/19 [id number] [place], Ambulatory [address] ding:EH6Cmaa Repository : TH348Jxw: 1 04/28/2017 [id number] [place], Ambulatory BMSBuilding: [place] Yoichi BMS.[facility] Repository 04/28/2017 [id number] [place], Ambulatory BMSBuilding: [place] Yo[place] BMS.[facility] Repository 04/28/2017 [id number] [place], Ambulatory BMSBuilding: [place] Yo[place] BMS.[facility] Repository PAYERS PAYERS ENCOUNTER GUARANTOR PAYER SUBSCRIBER SOURCE 03/31/2018 BENITO [place] Primary Insurance:MMO CAMPBELL Allan [id number] LOUISA MEDICAREPolicy MOOREDOB: [address], Number: [id number] [facility] [address]Kie: [id number] Repository Date:7451-21-99Mp [address] ([address]) [address], [place] [address]VQ: 03/31/2018 Secondary NOT GIVENUNK [place] Insurance:SELF PAY [facility] Number: Effective Repository Date:2018-03-31 03/31/2018 BENITO [place] Primary Insurance:MMO CAMPBELL Abbott [place] [id number] TR MEDICAREPolicy MOOREDOB: Community [address], Number: [id number] [facility] [address]Uxl: [id number] Repository Date:5410-51-55Zh [address] () [address] [address]WP: 03/31/2018 Secondary NOT GIVENUNK [place] Insurance:SELF PAY [facility] Number: Effective Repository Date:2018-03-31 03/31/2018 BENITO [place] Primary Insurance:MMO CAMPBELL Abbott [place] [id number] TR MEDICAREPolicy MOOREDOB: Community [address]ELA[address], Number: [id number] McKinley [facility] Services [address]Ppg: [id number] Repository Date:6850-50-88Nc Box () [address] [place] [address]NG: 03/31/2018 Secondary NOT GIVENUNK [place] Insurance:SELF PAY [facility] Number: Effective Repository Date:2018-03-31 12/30/2017 Benito [place] Primary Insurance:MMO CAMPBELL Abbott [place] [id number] Tr MEDICAREPolicy MOOREDOB: Community [address]elaine [address], Number: [id number] [facility]ley [facility] [address]Lap: [id number] Repository Date:9121-43-36Qb [address] () [address], [place] [address]IP: 12/30/2017 Secondary NOT GIVENUNK [place] Insurance:SELF PAY [facility] Number: Effective Repository Date:2017-12-30 12/08/2017 Benito [place] Primary Insurance:MMO CAMPBELL [place] [id number] Tr MEDICAREPolicy MOOREDOB: Community [address], Number: [id number] McKinley [facility] [address]Plp: [id number] Repository Date:0799-47-99Zr [address] () [address], [place] [address]EV: 12/08/2017 Secondary NOT GIVENUNK [place] Insurance:SELF PAY [facility] Number: Effective Repository Date:2017-12-08 12/06/2017 Benito [place] Primary Insurance:MMO CAMPBELL Abbott [place] [id number] Tr MEDICAREPolic MOOREDOB: [facility] Madelaine [address], Number: [id number] McKinley [facility] Services [address]Uhg: [id number] Repository Date:4104-54-14Bj [address] () [address], [place] [address]EP: 12/06/2017 Secondary NOT GIVENUNK [place] Insurance:SELF PAY [facility] Number: Effective Repository Date:2017-12-06 11/30/2017 Benito [place] Primary Insurance:MMO CAMPBELL [place] [id number] Tr MEDICAREPolicShriners Hospitals for ChildrenDOB: [facility] Madelaine T[place], Number: [id number] [facility] [address]Oqk: [id number] Repository Date:0146-45-73Vr [address] () [address], [place] [address]UC: 11/30/2017 Secondary NOT GIVENUNK [place] Insurance:SELF PAY [facility] Number: Effective Repository Date:2017-11-30 09/29/2017 Benito Bettencourt Primary Insurance:MMO CAMPBELL [place] [id number] Tr MEDICAREPolic MOOREDOB: [facility] Madelaine T[place], Number: [id number] McKinley [facility] [address]Hob: [id number] Repository Date:8105-01-90Pc [address] () [address], [place] [address]OU: 09/29/2017 Secondary NOT GIVENUNK [place] Insurance:SELF PAY [facility] Number: Effective Repository Date:2017-09-16 09/23/2017 CAMPBELL Abbott Primary [facility]LL [facility]: Insurance:MEDICAL SAINT PAULDOB: [facility] [id number] MUTUAL MEDICAREPolicy [id number] Repository [facility] Number: 8 [facility] [address], [id number] [address] [place] [address] Date:2016-09-26 - [place] [address]Qgx: [id number]@ [id number] CLEMENTMSCHONGemily: Name:O BOX (HP)Tel: (000) [address] [place] [address] [phone] (WP) (MC) [address]EX: 09/07/2017 Benito [place] Primary Insurance:MMO CAMPBELL Abbott [place] [id number] Tr MEDICAREPolicy MOOREDOB: [facility] [place], Number: [id number] [facility] [address]Rtr: [id number] Repository Date:2520-16-03Gm Box (HP) [address] [place] [address]RZ: 09/07/2017 Secondary NOT GIVENUNK [place] Insurance:SELF PAY [facility] Number: Effective Repository Date:2017-09-07 07/12/2017 Benito Bettencourt Primary Insurance:MMO CAMPBELL [place] [id number] Tr MEDICAREPolicy MOOREDOB: [facility] Gabrielle T[place], Number: [id number] [facility] [address]Lla: [id number] Repository Date:5551-46-95Ib [address] () [address], [place] [address]LP: 07/12/2017 Secondary NOT GIVENUNK [place] Insurance:SELF PAY [facility] Number: Effective Repository Date:2016-06-03 07/12/2017 Benito Bettencourt Primary Insurance:MMO CAMPBELL Abbott [place] [id number] Tr MEDICAREPolicy MOOREDOB: [facility] Madelaine [place], Number: [id number] McKinley [facility] Services [address]Asr: [id number] Repository Date:3899-32-87Eu [address] () [address], [place] [address]BU: 07/12/2017 Secondary NOT GIVENUNK [place] Insurance:SELF PAY [facility] Number: Effective Repository Date:2017-07-12 05/13/2017 Benito Bettencourt Primary Insurance:MMO CAMPBELL L [place] [id number] Tr MEDICAREPolicy MOOREDOB: Community [place], Number: [id number] [facility] [address]Ayt: [id number] Repository Date:8251-27-48ZY BOX () [address] [address]HR: 05/13/2017 Secondary NOT GIVENUNK [place] Insurance:SELF PAY [facility] Number: Effective Repository Date:2017-05-10 05/11/2017 Benito Bettencourt Primary Insurance:MMO CAMPBELL L [place] [id number] Tr MEDICAREPolicy [place]OREDOB: Community [place], Number: [id number] McKinley [facility] Services [address]Xhh: [id number] Repository Date:1358-38-68KG BOX () [address] [place] [address]HW: 05/11/2017 Secondary NOT GIVENUNK [place] Insurance:SELF PAY [facility] Number: Effective Repository Date:2017-02-18 05/11/2017 Benito Bettencourt Primary Insurance:MMO CAMPBELL L [place] [id number] Tr MEDICAREPolicy MOOREDOB: Community [place], Number: [id number] McKinley [facility] [address]Adt: [id number] Repository Date:9698-96-66QS BOX () [address] [place] [address]OF: 05/11/2017 Secondary NOT GIVENUNK [place] Insurance:SELF PAY [facility] Number: Effective Repository Date:2017-05-11 04/28/2017 Benito Bettencourt Primary Insurance:MMO CAMPBELL [place] [id number] Tr MEDICAREPolicy MOOREDOB: Community [address], Number: [id number] McKinley [facility] Health Care Services [address]Prf: [id number] Repository Date:8428-37-97GS BOX (HP) [address] [address]KF: 04/28/2017 Secondary NOT GIVENUNK [place] Insurance:SELF PAY [facility] Number: Effective Repository Date:2017-04-28 04/28/2017 Benito Bettencourt Primary Insurance:MMO CAMPBELL Abbott [place] [id number] Tr MEDICAREPolicy MOOREDOB: [facility] Madelaine Tamez, Number: [id number] McKinley [facility] [address]Etg: [id number] Repository Date:6719-12-11RT BOX () [address] [address]BF: 04/28/2017 Secondary NOT GIVENUNK [place] Insurance:SELF PAY [facility] Number: Effective Repository Date:2017-04-28 04/28/2017 Benito Sg Primary Insurance:MMO CAMPBELL [place] [id number] Tr MEDICAREPolicy MOOREDOB: [facility] Madelaine Tamez, Number: [id number] McKinley [facility] Health Care Services [address]Xmi: [id number] Repository Date:1150-67-93HJ BOX () [address] [address]XT: 04/28/2017 Secondary NOT GIVENUNK [place] Insurance:SELF PAY [facility] Number: Effective Repository Date:2017-04-28 04/28/2017 Benito Bettencourt Primary Insurance:MMO CAMPBELL [place] [id number] Tr MEDICAREPolicy MOOREDOB: [facility] Madelaine Tamez, Number: [id number] McKinley [facility] Services [address]Bhi: [id number] Repository Date:2401-35-41IR BOX (HP) [address] [address]WU: 04/28/2017 Secondary NOT GIVENUNK [place] Insurance:SELF PAY [facility]: Effective Repository Date:2017-04-28
== END 2018-04-01 10:48 | disposition home or self-care (01) ==
LOC: ED 07:25 → PCU 07:29
PROVIDERS: Admitting Provider Internal Medicine; Emergency Provider Emergency Medicine; Family Provider Family Medicine; PCP Family Medicine; Visit Provider Internal Medicine
DX: R07.89 Other chest pain (principal); I25.10 Atherosclerotic heart disease of native coronary artery without angina pectoris; D69.3 Immune thrombocytopenic purpura; E78.5 Hyperlipidemia, unspecified; I10 Essential (primary) hypertension; E11.9 Type 2 diabetes mellitus without complications; M19.90 Unspecified osteoarthritis, unspecified site; J45.909 Unspecified asthma, uncomplicated; Z86.718 Personal history of other venous thrombosis and embolism; Z85.89 Personal history of malignant neoplasm of other organs and systems; Z95.1 Presence of aortocoronary bypass graft; Z86.711 Personal history of pulmonary embolism; Z79.899 Other long term (current) drug therapy; Z79.4 Long term (current) use of insulin; K58.9 Irritable bowel syndrome, unspecified; L40.9 Psoriasis, unspecified; R91.1 Solitary pulmonary nodule
CPT/HCPCS: 36415; 71046; 71275; 78452; 80048; 80061; 82962; 84443; 84484; 85025; 85027; 85610; 85730; 93005; 93017; 93970; 99218; 99283; A9500; Q9967; A4216; G0378; J2785

== ENCOUNTER → 2018-09-30 10:33 | Outpatient (CLI) | payer MEDICARE, SELFPAY ==
[2018-06-07 10:35] VITALS: BMI 28.7
[2018-09-30 11:28] LABS: Absolute Lymphocyte Count 1.38 X10^3/uL (0.83-4.51); Basophil# 0.05 X10^3/uL; Eosinophil# 0.42 X10^3/uL; Eosinophils% 8.5 % (0-5); Hematocrit 45.9 % (37-47); Hemoglobin 14.9 g/dL (12.0-15.0); Lymphocyte # 1.38 X10^3/ul (4.0); Lymphocyte % 27.8 % (19-41); Mean Corp Hgb Conc 32.5 g/dL (32-36); Mean Corpuscular Hgb 28.9 pg (27.0-32.0); Mean Platelet Vol. 14.7 fl (6.2-12.0); Monocyte# 0.44 X10^3/uL; Monocyte% 8.9 % (0-10); NRBC Flagged by Analyzer 0 % (0-5); Neutrophil # 2.64 X10^3/uL (2.7-7.7); POSITIVE COUNT YES; RBC Distribution Width CV 12.9 % (11.6-14.6); RBC Distribution Width SD 42.1 fl (35.1-43.9); Red Blood Count 5.16 M/mm3 (4.2-5.4)
[2018-09-30 11:33] LABS: Differential Indicated SCAN CRITERIA MET; Platelet Count 49 K/mm3 (150-450)
[2018-09-30 11:44] LABS: Hemoglobin A1c 7.3 % (4.2-6.3); Microalbumin,Random Urine 5.3 mg/L (NO RANGE EST.); Microalbumin:Creatinine Ratio 4.6 mg/g CRE (<30 mg/g CRE)
[2018-09-30 11:55] LABS: AST(SGOT) 14 U/L (15-37); Alanine Aminotransfer ALT/SGPT 13 U/L (13-56); Albumin, Serum 3.4 g/dL (3.2-5.0); Alkaline Phosphatase 76 U/L (45-117); Anion Gap 4 (5-15); BUN 20 mg/dL (7-18); Calcium,Total 8.8 mg/dL (8.5-10.1); Chloride 107 mmol/L (98-107); Cholesterol 171 mg/dL (200); EST Glomerular Filtration Rate 58 mL/min (>60); Est Glom Filt Rate - Afr Amer 71 mL/min (>60); Globulin 3.5 g/dL (2.2-4.2); Glucose 135 mg/dL (74-106); High Density Lipoprotein 40 mg/dL; Potassium 4.1 mmol/L (3.5-5.1); Protein, Total 6.9 g/dL (6.4-8.2); Sodium Level 139 mmol/L (136-145); Triglycerides 195 mg/dL; Very Low Density Lipoprotein 39 mg/dL (5-40)
[2018-10-03 12:01] LABS: Pathologist Review Reviewed
== END ==
PROVIDERS: Family Provider Family Medicine; PCP Family Medicine; Referring Provider Family Medicine; Visit Provider Family Medicine
DX: E11.9 Type 2 diabetes mellitus without complications (principal); D69.3 Immune thrombocytopenic purpura; I10 Essential (primary) hypertension
CPT/HCPCS: 36415; 80053; 80061; 82043; 82570; 83036; 85025

== ENCOUNTER → 2018-10-06 10:38 | Outpatient (CLI) | payer MEDICARE, SELFPAY ==
[2018-06-07 10:35] VITALS: BMI 28.7
--- NOTE | 2018-10-06 10:47 | BD_ITS ---
STUDY: DUAL ENERGY X-RAY ABSORPTIOMETRY / DXA REASON FOR EXAM: Female, 68 years old. The patient is postmenopausal. Loss of height. TECHNIQUE: Bone Mineral Density (BMD) measurements of lumbar spine and bilateral hips were obtained. COMPARISON: Comparison is made with prior study dated February 12, 2015. FINDINGS: Lumbar Spine (L1-L4): g/cm2 (1.439) / T-score (2.2) / Z-score (3.8) Findings are suggestive of normal bone density with a low fracture risk. Left Femur Total: g/cm2 (1.247) / T-score (1.9) / Z-score (3.3) Left Femoral Neck: g/cm2 (1.261) / T-score (1.6) / Z-score (3.3) Right Femur Total: g/cm2 (1.270) / T-score (2.1) / Z-score (3.5) Right Femoral Neck: g/cm2 (1.271) / T-score (1.7) / Z-score (3.3) The T-Scores on the most recent prior examination were: Lumbar Spine (L1-L4): There has been improvement of bone density since the previous examination. Left Femur Total: which represents a worsening of 5.5%. Right Femur Total: which represents an improvement of 0.2%. BD/Dexa Bone Density Study IMPRESSION: The patient is considered normal as outlined below according to World Alan Organization (WHO) criteria with a low fracture risk. There has been improvement of bone density since the previous examination. Reference Information: The T-score is the number of standard deviations above or below the standard which is normal for young adults at their peak bone mineral density. The World Health Organization (WHO) interprets the T-scores as follows: Above -1 Normal bone density Between -1 and -2.5 Osteopenia Equal to / or below -2.5 Osteoporosis As a practical clinical guideline, osteopenia may be graded as follows: Mild -1 through -1.5 Moderate -1.6 through -2.0 Severe -2.1 through -2.4 The Z-score is the number of standard deviations above or below age-matched controls. A Z-score of less than -1.5 would be considered abnormal. References: 1. NIH Osteoporosis and Related Bone Diseases http://www.osteo.org 2. International Society for Clinical Densitometry http://www.iscd.org 3. National Osteoporosis Foundation http://www.nof.org Electronically Signed: Steve Son, at 11:19 EDT , Service support ,
== END ==
PROVIDERS: Family Provider Family Medicine; PCP Family Medicine; Referring Provider Family Medicine; Visit Provider Family Medicine
DX: Z13.820 Encounter for screening for osteoporosis (principal); M81.0 Age-related osteoporosis without current pathological fracture
CPT/HCPCS: 77080

== ENCOUNTER → 2018-10-20 14:05 | Outpatient (CLI) | payer MEDICARE, SELFPAY ==
[2018-06-07 10:35] VITALS: BMI 28.7
--- NOTE | 2018-10-20 14:06 | CT_ITS ---
STUDY: CT CHEST WITHOUT CONTRAST REASON FOR EXAM: Female, 68 years old. Follow-up nodule. RADIATION DOSAGE (If Supplied By Facility): CTDIvol = ( 11.79 ) mGy, DLP = ( 442.11 ) mGycm TECHNIQUE: Transaxial imaging was performed without the administration of intravenous contrast material. Individualized dose optimization techniques were used for this CT. COMPARISON: None. FINDINGS: There is hyperinflation of the lungs consistent with chronic obstructive lung disease (COPD). Currently, no nodules are seen. No infiltrates. No effusions. Stable mild scarring changes in the left lung base. Sternal cerclage wires and vascular clips are present from a prior sternotomy and coronary artery bypass graft procedure (CABG). There are calcifications of the coronary arteries. Normal mediastinum. Normal hilar regions. Normal unenhanced pulmonary arteries. Normal aorta arch and descending thoracic aorta. There are multi-level degenerative changes of the thoracic spine. There is no demonstrated abnormality of the visualized upper abdomen. CT/Chest without Contrast IMPRESSION: Hyperexpansion of the lungs consistent with COPD. No nodules or acute abnormalities. Stable scarring changes in the left lung base. Electronically Signed: Corona Birmingham MD at 15:59 EDT , Service support ,
== END ==
PROVIDERS: Family Provider Family Medicine; PCP Family Medicine; Referring Provider Family Medicine; Visit Provider Family Medicine
DX: R91.1 Solitary pulmonary nodule (principal)
CPT/HCPCS: 71250

== ENCOUNTER → 2018-11-29 13:05 | Outpatient (CLI) | payer MEDICARE, SELFPAY ==
[2018-06-07 10:35] VITALS: BMI 28.7
== END ==
PROVIDERS: Family Provider Family Medicine; Visit Provider Family Medicine
DX: N39.0 Urinary tract infection, site not specified (principal)
CPT/HCPCS: 87086; 87088; 87186

== ENCOUNTER → 2018-12-26 15:18 | Outpatient (CLI) | payer MEDICARE, SELFPAY ==
[2018-12-06 10:10] VITALS: BMI 28.0
--- NOTE | 2018-12-26 15:21 | US_ITS ---
STUDY: RENAL ULTRASOUND - COMPLETE REASON FOR EXAM: Female, 68 years old. Recurrent UTI. TECHNIQUE: Ultrasound evaluation of the kidneys was performed with real-time and static kent-scale imaging. COMPARISON: None. FINDINGS: RIGHT KIDNEY: Normal location of the right kidney, which is normal in size. The right kidney measures 10.7 cm in length. There is a normal cortex of the right kidney. There is no right renal mass or cyst. There are no right renal calculi. There is no right hydronephrosis. DISTAL RIGHT URETER: There is no demonstrated right ureteral jet. LEFT KIDNEY: Normal location of the left kidney, which is normal in size. The left kidney measures 10.6 cm in length. There is a normal cortex of the left kidney. There is a simple appearing 8 x 6 mm cyst. There are no left renal calculi. There is no left hydronephrosis. DISTAL LEFT URETER: There is a visualized left ureteral jet. BLADDER: The distended urinary bladder has a volume of 155 ml. There is no significant post void residual. There is a normal wall thickness of the distended urinary bladder. There is no demonstrated mass within the urinary bladder. There are no demonstrated bladder calculi. US/Kidney and Bladder IMPRESSION: No hydronephrosis identified. Left renal cyst. Electronically Signed: Mariah Willson MD at 16:20 EDT Tel , Service support ,
== END ==
PROVIDERS: Family Provider Family Medicine; PCP Family Medicine; Referring Provider Urology; Visit Provider Urology
DX: N39.0 Urinary tract infection, site not specified (principal)
CPT/HCPCS: 76770

== ENCOUNTER → 2019-05-17 09:19 | Outpatient (CLI) | payer MEDICARE, SELFPAY ==
[2019-03-09 10:16] VITALS: BMI 28.0
== END ==
PROVIDERS: PCP Family Medicine; Referring Provider Internal Medicine Cardiovascular Disease; Visit Provider Internal Medicine Cardiovascular Disease
DX: R00.1 Bradycardia, unspecified (principal)
CPT/HCPCS: 93225; 93226

== ENCOUNTER → 2019-07-06 | Outpatient (CLI) | payer MEDICARE, SELFPAY ==
[2019-07-06 09:04] VITALS: BMI 28.9
[2019-07-06 14:29] LABS: Hematocrit 45.7 % (37-47); Mean Corp Hgb Conc 32.8 g/dL (32-36); Mean Corpuscular Hgb 29.2 pg (27.0-32.0); Mean Corpuscular Volume 88.9 fL (81-99); Mean Platelet Vol. 15.3 fl (6.2-12.0); POSITIVE COUNT YES; RBC Distribution Width CV 13.2 % (11.6-14.6); Red Blood Count 5.14 M/mm3 (4.2-5.4); White Blood Count 6.3 K/mm3 (4.4-11.0)
[2019-07-06 14:32] LABS: Cholesterol 195 mg/dL (200); High Density Lipoprotein 38 mg/dL; Triglycerides 233 mg/dL; Very Low Density Lipoprotein 47 mg/dL (5-40)
[2019-07-06 14:38] LABS: Scan Indicated on CBC? Y/N YES- FLAGS NOTED
[2019-07-06 15:37] LABS: Platelet Count 52 K/mm3 (150-450)
== END | disposition home or self-care (01) ==
LOC: LABSPEC 12:54
PROVIDERS: Internal Medicine Endocrinology, Diabetes & Metabolism; PCP Family Medicine; Referring Provider Physician Assistant Medical; Visit Provider Physician Assistant Medical
DX: I25.810 Atherosclerosis of coronary artery bypass graft(s) without angina pectoris (principal); D69.3 Immune thrombocytopenic purpura; R07.89 Other chest pain
CPT/HCPCS: 80061; 85027

== ENCOUNTER → 2019-10-19 18:09 | Outpatient (CLI) | payer MEDICARE, SELFPAY ==
[2019-09-11 14:05] VITALS: BMI 27.3
== END ==
PROVIDERS: PCP Family Medicine; Referring Provider Family Medicine; Visit Provider Family Medicine
DX: Z20.828 Contact with and (suspected) exposure to other viral communicable diseases (principal)
CPT/HCPCS: 87635; 94799; C9803; U0003

== ENCOUNTER → 2019-11-01 13:20 | Outpatient (CLI) | payer MEDICARE, SELFPAY ==
[2019-09-11 14:05] VITALS: BMI 27.3
[2019-11-01 15:58] LABS: Absolute Lymphocyte Count 1.36 X10^3/uL (0.83-4.51); Absolute Neutrophil Count 6.3 X10^3/uL (2.0-7.7); Basophil# 0.05 X10^3/uL; Basophil% 0.6 % (0-1); Eosinophil# 0.06 X10^3/uL; Eosinophils% 0.7 % (0-5); Hematocrit 44.6 % (37-47); Hemoglobin 14.9 g/dL (12.0-15.0); Lymphocyte # 1.36 X10^3/ul (4.0); Lymphocyte % 16.1 % (19-41); Mean Corp Hgb Conc 33.4 g/dL (32-36); Mean Corpuscular Hgb 29.5 pg (27.0-32.0); Mean Corpuscular Volume 88.3 fL (81-99); Monocyte% 7.1 % (0-10); NRBC Flagged by Analyzer 0 % (0-5); Neutrophil # 6.32 X10^3/uL (2.7-7.7); Neutrophil % 74.7 % (47-70); Platelet Count 179 K/mm3 (150-450); RBC Distribution Width CV 12.5 % (11.6-14.6); RBC Distribution Width SD 40.8 fl (35.1-43.9); Red Blood Count 5.05 M/mm3 (4.2-5.4); White Blood Count 8.5 K/mm3 (4.4-11.0)
[2019-11-01 16:13] LABS: ALB/GLOB Ratio 0.9 RATIO (0.9-2.4); AST(SGOT) 13 U/L (15-37); Alanine Aminotransfer ALT/SGPT 12 U/L (13-56); Albumin, Serum 3.6 g/dL (3.2-5.0); Alkaline Phosphatase 63 U/L (45-117); Anion Gap 6 (5-15); BUN 15 mg/dL (7-18); BUN/Creat Ratio 14.2 RATIO (10-20); Calcium,Total 8.6 mg/dL (8.5-10.1); Chloride 101 mmol/L (98-107); Creatinine, Serum 1.06 mg/dL (0.55-1.02); EST Glomerular Filtration Rate 54 mL/min (>60); Est Glom Filt Rate - Afr Amer 66 mL/min (>60); Globulin 3.8 g/dL (2.2-4.2); Glucose 156 mg/dL (74-106); Potassium 3.8 mmol/L (3.5-5.1); Protein, Total 7.4 g/dL (6.4-8.2); Sodium Level 133 mmol/L (136-145)
[2019-11-02 06:28] LABS: SARS-COV-2 TOTAL ABS Nonreactive (Nonreactive)
== END ==
PROVIDERS: PCP Family Medicine; Visit Provider Family Medicine
DX: R50.9 Fever, unspecified (principal); R11.10 Vomiting, unspecified
CPT/HCPCS: 36415; 80053; 85025; 86769

== ENCOUNTER → 2020-02-23 09:31 | Outpatient (CLI) | payer MEDICARE, SELFPAY ==
[2020-01-09 13:04] VITALS: BMI 27.4
[2020-02-23 11:59] LABS: Absolute Neutrophil Count 3.6 X10^3/uL (2.0-7.7); Basophil# 0.06 X10^3/uL; Eosinophil# 0.38 X10^3/uL; Eosinophils% 6.4 % (0-5); Hemoglobin 15.4 g/dL (12.0-15.0); Lymphocyte % 23.6 % (19-41); Mean Corp Hgb Conc 32.1 g/dL (32-36); Mean Corpuscular Hgb 28.8 pg (27.0-32.0); Mean Corpuscular Volume 89.9 fL (81-99); Mean Platelet Vol. 15.6 fl (6.2-12.0); Monocyte# 0.39 X10^3/uL; Monocyte% 6.6 % (0-10); NRBC Flagged by Analyzer 0 % (0-5); Neutrophil # 3.64 X10^3/uL (2.7-7.7); Neutrophil % 61.6 % (47-70); POSITIVE COUNT YES; Platelet Count 56 K/mm3 (150-450); RBC Distribution Width SD 42.7 fl (35.1-43.9); Red Blood Count 5.34 M/mm3 (4.2-5.4); White Blood Count 5.9 K/mm3 (4.4-11.0)
[2020-02-23 12:20] LABS: AST(SGOT) 13 U/L (15-37); Alanine Aminotransfer ALT/SGPT 15 U/L (13-56); Albumin, Serum 3.5 g/dL (3.2-5.0); Alkaline Phosphatase 86 U/L (45-117); Anion Gap 5 (5-15); BUN 20 mg/dL (7-18); CRP 5.42 mg/L (0.0-3.0); Calcium,Total 8.8 mg/dL (8.5-10.1); Chloride 108 mmol/L (98-107); Cholesterol 165 mg/dL (200); EST Glomerular Filtration Rate 58 mL/min (>60); Est Glom Filt Rate - Afr Amer 71 mL/min (>60); Globulin 3.6 g/dL (2.2-4.2); Glucose 125 mg/dL (74-106); High Density Lipoprotein 41 mg/dL; Magnesium 1.8 mg/dL (1.6-2.6); Potassium 3.9 mmol/L (3.5-5.1); Protein, Total 7.1 g/dL (6.4-8.2); Sodium Level 139 mmol/L (136-145); T4 Free Direct 1.06 ng/dL (0.76-1.46); Thyroid Stim Hormone (TSH) 1.87 uIU/mL (0.358-3.74); Triglycerides 130 mg/dL; Very Low Density Lipoprotein 26 mg/dL (5-40)
[2020-02-23 12:21] LABS: Vitamin D,25 Hydroxy 58.5 ng/mL
[2020-02-23 12:39] LABS: Differential Comment SCANNED; Differential Indicated SCAN CRITERIA MET; Microalbumin,Random Urine < 5.0 mg/L (NO RANGE EST.); Platelet Estimate MOD DEC (ADEQ)
[2020-02-23 12:40] LABS: Hemoglobin A1c 6.6 % (3.8-5.6)
[2020-02-28 06:30] LABS: Zinc, Plasma or Serum 106 ug/dL (56-134)
== END ==
PROVIDERS: PCP Family Medicine; Visit Provider Family Medicine
DX: L65.9 Nonscarring hair loss, unspecified (principal); E11.9 Type 2 diabetes mellitus without complications; E55.9 Vitamin D deficiency, unspecified; I10 Essential (primary) hypertension; D69.3 Immune thrombocytopenic purpura; I25.10 Atherosclerotic heart disease of native coronary artery without angina pectoris; E61.7 Deficiency of multiple nutrient elements; R53.83 Other fatigue
CPT/HCPCS: 80053; 80061; 82043; 82306; 82570; 83036; 83735; 84439; 84443; 84630; 85025; 86140

== ENCOUNTER → 2020-02-27 14:18 | Outpatient (CLI) | payer MEDICARE, SELFPAY ==
[2020-02-27 13:35] VITALS: BMI 27.1
== END ==
PROVIDERS: PCP Family Medicine; Visit Provider Physician Assistant Medical
DX: I25.810 Atherosclerosis of coronary artery bypass graft(s) without angina pectoris (principal); R07.9 Chest pain, unspecified
CPT/HCPCS: 36415; 84484

== ENCOUNTER → 2020-03-19 07:02 | Outpatient (CLI) | payer MEDICARE, SELFPAY ==
[2020-02-27 13:35] VITALS: BMI 27.1
--- NOTE | 2020-03-19 10:11 | STRESSREP ---
Stress Test Report Date: 03-19-2020 Procedure: Pharmacologic stress nuclear imaging study Indications: Chest pain; CAD; CABG Consent: Per the patient Procedure: The patient underwent pharmacologic (Regadenoson) evaluation with a peak heart rate of 93 beats per minute (62%predicted maximal heart rate) and a peak blood pressure of 140/78 mmHg. The baseline ECG demonstrated sinus rhythm. The peak pharmacologic ECG demonstrated somatic/motion artifact with nonspecific T wave abnormality. There were no cardiac dysrhythmias pretest, during pharmacologic infusion, or recovery. There was no complaint of chest discomfort during pharmacologic infusion or recovery. The examination was discontinued secondary to completion of protocol. Impression: 1. Pharmacologic (Regadenoson) evaluation 2. Peak pharmacologic ECG with somatic/motion artifact with nonspecific T wave abnormality. 3. There were no cardiac dysrhythmias pretest, during pharmacologic infusion, or recovery. 4. Nuclear images pending Myocardial perfusion imaging study: Technique: The patient was injected with 11.8 millicuries of technetium 99m Cardiolite and subsequently rest SPECT Cardiolite nuclear imaging was obtained in the horizontal long, vertical long, and short axis views. The patient underwent pharmacologic (Regadenoson) evaluation with a peak heart rate of 93 beats per minute (62% percent predicted maximal heart rate) and a peak blood pressure of 140/78 mmHg. The patient was injected with 36.0 millicuries of technetium 99m Cardiolite and subsequently stress SPECT Cardiolite nuclear imaging was obtained in the horizontal long, vertical long, and short axis views. A gated Cardiolite study at peak stress was obtained. Interpretation: Rest and stress SPECT Cardiolite nuclear imaging status post realignment, normalization, and attenuation correction demonstrate relative uniform tracer uptake and myocardial perfusion appearing within normal limits. There is end systolic thickening and brightening. The gated Cardiolite study demonstrates myocardial thickening and inward wall motion. The reported LVEF is 77%. Impression: 1. Rest and stress SPECT Cardiolite nuclear imaging demonstrate relative uniform tracer uptake and myocardial perfusion appearing within normal limits. 2. The gated Cardiolite study reports an LVEF of 77%. This note was generated with [employer] software. It may contain incorrect words, spelling, and punctuation that were not noted in checking the note before signing.
== END ==
PROVIDERS: PCP Family Medicine; Referring Provider Physician Assistant Medical; Visit Provider Physician Assistant Medical
DX: I25.10 Atherosclerotic heart disease of native coronary artery without angina pectoris (principal); Z95.1 Presence of aortocoronary bypass graft
CPT/HCPCS: 78452; 93017; A9500; A4216; J2785

== ENCOUNTER → 2020-08-02 | Outpatient (CLI) | payer MEDICARE, SELFPAY ==
[2020-07-04 10:01] VITALS: BMI 26.6
== END | disposition home or self-care (01) ==
PROVIDERS: PCP Family Medicine; Referring Provider Family Medicine; Visit Provider Family Medicine
DX: R30.0 Dysuria (principal)
CPT/HCPCS: 87077; 87086; 87088; 87186

== ENCOUNTER → 2020-08-15 14:06 | Outpatient (CLI) | payer MEDICARE, SELFPAY ==
[2020-07-04 10:01] VITALS: BMI 26.6
[2020-08-15 17:56] LABS: Absolute Lymphocyte Count 1.38 X10^3/uL (0.83-4.51); Absolute Neutrophil Count 2.7 X10^3/uL (2.0-7.7); Basophil# 0.03 X10^3/uL; Basophil% 0.6 % (0-1); Eosinophil# 0.36 X10^3/uL; Eosinophils% 7.2 % (0-5); Hemoglobin 14.1 g/dL (12.0-15.0); Lymphocyte # 1.38 X10^3/ul (0.83-4.51); Lymphocyte % 27.6 % (19-41); Mean Corpuscular Hgb 29.1 pg (27.0-32.0); Mean Corpuscular Volume 90.7 fL (81-99); Mean Platelet Vol. 15.6 fl (6.2-12.0); Monocyte# 0.53 X10^3/uL; Monocyte% 10.6 % (0-10); NRBC Flagged by Analyzer 0 % (0-5); Neutrophil # 2.65 X10^3/uL (2.7-7.7); POSITIVE COUNT YES; RBC Distribution Width CV 13.1 % (11.6-14.6); Red Blood Count 4.85 M/mm3 (4.2-5.4)
[2020-08-15 18:04] LABS: Vitamin D,25 Hydroxy 54.9 ng/mL
[2020-08-15 18:20] LABS: Differential Indicated SCAN CRITERIA MET
[2020-08-15 18:31] LABS: Anisocytosis RARE; Macrocytosis RARE; Platelet Estimate MKD DEC (ADEQ); Red Cell Morphology N CHROM NORMAL (NORM C&C)
[2020-08-15 18:45] LABS: Platelet Count 50 K/mm3 (150-450)
== END ==
PROVIDERS: PCP Family Medicine; Referring Provider Family Medicine; Visit Provider Family Medicine
DX: D69.3 Immune thrombocytopenic purpura (principal); E55.9 Vitamin D deficiency, unspecified
CPT/HCPCS: 36415; 82306; 85025

== ENCOUNTER → 2020-12-06 10:28 | Outpatient (CLI) | payer MEDICARE, SELFPAY ==
[2020-12-06 12:22] LABS: AST(SGOT) 17 U/L (15-37); Alanine Aminotransfer ALT/SGPT 14 U/L (13-56); Albumin, Serum 3.3 g/dL (3.2-5.0); Alkaline Phosphatase 84 U/L (45-117); Bilirubin, Direct 0.09 mg/dL (0.00-0.30); Cholesterol 167 mg/dL (200); Globulin 3.9 g/dL (2.2-4.2); High Density Lipoprotein 41 mg/dL; Protein, Total 7.2 g/dL (6.4-8.2); Triglycerides 274 mg/dL; Very Low Density Lipoprotein 55 mg/dL (5-40)
[2020-12-06 12:25] LABS: Microalbumin,Random Urine 5.1 mg/L (NO RANGE EST.); Microalbumin:Creatinine Ratio 5.8 mg/g CRE (<30 mg/g CRE)
[2020-12-06 12:26] LABS: ALB/GLOB Ratio 0.8 RATIO (0.9-2.4); AST(SGOT) 17 U/L (15-37); Alanine Aminotransfer ALT/SGPT 14 U/L (13-56); Albumin, Serum 3.2 g/dL (3.2-5.0); Alkaline Phosphatase 82 U/L (45-117); Anion Gap 4 (5-15); BUN 21 mg/dL (7-18); BUN/Creat Ratio 22.5 RATIO (10-20); Calcium,Total 9.1 mg/dL (8.5-10.1); Chloride 108 mmol/L (98-107); Creatinine, Serum 0.94 mg/dL (0.55-1.02); EST Glomerular Filtration Rate 63 mL/min (>60); Est Glom Filt Rate - Afr Amer 76 mL/min (>60); Globulin 3.9 g/dL (2.2-4.2); Glucose 125 mg/dL (74-106); Potassium 3.8 mmol/L (3.5-5.1); Protein, Total 7.1 g/dL (6.4-8.2); Sodium Level 139 mmol/L (136-145); Thyroid Stim Hormone (TSH) 1.56 uIU/mL (0.358-3.74)
[2020-12-06 12:37] LABS: Hemoglobin A1c 6.9 % (3.8-5.6)
== END ==
PROVIDERS: Nurse Practitioner Family; PCP Family Medicine; Referring Provider Internal Medicine Cardiovascular Disease; Visit Provider Internal Medicine Cardiovascular Disease
DX: E11.65 Type 2 diabetes mellitus with hyperglycemia (principal); Z79.4 Long term (current) use of insulin; E78.00 Pure hypercholesterolemia, unspecified
CPT/HCPCS: 36415; 80053; 80061; 80076; 82043; 82570; 83036; 84443

== ENCOUNTER → 2021-02-19 | Outpatient (CLI) | payer MEDICARE, SELFPAY | END | disposition home or self-care (01) | LOC: LABSPEC 15:36 | PROVIDERS: PCP Family Medicine; Visit Provider Family Medicine | DX: U07.1 COVID-19 (principal) | CPT/HCPCS: 87635; U0005; U0003 ==

== ENCOUNTER 2021-06-02 09:06 | Outpatient (CLI) | payer MEDICARE, SELFPAY ==
[2021-06-02 12:15] LABS: Vitamin B12 473 pg/mL (211-911)
[2021-06-02 12:50] LABS: AST(SGOT) 14 U/L (15-37); Alanine Aminotransfer ALT/SGPT 15 U/L (13-56); Albumin, Serum 3.5 g/dL (3.2-5.0); Alkaline Phosphatase 74 U/L (45-117); Cholesterol 160 mg/dL (200); Globulin 3.5 g/dL (2.2-4.2); High Density Lipoprotein 39 mg/dL; Magnesium 1.9 mg/dL (1.6-2.6); Triglycerides 165 mg/dL; Very Low Density Lipoprotein 33 mg/dL (5-40)
[2021-06-06 14:58] LABS: Vitamin D,25 Hydroxy 75.2 ng/mL
[2021-06-06 15:04] LABS: Anion Gap 5 (5-15); BUN 22 mg/dL (7-18); BUN/Creat Ratio 22.7 RATIO (10-20); Calcium,Total 8.9 mg/dL (8.5-10.1); Chloride 111 mmol/L (98-107); Creatinine, Serum 0.97 mg/dL (0.55-1.02); EST Glomerular Filtration Rate 60 mL/min (>60); Est Glom Filt Rate - Afr Amer 73 mL/min (>60); Glucose 109 mg/dL (74-106); Potassium 4.3 mmol/L (3.5-5.1); Sodium Level 142 mmol/L (136-145)
[2021-06-12 18:31] LABS: Vitamin A, Retinol 52.9 ug/dL (22.0-69.5); Zinc, WHOLE BLOOD 845 ug/dL (440-860)
== END 2021-06-02 23:59 | disposition home or self-care (01) ==
PROVIDERS: Internal Medicine Cardiovascular Disease; PCP Family Medicine; Referring Provider Family Medicine; Visit Provider Family Medicine
DX: I10 Essential (primary) hypertension (principal); D69.3 Immune thrombocytopenic purpura; E61.8 Deficiency of other specified nutrient elements; E78.00 Pure hypercholesterolemia, unspecified; E55.9 Vitamin D deficiency, unspecified; I25.10 Atherosclerotic heart disease of native coronary artery without angina pectoris; I25.810 Atherosclerosis of coronary artery bypass graft(s) without angina pectoris
CPT/HCPCS: 80048; 80061; 80076; 82306; 82607; 82746; 83735; 84590; 84630

== ENCOUNTER 2021-06-19 14:00 | Outpatient (CLI) | payer MEDICARE, SELFPAY ==
--- NOTE | 2021-06-19 14:03 | BI_ITS ---
MAMMOGRAPHY - BILATERAL SCREENING REASON FOR EXAM: Female, 71 years old. Routine annual screening examination. PERTINENT HISTORY: Sister with breast cancer. Remote left stereotactic breast biopsy. TECHNIQUE: Digital bilateral breast tc (3D mammographic acquisition) in the CC and MLO projections. 2-D mediolateral oblique (MLO) and craniocaudad (CC) views of both breasts were obtained. CAD: Full Field Digital Mammography with Computer Added Detection was performed. COMPARISON: Comparison is made with prior examination dated 09/29/2017 and 03/19/2016. FINDINGS: Breast Composition: There are scattered areas of fibroglandular density. There are no dominant masses or suspicious calcifications. A tissue clip marker is once again seen in the tiny nodule in the upper slightly mid medial portion of the left breast. Small benign-appearing bilateral axillary lymph nodes. No other significant abnormalities are identified. There has been no significant change since the prior study. BI/SCRN MAMM (CAD)W/TC BILAT IMPRESSION: Stable bilateral screening mammogram. Yearly follow-up mammogram recommended. (A) ASSESSMENT CATEGORY: BIRADS Category 2: Benign. A letter regarding these results will be sent to the patient by the facility within 30 days. Approximately 10% of breast cancers are not detected by mammography. A normal mammogram should not delay biopsy of a clinically suspicious abnormality. [id number] Electronically Signed: Steve Son MD at 15:04 EDT ,
== END 2021-06-19 23:59 | disposition home or self-care (01) ==
LOC: OPBI 14:01
PROVIDERS: PCP Family Medicine; Referring Provider Family Medicine; Visit Provider Family Medicine
DX: Z12.31 Encounter for screening mammogram for malignant neoplasm of breast (principal); Z80.3 Family history of malignant neoplasm of breast
CPT/HCPCS: 77063; 77067

== ENCOUNTER → 2021-10-07 | Outpatient (CLI) | payer MEDICARE, SELFPAY ==
[2021-10-07 12:32] LABS: POSITIVE COUNT YES; Platelet Count 54 K/mm3 (150-450)
== END | disposition home or self-care (01) ==
PROVIDERS: PCP Family Medicine; Referring Provider Surgery; Visit Provider Surgery
DX: Z86.2 Personal history of diseases of the blood and blood-forming organs and certain disorders involving the immune mechanism (principal)
CPT/HCPCS: 36415; 85049

== ENCOUNTER → 2021-11-03 | Outpatient (CLI) | payer MEDICARE, SELFPAY ==
[2021-11-03 15:07] LABS: Absolute Lymphocyte Count 1.36 X10^3/uL (0.83-4.51); Absolute Neutrophil Count 3.1 X10^3/uL (2.0-7.7); Basophil# 0.06 X10^3/uL; Basophil% 1.1 % (0-1); Eosinophil# 0.28 X10^3/uL; Eosinophils% 5.3 % (0-5); Hematocrit 44.7 % (37-47); Lymphocyte # 1.36 X10^3/ul (0.83-4.51); Lymphocyte % 25.6 % (19-41); Mean Corp Hgb Conc 33.6 g/dL (32-36); Mean Corpuscular Hgb 29.9 pg (27.0-32.0); Mean Platelet Vol. 15.3 fl (6.2-12.0); Monocyte# 0.49 X10^3/uL; Monocyte% 9.2 % (0-10); NRBC Flagged by Analyzer 0 % (0-5); Neutrophil # 3.08 X10^3/uL (2.7-7.7); Neutrophil % 57.9 % (47-70); POSITIVE COUNT YES; Platelet Count 57 K/mm3 (150-450); RBC Distribution Width SD 42.5 fl (35.1-43.9); Red Blood Count 5.02 M/mm3 (4.2-5.4); White Blood Count 5.3 K/mm3 (4.4-11.0)
[2021-11-03 15:32] LABS: ALB/GLOB Ratio 0.9 RATIO (0.9-2.4); AST(SGOT) 14 U/L (15-37); Alanine Aminotransfer ALT/SGPT 15 U/L (13-56); Albumin, Serum 3.3 g/dL (3.2-5.0); Alkaline Phosphatase 83 U/L (45-117); Anion Gap 6 (5-15); BUN 15 mg/dL (7-18); BUN/Creat Ratio 16.4 RATIO (10-20); Calcium,Total 9.1 mg/dL (8.5-10.1); Chloride 107 mmol/L (98-107); Creatinine, Serum 0.91 mg/dL (0.55-1.02); EST Glomerular Filtration Rate 64 mL/min (>60); Est Glom Filt Rate - Afr Amer 78 mL/min (>60); Globulin 3.6 g/dL (2.2-4.2); Glucose 135 mg/dL (74-106); Magnesium 1.9 mg/dL (1.6-2.6); Potassium 3.8 mmol/L (3.5-5.1); Protein, Total 6.9 g/dL (6.4-8.2); Sodium Level 141 mmol/L (136-145); Thyroid Stim Hormone (TSH) 1.34 uIU/mL (0.358-3.74)
== END | disposition home or self-care (01) ==
PROVIDERS: PCP Family Medicine; Referring Provider Internal Medicine Endocrinology, Diabetes & Metabolism; Visit Provider Internal Medicine Endocrinology, Diabetes & Metabolism
DX: I10 Essential (primary) hypertension (principal); E11.65 Type 2 diabetes mellitus with hyperglycemia; Z79.4 Long term (current) use of insulin
CPT/HCPCS: 80053; 83735; 84443; 85025

== ENCOUNTER → 2022-01-09 | Outpatient (CLI) | payer MEDICARE, SELFPAY ==
[2022-01-09 15:18] LABS: Absolute Lymphocyte Count 1.39 X10^3/uL (0.83-4.51); Absolute Neutrophil Count 3.4 X10^3/uL (2.0-7.7); Basophil# 0.05 X10^3/uL; Basophil% 0.9 % (0-1); Eosinophil# 0.44 X10^3/uL; Eosinophils% 7.6 % (0-5); Hematocrit 46.6 % (37-47); Hemoglobin 15.5 g/dL (12.0-15.0); Lymphocyte # 1.39 X10^3/ul (0.83-4.51); Lymphocyte % 24.1 % (19-41); Mean Corp Hgb Conc 33.3 g/dL (32-36); Mean Corpuscular Hgb 29.9 pg (27.0-32.0); Mean Corpuscular Volume 89.8 fL (81-99); Mean Platelet Vol. 14.8 fl (6.2-12.0); Monocyte# 0.44 X10^3/uL; Monocyte% 7.6 % (0-10); NRBC Flagged by Analyzer 0 % (0-5); Neutrophil # 3.42 X10^3/uL (2.7-7.7); Neutrophil % 59.3 % (47-70); POSITIVE COUNT YES; Platelet Count 59 K/mm3 (150-450); RBC Distribution Width SD 42.5 fl (35.1-43.9); Red Blood Count 5.19 M/mm3 (4.2-5.4); White Blood Count 5.8 K/mm3 (4.4-11.0)
[2022-01-09 15:29] LABS: Vitamin D,25 Hydroxy 72.7 ng/mL
== END | disposition home or self-care (01) ==
LOC: BFHLAB 12:57
PROVIDERS: PCP Family Medicine; Visit Provider Family Medicine
DX: D69.3 Immune thrombocytopenic purpura (principal); E55.9 Vitamin D deficiency, unspecified
CPT/HCPCS: 36415; 82306; 85025

== ENCOUNTER 2022-02-03 12:54 | Emergency (ER) | payer MEDICARE, SELFPAY ==
[2022-02-03 12:55] VITALS: BP 143/78; PULSE 84; RESP 16; TEMP 36.8; O2SAT 95; BMI 25.8
--- NOTE | 2022-02-03 15:12 | EDS_ITS ---
HPI History of Present Illness Chief Complaint: General Illness Informant: patient Onset/Context/Timing Onset: Days Context: Gradual Onset Timing: Continuous Current Severity: Mild Maximum Severity: Mild Narrative Narrative: 69-year-old female history of asthma, hypertension, CAD with prior triple bypass, diabetes and DVT. States her recently had URI symptoms she started having them yesterday. With a fever and cough of yellowish sputum. She has had nausea without any vomiting or diarrhea. She says she feels weak all over. No dysuria. No abdominal or chest pain. Prior similar symptoms: Yes Recent Illness/Hospitalization: No PFSH [facility] Medical History Arthritis Asthma Atherosclerosis of coronary artery bypass graft of kaw heart CAD (coronary artery disease), kaw coronary artery Depression Diabetes DM type 2 (diabetes mellitus, type 2) DVT (deep venous thrombosis) Essential hypertension GERD (gastroesophageal reflux disease) Hyperlipidemia IBS (irritable bowel syndrome) Idiopathic thrombocytopenic purpura (ITP) Immune thrombocytopenic purpura senior care use of drug Palpitations Pericardial effusion Pleural effusion Psoriasis Pure hypercholesterolemia Seasonal allergies Sleep apnea Home Medications albuterol sulfate 90 mcg/actuation aerosol inhaler 1 puff inhalation UD PRN Sob &/Or Wheezing 06/09/16 [History Last Taken Unknown] cetirizine 10 mg capsule 10 mg PO DAILY PRN PRN Allergies 06/09/16 [History Last Taken Unknown] epinephrine 0.15 mg/0.15 mL auto-injector (for 33 to 66 lb patients) 1 syr SQ UD ALLERGIC REACTION 06/09/16 [History Last Taken Unknown] magnesium citrate 1.232 ml PO DAILY 07/29/16 [History Last Taken 03/30/18 09:00] vitamin B complex 0.5 ea PO DAILY SUPPLEMENT 07/29/16 [History Last Taken 03/30/18 18:00] Iodine 2% Mild Tincture 4 drp PO DAILY SUPPLEMENT 01/19/17 [History Last Taken 03/30/18 09:00] ascorbic acid (vitamin C) 250 mg tablet 250 mg PO BID 06/07/18 [History Last Taken Unknown] blood sugar diagnostic (Accu-Chek Guide test strips) #400 ea 03/09/19 [Rx Last Taken Unknown] cholecalciferol (vitamin D3) 50 mcg (2,000 unit) capsule 4,000 unit PO DAILY 07/31/19 [History Last Taken Unknown] lancets (Accu-Chek Fastclix Lancet Drum) #50 ea 03/29/20 [Rx Last Taken Unknown] pen needle, diabetic 32 gauge x 5/32 (BD Tessy 2nd Gen Pen Needle) #150 ea 03/29/20 [Rx Last Taken Unknown] zinc 50 mg tablet 50 mg PO DAILY 07/04/20 [History Last Taken Unknown] blood sugar diagnostic (Accu-Chek Guide test strips) #100 ea 02/07/21 [Rx Last Taken Unknown] amlodipine 5 mg-valsartan 160 mg tablet 1 tab PO DAILY blood pressure #90 tabs 07/14/21 [Rx Last Taken Unknown] flash glucose sensor (FreeStyle Kvng 2 Sensor kit) #6 ea 11/03/21 [Rx Last Taken Unknown] metformin 1,000 mg tablet 1,000 mg PO .COMPLEX DIABETES #135 tabs 11/10/21 [Rx Last Taken Unknown] insulin glargine 100 unit/mL (3 mL) subcutaneous pen (Lantus Solostar U-100 Insulin) 14 unit subcut DAILY 02/03/22 [History Last Taken Unknown] insulin lispro 100 unit/mL subcutaneous pen 8 - 20 unit subcut TID 02/03/22 [History Last Taken Unknown] Allergy/AdvReac Type Severity Reaction Status Date / Time immune globulin,gamma (IgG) Allergy Severe Brain Verified 02/03/22 12:58 human swelling mold Allergy Intermediate asthma Verified 02/03/22 12:58 sesame seed Allergy Mild does not Verified 02/03/22 12:58 know bee venom protein (honey bee) Allergy Anaphylaxis Verified 02/03/22 12:58 ciprofloxacin [From Cipro] Allergy Anaphylaxis Verified 02/03/22 12:58 ciprofloxacin HCl Allergy Anaphylaxis Verified 02/03/22 12:58 [From Cipro] insect venom Allergy Anaphylaxis Verified 02/03/22 12:58 pine nut Allergy Anaphylaxis Verified 02/03/22 12:58 trazodone Allergy Shortness Verified 02/03/22 12:58 of breath azithromycin AdvReac Severe Low HR Verified 02/03/22 12:58 peanut AdvReac Severe Asthma Verified 02/03/22 12:58 diphenhydramine AdvReac Intermediate lethargy Verified 02/03/22 12:58 [From Benadryl] egg AdvReac Unknown Unknown Verified 02/03/22 12:58 Fish Containing Products AdvReac Unknown Unknown Verified 02/03/22 12:58 corn AdvReac Nausea/Vom/ Verified 02/03/22 12:58 Diarrhea dandelion (Taraxacum AdvReac ASTHMA/SEASONAL Verified 02/03/22 12:58 officinale) ALLERGIES latex AdvReac RASH D/T Verified 02/03/22 12:58 POWDER IN GLOVES metoprolol AdvReac Nausea/Vom/ Verified 02/03/22 12:58 Diarrhea omeprazole AdvReac Unknown Verified 02/03/22 12:58 wheat AdvReac NAUSEA,VOMI Verified 02/03/22 12:58 TING,DIARRH EA trees Allergy Intermediate asthma Uncoded 02/03/22 12:58 Family History Father Diabetes CAD (coronary artery disease) Hx CABG Mother Diabetes Heart disease Hx CABG Brother Diabetes Daughter Diabetes Asthma Surgical History Aortocoronary bypass status (~09/10/04) H/O: hysterectomy History of bladder suspension procedure History of throat surgery Social History Smoking Status: Never smoker alcohol intake: never substance use type: does not use caffeine: No seatbelt use: always ROS ROS ED ROS Narrative Fever, chills with a cough with yellowish sputum. Nausea without vomiting or diarrhea. Review of Systems ROS Unobtainable: Denies due to encephalopathy Constitutional Constitutional ED: Reports chills and fever(s) Eyes Eyes: Denies blurry vision ENT ENT ED: Denies ear pain Cardiovascular Cardiovascular: Denies chest pain or palpitations Respiratory/Chest Respiratory/Chest: Reports cough and sputum; Denies dyspnea Gastrointestinal Gastrointestinal: Denies abdominal pain, constipation, diarrhea, melena or vomiting Genitourinary Genitourinary ED: Denies dysuria or hematuria Musculoskeletal Musculoskeletal: Denies arthralgias Integumentary Denies abscess Neurologic Neurologic: Denies headache(s) Psychiatric Psychiatric: Denies anxiety Endocrine Endocrinology: Denies cold intolerance Hematologic/Lymphatic Hematologic/Lymphatic: Reports none Allergic/Immunologic Allergic/Immunologic ED: Denies mouth swelling or tongue swelling EXAM Physical Exam Narrative Exam Narrative: 69-year-old female no acute distress. Vital signs stable afebrile. Pulse ox 95% on room air no hypoxia. H EENT exam unremarkable. Mildly dry mucous members. Neck nontender no lymphadenopathy. Lungs clear to auscultation bilaterally. Heart regular rhythm rate about 85 no murmur. Chest wall nontender. Abdomen soft nontender. Moving all 4 extremities. Calves are nontender without edema or cords. Back nontender. Skin unremarkable. Neurologically she is awake and alert with no focal motor deficits. Const Vital Signs: 02/03/22 12:55 02/03/22 14:18 02/03/22 17:00 Temperature 98.3 F Temperature Source Temporal Pulse Rate 84 74 Respiratory Rate 16 20 H Respiratory Effort Normal Non-Labored Respiratory Pattern Normal Blood Pressure 143/78 H 143/63 H Blood Pressure Mean 99 89 Pulse Ox 95 97 Oxygen Delivery Method Room Air Positive well nourished and well developed; Negative for obese, cachectic, contractures or unkempt General Appearance ED: well developed and NAD; Negative for unkempt, cachectic, contractures, cyanotic or diaphoretic Nutritional Appearance: Negative for cachectic or obese HEENT Reports dry mucous membranes; Denies moist mucous membranes Negative for trauma or tenderness Mouth ED: Yes dry mucous membranes Mouth: dry mucous membranes Eyes PERRL and EOMs intact bilaterally General Eye ED: Negative for pale conjunctiva or scleral icterus Neck no lymphadenopathy General: Negative for tenderness Lymph Lymphatic: Negative for other Chest Wall inspection of chest normal and palpation of chest normal Chest: Negative for other Resp normal respiratory effort and clear to auscultation bilaterally Effort and Inspection: Negative for retractions Auscultation: Negative for rales, rhonchi or wheezes Cardio regular rate, regular rhythm, S1 normal heart sound, S2 normal heart sound and no murmurs Palpation: Negative for palpable S3 or palpable S4 Rate: Negative for bradycardia or tachycardic Rhythm: Negative for abnormal rhythm GI normal to inspection, nondistended, normoactive bowel sounds, non-tender, non- distended and no masses Inspection: Negative for abdominal distention Auscultation: normoactive bowel sounds Palpation: soft; Negative for tender or guarding Back/Spine no CVA tenderness General Back: Negative for CVA tenderness Cervical Spine: Negative for cervical spine tenderness Thoracic Spine / Upper Back: Negative for thoracic spinal tenderness Lumbar Spine / Lower Back: Negative for lumbar spinal tenderness Extremity normal to inspection General Extremety ED: Negative for edema or tenderness General Extremity: Negative for edema Neuro oriented x3 and CN's II-XII intact bilaterally Sensorium / Orientation: alert; Negative for orientation impaired, lethargic or stuporous Motor Exam: strength 5/5 throughout; Negative for general weakness Psych mental status grossly normal Appearance: Negative for unkempt Attitude: No agitated Mood & Affect: Negative for depressed or anxious Skin no rashes or lesions noted and no wounds Rashes: No rashes noted Trauma: Negative for abrasion Wounds: Negative for wounds noted MDM MDM MDM Narrative Medical decision making narrative: 69-year-old female URI type symptoms rule out pneumonia versus influenza versus COVID versus other viral etiologies. IV fluids, screening labs EKG and chest x- ray. Repeat exam patient doing well at 7 PM. She denies discussed her test results. She is COVID-positive. She has not been vaccinated. She has had COVID twice. She does not want any further treatment. Her most likely has COVID also at home with similar symptoms before she got ill. Plenty of fluids and rest. Tylenol and Motrin. Lab Data Attestation: I reviewed the patient's lab results. Lab results narrative: COVID positive. Rapid antigen. White count normal 5.4. H&H of 14 and 41. Electrolytes unremarkable gap at 9 normal BUN 14 creatinine 0.9. Glucose 158. Chest x-ray negative. Labs: Laboratory Results - last 24 hr 02/03/22 02/03/22 15:32 15:32 WBC 5.4 RBC 4.86 Hgb 14.8 Hct 41.9 MCV 86.2 MCH 30.5 MCHC 35.3 RDW Std Deviation 41.0 RDW Coeff of Jt 13.1 Plt Count 52 L MPV 14.7 H Immature Gran % (Auto) 0.600 Neut % (Auto) 72.4 H Lymph % (Auto) 10.1 L [place] % (Auto) 13.8 H Eos % (Auto) 2.4 Baso % (Auto) 0.7 Absolute Neuts (auto) 3.9 Absolute Lymphs (auto) 0.55 L Nucleated RBC % 0 Differential Comment SEE COMMENT Platelet Estimate MOD DEC RBC Morphology N CHROM Anisocytosis RARE Sodium 139 Potassium 4.0 Chloride 107 Carbon Dioxide 23.0 Anion Gap 9 BUN 14 Creatinine 0.99 Estim Creat Clear Calc 48.09 Est GFR (MDRD) Af Amer 71 Est GFR (MDRD) Non-Af 58 L BUN/Creatinine Ratio 14.1 Glucose 158 H Calcium 8.7 Radiography Chest X-Ray - ED: 1 View, Read by ED Physician, Read by Radiologist, Heart, Lungs, Mediastinum, Bony Structures, No Acute Disease and Chronic Changes Diagnostic Testing: Clinical Impression(s) from Imaging Studies Chest X-Ray 02/03/22 15:18 IMPRESSION: No acute cardiopulmonary abnormality. No interval change. Electronically Signed: Luis E Curtis MD at 15:42 EST , Chest x-ray, portable, single view interpreted by self radiologist shows no acut e abnormality. Rhythm Strip Rhythm Strip: Sinus Rhythm Rate: 80 Ectopy: None EKG Initial EKG: Attestation: I personally reviewed and interpreted this EKG as follows: Interpretation: Sinus Rhythm and No Acute Injury Pattern Comments: Normal sinus rhythm rate of [address] no acute signs of CT or ischemia. Discharge Plan Triage Chief Complaint: General Illness ED Provider: Fran Shukla Dx/Rx/DC Orders Clinical Impression: COVID-19, History of diabetes mellitus, History of asthma Instructions: Human Coronaviruses Prescriptions: No Action ascorbic acid (vitamin C) 250 mg tablet 250 mg PO BID (DME) Accu-Chek Guide test strips Strip See Rx Instructions .ROUTE .MEDSUPPLY Qty: 400 3RF Rx Instructions: 4 times daily zinc 50 mg tablet 50 mg PO DAILY amlodipine-valsartan 5-160 mg tablet 1 tab PO DAILY Qty: 90 3RF (DME) FreeStyle Kvng 2 Sensor Kit See Rx Instructions .ROUTE .MEDSUPPLY Qty: 6 3RF Rx Instructions: As directed albuterol sulfate 1 PUFF inhaler 1 puff INHALATION UD PRN (Reason: Sob &/Or Wheezing) epinephrine 0.15 MG syringe 1 syr SQ UD cetirizine 10 MG capsule 10 mg PO DAILY PRN PRN (Reason: Allergies) magnesium citrate 296 ML solution 1.232 ml PO DAILY Label Comments: 1.232 EQUALS 1/4 OF TSP vitamin B complex 1 EACH capsule 0.5 ea PO DAILY Iodine 2% Mild Tincture Drop Bottle 4 drp PO DAILY cholecalciferol (vitamin D3) 2,000 UNIT capsule 4,000 unit PO DAILY insulin lispro 100 unit/mL insulin pen 8 - 20 unit SC TID MDD 60 units insulin glargine [Lantus Solostar U-100 Insulin] 100 unit/mL (3 mL) insulin pen 14 unit SC DAILY (DME) lancets [Accu-Chek Fastclix Lancet Drum] Misc See Rx Instructions .ROUTE .MEDSUPPLY Qty: 50 3RF Rx Instructions: 4 times daily (DME) pen needle, diabetic [BD Tessy 2nd Gen Pen Needle] 32 gauge x /32 needle See Rx Instructions .ROUTE .MEDSUPPLY Qty: 150 6RF Rx Instructions: 5 times daily (DME) Accu-Chek Guide test strips Strip See Rx Instructions .ROUTE .MEDSUPPLY Qty: 100 6RF Rx Instructions: 4 time daily metformin 1,000 mg tablet 1,000 mg PO .COMPLEX Qty: 135 1RF Rx Instructions: 500 mg PO 1/2 at breakfast and 1 at supper; 1,000 mg PO daily at supper; Primary Care Provider: Gulshan Funes Referrals: Gulshan Funes, [Primary Care Provider] - 1 Week if not improving Activity Restrictions/Additional Instructions: You have COVID-19. Plenty of fluids and rest. Tylenol for fever. Return if feeling a lot worse. Follow-up with your doctor if not improving in 1 to 2 weeks. Disposition Disposition: Home, Self Care
--- NOTE | 2022-02-03 15:18 | RAD_ITS ---
EXAM: XR CHEST, 1 VIEW CLINICAL INDICATION: cough TECHNIQUE: Frontal view of the chest. This report was created using [employer] report generation technology. COMPARISON: XR Chest dated March 31, 2017 FINDINGS: LUNGS AND PLEURAL SPACES: Normal. No consolidation or edema. No pneumothorax. No effusion. HEART: Normal heart size. MEDIASTINUM: No mediastinal or hilar mass. BONES/JOINTS: Sternotomy wires remain in place. SOFT TISSUES: Normal. RAD/Chest 1 View (Portable) IMPRESSION: No acute cardiopulmonary abnormality. No interval change. Electronically Signed: Luis E Curtis MD at 15:42 EST ,
[2022-02-03] MEDS: 0.9% Normal Saline 1,000 ML 1000 ML IV (15:31)
--- NOTE | 2022-02-03 15:36 | EKG12_ITS ---
Test Reason : CP Blood Pressure : / mmHG Vent. Rate : 080 BPM Atrial Rate : 080 BPM P-R Int : 154 ms QRS Dur : 080 ms QT Int : 356 ms P-R-T Axes : 061 000 -02 degrees QTc Int : 410 ms Normal sinus rhythm Septal infarct , age undetermined Abnormal ECG Confirmed by MORGAN NUGENT, CARON ([id number]), graphic editor LIA MAYORGA ([id number]) on 02/04/2022 9:25:38 AM Referred By: ZHAO Confirmed By:CARON MORA MD
[2022-02-03 15:48] LABS: Absolute Lymphocyte Count 0.55 X10^3/uL (0.83-4.51); Absolute Neutrophil Count 3.9 X10^3/uL (2.0-7.7); Basophil# 0.04 X10^3/uL; Basophil% 0.7 % (0-1); Eosinophil# 0.13 X10^3/uL; Eosinophils% 2.4 % (0-5); Hematocrit 41.9 % (37-47); Hemoglobin 14.8 g/dL (12.0-15.0); Lymphocyte # 0.55 X10^3/ul (0.83-4.51); Lymphocyte % 10.1 % (19-41); Mean Corp Hgb Conc 35.3 g/dL (32-36); Mean Corpuscular Hgb 30.5 pg (27.0-32.0); Mean Corpuscular Volume 86.2 fL (81-99); Mean Platelet Vol. 14.7 fl (6.2-12.0); Monocyte# 0.75 X10^3/uL; Monocyte% 13.8 % (0-10); NRBC Flagged by Analyzer 0 % (0-5); Neutrophil # 3.94 X10^3/uL (2.7-7.7); Neutrophil % 72.4 % (47-70); POSITIVE COUNT YES; POSITIVE DIFFERENTIAL YES; Platelet Count 52 K/mm3 (150-450); RBC Distribution Width CV 13.1 % (11.6-14.6); Red Blood Count 4.86 M/mm3 (4.2-5.4); White Blood Count 5.4 K/mm3 (4.4-11.0)
[2022-02-03 16:02] LABS: Anion Gap 9 (5-15); BUN 14 mg/dL (7-18); BUN/Creat Ratio 14.1 RATIO (10-20); Calcium,Total 8.7 mg/dL (8.5-10.1); Chloride 107 mmol/L (98-107); Creatinine, Serum 0.99 mg/dL (0.55-1.02); EST Glomerular Filtration Rate 58 mL/min (>60); Est Glom Filt Rate - Afr Amer 71 mL/min (>60); Estimated Creatinine Clearance 48.09 ml/min; Glucose 158 mg/dL (74-106); Sodium Level 139 mmol/L (136-145)
[2022-02-03 16:38] LABS: Differential Indicated SCAN CRITERIA MET
[2022-02-03 16:53] LABS: Anisocytosis RARE; Platelet Estimate MOD DEC (ADEQ); Red Cell Morphology N CHROM NORMAL (NORM C&C)
[2022-02-03 17:00] VITALS: BP 143/63; PULSE 74; RESP 20; O2SAT 97
== END 2022-02-03 19:15 | disposition home or self-care (01) ==
PROVIDERS: Emergency Provider Emergency Medicine; PCP Family Medicine; Visit Provider Emergency Medicine
DX: U07.1 COVID-19 (principal); E11.9 Type 2 diabetes mellitus without complications; I10 Essential (primary) hypertension; E78.5 Hyperlipidemia, unspecified; I25.10 Atherosclerotic heart disease of native coronary artery without angina pectoris; J45.909 Unspecified asthma, uncomplicated
CPT/HCPCS: 71045; 80048; 85025; 87428; 93005; 96360; 99283; J7030; A4216

== ENCOUNTER → 2022-03-17 | Outpatient (CLI) | payer MEDICARE, SELFPAY ==
--- NOTE | 2022-03-17 15:41 | RAD_ITS ---
EXAM: XR MANDIBLE COMPLETE, 4 OR MORE VIEWS CLINICAL INDICATION: RIDE LOWER JAW PAIN AND SWELLING TECHNIQUE: Frontal, oblique and lateral views of the mandible. This report was created using [employer] report generation technology. COMPARISON: None. FINDINGS: DENTAL: No acute findings. BONES/JOINTS: Unremarkable. No fracture. No subluxation. No sclerotic or destructive changes observed. SOFT TISSUES: Unremarkable. No soft tissue swelling or gas. No radiopaque foreign body. RAD/Mandible Min 4 Views IMPRESSION: Negative mandible x-rays. Electronically Signed: Sacha Marsh MD at 17:51 EST ,
== END | disposition home or self-care (01) ==
LOC: MTRAD 15:39
PROVIDERS: PCP Family Medicine; Referring Provider Family Medicine; Visit Provider Family Medicine
DX: R68.84 Jaw pain (principal)
CPT/HCPCS: 70110

== ENCOUNTER → 2022-04-16 | Outpatient (CLI) | payer MEDICARE, SELFPAY ==
[2022-04-20 08:32] LABS: Pancreatic Elastase, Fecal 65 (>200)
== END | disposition home or self-care (01) ==
PROVIDERS: PCP Family Medicine; Referring Provider Nurse Practitioner Adult Health; Visit Provider Nurse Practitioner Adult Health
DX: K90.9 Intestinal malabsorption, unspecified (principal)
CPT/HCPCS: 82653

== ENCOUNTER → 2022-07-23 | Outpatient (CLI) | payer MEDICARE, SELFPAY ==
--- NOTE | 2022-07-23 08:31 | US_ITS ---
STUDY: ABDOMINAL ULTRASOUND REASON FOR EXAM: Female, 72 years old. Pancreatic insufficiency. TECHNIQUE: Transabdominal ultrasound was performed with real-time and static king scale imaging. TECHNICAL QUALITY: Adequate. COMPARISON: Comparison is made with prior examination of April 27, 2014. FINDINGS: Liver: The liver measures 14 cm. There is increased echogenicity consistent with fatty infiltration. The bile ducts are within normal limits. There is hepatic color flow. The direction of portal flow is hepatopetal. There is no demonstrated mass lesion. Portal vein measurement: Gallbladder: Normal distended gallbladder. The gallbladder wall measures 1.8 mm. There is a negative sonographic Nino''s sign. There is no pericholecystic fluid. There are no gallstones. Common Bile Duct (C.B.D.): The common bile duct measures 3.4 mm. Pancreas: Normal size of the head, body of the pancreas. The tail portion is obscured due to overlying bowel gas. There is normal echogenicity of the pancreas. There is no demonstrated pancreatic mass or cyst. Spleen: Normal size of the spleen. The spleen measures 10 cm x 4.5 cm x 5.1 cm. Right Kidney: Normal size of the right kidney. The right kidney measures 11.4 cm x 5.2 cm x 4 cm. Normal renal cortex. The right cortex measures 1.2 cm. There is no demonstrated renal mass or cyst. There is no right hydronephrosis. Left Kidney: Normal size of the left kidney. The left kidney measures 11.1 cm x 3.9 cm x 4.3 cm. Normal renal cortex. The left cortex measures 1.7 cm. There is no demonstrated renal mass or cyst. There is no left hydronephrosis. Aorta: Unremarkable I.V.C.: The IVC is patent. There is no ascites. US/Abdomen Complete IMPRESSION: Fatty infiltration of the liver. Electronically Signed: Steve Son MD at 9:31 EDT ,
== END | disposition home or self-care (01) ==
PROVIDERS: PCP Family Medicine; Referring Provider Internal Medicine Gastroenterology; Visit Provider Internal Medicine Gastroenterology
DX: K86.81 Exocrine pancreatic insufficiency (principal); K76.0 Fatty (change of) liver, not elsewhere classified
CPT/HCPCS: 76700

== ENCOUNTER → 2022-11-10 | Outpatient (CLI) | payer MEDICARE, SELFPAY ==
--- NOTE | 2022-11-10 11:56 | CT_ITS ---
HISTORY: TIA. TECHNIQUE: Noncontrast axial images were obtained of the brain. Subsequently, routine carotid and [place] angiogram protocol was performed after the intravenous administration of 100 mL Isovue 300. NASCET criteria using the distal ICAs for comparison were used for evaluation of stenoses. 3D reconstructions were reviewed. A radiation dose optimization technique was used for this scan .2324 images. COMPARISON: None. FINDINGS: BRAIN PARENCHYMA: Mild chronic small vessel ischemic gliosis. No acute intraparenchymal hemorrhage seen. CSF SPACES: Cerebral ventricles, cortical sulci, and other extra-axial CSF spaces within normal limits in size for age. No midline shift or other mass effect.No acute extra-axial hemorrhage. OTHER: Right lens resection. Mild maxillary sinus mucosal thickening. Intact calvarium. AORTIC ARCH AND BRANCHES: Mild calcified plaque. RIGHT CCA/RIGHT ICA: Mild calcified plaque at the bifurcation extending into the origin of the internal carotid artery with less than 30% stenosis. No occlusion, significant stenosis or dissection. LEFT CCA/LEFT ICA: Mild calcified and noncalcified plaque at the bifurcation with less than 50% stenosis extending into the origin of the internal carotid artery. No occlusion, significant stenosis or dissection. RIGHT VERTEBRAL ARTERY: No occlusion, significant stenosis or dissection. LEFT VERTEBRAL ARTERY: No occlusion, significant stenosis or dissection. OTHER: Mild degenerative changes of the cervical spine. Midline sternotomy. ICAs: No significant stenosis at the intracranial/visualized segments. Mild-moderate calcified plaque at both carotid siphons. ACAs: No significant stenosis at the visualized segments. Anatomic variant with 3 A2 segments. MCAs: No significant stenosis at the visualized segments. car deliverer: No significant stenosis at the visualized segments. BASILAR ARTERY: No significant stenosis. VERTEBRAL ARTERIES: Mild calcified plaque without significant stenosis at the intradural/visualized segments. No evidence of intracranial aneurysm or vascular malformation. CT/CTA Head AND Neck W/ Contrast IMPRESSION: No acute intracranial process identified. Mild chronic involutional and white matter changes. Mild carotid atherosclerosis without evidence for significant stenosis or occlusion in the carotid or vertebral arteries of the neck. No evidence for large vessel occlusion or other focal vascular abnormality in the [place] region. Electronically Signed: Cassandra Qureshi MD at 13:03 EDT ,
[2022-11-10 12:22] LABS: CREATININE FINGERSTICK < 0.9 mg/dL (0.55-1.02); EGFR FINGERSTICK > 60.0000 mL/min (>60)
== END | disposition home or self-care (01) ==
LOC: CT 11:54
PROVIDERS: PCP Family Medicine; Referring Provider Physician Assistant Medical; Visit Provider Physician Assistant Medical
DX: G45.9 Transient cerebral ischemic attack, unspecified (principal)
CPT/HCPCS: 70496; 70498; Q9967

== ENCOUNTER → 2022-12-03 | Outpatient (CLI) | payer MEDICARE, SELFPAY ==
--- NOTE | 2022-12-03 08:11 | CT_ITS ---
STUDY: CT ABDOMEN AND PELVIS WITH AND WITHOUT CONTRAST REASON FOR EXAM: Female, 72 years old. Pancreatic protocol, US completed 07/23/22 RADIATION DOSAGE (If Supplied By Facility): CTDIvol = ( 13.15 ) mGy, DLP = ( 1160.53 ) mGycm TECHNIQUE: Transaxial images were obtained from the dome of the diaphragm to the symphysis pubis with oral contrast. Oral and amp; IV Readi-CAT and amp; 100mL Isovue-300 was administered. Sagittal and coronal images were reconstructed. Individualized dose optimization techniques were used for this CT. COMPARISON: None. FINDINGS: Mild linear scarring in the left lower lobe and lingular segment of the left upper lobe. Coronary artery calcification. There is decreased attenuation of the liver consistent with steatosis. Normal gallbladder and extrahepatic biliary system. Normal spleen. There is diffuse atrophy of the pancreas. Normal bilateral adrenal glands. Normal right kidney. Normal left kidney. Normal visualized stomach. Normal small intestine. Normal colon. The appendix is visualized and appears normal. There is scattered atherosclerotic calcification of the abdominal aorta, without a demonstrated aneurysm. Normal inferior vena cava. Normal retroperitoneum. Normal urinary bladder. There is absence of the uterus consistent with a prior hysterectomy. Normal abdominal wall. There are mild degenerative changes of the visualized lumbar spine. CT/CT Abd/Pelvis W/WO Contrast IMPRESSION: Fatty infiltration of the liver. Atrophy of the pancreas. Electronically Signed: Steve Son MD at 14:54 EDT ,
== END | disposition home or self-care (01) ==
LOC: CT 08:04
PROVIDERS: PCP Family Medicine; Referring Provider Internal Medicine Gastroenterology; Visit Provider Internal Medicine Gastroenterology
DX: K86.81 Exocrine pancreatic insufficiency (principal)
CPT/HCPCS: 74178; Q9967

== ENCOUNTER → 2023-09-14 | Outpatient (CLI) | payer MEDICARE, SELFPAY ==
[2023-09-14 15:44] LABS: Absolute Lymphocyte Count 1.37 X10^3/uL (0.83-4.51); Absolute Neutrophil Count 3.1 X10^3/uL (2.0-7.7); Basophil# 0.06 X10^3/uL; Basophil% 1.1 % (0-1); Eosinophil# 0.26 X10^3/uL; Eosinophils% 4.9 % (0-5); Hematocrit 46.5 % (37-47); Lymphocyte # 1.37 X10^3/ul (0.83-4.51); Lymphocyte % 25.9 % (19-41); Mean Corp Hgb Conc 32.3 g/dL (32-36); Mean Corpuscular Hgb 29.1 pg (27.0-32.0); Mean Corpuscular Volume 90.1 fL (81-99); Monocyte# 0.45 X10^3/uL; Monocyte% 8.5 % (0-10); NRBC Flagged by Analyzer 0 % (0-5); Neutrophil # 3.13 X10^3/uL (2.7-7.7); Neutrophil % 59.2 % (47-70); POSITIVE COUNT YES; Platelet Count 59 K/mm3 (150-450); RBC Distribution Width CV 13.2 % (11.6-14.6); RBC Distribution Width SD 43.7 fl (35.1-43.9); Red Blood Count 5.16 M/mm3 (4.2-5.4); White Blood Count 5.3 K/mm3 (4.4-11.0)
[2023-09-14 15:50] LABS: Differential Indicated SCAN CRITERIA MET
[2023-09-14 15:55] LABS: Color, Urine Yellow (Yellow); Glucose, Dipstick Normal (Normal); Ketone-Dipstick Negative (Negative); Leukocyte Esterase-Dipstick Negative /ul (Negative); Nitrite-Dipstick Negative (Negative); Occult Blood-Urine Negative /ul (Negative); Protein-Dipstick Negative (Negative); Specific Gravity, Urine 1.015 (1.002-1.030); Urine Bilirubin Dipstick Negative (Negative); Urine Clarity Clear (Clear); Urine Urobilinogen Normal (Normal)
[2023-09-14 16:07] LABS: Hemoglobin A1c 6.6 % (3.8-5.6)
[2023-09-14 16:18] LABS: Anisocytosis RARE; Macrocytosis RARE; Platelet Estimate MOD DEC (ADEQ); Platelet Morphology LARGE; Red Cell Morphology N CHROM NORMAL (NORM C&C)
[2023-09-14 16:20] LABS: Microalbumin,Random Urine 8.5 mg/L (NO RANGE EST.); Microalbumin:Creatinine Ratio 5.8 mg/g CRE (<30 mg/g CRE)
[2023-09-14 16:26] LABS: Cholesterol 211 mg/dL (200); High Density Lipoprotein 47 mg/dL; Triglycerides 140 mg/dL; Very Low Density Lipoprotein 28 mg/dL (5-40)
[2023-09-16 13:57] LABS: Vitamin D,25 Hydroxy 67.8 ng/mL
== END | disposition home or self-care (01) ==
LOC: BFHLAB 13:45
PROVIDERS: PCP Family Medicine; Referring Provider Family Medicine; Visit Provider Family Medicine
DX: E11.9 Type 2 diabetes mellitus without complications (principal); D69.3 Immune thrombocytopenic purpura; E55.9 Vitamin D deficiency, unspecified; R35.0 Frequency of micturition; Z51.81 Encounter for therapeutic drug level monitoring
CPT/HCPCS: 36415; 80061; 81002; 82043; 82306; 82570; 82746; 83036; 85025

== ENCOUNTER → 2023-09-14 | Outpatient (CLI) | payer MEDICARE, SELFPAY ==
[2023-09-14 13:11] LABS: Erythrocyte Sedimentation Rate 4 mm/hr (0-30)
[2023-09-14 13:38] LABS: AST(SGOT) 16 U/L (15-37); Alanine Aminotransfer ALT/SGPT 17 U/L (13-56); Alkaline Phosphatase 90 U/L (45-117); Anion Gap 7 (5-15); BUN 19 mg/dL (7-18); CRP 3.01 mg/L (0.0-3.0); Calcium,Total 9.8 mg/dL (8.5-10.1); Chloride 108 mmol/L (98-107); Creatinine, Serum 1.12 mg/dL (0.55-1.02); EST Glomerular Filtration Rate 51 mL/min (>60); Est Glom Filt Rate - Afr Amer 61 mL/min (>60); Free T3 2.5 pg/mL (2.18-3.98); Glucose 96 mg/dL (74-106); LDH 263 U/L (84-246); Potassium 3.7 mmol/L (3.5-5.1); Sodium Level 140 mmol/L (136-145)
[2023-09-17 15:08] LABS: Anti-Centromere B Ab <0.2 AI (0.0-0.9); Anti-Chromatin <0.2 AI (0.0-0.9); Anti-Jo <0.2 AI (0.0-0.9); Anti-Scleroderma-70 AB <0.2 AI (0.0-0.9); Anti-dsDNA Ab <1 IU/mL (0-9); RNP Ab <0.2 AI (0.0-0.9); SJOGREN'S Anti-SS-A test < 0.2 AI (0.0-0.9); SJOGREN'S Anti-SS-B test < 0.2 AI (0.0-0.9); Smith Ab <0.2 AI (0.0-0.9)
[2023-09-21 13:08] LABS: ACCA 52 units (0-90); ALCA 5 units (0-60); AMCA 42 units (0-100); Alpha-1-Globulins 0.2 g/dL (0.0-0.4); Alpha-2-Globulins 0.7 g/dL (0.4-1.0); Cytoplasmic Ab (C-ANCA) <1:20 titer (Neg:<1:20); Endomysial Antibody IgA Negative (Negative); Gamma Globulin 1.1 g/dL (0.4-1.8); Immunoglobulin A 403 mg/dL (64-422); Immunoglobulin E 1237 IU/mL (6-495); Immunoglobulin G 979 mg/dL (586-1602); Immunoglobulin M 207 mg/dL (26-217); PROEL- TOTAL PROTEIN 7.3 g/dL (6.0-8.5); Perinuclear Ab (P-ANCA) <1:20 titer (Neg:<1:20); gASCA 18 units (0-50); t-Transglutaminase IgA <2 U/mL (0-3)
== END | disposition home or self-care (01) ==
LOC: LAB 11:46
PROVIDERS: PCP Family Medicine; Referring Provider Internal Medicine Gastroenterology; Visit Provider Internal Medicine Gastroenterology
DX: K58.9 Irritable bowel syndrome, unspecified (principal); E66.3 Overweight; G45.9 Transient cerebral ischemic attack, unspecified; R19.7 Diarrhea, unspecified
CPT/HCPCS: 36415; 80053; 80061; 81002; 82043; 82306; 82570; 82746; 82784; 82785; 83036; 83516; 83615; 84165; 84481; 85025; 85652; 86036; 86140; 86225; 86235; 86255; 86256; 86334; 86671

== ENCOUNTER → 2023-09-21 | Outpatient (CLI) | payer MEDICARE, SELFPAY ==
--- NOTE | 2023-09-21 16:02 | BI_ITS ---
MAMMOGRAPHY - BILATERAL SCREENING REASON FOR EXAM: Female, 73 years old. Routine annual screening examination. PERTINENT HISTORY: Non-contributory. Remote left stereotactic breast biopsy. TECHNIQUE: Digital bilateral breast tc (3D mammographic acquisition) in the CC and MLO projections. 2-D mediolateral oblique (MLO) and craniocaudad (CC) views of both breasts were obtained. CAD: Full Field Digital Mammography with Computer Added Detection was performed. COMPARISON: Comparison is made with prior study dated June 19, 2021 and September 29, 2017. FINDINGS: Breast Composition: There are scattered areas of fibroglandular density. There are no dominant masses or suspicious calcifications. A tissue clip marker is once again seen in the upper deep slightly medial aspect of the left breast. No other significant abnormalities are identified. There has been no significant change since the prior study. BI/SCRN MAMM (CAD)W/TC BILAT IMPRESSION: Stable bilateral screening mammogram. Yearly follow-up mammogram recommended. (A) ASSESSMENT CATEGORY: BIRADS Category 2: Benign. A letter regarding these results will be sent to the patient by the facility within 30 days. Approximately 10% of breast cancers are not detected by mammography. A normal mammogram should not delay biopsy of a clinically suspicious abnormality. [id number] Electronically Signed: Steve Son MD at 8:21 EDT ,
--- NOTE | 2023-09-21 16:05 | BD_ITS ---
STUDY: DUAL ENERGY X-RAY ABSORPTIOMETRY / DXA REASON FOR EXAM: Female, 73 years old. M85.89 TECHNIQUE: Bone Mineral Density (BMD) measurements of lumbar spine and bilateral hips were obtained. COMPARISON: Comparison is made with prior study dated October 06, 2018. FINDINGS: Lumbar Spine (L1-L4): g/cm2 (1.226) / T-score (1.6) / Z-score (4.0) Findings are suggestive of normal bone density with a low fracture risk. Left Femur Total: g/cm2 (1.037) / T-score (0.8) / Z-score (2.5) Left Femoral Neck: g/cm2 (0.977) / T-score (1.2) / Z-score (3.2) Right Femur Total: g/cm2 (1.069) / T-score (1.0) / Z-score (2.8) Right Femoral Neck: g/cm2 (0.937) / T-score (0.8) / Z-score (2.8) The T-Scores on the most recent prior examination were: Lumbar Spine (L1-L4): There has been worsening of bone density since the previous examination. Left Femur Total: which represents a worsening of 11.6%. Right Femur Total: which represents a worsening of 10.7%. BD/Dexa Bone Density Study IMPRESSION: The patient is considered normal as outlined below according to World Alan Organization (WHO) criteria with a low fracture risk. There has been worsening of bone density since the previous examination. Reference Information: The T-score is the number of standard deviations above or below the standard which is normal for young adults at their peak bone mineral density. The World Health Organization (WHO) interprets the T-scores as follows: Above -1 Normal bone density Between -1 and -2.5 Osteopenia Equal to / or below -2.5 Osteoporosis As a practical clinical guideline, osteopenia may be graded as follows: Mild -1 through -1.5 Moderate -1.6 through -2.0 Severe -2.1 through -2.4 The Z-score is the number of standard deviations above or below age-matched controls. A Z-score of less than -1.5 would be considered abnormal. References: 1. NIH Osteoporosis and Related Bone Diseases www osteo.org 2. International Society for Clinical Densitometry www iscd.org 3. National Osteoporosis Foundation www nof.org Electronically Signed: Steve Son MD at 10:43 EDT ,
== END | disposition home or self-care (01) ==
LOC: OPBD 16:01
PROVIDERS: PCP Family Medicine; Referring Provider Family Medicine; Visit Provider Family Medicine
DX: Z12.31 Encounter for screening mammogram for malignant neoplasm of breast (principal); K86.89 Other specified diseases of pancreas; M85.89 Other specified disorders of bone density and structure, multiple sites
CPT/HCPCS: 77063; 77067; 77080

== ENCOUNTER → 2023-09-23 | Outpatient (CLI) | payer MEDICARE, SELFPAY ==
[2023-09-29 16:10] LABS: Pancreatic Elastase, Fecal 71 (>200)
[2023-10-01 19:07] LABS: Calprotectin, Stool <5 ug/g (0-120)
== END | disposition home or self-care (01) ==
PROVIDERS: PCP Family Medicine; Visit Provider Internal Medicine Gastroenterology
DX: K58.9 Irritable bowel syndrome, unspecified (principal); E66.3 Overweight; R19.7 Diarrhea, unspecified; G45.9 Transient cerebral ischemic attack, unspecified
CPT/HCPCS: 82653; 83630; 83993; 87177; 87209; 87329; 87506

== ENCOUNTER → 2023-11-10 | Outpatient (CLI) | payer MEDICARE, SELFPAY ==
[2023-11-10 15:22] LABS: Absolute Neutrophil Count 4.2 X10^3/uL (2.0-7.7); Basophil# 0.07 X10^3/uL; Eosinophil# 0.33 X10^3/uL; Eosinophils% 4.8 % (0-5); Hematocrit 47.1 % (37-47); Hemoglobin 14.8 g/dL (12.0-15.0); Lymphocyte % 24.5 % (19-41); Mean Corp Hgb Conc 31.4 g/dL (32-36); Mean Corpuscular Hgb 28.7 pg (27.0-32.0); Mean Corpuscular Volume 91.3 fL (81-99); Mean Platelet Vol. 15.5 fl (6.2-12.0); Monocyte# 0.52 X10^3/uL; Monocyte% 7.5 % (0-10); NRBC Flagged by Analyzer 0 % (0-5); Neutrophil # 4.24 X10^3/uL (2.7-7.7); Neutrophil % 61.2 % (47-70); POSITIVE COUNT YES; Platelet Count 54 K/mm3 (150-450); RBC Distribution Width CV 13.7 % (11.6-14.6); RBC Distribution Width SD 46.2 fl (35.1-43.9); Red Blood Count 5.16 M/mm3 (4.2-5.4); White Blood Count 6.9 K/mm3 (4.4-11.0)
== END | disposition home or self-care (01) ==
LOC: BFHLAB 11:22
PROVIDERS: PCP Family Medicine; Visit Provider Family Medicine
DX: D69.3 Immune thrombocytopenic purpura (principal)
CPT/HCPCS: 36415; 85025

== ENCOUNTER → 2024-01-28 | Outpatient (CLI) | payer MEDICARE, SELFPAY | END | disposition home or self-care (01) | LOC: BFHLAB 12:59 | PROVIDERS: PCP Family Medicine; Referring Provider Family Medicine; Visit Provider Family Medicine | DX: N39.0 Urinary tract infection, site not specified (principal) | CPT/HCPCS: 87086; 87088; 87186 ==

== ENCOUNTER → 2024-04-27 | Outpatient (CLI) | payer MEDICARE, SELFPAY ==
[2024-04-27 15:20] LABS: Absolute Lymphocyte Count 1.36 X10^3/uL (0.83-4.51); Absolute Neutrophil Count 3.6 X10^3/uL (2.0-7.7); Basophil# 0.06 X10^3/uL; Eosinophil# 0.22 X10^3/uL; Eosinophils% 3.8 % (0-5); Hematocrit 47.2 % (37-47); Hemoglobin 15.2 g/dL (12.0-15.0); Lymphocyte # 1.36 X10^3/ul (0.83-4.51); Lymphocyte % 23.6 % (19-41); Mean Corp Hgb Conc 32.2 g/dL (32-36); Mean Corpuscular Hgb 28.6 pg (27.0-32.0); Mean Corpuscular Volume 88.9 fL (81-99); Monocyte# 0.49 X10^3/uL; Monocyte% 8.5 % (0-10); NRBC Flagged by Analyzer 0 % (0-5); Neutrophil % 62.6 % (47-70); POSITIVE COUNT YES; Platelet Count 66 K/mm3 (150-450); RBC Distribution Width CV 13.2 % (11.6-14.6); RBC Distribution Width SD 42.9 fl (35.1-43.9); Red Blood Count 5.31 M/mm3 (4.2-5.4); White Blood Count 5.8 K/mm3 (4.4-11.0)
[2024-04-27 15:30] LABS: Erythrocyte Sedimentation Rate 15 mm/hr (0-30)
[2024-04-27 16:04] LABS: AST(SGOT) 23 U/L (15-37); Alanine Aminotransfer ALT/SGPT 16 U/L (13-56); Albumin, Serum 3.7 g/dL (3.2-5.0); Alkaline Phosphatase 89 U/L (45-117); Anion Gap 6 (5-15); BUN 20 mg/dL (7-18); BUN/Creat Ratio 21.7 RATIO (10-20); CRP < 2.90 mg/L (0.0-3.0); Calcium,Total 9.6 mg/dL (8.5-10.1); Chloride 108 mmol/L (98-107); Creatinine, Serum 0.92 mg/dL (0.55-1.02); EST Glomerular Filtration Rate 63 mL/min (>60); Est Glom Filt Rate - Afr Amer 77 mL/min (>60); Globulin 3.7 g/dL (2.2-4.2); Glucose 131 mg/dL (74-106); Potassium 3.9 mmol/L (3.5-5.1); Protein, Total 7.4 g/dL (6.4-8.2); Sodium Level 139 mmol/L (136-145)
[2024-04-27 16:07] LABS: Vitamin D,25 Hydroxy 56.2 ng/mL
[2024-05-02 04:07] LABS: Beef <0.10 kU/L (Class 0); Chocolate <0.10 kU/L (Class 0); Codfish 0.12 kU/L (Class 0/I); Corn <0.10 kU/L (Class 0); Egg, Whole <0.10 kU/L (Class 0); Milk (Cow) <0.10 kU/L (Class 0); Mussels <0.10 kU/L (Class 0); Peanut 0.33 kU/L (Class I); Pork <0.10 kU/L (Class 0); Salmon 0.28 kU/L (Class 0/I); Shrimp <0.10 kU/L (Class 0); Soybean <0.10 kU/L (Class 0); Tuna <0.10 kU/L (Class 0); Wheat <0.10 kU/L (Class 0)
== END | disposition home or self-care (01) ==
LOC: BFHLAB 11:13
PROVIDERS: Internal Medicine Gastroenterology; PCP Family Medicine; Visit Provider Family Medicine
DX: I10 Essential (primary) hypertension (principal); D69.3 Immune thrombocytopenic purpura; E55.9 Vitamin D deficiency, unspecified; T78.40XA Allergy, unspecified, initial encounter; X58.XXXA Exposure to other specified factors, initial encounter
CPT/HCPCS: 36415; 80053; 82306; 83735; 85025; 85652; 86003; 86005; 86140

== ENCOUNTER → 2024-05-08 | Outpatient (CLI) | payer MEDICARE, SELFPAY ==
[2024-05-11 00:07] LABS: Pancreatic Elastase, Fecal 285 (>200)
[2024-05-11 06:08] LABS: Calprotectin, Stool 26 ug/g (0-120)
== END | disposition home or self-care (01) ==
LOC: MTRAD 13:55
PROVIDERS: PCP Family Medicine; Referring Provider Internal Medicine Gastroenterology; Visit Provider Internal Medicine Gastroenterology
DX: K86.81 Exocrine pancreatic insufficiency (principal)
CPT/HCPCS: 82653; 83993

== ENCOUNTER 2024-06-15 10:00 | Outpatient (RCR) | payer MEDICARE, SELFPAY ==
--- NOTE | 2024-05-29 11:30 | HP.PTEVAL_ITS ---
Patient's Visit Information Visit Information Visit Information: CAMPBELL SEPULVEDA is a 74 year old F referred to Physical Therapy by Dr. Gulshan Funes DO with a diagnosis of INTERVERTEBRAL DISC DEGENERATION LUMBAR. Date of Evaluation: 05/29/24 Physical Therapist: Brent Mayfield PT, Cert MDT, OCS Visit Plan Frequency: 2x /Week Duration: 4 Weeks Plan: PT INTERVENTIONS DLS ,POSTURAL EX'S ,ACTIVITY MODIFICATION AND POSTURE/BODY MECHANICS Subjective Subjective: This 74 y/o female presents to physical therapy for back pain for any years. Patient occasionally has radicular symptoms left leg. Patient seen DR kim PT . No medication and no imaging. But has h/o scoliosis from x- rays. Patient pain located lateral trunk and mid back between shoulder blades . Aggravating factors standing 15 mins ,sitting . Alleviating factors moving and walking.Patient has heel lift left leg. Described as muscle tightness spasms right side. Coughing//sneezing-.Bowel/bladder -. Pain can affects sleeping. Denies paresthesia/tingling-. Patient has seen chiropractor whiched. No pain management. Patient condition affects QOL and function. Patient goals to decrea se pain. SOCIAL: VOCATION: RETIRED Pain Bilateral Back: Pain Intensity (Out of 10): 3 Pain Intensity Range: 10 Comment: 04/24 BETTWEN SHOULDER BLADES Objective Objective: POSTURE: slight scoliosis ,slight leg length discrepancy NEURO: denies paresthesia/tingling ,reflexes L3-4,L4-5 ,L5-S1 1/3 GAIT: reciprocal pattern FLEXABILITY: hamstrings WNL MMT: quads/hams/hip 4/5 ,ankle 5/5 LUMBAR ROM : flexion WFL ,extension WFL ,slide glides WFL Special Tests L/S Slump test left side: Negative L/S Slump test right side: Negative L/S Left Straight Leg Raise: Negative L/S Right Straight Leg Raise: Negative Lumbar Standing: Flexion - Mechanical Response: No effect Lumbar Standing: Flexion - Symptoms During Testing: No effect Lumbar Standing: Flexion - Symptoms After Testing: No effect Lumbar Standing: Extension - Mechanical Response: No effect Lumbar Standing: Extension - Symptoms During Testing: Increases Lumbar Standing: Extension - Symptoms After Testing: No worse Lumbar Standing: Right Side Glides - Mechanical Response: No effect Lumbar Standing: Right Side [place] - Symptoms During Testing: Increases Lumbar Standing: Right Side [place] - Symptoms After Testing: No worse Lumbar Standing: Left Side [place] - Mechanical Response: No effect Lumbar Standing: Left Side [place] - Symptoms During Testing: No effect Lumbar Standing: Left Side [place] - Symptoms After Testing: No effect Balance/Special Test Scores Oswestry Low Back Score: 23 Goals Goal 1:: Patient to be I with HEP for lumbar Goal Time Frame: 4-6 Weeks Goal 2:: Patient to decrease pain by 50% to improve function Goal Time Frame: 4-6 Weeks Goal 3:: Patient to improve back oswestry score by 5 points to improve QOL and function Goal Time Frame: 4-6 Weeks Goal 4:: Patient to improve lumbar ROM for function of recovery for chores at home Rehabilitation Potential Physical Therapy Diagnosis: Patient has lumbar pain with poor muscular endurance of core with pain with positioning standing thus benefit from skilled PT Rehabilitation Potential: Good Anticipated Interventions Patient/Client Instruction: Educate patient on: Condition and Plan of Care For the Purpose of:: To decrease pain, To increase ROM, To improve muscle performance and motor function, To improve ability to perform ADL's, To increase tolerance to activity/condition/position, To improve ability of physical actions for home/community/work/leisure, To improve health of tissue, To decrease soft tissue restriction, To increase flexibility/ROM, To reduce risk of recurrence, To prevent re-injury and To improve tolerance to ADL's Therapeutic Exercise to Include: Strength training, Postural training and Dynamic Lumbar Stabilization For the Purpose of:: To decrease pain, To improve muscle performance and motor function, To increase tolerance to activity/condition/position, To improve ability of physical actions for home/community/work/leisure, To improve health of tissue, To increase flexibility/ROM, To improve endurance, To prevent re- injury and To improve tolerance to ADL's Text: Thank you for the opportunity to evaluate your patient. For Medicare and Medicare HMO plans, please review the plan of care and approve it. It will need to be FAXED BACK to us at [phone] for Medicare purposes. For Medicare only, by signing this I certify the plan of care. Please let me know if there are questions or concerns regarding this plan of care. Physician Signature: Date:
--- NOTE | 2024-11-20 17:09 | HP.PTDCNRP_ITS ---
Patient Information Patient Information: CAMPBELL SEPULVEDA was seen in my office for initial evaluation on 05/29/24. The following Plan of Care was established for this patient: POC Established Initial Frequency: 2x /Week Initial Duration: 4 Weeks Anticipated Interventions Patient/Client Instruction: Educate patient on: Condition and Plan of Care For the Purpose of:: To decrease pain, To increase ROM, To improve muscle performance and motor function, To improve ability to perform ADL's, To increase tolerance to activity/condition/position, To improve ability of physical actions for home/community/work/leisure, To improve health of tissue, To decrease soft tissue restriction, To increase flexibility/ROM, To reduce risk of recurrence, To prevent re-injury and To improve tolerance to ADL's Therapeutic Exercise to Include: Strength training, Postural training and Dynamic Lumbar Stabilization For the Purpose of:: To decrease pain, To improve muscle performance and motor function, To increase tolerance to activity/condition/position, To improve ability of physical actions for home/community/work/leisure, To improve health of tissue, To increase flexibility/ROM, To improve endurance, To prevent re- injury and To improve tolerance to ADL's Last Seen Last Seen: This patient was last seen in our office . Pertinent comments regarding their Physical therapy will appear below: At this point I will be discontinuing this patient from physical therapy. I would be happy to see this patient again in the future if found appropriate by the physician. Thank you! Brent Mayfield, PT, Cert MDT, OCS Balance/Gait/Functional tests Balance/Special Test Scores Oswestry Low Back Score: 23
== END 2024-06-15 19:00 | disposition home or self-care (01) ==
LOC: PT 10:00
PROVIDERS: PCP Family Medicine; Referring Provider Family Medicine; Visit Provider Family Medicine
DX: M51.369 Other intervertebral disc degeneration, lumbar region without mention of lumbar back pain or lower extremity pain (principal)
CPT/HCPCS: 97110; 97162

== ENCOUNTER → 2024-06-26 | Outpatient (CLI) | payer MEDICARE, SELFPAY ==
--- NOTE | 2024-06-26 15:30 | RAD_ITS ---
PROCEDURE: CHEST PA AND LATERAL 06/26/2024 REASON FOR EXAM: COUGH TECHNIQUE: Frontal and lateral views of the chest. COMPARISON: None. FINDINGS: The lungs are emphysematous. Bilateral blunting of the costophrenic angles, probably adhesions. Unremarkable median sternotomy wires. Diffuse spondylosis. Unremarkable cardiomediastinal silhouette. Mild atheromatous plaques of the aorta. Mild degenerative joint disease. RAD/Chest PA and Lateral IMPRESSION: No radiographic evidence of an acute abnormality. Reading [facility] [id number]
[2024-06-26 18:31] LABS: ALB/GLOB Ratio 1.3 RATIO (0.9-2.4); AST(SGOT) 20 U/L (<=31); Alanine Aminotransfer ALT/SGPT 9 U/L (<=34); Albumin, Serum 4.1 g/dL (3.4-4.8); Alkaline Phosphatase 86 U/L (35-104); Anion Gap 12 (5-15); BUN 16 mg/dL (4-19); BUN/Creat Ratio 19.2 RATIO (10-20); Calcium,Total 9.4 mg/dL (7.6-11.0); Carbon Dioxide 21.2 mmol/L (21.0-32.0); Chloride 106 mmol/L (98-108); Creatinine, Serum 0.85 mg/dL (0.70-1.20); EST Glomerular Filtration Rate 71 (>60); Globulin 3.2 g/dL (2.2-4.2); Glucose 152 mg/dL (70-99); Potassium 3.8 mmol/L (3.3-5.1); Protein, Total 7.3 g/dL (5.9-8.4); Sodium Level 140 mmol/L (133-145); Total Bilirubin 0.38 mg/dL (0.00-1.30)
[2024-06-26 19:12] LABS: Absolute Lymphocyte Count 1.66 X10^3/uL (0.83-4.51); Absolute Neutrophil Count 5.2 X10^3/uL (2.0-7.7); Basophil# 0.06 X10^3/uL; Basophil% 0.8 % (0-1); Eosinophil# 0.35 X10^3/uL; Eosinophils% 4.5 % (0-5); Hematocrit 47.8 % (37-47); Hemoglobin 16.2 g/dL (12.0-15.0); Lymphocyte # 1.66 X10^3/ul (0.83-4.51); Lymphocyte % 21.4 % (19-41); Mean Corp Hgb Conc 33.9 g/dL (32-36); Mean Corpuscular Hgb 29.2 pg (27.0-32.0); Mean Corpuscular Volume 86.1 fL (81-99); Mean Platelet Vol. 15.5 fl (6.2-12.0); Monocyte# 0.45 X10^3/uL; Monocyte% 5.8 % (0-10); NRBC Flagged by Analyzer 0 % (0-5); Neutrophil # 5.16 X10^3/uL (2.7-7.7); Neutrophil % 66.5 % (47-70); POSITIVE COUNT YES; Platelet Count 91 K/mm3 (150-450); RBC Distribution Width CV 12.8 % (11.6-14.6); Red Blood Count 5.55 M/mm3 (4.2-5.4); White Blood Count 7.8 K/mm3 (4.4-11.0)
[2024-06-26 19:59] LABS: Differential Indicated SCAN CRITERIA MET
[2024-06-26 20:12] LABS: Erythrocyte Sedimentation Rate 20 mm/hr (0-30)
[2024-06-26 23:01] LABS: Differential Comment SCANNED
== END | disposition home or self-care (01) ==
PROVIDERS: PCP Family Medicine; Referring Provider Family Medicine; Visit Provider Family Medicine
DX: R05.9 Cough, unspecified (principal); R61 Generalized hyperhidrosis
CPT/HCPCS: 36415; 71046; 80053; 85025; 85652

== ENCOUNTER → 2024-07-20 | Outpatient (CLI) | payer MEDICARE, SELFPAY ==
[2024-07-24 07:07] LABS: Pancreatic Elastase, Fecal 373 (>200)
== END | disposition home or self-care (01) ==
LOC: LABSPEC 11:49
PROVIDERS: PCP Family Medicine; Referring Provider Internal Medicine Gastroenterology; Visit Provider Internal Medicine Gastroenterology
DX: K86.81 Exocrine pancreatic insufficiency (principal)
CPT/HCPCS: 82653

== ENCOUNTER → 2024-09-13 | Outpatient (CLI) | payer MEDICARE, SELFPAY ==
[2024-09-13 15:51] LABS: Hematocrit 45.1 % (37-47); Hemoglobin 14.8 g/dL (12.0-15.0); Immature Granulocytes Count 0.020 X10^3/uL (0.0-0.0); Mean Corp Hgb Conc 32.8 g/dL (32-36); Mean Corpuscular Volume 88.1 fL (81-99); Mean Platelet Vol. 16.3 fl (6.2-12.0); NRBC Flagged by Analyzer 0 % (0-5); POSITIVE COUNT YES; Platelet Count 63 K/mm3 (150-450); RBC Distribution Width CV 13.1 % (11.6-14.6); RBC Distribution Width SD 42.2 fl (35.1-43.9); Red Blood Count 5.12 M/mm3 (4.2-5.4); White Blood Count 5.6 K/mm3 (4.4-11.0)
[2024-09-13 16:16] LABS: Creatinine, Urine (random) 87.40 mg/dL (28.00-217.00); Microalbumin,Random Urine < 12.0 mg/L (NO RANGE EST.)
== END | disposition home or self-care (01) ==
PROVIDERS: PCP Family Medicine; Referring Provider Family Medicine; Visit Provider Family Medicine
DX: D69.3 Immune thrombocytopenic purpura (principal); E11.9 Type 2 diabetes mellitus without complications
CPT/HCPCS: 36415; 82043; 82570; 85025

== ENCOUNTER 2024-12-07 12:56 | Emergency (ER) | payer MEDICARE, SELFPAY ==
[2024-12-07] VITALS (9 sets, daily range): BP systolic 126–180; BP diastolic 68–82; PULSE 58–70; RESP 14–19; TEMP 35.7; O2SAT 94–98; BMI 26.6
--- NOTE | 2024-12-07 13:42 | EKG12_ITS ---
Test Reason : CP Blood Pressure : */* mmHG Vent. Rate : 64 BPM Atrial Rate : 64 BPM P-R Int : 170 ms QRS Dur : 88 ms QT Int : 426 ms P-R-T Axes : 62 -13 24 degrees QTcB Int : 439 ms Normal sinus rhythm Normal ECG Confirmed by MORGAN NUGENT, CARON ([id number]), editor & co founder SHEKHAR CARBAJAL ([id number]) on 12/08/2024 10:59:12 AM Referred By: Confirmed By: CARON MORA MD
--- NOTE | 2024-12-07 13:42 | ED.VIS.CHEST ---
HPI <Dr. Rusty Wright DO - Last Filed: 12/07/24 16:52> History of Present Illness Chief Complaint: Chest Pain Informant: patient Onset/Context/Timing Onset: Hours (2) Activity at onset: sudden Timing: Intermittent and Lasts (Approximately 5 seconds) Quality: Positive for Tightness and - (Cramping, charley horse) Location: Left Chest Worsened By: Nothing Relieved By: Nothing Associated Symptoms: Positive for Dyspnea and Cough; Negative for Nausea, Vomiting, Diaphoresis, Fever, Lightheadedness, Acid Reflux or Palpitations Narrative Narrative: Patient presents with intermittent chest pain for the past 2 hours. Patient states it comes on and lasts for approximately 5 seconds. Patient states it feels like a tightness, cramping, and charley horse in her left chest. Patient states it is under her left breast. Patient states nothing makes it better and nothing makes it worse. Patient admits to some shortness of breath and cough. Patient states she also feels fatigued. Patient denies any nausea or vomiting. Patient denies any diaphoresis. CVD Risk Factors: Positive for Hypertension, Diabetes and Hypercholesterolemia; Negative for Family History 1' </=55 or Smoking PE Risk Factors: Positive for Prior DVT or PE and Cancer; Negative for Recent Travel/Surgery or Recent Immobilization [facility] <Dr. 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 Immune thrombocytopenic purpura Atherosclerosis of coronary artery bypass graft of [place] heart Pericardial effusion Pleural effusion Palpitations DM type 2 (diabetes mellitus, type 2) CAD (coronary artery disease), [place] coronary artery Home Medications ?Medication ?Instructions ?Recorded ?Last Taken ?Type albuterol sulfate 90 mcg/actuation 1 puff inhalation UD PRN Sob &/Or 06/09/16 Unknown History aerosol inhaler Wheezing cetirizine 10 mg capsule 10 mg PO DAILY PRN PRN Allergies 06/09/16 Unknown History epinephrine 0.15 mg/0.15 mL 1 syr SQ UD ALLERGIC REACTION 06/09/16 Unknown History auto-injector (for 33 to 66 lb patients) Iodine 2% Mild Tincture 4 drp PO DAILY SUPPLEMENT 01/19/17 03/30/18 09:00 History cholecalciferol (vitamin D3) 50 4,000 unit PO DAILY 07/31/19 Unknown History mcg (2,000 unit) capsule lancets (Accu-Chek Fastclix Lancet #50 ea 03/29/20 Unknown Rx Drum) zinc 50 mg tablet 50 mg PO DAILY 07/04/20 Unknown History pen needle, diabetic 32 gauge x #150 ea 02/09/22 Unknown Rx (BD Tessy 2nd Gen Pen Needle) Vitamin A 1 cap PO DAILY 09/23/23 Unknown History ascorbic acid (vitamin C) 250 mg 250 mg PO BID PRN 09/23/23 Unknown History tablet magnesium gluconate 27.5 mg 27.5 mg PO BID 09/23/23 Unknown History magnesium (500 mg) tablet vitamin B complex 1 cap PO DAILY SUPPLEMENT 09/23/23 Unknown History insulin lispro 100 unit/mL 8 - 20 unit (0.08 - 0.2 mL) subcut 04/06/24 Unknown Rx subcutaneous pen TID #18 mL amlodipine 5 mg-valsartan 160 mg See Rx Instructions .Route 07/19/24 Unknown Rx tablet .COMPLEX #90 tabs Lantus Solostar U-100 Insulin 100 20 unit (0.2 mL) subcut DAILY #18 08/10/24 Unknown Rx unit/mL (3 mL) subcutaneous pen mL (insulin glargine) blood-glucose sensor (Dexcom G7 #3 ea 08/10/24 Unknown Rx Sensor device) [id number] 2 cap PO QAC #300 caps 10/09/24 Unknown Rx 40,000-126,000-168,000 unit capsule, delay rel (Zenpep) blood sugar diagnostic (Accu-Chek #400 ea 11/06/24 Unknown Rx Guide test strips) Allergy/AdvReac Type Severity Reaction Status Date / Time immune globulin,gamma (IgG) Allergy Severe Brain Verified 12/07/24 12:57 human swelling mold Allergy Intermediate asthma Verified 12/07/24 12:57 tree and shrub pollen Allergy Intermediate Other Verified 12/07/24 12:57 sesame seed Allergy Mild does not Verified 12/07/24 12:57 know bee venom protein (honey bee) Allergy Anaphylaxis Verified 12/07/24 12:57 ciprofloxacin (From Cipro) Allergy Anaphylaxis Verified 12/07/24 12:57 ciprofloxacin HCl (From Allergy Anaphylaxis Verified 12/07/24 12:57 Cipro) insect venom Allergy Anaphylaxis Verified 12/07/24 12:57 pine nut Allergy Anaphylaxis Verified 12/07/24 12:57 trazodone Allergy Shortness Verified 12/07/24 12:57 of breath azithromycin AdvReac Severe Low HR Verified 12/07/24 12:57 peanut AdvReac Severe Asthma Verified 12/07/24 12:57 diphenhydramine (From AdvReac Intermediate lethargy Verified 12/07/24 12:57 Benadryl) egg AdvReac Unknown Unknown Verified 12/07/24 12:57 Fish Containing Products AdvReac Unknown Unknown Verified 12/07/24 12:57 corn AdvReac Nausea/Vom/ Verified 12/07/24 12:57 Diarrhea dandelion (Taraxacum AdvReac ASTHMA/SEASONAL Verified 12/07/24 12:57 officinale) ALLERGIES latex AdvReac RASH D/T Verified 12/07/24 12:57 POWDER IN GLOVES metoprolol AdvReac Nausea/Vom/ Verified 12/07/24 12:57 Diarrhea omeprazole AdvReac Unknown Verified 12/07/24 12:57 wheat AdvReac NAUSEA,VOMI Verified 12/07/24 12:57 TING,DIARRH EA Family History Father Diabetes CAD (coronary artery disease) Hx CABG Mother Diabetes Heart disease Hx CABG Brother Diabetes Daughter Diabetes Asthma Surgical History H/O: hysterectomy History of throat surgery History of bladder suspension procedure Aortocoronary bypass status (~09/10/04) Social History Smoking Status: Never smoker alcohol intake: never substance use type: does not use caffeine: No seatbelt use: always ROS <Dr. Rusty Wright DO - Last Filed: 12/07/24 16:52> ROS ED Constitutional Constitutional ED: Denies chills or fever(s) Eyes Eyes: Denies blurry vision or change in vision ENT ENT ED: Reports rhinorrhea; Denies sore throat Cardiovascular Cardiovascular: Reports chest pain; Denies palpitations Respiratory/Chest Respiratory/Chest: Reports cough and dyspnea Gastrointestinal Gastrointestinal: Denies nausea or vomiting Genitourinary Genitourinary ED: Denies dysuria or hematuria Musculoskeletal Musculoskeletal: Reports back pain; Denies neck pain Integumentary Denies abscess or rash Neurologic Neurologic: Reports headache(s); Denies weakness Allergic/Immunologic Allergic/Immunologic ED: Denies mouth swelling or urticaria EXAM <Dr. Rusty Wright DO - Last Filed: 12/07/24 16:52> Physical Exam Const Vital Signs: 12/07/24 12:57 12/07/24 13:48 12/07/24 13:55 Temperature 96.2 F L Temperature Source Temporal Pulse Rate 70 65 Respiratory Rate 14 16 Blood Pressure 180/82 H 162/77 H Blood Pressure Mean 114 105 Pulse Ox 98 95 Oxygen Delivery Method Room Air Room Air Room Air 12/07/24 14:00 12/07/24 15:00 12/07/24 16:00 Temperature Temperature Source Pulse Rate 60 62 58 L Respiratory Rate 19 H 19 H 16 Blood Pressure 162/77 H 141/69 H 139/69 H Blood Pressure Mean 105 93 92 Pulse Ox 94 95 95 Oxygen Delivery Method Room Air Room Air Room Air 12/07/24 17:00 12/07/24 17:16 12/07/24 17:23 Temperature Temperature Source Pulse Rate 61 65 70 Respiratory Rate 16 Blood Pressure 137/68 H 137/68 H 126/73 H Blood Pressure Mean 91 90 Pulse Ox 98 Oxygen Delivery Method Room Air Positive well nourished and well developed Constitutional Narrative: BMI is 26.6. General Appearance ED: well developed and NAD HEENT Reports moist mucous membranes normocephalic and atraumatic Neck supple and no JVD Chest Wall palpation of chest normal Resp normal respiratory effort and clear to auscultation bilaterally Cardio regular rate and regular rhythm GI soft to palpation, non-tender and non-distended Extremity normal to inspection General Extremety ED: Negative for edema or tenderness General Extremity: Negative for edema Neuro oriented x3, CN's II-XII intact bilaterally and no sensory deficits noted Sensorium / Orientation: awake and alert Motor Exam: strength 5/5 throughout Psych mental status grossly normal <Dr. Lurdes Weldon MD - Last Filed: 12/07/24 17:48> Physical Exam Const Vital Signs: 12/07/24 12:57 12/07/24 13:48 12/07/24 13:55 Temperature 96.2 F L Temperature Source Temporal Pulse Rate 70 65 Respiratory Rate 14 16 Blood Pressure 180/82 H 162/77 H Blood Pressure Mean 114 105 Pulse Ox 98 95 Oxygen Delivery Method Room Air Room Air Room Air 12/07/24 14:00 12/07/24 15:00 12/07/24 16:00 Temperature Temperature Source Pulse Rate 60 62 58 L Respiratory Rate 19 H 19 H 16 Blood Pressure 162/77 H 141/69 H 139/69 H Blood Pressure Mean 105 93 92 Pulse Ox 94 95 95 Oxygen Delivery Method Room Air Room Air Room Air 12/07/24 17:00 12/07/24 17:16 12/07/24 17:23 Temperature Temperature Source Pulse Rate 61 65 70 Respiratory Rate 16 Blood Pressure 137/68 H 137/68 H 126/73 H Blood Pressure Mean 91 90 Pulse Ox 98 Oxygen Delivery Method Room Air <Dr. Rusty Wright, - Last Filed: 12/07/24 16:52> Heart Score History: Slightly/Non-Suspicious ECG: Normal Age: >/= 65 years Risk Factors: >/= 3 Risk Factors or History of CAD Troponin: </= Normal Limit Score: 4 <Dr. Lurdes Weldon MD - Last Filed: 12/07/24 17:48> Heart Score Score: 4 MDM <Dr. Rusty Wright, - Last Filed: 12/07/24 16:52> MDM MDM Narrative Medical decision making narrative: Differential diagnosis includes cardiac dysrhythmia, cardiac ischemia, pneumonia, bronchitis, gastroesophageal reflux disease, pulmonary embolism, and anxiety. EKG will be obtained to assess for cardiac dysrhythmia and cardiac ischemia. Chest x-ray will be obtained to assess for pneumonia or bronchitis. CBC will be obtained to assess for leukocytosis and anemia. Basic metabolic profile will be obtained to assess for electrolyte abnormality and renal function. High-sensitivity troponin will be obtained to assess for cardiac ischemia. D-dimer will be obtained to assess for pulmonary embolism. 2-hour repeat high-sensitivity troponin will be obtained to assess for ongoing cardiac ischemia. Lipase will be obtained to assess for pancreatitis. History & Record Review Additional record(s) reviewed:: Prior outpatient record, Prior ED visit and Prior labs Lab Data Attestation: I reviewed the patient's lab results. Lab results narrative: CBC was reviewed and was within normal limits. Basic metabolic profile was reviewed. Glucose was mildly elevated at 183. The remainder is essentially within normal limits. Initial high-sensitivity troponin was reviewed and was normal at 8. Labs: Laboratory Results - last 24 hr 12/07/24 12/07/24 13:17 15:35 WBC 6.7 RBC 5.29 Hgb 15.5 H Hct 46.1 MCV 87.1 MCH 29.3 MCHC 33.6 RDW Std Deviation 42.5 RDW Coeff of Jt 13.4 Plt Count 70 L MPV 15.0 H Immature Gran % (Auto) 0.700 Neut % (Auto) 63.1 Lymph % (Auto) 22.6 [place] % (Auto) 7.5 Eos % (Auto) 5.4 H Baso % (Auto) 0.7 Absolute Neuts (auto) 4.2 Absolute Lymphs (auto) 1.51 Nucleated RBC % 0 D-Dimer Quant (PE/DVT) 0.66 H* Sodium 139 Potassium 3.7 Chloride 103 Carbon Dioxide 23.8 Anion Gap 13 BUN 25 H Creatinine 1.03 Estim Creat Clear Calc 48.80 L Est GFR (MDRD) Non-Af 57 L BUN/Creatinine Ratio 24.4 H Glucose 183 H Calcium 9.2 Troponin T High Sens 8 Troponin T Hi Sens 2 Hr 8 Lipase 28 Radiography Chest X-Ray - ED: 1 View, Read by ED Physician, Read by Radiologist and No Acute Disease Diagnostic Testing: Clinical Impression(s) from Imaging Studies Chest X-Ray 12/07/24 13:50 IMPRESSION: No Acute Findings. Reading Location: [facility] Portable 1 view chest x-ray was obtained. On my independent interpretation, lung le are clear. There is normal cardiac silhouette. Bony thorax is normal. There is no acute process noted. Radiologist also interpreted the x-ray and agrees. EKG Initial EKG: Attestation: I personally reviewed and interpreted this EKG as follows: Interpretation: Sinus Rhythm (64) and No Acute Injury Pattern Comments: EKG was obtained. On my independent interpretation, it showed a normal sinus rhythm with a rate of 64. ME interval, QRS interval, and QTc intervals were all normal. Rock was normal. There are no acute ST or T wave changes. Prior EKG tracings: available for review Prior: Unchanged (02/03/2022) Treatment and Re-Evaluation :: Patient was given aspirin. Patient was given sublingual nitroglycerin. On reevaluation, patient was advised of her findings. Patient has a HEART score of 4. Patient states that she has had pancreas problems in the past and is concerned that this could be from her pancreas. Because of this, lipase was added on. I did review her previous records which showed that the patient last stress test was 03/19/2020. This was normal at that time. Care of the patient will be turned over the oncoming physician pending lipase results. Patient will likely be discharged. <Dr. Lurdes Weldon MD - Last Filed: 12/07/24 17:48> [facility] Lab Data Labs: Laboratory Results - last 24 hr 12/07/24 12/07/24 13:17 15:35 WBC 6.7 RBC 5.29 Hgb 15.5 H Hct 46.1 MCV 87.1 MCH 29.3 MCHC 33.6 RDW Std Deviation 42.5 RDW Coeff of Jt 13.4 Plt Count 70 L MPV 15.0 H Immature Gran % (Auto) 0.700 Neut % (Auto) 63.1 Lymph % (Auto) 22.6 [place] % (Auto) 7.5 Eos % (Auto) 5.4 H Baso % (Auto) 0.7 Absolute Neuts (auto) 4.2 Absolute Lymphs (auto) 1.51 Nucleated RBC % 0 D-Dimer Quant (PE/DVT) 0.66 H* Sodium 139 Potassium 3.7 Chloride 103 Carbon Dioxide 23.8 Anion Gap 13 BUN 25 H Creatinine 1.03 Estim Creat Clear Calc 48.80 L Est GFR (MDRD) Non-Af 57 L BUN/Creatinine Ratio 24.4 H Glucose 183 H Calcium 9.2 Troponin T High Sens 8 Troponin T Hi Sens 2 Hr 8 Lipase 28 Radiography Diagnostic Testing: Clinical Impression(s) from Imaging Studies Chest X-Ray 12/07/24 13:50 IMPRESSION: No Acute Findings. Reading Location: [id number] Treatment and Re-Evaluation :: Patient was given aspirin. Patient was given sublingual nitroglycerin. On reevaluation, patient was advised of her findings. Patient has a HEART score of 4. Patient states that she has had pancreas problems in the past and is concerned that this could be from her pancreas. Because of this, lipase was added on. I did review her previous records which showed that the patient last stress test was 03/19/2020. This was normal at that time. Care of the patient will be turned over the oncoming physician pending lipase results. Patient will likely be discharged. Patient signed out to me by Dr. Wright pending lipase results. Lipase within normal limits. Patient reevaluated and updated on the negative lipase. States that the prior physician discussed her additional labs that were done prior to be taking over care. All questions answered. 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 Patient discharged from the Emergency Department. I do not feel that the patient's evaluation reveals any acute reason for admission at this time. I instructed them to either follow-up with their primary care physician or promptly return to the Emergency Department for reevaluation should symptoms worsen or new symptoms develop. I explained what symptoms would indicate the need to return to the emergency department. Shared decision making was used. The patient voiced understanding of the treatment plan and is agreeable with it. Discharge Plan Triage Chief Complaint: Chest Pain ED Provider: Rusty Wright Dx/Rx/DC Orders Clinical Impression: Atypical chest pain, DM type 2 (diabetes mellitus, type 2), Essential hypertension Prescriptions: No Action ascorbic acid (vitamin C) 250 mg tablet 250 mg PO BID PRN zinc 50 mg tablet 50 mg PO DAILY magnesium gluconate 27.5 mg magne- sium (500 mg) tablet 27.5 mg PO BID Vitamin A capsule 1 cap PO DAILY (DME) Dexcom G7 Sensor Device See Rx Instructions .Route Qty: 3 6RF Rx Instructions: As directed insulin glargine [Lantus Solostar U-100 Insulin] 100 unit/mL (3 mL) insulin pen 20 unit SC DAILY Qty: 18 1RF albuterol sulfate 1 PUFF inhaler 1 puff INHALATION UD PRN (Reason: Sob &/Or Wheezing) epinephrine 0.15 MG syringe 1 syr SQ UD cetirizine 10 MG capsule 10 mg PO DAILY PRN PRN (Reason: Allergies) Iodine 2% Mild Tincture Drop Bottle 4 drp PO DAILY cholecalciferol (vitamin D3) 2,000 UNIT capsule 4,000 unit PO DAILY vitamin B complex Capsule 1 cap PO DAILY (DME) lancets [Accu-Chek Fastclix Lancet Drum] Misc See Rx Instructions .ROUTE .MEDSUPPLY Qty: 50 3RF Rx Instructions: 4 times daily (DME) pen needle, diabetic [BD Tessy 2nd Gen Pen Needle] 32 gauge x 5/32 needle See Rx Instructions .ROUTE .MEDSUPPLY Qty: 150 6RF Rx Instructions: 5 times daily insulin lispro 100 unit/mL insulin pen 8 - 20 unit SC TID MDD 60 units Qty: 18 3RF amlodipine-valsartan 5-160 mg tablet See Rx Instructions .ROUTE .COMPLEX Qty: 90 3RF Dose Instruction: TAKE 1 TABLET BY MOUTH EVERY DAY FOR BLOOD PRESSURE Rx Instructions: TAKE 1 TABLET BY MOUTH EVERY DAY FOR BLOOD PRESSURE Zenpep 40,000-126,000- 168,000 unit capsule,delayed release(DR/EC) 2 cap PO QAC Qty: 300 6RF Rx Instructions: take 2 capsules with meals and 1 capsule with snacks, max 10 capsules per day (DME) Accu-Chek Guide test strips Strip See Rx Instructions .ROUTE .MEDSUPPLY Qty: 400 3RF Rx Instructions: 4 times daily Primary Care Provider: Gulshan Funes Referrals: Gulshan Funes DO [Primary Care Provider, Family Practice] Print Language: Welsh
--- NOTE | 2024-12-07 13:50 | RAD_ITS ---
PROCEDURE: CHEST 1 VIEW (PORTABLE) 12/07/2024 REASON FOR EXAM: CHEST PAIN TECHNIQUE: Frontal view of the chest. COMPARISON: 06/27/2024. FINDINGS: Prior sternotomy. The heart is enlarged. The lungs are clear. No acute osseous abnormalities. RAD/Chest 1 View (Portable) IMPRESSION: No Acute Findings. Reading Location: [id number]
[2024-12-07 14:00] LABS: Hematocrit 46.1 % (37-47); Hemoglobin 15.5 g/dL (12.0-15.0); Immature Granulocytes Count 0.050 X10^3/uL (0.0-0.0); Mean Corp Hgb Conc 33.6 g/dL (32-36); Mean Corpuscular Volume 87.1 fL (81-99); Mean Platelet Vol. 15.0 fl (6.2-12.0); NRBC Flagged by Analyzer 0 % (0-5); POSITIVE COUNT YES; Platelet Count 70 K/mm3 (150-450); RBC Distribution Width CV 13.4 % (11.6-14.6); RBC Distribution Width SD 42.5 fl (35.1-43.9); Red Blood Count 5.29 M/mm3 (4.2-5.4); White Blood Count 6.7 K/mm3 (4.4-11.0)
[2024-12-07 14:20] LABS: Anion Gap 13 (5-15); BUN 25 mg/dL (4-19); BUN/Creat Ratio 24.4 RATIO (10-20); Calcium,Total 9.2 mg/dL (7.6-11.0); Carbon Dioxide 23.8 mmol/L (21.0-32.0); Chloride 103 mmol/L (98-108); Estimated Creatinine Clearance 48.80 ml/min (50-250); Glucose 183 mg/dL (70-99); Potassium 3.7 mmol/L (3.3-5.1); Troponin T High Sensitivity 8 ng/L (<=14)
[2024-12-07 16:04] LABS: D-Dimer Quantitative (DVT/PE) 0.66 FEU/ug/m (0.27-0.49)
[2024-12-07 16:32] LABS: Troponin T High Sens 2 HR 8 ng/L (<=14)
[2024-12-07 17:09] LABS: Lipase 28 U/L (13-75)
[2024-12-07] MEDS: Nitroglycerin SL (ED/IMG/CATH) 0.4 MG TABLET SL (17:16)
== END 2024-12-07 17:54 | disposition home or self-care (01) ==
PROVIDERS: Emergency Provider Emergency Medicine; PCP Family Medicine; Visit Provider Emergency Medicine
DX: R07.89 Other chest pain (principal); E11.9 Type 2 diabetes mellitus without complications; Z79.4 Long term (current) use of insulin; I10 Essential (primary) hypertension; Z79.899 Other long term (current) drug therapy
CPT/HCPCS: 71045; 80048; 83690; 84484; 85025; 85379; 93005; 99284; A4216

== ENCOUNTER → 2024-12-19 | Outpatient (CLI) | payer MEDICARE, SELFPAY ==
[2024-12-19 17:52] LABS: Partial Thromboplast Time 26.8 Seconds (24.1-36.2); Prothrombin Time (Protime)PT. 12.5 SECONDS (11.7-14.9)
== END | disposition home or self-care (01) ==
LOC: MTLAB 14:10
PROVIDERS: Physician Assistant Medical; PCP Family Medicine; Referring Provider Family Medicine; Visit Provider Family Medicine
DX: D69.3 Immune thrombocytopenic purpura (principal); Z08 Encounter for follow-up examination after completed treatment for malignant neoplasm; Z85.42 Personal history of malignant neoplasm of other parts of uterus
CPT/HCPCS: 36415; 85610; 85730; 86304

== ENCOUNTER 2024-12-26 10:33 | Day surgery (SDC) | payer MEDICARE, SELFPAY ==
[2024-12-25 13:53] VITALS: BMI 26.1
--- NOTE | 2024-12-26 16:11 | CL.D_ITS ---
Patient Name: CAMPBELL SEPULVEDA Study Date: 12/26/2024 Performing: Chris Rondon MD Ht: 66 inches 167.64 cm : 1950 Wt: 162.2 lbs 73.48 kg Age: 74 Gender: female BSA: 1.83 PROCEDURE(S) PERFORMED [id number])LHC/COR/LV/CABG CLINICAL PROFILE AND INDICATIONS Indications: Worsening Angina Heart Failure: None Stress/Imaging Stress/Image Study Performed: No CAD Presentations: Unstable angina. CONCLUSIONS Coronary disease status post coronary bypass graft surgery. Patent grafts are noted. TAVAREZ to the LAD and diagonal and saphenous vein graft to the right coronary artery. RECOMMENDATIONS Medical therapy DESCRIPTION OF PROCEDURE The patient arrived to the procedure lab. The risks and benefits of the procedure as well as a full description of our services here and current unavailability of surgical backup were fully explained to the patient and/or their significant other prior to the catheterization. The Timeout was completed, verifying the correct patient and procedure. The patient's procedural site was prepped and draped in the usual fashion. Local anesthetic was given subcutaneously to right radial region with Lidocaine 2%. Using a modified Seldinger technique, arterial access was obtained via the right radial artery, a 6Fr sheath was inserted. Left internal mammary multiple views using a 5 Fr. IM catheter. Left Coronary Artery selective angiography was performed in multiple views using a 5 Fr. JL4 catheter. Right Coronary Artery selective angiography was then performed in multiple views using a 5 Fr. AR MOD catheter. Saphenous Vein graft to the RPDA selective angiography was performed in multiple views using a 5 Fr. AR MOD catheter. Left Ventriculography was performed in ROUSE projection using a 5 Fr. Pigtail catheter. LV to AO pullback pressures were then recorded.The arterial sheath was pulled and a TR Band was applied for hemostasis. 10 cc air CORONARY ANGIOGRAPHY DOMINANCE: Right Dominant LEFT HEART ASSESSMENT Left Ventricular Ejection Fraction: by LV Gram 55 % Normal LV wall motion Normal Left Ventricular systolic function LEFT MAIN: Angiographically normal LEFT ANTERIOR DESCENDING ARTERY: MID LAD: is occluded CIRCUMFLEX ARTERY: OM 1: Proximal - No significant disease noted OM 2: Proximal - 80 % Stenosis RIGHT CORONARY ARTERY: MID RCA: is occluded GRAFTS: TAVAREZ graft to the 1st Diagonal is patentAnd continues as a sequential graft to the LAD and is patent Saphenous Vein graft to the RPDA is patent COMPLICATIONS No Complications PROCEDURE MEDICATIONS Fentanyl 50 mcg IV Versed 1 mg IV Oxygen: 2 L/min via nasal cannula Heparin given IA 12/26/2024 11:42:52 Solu-medrol 125 mg IV 12/26/2024 11:38:27 SUMMARY OF HEMODYNAMIC DATA Time AIR REST ECG 11:09:47 AO 129/71 (96) SA 11:46:17 LV 147/5, 22 12:03:23 LV 145/6, 21 12:03:29 LV 153/7, 24 12:03:55 LVp 142/12, 23 12:04:00 AOp 151/61 (97) 12:04:05 Signed By Chris Rondon MD On 12/26/2024 16:18:32 Signed By Chris Rondon MD On 12/26/2024 16:11:18 Chris Rondon MD
== END 2024-12-26 13:40 | disposition home or self-care (01) ==
PROVIDERS: PCP Family Medicine; Referring Provider Internal Medicine Cardiovascular Disease; Visit Provider Internal Medicine Cardiovascular Disease
DX: I25.700 Atherosclerosis of coronary artery bypass graft(s), unspecified, with unstable angina pectoris (principal); E11.9 Type 2 diabetes mellitus without complications; Z95.1 Presence of aortocoronary bypass graft; I10 Essential (primary) hypertension; Z79.899 Other long term (current) drug therapy; E78.2 Mixed hyperlipidemia; K21.9 Gastro-esophageal reflux disease without esophagitis
CPT/HCPCS: 93459; 99152; 99153; C1894; Q9967; C1769

== ENCOUNTER → 2025-01-18 | Outpatient (CLI) | payer MEDICARE, SELFPAY ==
[2025-01-18 15:51] LABS: CRP < 3.00 mg/L (0.0-3.0)
== END | disposition home or self-care (01) ==
LOC: LAB 14:43
PROVIDERS: PCP Family Medicine; Referring Provider Internal Medicine Gastroenterology; Visit Provider Internal Medicine Gastroenterology
DX: K86.89 Other specified diseases of pancreas (principal)
CPT/HCPCS: 36415; 85652; 86140

== ENCOUNTER → 2025-01-29 | Outpatient (CLI) | payer MEDICARE, SELFPAY ==
[2025-02-01 04:22] LABS: Pancreatic Elastase, Fecal 133 (>200)
== END | disposition home or self-care (01) ==
LOC: LABSPEC 10:57
PROVIDERS: PCP Family Medicine; Referring Provider Internal Medicine Gastroenterology; Visit Provider Internal Medicine Gastroenterology
DX: K86.89 Other specified diseases of pancreas (principal)
CPT/HCPCS: 82653